=== PATIENT | female | born 1945 | race Caucasian/White ===

== ENCOUNTER 2016-12-15 00:22 | Inpatient (IN) | payer MEDICARE, OTHER ==
[2016-12-15] VITALS (7 sets, daily range): BP systolic 106–147; BP diastolic 43–70; PULSE 57–98; TEMP 97.9–98.3
[~2016-12-15] VITALS: Ht 152.4 cm; Wt 75.3 kg
[~2016-12-15 00:22] MED LIST: ALBUTEROL0.83 MG/ML IH; ALBUTEROL0.83 MG/ML INH; ALDACTONE 25MG25 M1 PO; APRESOLINE 25MG25 MG PO; APRESOLINE50 MG PO; ASPIRIN E.C. 8181 MG PO; AZO-CRANBERRY450 MG PO; BENEMID500 MG PO; CALCIUM 600MG+D1 TAB PO; CATAPRES 0.1MG0.1 MG PO; CATAPRES0.3 MG PO; CLARITIN 1010 MG/TAB PO; CLEOCIN HCL300 MG PO; CO Q-1050 MG PO; COLACE 100100 MG/CAP PO; COREG12.5 MG PO; COUMADIN 2MG2 MG/TAB PO; COUMADIN 5MG5 MG/TAB PO; COZAAR100 MG PO; CRANBERRY450 MG PO; DIAMOX 250MG250 MG PO; DILANTIN 100MG100 MG PO; DIOVAN 160MG160 MG PO; DULERA1 AR1 INH; EPIPEN 2-PAK1 MG/ML IM; FOLIC ACID800 MCG PO; HUMALOG100 U/ML SQ; INVANZ INJ1 G/VIAL IM; LANTUS100 U/ML SC; LANTUS100 U/ML SQ; LASIX 40MG TABL40 MG PO; LASIX 80MG TABL80 MG PO; LOVENOX 6060 MG/0.6 SQ; LOVENOX 8080 MG/0.8 SQ; LOVENOX120 MG/0.8 SC; MIRALAX PA17 GM/Dose PO; MUCINEX 60600 MG/TA1 PO; NITROSTAT0.4 MG/TAB SL; NORCO 325 MG-51 TAB PO; NORVASC 10MG10 MG PO; NOVOLOG 100U100 U/M1; NOVOLOG 100U100 U/M1 SQ; PHENYTOIN PO; PHOSLO667 MG PO; PREDNISONE20 MG PO; PRIL40 PO; PRILOSEC 20MG20 MG PO; PROAIR HFA0.09 MG/AC IH; PROTONIX 40MG T40 MG PO; PROVENTIL0.09 MG/A1 IH; SLOW FE45 MG PO; SODIUM BICARBO650 MG PO; TENEX PO; THEO-24 20200 MG/CAP PO; THEO-DUR 2200 MG/TAB PO; THEROMEGA1000 MG PO; TYLENOL 500MG500 MG PO; ULTRAM 50MG TAB50 MG PO; VITAL-D1 TAB PO; VITAMIN B-1000 MCG/T PO; VITAMIN D32000 I1 PO; ZAROXOLYN 2.52.5 MG PO; ZAROXOLYN5 MG PO; ZOFRAN 4MG T4 MG/TAB PO; tylenol
[2016-12-15 00:45] LABS: BASO % 0.4 % (0.0-2.0); EOS # 0.4 (0.0-0.7); EOS % 5.5 % (0-4.0); GRAN % 55.8 % (42.2-75.2); HEMATOCRIT 33.1 % (37.0-47.0); HEMOGLOBIN 10.8 g/dl (12.5-16.0); LYMPH % 27.4 % (20.0-51.0); MEAN CELL VOLUME 104 fl (80.0-100.0); MEAN CORPUSCULAR HEMOGLOBIN 34 pg (27.0-31.0); MEAN CORPUSCULAR HGB CONC 33 g/dl (33.0-37.0); MEAN PLATELET VOLUME 10.7 fl (7.4-10.4); MONO # 0.7 (0.1-0.6); MONO % 10.3 % (1.7-9.3); PLATELET COUNT 178 K/mm3 (130-400); RED BLOOD COUNT 3.19 M/mm3 (4.10-5.30); REDCELL DISTRIBUTION WIDTH-CV 13.7 % (11.5-14.5); WHITE BLOOD COUNT 7.1 K/mm3 (4.8-10.8)
[2016-12-15 00:48] LABS: PROTHROMBIN TIME 33.9 SECONDS (9.7-12.8)
[2016-12-15 00:54] LABS: ADJUSTED CALCIUM 9.2 mg/dL (8.4-10.2); ALBUMIN 4.3 gm/dL (3.5-5.0); BILIRUBIN,TOTAL 0.7 mg/dL (0.0-1.0); CALCIUM 9.4 mg/dL (8.4-10.2); MAGNESIUM 2.8 mg/dL (1.6-2.3); PHOSPHOROUS 5.7 mg/dL (2.5-4.5); POTASSIUM 4.5 mmol/L (3.4-5.0); TOTAL PROTEIN 7.5 gm/dL (6.4-8.2)
[2016-12-15 00:55] LABS: CREATININE, serum 5.41 mg/dL (0.52-1.25)
[2016-12-15] MEDS ORDERED: FOLIC ACID800 MCG PO (01:04)
[2016-12-15 01:06] LABS: TROPONIN-I 0.031 ng/mL (0.000-0.034)
[2016-12-15] MEDS ORDERED: NITROSTAT0.4 MG/TAB SL (01:06)
[2016-12-15] MEDS ORDERED: ALBUTEROL SULFAT3 M3 IH (01:06)
[2016-12-15] MEDS ORDERED: ULTRAM 50MG TAB50 MG PO (01:06)
[2016-12-15] MEDS ORDERED: TYLENOL 500MG500 MG PO (01:07)
[2016-12-15] MEDS ORDERED: ZOFRAN 4MG T4 MG/TAB PO (03:17)
[2016-12-16 04:28] VITALS: BP 115/47; PULSE 56; TEMP 97.8
[2016-12-16 08:46] LABS: INR 2.7 (0.8-3.0); PROTHROMBIN TIME 30.8 SECONDS (9.7-12.8)
[2016-12-16 09:06] LABS: ALBUMIN 3.8 gm/dL (3.5-5.0); CALCIUM 9.1 mg/dL (8.4-10.2); PHOSPHOROUS 5.2 mg/dL (2.5-4.5); POTASSIUM 4.6 mmol/L (3.4-5.0)
[2016-12-16 09:32] LABS: CREATININE, serum 4.13 mg/dL (0.52-1.25); TROPONIN-I 0.035 ng/mL (0.000-0.034)
[2016-12-16 09:34] VITALS: BP 143/70; PULSE 70
[2016-12-16 09:36] VITALS: BP 160/68; PULSE 63
[2016-12-16 09:38] VITALS: BP 146/63; PULSE 58
[2016-12-16 10:29] VITALS: BP 151/50; PULSE 55
== END 2016-12-16 13:45 | disposition home or self-care (01) | DRG 311 ==
LOC: COL.ER 00:22 → MEDICAL 01:25
PROVIDERS: Emergency Medicine; Internal Medicine Nephrology
PROC: 5A1D00Z (ICD-10-PCS; principal; 2016-12-15)
DX: I24.9 Acute ischemic heart disease, unspecified (principal); N18.6 End stage renal disease; I12.0 Hypertensive chronic kidney disease with stage 5 chronic kidney disease or end stage renal disease; N25.81 Secondary hyperparathyroidism of renal origin; Z99.2 Dependence on renal dialysis; E11.21 Type 2 diabetes mellitus with diabetic nephropathy; D63.1 Anemia in chronic kidney disease; I25.10 Atherosclerotic heart disease of native coronary artery without angina pectoris
CPT/HCPCS: A9502; J2785

== ENCOUNTER 2017-04-16 07:40 | Emergency (ER) | payer MEDICARE, OTHER ==
[~2017-04-16] VITALS: Ht 152.4 cm; Wt 74.5 kg
[~2017-04-16 07:40] MED LIST changes: +ALBUTEROL SULFAT3 M3 IH
[2017-04-16 07:46] VITALS: TEMP 97.7
[2017-04-16] MEDS ORDERED: AZO-CRANBERRY450 MG PO (08:15)
[2017-04-16] MEDS ORDERED: B-121000 MCG PO (08:16)
[2017-04-16] MEDS ORDERED: LASIX 40MG TABL40 MG PO (08:17)
[2017-04-16] MEDS ORDERED: COREG12.5 MG PO (08:17)
[2017-04-16] MEDS ORDERED: FOLIC ACID800 MCG PO (08:17)
[2017-04-16] MEDS ORDERED: DILANTIN 100MG100 MG PO (08:18)
[2017-04-16] MEDS ORDERED: PHOSLO667 MG PO (08:19)
[2017-04-16] MEDS ORDERED: PROTONIX 40MG T40 MG PO (08:19)
[2017-04-16] MEDS ORDERED: ALDACTONE 25MG25 M1 PO (08:20)
[2017-04-16] MEDS ORDERED: THEO-DUR 2200 MG/TAB PO (08:20)
[2017-04-16] MEDS ORDERED: ASPIRIN 81M81 MG/TA2 PO ×2 (08:21→08:22)
[2017-04-16] MEDS ORDERED: MIRALAX PA17 GM/Dose PO (08:21)
[2017-04-16] MEDS ORDERED: COUMADIN 1MG1 MG/TAB PO (08:22)
[2017-04-16] MEDS ORDERED: NOVOLOG 100U100 U/M1 SQ (08:23)
[2017-04-16] MEDS ORDERED: TRIPHROCAPS SOFT1 MG PO (08:23)
[2017-04-16 09:05] LABS: INR 2.2 (0.8-3.0); PROTHROMBIN TIME 24.8 SECONDS (9.7-12.8)
[2017-04-16 09:13] LABS: BASO % 0.2 % (0.0-2.0); EOS # 0.6 (0.0-0.7); EOS % 6.6 % (0-4.0); GRAN # 6.1 (1.4-6.5); GRAN % 69.3 % (42.2-75.2); LYMPH # 1.4 (1.2-3.4); LYMPH % 15.3 % (20.0-51.0); MEAN CELL VOLUME 110 fl (80.0-100.0); MEAN CORPUSCULAR HGB CONC 33 g/dl (33.0-37.0); MEAN PLATELET VOLUME 10.7 fl (7.4-10.4); MONO # 0.7 (0.1-0.6); MONO % 8.3 % (1.7-9.3); PLATELET COUNT 152 K/mm3 (130-400); REDCELL DISTRIBUTION WIDTH-CV 15.3 % (11.5-14.5); WHITE BLOOD COUNT 8.8 K/mm3 (4.8-10.8)
[2017-04-16 09:15] LABS: CALCIUM 9.1 mg/dL (8.4-10.2); HEMATOCRIT 28.5 % (37.0-47.0); HEMOGLOBIN 9.3 g/dl (12.5-16.0); MEAN CORPUSCULAR HEMOGLOBIN 36 pg (27.0-31.0); PHOSPHOROUS 4.4 mg/dL (2.5-4.5); POTASSIUM 4.7 mmol/L (3.4-5.0)
[2017-04-16 09:25] LABS: CREATININE, serum 3.9 mg/dL (0.52-1.25)
[2017-04-16 09:26] LABS: TROPONIN-I 0.018 ng/mL (0.000-0.034)
[2017-04-16] MEDS ORDERED: CLEOCIN HCL300 MG PO (10:03)
[2017-04-16] MEDS ORDERED: PREDNISONE20 MG PO (10:03)
[2017-04-16] MEDS ORDERED: PERCOCET 325 MG1 TA2 PO (10:03)
[2017-04-16 14:25] VITALS: BP 146/59; PULSE 79
== END 2017-04-16 14:25 | disposition home or self-care (01) ==
LOC: COL.ER 07:40
PROVIDERS: Emergency Medicine
DX: L03.032 Cellulitis of left toe (principal); D64.9 Anemia, unspecified; Z86.73 Personal history of transient ischemic attack (TIA), and cerebral infarction without residual deficits; I25.10 Atherosclerotic heart disease of native coronary artery without angina pectoris; I12.0 Hypertensive chronic kidney disease with stage 5 chronic kidney disease or end stage renal disease; N18.6 End stage renal disease; E11.22 Type 2 diabetes mellitus with diabetic chronic kidney disease; Z95.1 Presence of aortocoronary bypass graft; Z79.4 Long term (current) use of insulin; Z90.5 Acquired absence of kidney; Z79.01 Long term (current) use of anticoagulants; F41.9 Anxiety disorder, unspecified
CPT/HCPCS: J1170; J7512

== ENCOUNTER 2017-04-25 10:42 | Emergency (ER) | payer MEDICARE, OTHER ==
[~2017-04-25] VITALS: Ht 152.4 cm; Wt 74.1 kg
[~2017-04-25 10:42] MED LIST changes: +ASPIRIN 81M81 MG/TA2 PO; +B-121000 MCG PO; +COUMADIN 1MG1 MG/TAB PO; +PERCOCET 325 MG1 TA2 PO; +TRIPHROCAPS SOFT1 MG PO
[2017-04-25 10:47] VITALS: TEMP 97.9
[2017-04-25 11:43] LABS: BASO % 0.1 % (0.0-2.0); EOS # 0.5 (0.0-0.7); EOS % 5.5 % (0-4.0); GRAN # 5.3 (1.4-6.5); GRAN % 62.6 % (42.2-75.2); LYMPH % 23.6 % (20.0-51.0); MEAN CELL VOLUME 108 fl (80.0-100.0); MEAN CORPUSCULAR HGB CONC 34 g/dl (33.0-37.0); MEAN PLATELET VOLUME 10.8 fl (7.4-10.4); MONO # 0.7 (0.1-0.6); MONO % 7.6 % (1.7-9.3); PLATELET COUNT 172 K/mm3 (130-400); RED BLOOD COUNT 2.37 M/mm3 (4.10-5.30); WHITE BLOOD COUNT 8.5 K/mm3 (4.8-10.8)
[2017-04-25 11:49] LABS: HEMATOCRIT 25.7 % (37.0-47.0); HEMOGLOBIN 8.6 g/dl (12.5-16.0); MEAN CORPUSCULAR HEMOGLOBIN 36 pg (27.0-31.0)
[2017-04-25 11:53] LABS: INR 1.8 (0.8-3.0); PROTHROMBIN TIME 19.9 SECONDS (9.7-12.8)
[2017-04-25 12:01] LABS: ADJUSTED CALCIUM 9.2 mg/dL (8.4-10.2); ALBUMIN 4.2 gm/dL (3.5-5.0); BILIRUBIN,TOTAL 0.6 mg/dL (0.0-1.0); CALCIUM 9.4 mg/dL (8.4-10.2); MAGNESIUM 3.4 mg/dL (1.6-2.3); POTASSIUM 4.7 mmol/L (3.4-5.0)
[2017-04-25] MEDS ORDERED: PERCOCET 325 MG1 TA3 PO (12:09)
[2017-04-25 12:24] LABS: CREATININE, serum 6.7 mg/dL (0.52-1.25)
[2017-04-25 14:56] VITALS: BP 177/84; PULSE 68
== END 2017-04-25 15:02 | disposition home or self-care (01) ==
LOC: COL.ER 10:42
PROVIDERS: Emergency Medicine
DX: E11.51 Type 2 diabetes mellitus with diabetic peripheral angiopathy without gangrene (principal); E11.22 Type 2 diabetes mellitus with diabetic chronic kidney disease; I12.0 Hypertensive chronic kidney disease with stage 5 chronic kidney disease or end stage renal disease; N18.6 End stage renal disease; I50.9 Heart failure, unspecified; J44.9 Chronic obstructive pulmonary disease, unspecified; E78.00 Pure hypercholesterolemia, unspecified; M10.9 Gout, unspecified; Z79.82 Long term (current) use of aspirin; Z79.01 Long term (current) use of anticoagulants; Z99.2 Dependence on renal dialysis; Z79.4 Long term (current) use of insulin; Z86.73 Personal history of transient ischemic attack (TIA), and cerebral infarction without residual deficits; Z98.890 Other specified postprocedural states; Z90.5 Acquired absence of kidney
CPT/HCPCS: J1170; J2405; J3010

== ENCOUNTER 2017-05-09 09:49 | Inpatient (IN) | payer MEDICARE, OTHER ==
[~2017-05-09] VITALS: Ht 152.4 cm; Wt 75.7 kg
[~2017-05-09 09:49] MED LIST changes: +PERCOCET 325 MG1 TA3 PO
[2017-05-09 10:25] LABS: BASO % 0.2 % (0.0-2.0); EOS # 0.6 (0.0-0.7); EOS % 7.5 % (0-4.0); GRAN # 5.6 (1.4-6.5); GRAN % 65.5 % (42.2-75.2); LYMPH # 1.2 (1.2-3.4); LYMPH % 14.6 % (20.0-51.0); MEAN CELL VOLUME 108 fl (80.0-100.0); MEAN CORPUSCULAR HGB CONC 33 g/dl (33.0-37.0); MEAN PLATELET VOLUME 10.2 fl (7.4-10.4); MONO % 11.6 % (1.7-9.3); PLATELET COUNT 210 K/mm3 (130-400); RED BLOOD COUNT 2.46 M/mm3 (4.10-5.30); REDCELL DISTRIBUTION WIDTH-CV 15.5 % (11.5-14.5); WHITE BLOOD COUNT 8.5 K/mm3 (4.8-10.8)
[2017-05-09 10:28] LABS: HEMATOCRIT 26.5 % (37.0-47.0); HEMOGLOBIN 8.7 g/dl (12.5-16.0); MEAN CORPUSCULAR HEMOGLOBIN 35 pg (27.0-31.0)
[2017-05-09 10:30] LABS: INR 4.7 (0.8-3.0)
[2017-05-09 10:32] LABS: PARTIAL THROMBOPLASTIN TIME 54.6 SECONDS (26.0-37.0)
[2017-05-09 10:34] LABS: ADJUSTED CALCIUM 9.8 mg/dL (8.4-10.2); ALBUMIN 3.9 gm/dL (3.5-5.0); BILIRUBIN,TOTAL 0.6 mg/dL (0.0-1.0); CALCIUM 9.7 mg/dL (8.4-10.2); MAGNESIUM 3.6 mg/dL (1.6-2.3); POTASSIUM 5.1 mmol/L (3.4-5.0); TOTAL PROTEIN 6.6 gm/dL (6.4-8.2)
[2017-05-09 10:35] LABS: PROTHROMBIN TIME 54.1 SECONDS (9.7-12.8)
[2017-05-09 10:39] LABS: CREATININE, serum 6.91 mg/dL (0.52-1.25)
[2017-05-09 10:46] LABS: TROPONIN-I 0.018 ng/mL (0.000-0.034)
[2017-05-09 12:48] VITALS: BP 173/64; PULSE 61; TEMP 97.8
[2017-05-09 16:03] VITALS: BP 148/54; PULSE 67; TEMP 97.8
[2017-05-09 20:24] VITALS: BP 152/52; PULSE 68; TEMP 98.4
[2017-05-09 23:12] VITALS: BP 120/51; PULSE 65; TEMP 98.6
[2017-05-10 07:17] LABS: BASO % 0.3 % (0.0-2.0); EOS # 0.8 (0.0-0.7); EOS % 7.7 % (0-4.0); GRAN # 6.5 (1.4-6.5); GRAN % 64.1 % (42.2-75.2); INR 2.4 (0.8-3.0); LYMPH # 1.6 (1.2-3.4); LYMPH % 16.2 % (20.0-51.0); MEAN CELL VOLUME 111 fl (80.0-100.0); MEAN CORPUSCULAR HGB CONC 32 g/dl (33.0-37.0); MEAN PLATELET VOLUME 10.9 fl (7.4-10.4); MONO # 1.1 (0.1-0.6); MONO % 11.1 % (1.7-9.3); PLATELET COUNT 227 K/mm3 (130-400); PROTHROMBIN TIME 27.5 SECONDS (9.7-12.8); RED BLOOD COUNT 2.47 M/mm3 (4.10-5.30); REDCELL DISTRIBUTION WIDTH-CV 15.4 % (11.5-14.5); WHITE BLOOD COUNT 10.1 K/mm3 (4.8-10.8)
[2017-05-10 07:35] LABS: C-REACTIVE PROTEIN 5.1 mg/dL (0.0-0.9)
[2017-05-10 07:36] LABS: HEMATOCRIT 27.4 % (37.0-47.0); HEMOGLOBIN 8.7 g/dl (12.5-16.0); MEAN CORPUSCULAR HEMOGLOBIN 35 pg (27.0-31.0)
[2017-05-10 07:49] VITALS: BP 150/64; PULSE 61; TEMP 97.9
[2017-05-10 08:04] LABS: ERYTHROCYTE SEDIMENTATION RATE 115 mm/hr (0-30)
[2017-05-10 11:57] VITALS: BP 148/45; PULSE 61; TEMP 97.8
[2017-05-10 15:25] VITALS: BP 152/61; PULSE 63; TEMP 97.8
[2017-05-11 02:25] VITALS: BP 144/55; PULSE 77; TEMP 98.4
[2017-05-11 07:13] LABS: BASO % 0.4 % (0.0-2.0); EOS # 0.7 (0.0-0.7); EOS % 9.7 % (0-4.0); GRAN # 3.8 (1.4-6.5); GRAN % 55.4 % (42.2-75.2); LYMPH # 1.5 (1.2-3.4); LYMPH % 21.7 % (20.0-51.0); MEAN CORPUSCULAR HGB CONC 32 g/dl (33.0-37.0); MEAN PLATELET VOLUME 10.6 fl (7.4-10.4); MONO # 0.8 (0.1-0.6); MONO % 12.2 % (1.7-9.3); PLATELET COUNT 193 K/mm3 (130-400); RED BLOOD COUNT 2.25 M/mm3 (4.10-5.30); REDCELL DISTRIBUTION WIDTH-CV 15.2 % (11.5-14.5); WHITE BLOOD COUNT 6.8 K/mm3 (4.8-10.8)
[2017-05-11 07:21] LABS: INR 1.5 (0.8-3.0); PROTHROMBIN TIME 16.7 SECONDS (9.7-12.8)
[2017-05-11 07:25] LABS: CALCIUM 8.9 mg/dL (8.4-10.2); POTASSIUM 4.2 mmol/L (3.4-5.0)
[2017-05-11 07:26] LABS: HEMATOCRIT 25.2 % (37.0-47.0); MEAN CELL VOLUME 112 fl (80.0-100.0); MEAN CORPUSCULAR HEMOGLOBIN 36 pg (27.0-31.0)
[2017-05-11 07:33] VITALS: BP 148/65; PULSE 75; TEMP 97.7
[2017-05-11 07:39] LABS: CREATININE, serum 4.36 mg/dL (0.52-1.25)
[2017-05-11 11:27] VITALS: BP 153/42; PULSE 78; TEMP 97.6
[2017-05-11 15:27] VITALS: BP 155/59; PULSE 97
[2017-05-11 20:41] VITALS: BP 150/55; PULSE 77; TEMP 98.3
[2017-05-12 00:35] VITALS: BP 141/55; PULSE 62; TEMP 97.5
[2017-05-12 05:05] VITALS: BP 119/54; PULSE 69; TEMP 98.2
[2017-05-12 07:42] VITALS: BP 139/48; PULSE 63; TEMP 98.7
[2017-05-12 07:50] LABS: BASO % 0.4 % (0.0-2.0); EOS # 0.6 (0.0-0.7); EOS % 8.6 % (0-4.0); GRAN # 3.9 (1.4-6.5); GRAN % 57.6 % (42.2-75.2); LYMPH # 1.4 (1.2-3.4); LYMPH % 20.3 % (20.0-51.0); MEAN CELL VOLUME 112 fl (80.0-100.0); MEAN CORPUSCULAR HGB CONC 32 g/dl (33.0-37.0); MEAN PLATELET VOLUME 10.6 fl (7.4-10.4); MONO # 0.9 (0.1-0.6); MONO % 12.8 % (1.7-9.3); PLATELET COUNT 186 K/mm3 (130-400); RED BLOOD COUNT 2.27 M/mm3 (4.10-5.30); REDCELL DISTRIBUTION WIDTH-CV 15.1 % (11.5-14.5); WHITE BLOOD COUNT 6.7 K/mm3 (4.8-10.8)
[2017-05-12 07:54] LABS: CALCIUM 9.6 mg/dL (8.4-10.2); HEMATOCRIT 25.4 % (37.0-47.0); HEMOGLOBIN 8.2 g/dl (12.5-16.0); MEAN CORPUSCULAR HEMOGLOBIN 36 pg (27.0-31.0); POTASSIUM 4.6 mmol/L (3.4-5.0)
[2017-05-12 07:57] LABS: CREATININE, serum 5.39 mg/dL (0.52-1.25); INR 1.5 (0.8-3.0); PROTHROMBIN TIME 16.5 SECONDS (9.7-12.8)
[2017-05-12] MEDS ORDERED: DAZIDOX10 MG PO (11:16)
[2017-05-12] MEDS ORDERED: VANCOCIN HCL1 GM IV ×2 (11:19→11:42)
[2017-05-12] MEDS ORDERED: FENTANYL 25 MCG TD (11:20)
== END 2017-05-12 15:46 | disposition home or self-care (01) | DRG 638 ==
LOC: COL.ER 09:49 → MEDICAL 11:08
PROVIDERS: Emergency Medicine; Internal Medicine
PROC: 5A1D60Z (ICD-10-PCS; principal; 2017-05-10)
DX: E11.69 Type 2 diabetes mellitus with other specified complication (principal); M86.172 Other acute osteomyelitis, left ankle and foot; I12.0 Hypertensive chronic kidney disease with stage 5 chronic kidney disease or end stage renal disease; N18.6 End stage renal disease; N25.81 Secondary hyperparathyroidism of renal origin; E11.22 Type 2 diabetes mellitus with diabetic chronic kidney disease; Z99.2 Dependence on renal dialysis; Z86.73 Personal history of transient ischemic attack (TIA), and cerebral infarction without residual deficits; D63.1 Anemia in chronic kidney disease; I25.10 Atherosclerotic heart disease of native coronary artery without angina pectoris; Z95.1 Presence of aortocoronary bypass graft
CPT/HCPCS: J1170; J1815; J2405; J3010; J3370; J7050

== ENCOUNTER 2017-05-13 01:54 | Inpatient (IN) | payer MEDICARE, OTHER ==
[~2017-05-13] VITALS: Ht 152.4 cm; Wt 72.7 kg
[~2017-05-13 01:54] MED LIST changes: +DAZIDOX10 MG PO; +FENTANYL 25 MCG TD; +VANCOCIN HCL1 GM IV
[2017-05-13 02:35] LABS: BASO % 0.2 % (0.0-2.0); EOS # 0.6 (0.0-0.7); EOS % 7.5 % (0-4.0); GRAN # 5.3 (1.4-6.5); GRAN % 65.4 % (42.2-75.2); LYMPH # 1.3 (1.2-3.4); LYMPH % 16.4 % (20.0-51.0); MEAN CELL VOLUME 110 fl (80.0-100.0); MEAN CORPUSCULAR HGB CONC 32 g/dl (33.0-37.0); MEAN PLATELET VOLUME 10.8 fl (7.4-10.4); MONO # 0.8 (0.1-0.6); MONO % 10.1 % (1.7-9.3); PLATELET COUNT 208 K/mm3 (130-400); RED BLOOD COUNT 2.32 M/mm3 (4.10-5.30); REDCELL DISTRIBUTION WIDTH-CV 15.3 % (11.5-14.5); WHITE BLOOD COUNT 8.1 K/mm3 (4.8-10.8)
[2017-05-13 02:36] LABS: HEMATOCRIT 25.6 % (37.0-47.0); HEMOGLOBIN 8.3 g/dl (12.5-16.0); MEAN CORPUSCULAR HEMOGLOBIN 36 pg (27.0-31.0)
[2017-05-13 02:41] LABS: ADJUSTED CALCIUM 9.9 mg/dL (8.4-10.2); ALBUMIN 3.8 gm/dL (3.5-5.0); BILIRUBIN,TOTAL 0.7 mg/dL (0.0-1.0); CALCIUM 9.7 mg/dL (8.4-10.2); CREATININE, serum 3.53 mg/dL (0.52-1.25); MAGNESIUM 2.8 mg/dL (1.6-2.3); PHOSPHOROUS 2.9 mg/dL (2.5-4.5); POTASSIUM 4.2 mmol/L (3.4-5.0); TOTAL PROTEIN 6.7 gm/dL (6.4-8.2)
[2017-05-13 02:52] LABS: TROPONIN-I 0.016 ng/mL (0.000-0.034)
[2017-05-13 03:22] LABS: ERYTHROCYTE SEDIMENTATION RATE > 140 mm/hr (0-30)
[2017-05-13 03:29] LABS: C-REACTIVE PROTEIN 3.6 mg/dL (0.0-0.9)
[2017-05-13 05:15] VITALS: BP 140/80; PULSE 81; TEMP 98.6
[2017-05-13 08:59] VITALS: BP 154/39; PULSE 57; TEMP 97.9
[2017-05-13 11:54] VITALS: BP 155/50; PULSE 66; TEMP 98.3
[2017-05-13 13:56] LABS: BASO % 0.2 % (0.0-2.0); EOS # 0.5 (0.0-0.7); EOS % 7.6 % (0-4.0); GRAN # 3.9 (1.4-6.5); GRAN % 59.9 % (42.2-75.2); LYMPH # 1.3 (1.2-3.4); LYMPH % 20.9 % (20.0-51.0); MEAN CELL VOLUME 112 fl (80.0-100.0); MEAN CORPUSCULAR HGB CONC 32 g/dl (33.0-37.0); MEAN PLATELET VOLUME 10.7 fl (7.4-10.4); MONO # 0.7 (0.1-0.6); MONO % 10.9 % (1.7-9.3); PLATELET COUNT 192 K/mm3 (130-400); RED BLOOD COUNT 2.35 M/mm3 (4.10-5.30); REDCELL DISTRIBUTION WIDTH-CV 15.1 % (11.5-14.5); WHITE BLOOD COUNT 6.4 K/mm3 (4.8-10.8)
[2017-05-13 13:58] LABS: HEMATOCRIT 26.2 % (37.0-47.0); HEMOGLOBIN 8.4 g/dl (12.5-16.0); INR 2.2 (0.8-3.0); MEAN CORPUSCULAR HEMOGLOBIN 36 pg (27.0-31.0); PROTHROMBIN TIME 25.1 SECONDS (9.7-12.8)
[2017-05-13 15:46] VITALS: BP 152/57; PULSE 67; TEMP 98.4
[2017-05-13 21:45] VITALS: BP 144/49; PULSE 62; TEMP 97.8
[2017-05-14 01:05] VITALS: BP 150/44; PULSE 69; TEMP 97.7
[2017-05-14 04:45] VITALS: BP 150/56; PULSE 67; TEMP 97.2
[2017-05-14 07:36] VITALS: BP 166/92; PULSE 77; TEMP 98.4
[2017-05-14 07:58] LABS: INR 2.4 (0.8-3.0); PROTHROMBIN TIME 27.7 SECONDS (9.7-12.8)
[2017-05-14 08:24] LABS: CALCIUM 9.7 mg/dL (8.4-10.2); POTASSIUM 4.2 mmol/L (3.4-5.0)
[2017-05-14 08:35] LABS: CREATININE, serum 4.81 mg/dL (0.52-1.25)
[2017-05-14 11:31] VITALS: BP 155/52; PULSE 65; TEMP 98.1
[2017-05-14 16:04] VITALS: BP 149/46; PULSE 59; TEMP 98.3
[2017-05-14 21:13] VITALS: BP 154/46; PULSE 67; TEMP 98.2
[2017-05-15 01:40] VITALS: BP 152/58; PULSE 65; TEMP 98
[2017-05-15 03:33] VITALS: BP 150/58; PULSE 62; TEMP 98
[2017-05-15 07:44] VITALS: BP 167/7; BP 167/73; PULSE 40; TEMP 97.7
[2017-05-15 08:02] LABS: INR 2.5 (0.8-3.0); PROTHROMBIN TIME 28.5 SECONDS (9.7-12.8)
[2017-05-15 11:20] VITALS: BP 158/65; PULSE 69; TEMP 98
[2017-05-15] MEDS ORDERED: DILAUDID 2MG TAB2 MG PO (12:55)
== END 2017-05-15 14:11 | disposition home or self-care (01) | DRG 638 ==
LOC: COL.ER 01:54 → MEDICAL 03:57
PROVIDERS: Emergency Medicine; Internal Medicine; Orthopaedic Surgery
DX: E11.69 Type 2 diabetes mellitus with other specified complication (principal); M86.172 Other acute osteomyelitis, left ankle and foot; I12.0 Hypertensive chronic kidney disease with stage 5 chronic kidney disease or end stage renal disease; E11.22 Type 2 diabetes mellitus with diabetic chronic kidney disease; N18.6 End stage renal disease; Z99.2 Dependence on renal dialysis; Z79.4 Long term (current) use of insulin; J45.909 Unspecified asthma, uncomplicated; I25.10 Atherosclerotic heart disease of native coronary artery without angina pectoris; D63.1 Anemia in chronic kidney disease; Z95.1 Presence of aortocoronary bypass graft
CPT/HCPCS: J1170; J1815

== ENCOUNTER 2017-05-18 05:09 | Day surgery (SDC) | payer MEDICARE, OTHER ==
[~2017-05-18] VITALS: Ht 152.4 cm; Wt 75.2 kg
[~2017-05-18 05:09] MED LIST changes: +DILAUDID 2MG TAB2 MG PO
[2017-05-18 06:12] VITALS: BP 148/61; PULSE 70; TEMP 97.7
[2017-05-18] MEDS ORDERED: LASIX 40MG TABL40 MG PO (06:47)
[2017-05-18 07:50] VITALS: BP 139/59; PULSE 76; TEMP 97.8
[2017-05-18 08:05] VITALS: BP 125/27; PULSE 36
[2017-05-18 08:20] VITALS: BP 128/53; PULSE 58
[2017-05-18 08:35] VITALS: BP 140/52; PULSE 56
== END 2017-05-18 09:36 | disposition home or self-care (01) ==
LOC: SDCO 05:09
DX: M86.9 Osteomyelitis, unspecified (principal); L97.529 Non-pressure chronic ulcer of other part of left foot with unspecified severity; I13.11 Hypertensive heart and chronic kidney disease without heart failure, with stage 5 chronic kidney disease, or end stage renal disease; E10.22 Type 1 diabetes mellitus with diabetic chronic kidney disease; N18.6 End stage renal disease; J45.909 Unspecified asthma, uncomplicated; I25.10 Atherosclerotic heart disease of native coronary artery without angina pectoris; M19.90 Unspecified osteoarthritis, unspecified site; J44.9 Chronic obstructive pulmonary disease, unspecified; G47.33 Obstructive sleep apnea (adult) (pediatric); I25.2 Old myocardial infarction; D64.9 Anemia, unspecified; Z79.4 Long term (current) use of insulin; Z79.01 Long term (current) use of anticoagulants; Z86.73 Personal history of transient ischemic attack (TIA), and cerebral infarction without residual deficits; Z85.528 Personal history of other malignant neoplasm of kidney; Z99.2 Dependence on renal dialysis; Z95.828 Presence of other vascular implants and grafts; Z95.5 Presence of coronary angioplasty implant and graft
CPT/HCPCS: J0690; J2250; J2704; J3010; J7030

== ENCOUNTER 2017-05-20 08:37 | Emergency (ER) | payer MEDICARE, OTHER ==
[~2017-05-20] VITALS: Ht 152.4 cm; Wt 74.1 kg
[2017-05-20 08:46] VITALS: TEMP 97.6
[2017-05-20] MEDS ORDERED: DAZIDOX10 MG PO (09:19)
[2017-05-20 09:20] LABS: BASO % 0.3 % (0.0-2.0); EOS # 0.5 (0.0-0.7); EOS % 4.4 % (0-4.0); GRAN # 8.9 (1.4-6.5); GRAN % 77.4 % (42.2-75.2); LYMPH # 1.2 (1.2-3.4); LYMPH % 10.4 % (20.0-51.0); MEAN CELL VOLUME 111 fl (80.0-100.0); MEAN CORPUSCULAR HGB CONC 32 g/dl (33.0-37.0); MEAN PLATELET VOLUME 11.4 fl (7.4-10.4); MONO # 0.8 (0.1-0.6); MONO % 6.8 % (1.7-9.3); PLATELET COUNT 157 K/mm3 (130-400); RED BLOOD COUNT 2.45 M/mm3 (4.10-5.30); REDCELL DISTRIBUTION WIDTH-CV 14.5 % (11.5-14.5); WHITE BLOOD COUNT 11.5 K/mm3 (4.8-10.8)
[2017-05-20 09:23] LABS: HEMATOCRIT 27.1 % (37.0-47.0); HEMOGLOBIN 8.7 g/dl (12.5-16.0); MEAN CORPUSCULAR HEMOGLOBIN 36 pg (27.0-31.0)
[2017-05-20 09:34] LABS: CALCIUM 9.3 mg/dL (8.4-10.2); CREATININE, serum 3.39 mg/dL (0.52-1.25); POTASSIUM 4.2 mmol/L (3.4-5.0)
[2017-05-20 09:41] LABS: INR 1.1 (0.8-3.0); PROTHROMBIN TIME 12.4 SECONDS (9.7-12.8)
[2017-05-20 09:46] LABS: TROPONIN-I 0.024 ng/mL (0.000-0.034)
[2017-05-20 11:00] VITALS: BP 197/90; PULSE 77
[2017-05-20 16:00] LABS: MAGNESIUM 2.7 mg/dL (1.6-2.3); PHOSPHOROUS 2.4 mg/dL (2.5-4.5)
== END 2017-05-20 11:00 | disposition home or self-care (01) ==
LOC: COL.ER 08:37
PROVIDERS: Emergency Medicine
DX: R07.9 Chest pain, unspecified (principal); R06.02 Shortness of breath; R42 Dizziness and giddiness; I25.10 Atherosclerotic heart disease of native coronary artery without angina pectoris; E11.22 Type 2 diabetes mellitus with diabetic chronic kidney disease; I12.0 Hypertensive chronic kidney disease with stage 5 chronic kidney disease or end stage renal disease; N18.6 End stage renal disease; Z99.2 Dependence on renal dialysis; K21.9 Gastro-esophageal reflux disease without esophagitis; Z89.412 Acquired absence of left great toe; Z97.4 Presence of external hearing-aid; Z79.01 Long term (current) use of anticoagulants
CPT/HCPCS: J1170

== ENCOUNTER 2017-05-20 20:38 | Emergency (ER) | payer MEDICARE, OTHER ==
[~2017-05-20] VITALS: Ht 152.4 cm; Wt 74.1 kg
[2017-05-20 20:48] VITALS: TEMP 98.6
[2017-05-20 21:47] LABS: BASO % 0.3 % (0.0-2.0); EOS # 0.4 (0.0-0.7); EOS % 3.2 % (0-4.0); GRAN # 8.2 (1.4-6.5); GRAN % 76.4 % (42.2-75.2); LYMPH # 1.1 (1.2-3.4); LYMPH % 10.3 % (20.0-51.0); MEAN CELL VOLUME 110 fl (80.0-100.0); MEAN CORPUSCULAR HGB CONC 33 g/dl (33.0-37.0); MEAN PLATELET VOLUME 10.6 fl (7.4-10.4); MONO % 9.3 % (1.7-9.3); PLATELET COUNT 185 K/mm3 (130-400); RED BLOOD COUNT 2.43 M/mm3 (4.10-5.30); REDCELL DISTRIBUTION WIDTH-CV 14.6 % (11.5-14.5); WHITE BLOOD COUNT 10.8 K/mm3 (4.8-10.8)
[2017-05-20 21:51] LABS: HEMATOCRIT 26.7 % (37.0-47.0); HEMOGLOBIN 8.7 g/dl (12.5-16.0); MEAN CORPUSCULAR HEMOGLOBIN 36 pg (27.0-31.0)
[2017-05-20 21:56] LABS: INR 1.2 (0.8-3.0); PROTHROMBIN TIME 13.6 SECONDS (9.7-12.8)
[2017-05-20 22:00] LABS: ADJUSTED CALCIUM 9.8 mg/dL (8.4-10.2); ALBUMIN 3.8 gm/dL (3.5-5.0); BILIRUBIN,TOTAL 0.5 mg/dL (0.0-1.0); CALCIUM 9.6 mg/dL (8.4-10.2); MAGNESIUM 2.8 mg/dL (1.6-2.3); PHOSPHOROUS 2.6 mg/dL (2.5-4.5); TOTAL PROTEIN 6.6 gm/dL (6.4-8.2)
[2017-05-20 22:16] LABS: CREATININE, serum 4.07 mg/dL (0.52-1.25); TROPONIN-I 0.037 ng/mL (0.000-0.034)
[2017-05-20 23:20] VITALS: BP 174/90; PULSE 82
== END 2017-05-20 23:20 | disposition home or self-care (01) ==
LOC: COL.ER 20:38
PROVIDERS: Emergency Medicine
DX: T17.928A Food in respiratory tract, part unspecified causing other injury, initial encounter (principal); Z89.412 Acquired absence of left great toe; E11.22 Type 2 diabetes mellitus with diabetic chronic kidney disease; I12.0 Hypertensive chronic kidney disease with stage 5 chronic kidney disease or end stage renal disease; N18.6 End stage renal disease; Z99.2 Dependence on renal dialysis; Z79.4 Long term (current) use of insulin; I48.91 Unspecified atrial fibrillation; Z79.01 Long term (current) use of anticoagulants; Z90.5 Acquired absence of kidney

== ENCOUNTER 2017-05-22 00:29 | Inpatient (IN) | payer MEDICARE, OTHER ==
[~2017-05-22] VITALS: Ht 152.4 cm; Wt 74.2 kg
[2017-05-22 01:20] LABS: BASO % 0.3 % (0.0-2.0); EOS # 0.4 (0.0-0.7); EOS % 3.5 % (0-4.0); GRAN # 7.4 (1.4-6.5); GRAN % 71.9 % (42.2-75.2); HEMATOCRIT 26.6 % (37.0-47.0); HEMOGLOBIN 8.5 g/dl (12.5-16.0); LYMPH # 1.6 (1.2-3.4); LYMPH % 15.6 % (20.0-51.0); MEAN CELL VOLUME 110 fl (80.0-100.0); MEAN CORPUSCULAR HEMOGLOBIN 35 pg (27.0-31.0); MEAN CORPUSCULAR HGB CONC 32 g/dl (33.0-37.0); MEAN PLATELET VOLUME 10.8 fl (7.4-10.4); MONO # 0.8 (0.1-0.6); MONO % 8.2 % (1.7-9.3); PLATELET COUNT 194 K/mm3 (130-400); RED BLOOD COUNT 2.42 M/mm3 (4.10-5.30); REDCELL DISTRIBUTION WIDTH-CV 14.8 % (11.5-14.5); WHITE BLOOD COUNT 10.2 K/mm3 (4.8-10.8)
[2017-05-22 01:30] LABS: ADJUSTED CALCIUM 10.3 mg/dL (8.4-10.2); ALBUMIN 3.9 gm/dL (3.5-5.0); BILIRUBIN,TOTAL 0.5 mg/dL (0.0-1.0); CALCIUM 10.2 mg/dL (8.4-10.2); PHOSPHOROUS 3.5 mg/dL (2.5-4.5); POTASSIUM 4.1 mmol/L (3.4-5.0)
[2017-05-22 01:31] LABS: CREATININE, serum 5.5 mg/dL (0.52-1.25)
[2017-05-22] MEDS ORDERED: DILAUDID 2MG TAB2 MG PO (01:32)
[2017-05-22 02:43] VITALS: BP 167/56; PULSE 73; TEMP 97.5
[2017-05-22 07:34] VITALS: BP 165/59; PULSE 67; TEMP 98.6
[2017-05-22 12:22] VITALS: BP 170/66; PULSE 74; TEMP 98.4
[2017-05-22 15:38] VITALS: BP 175/58; PULSE 84; TEMP 98
[2017-05-22 20:48] VITALS: BP 132/61; PULSE 88; TEMP 98.7
[2017-05-22 23:16] VITALS: BP 131/44; PULSE 86; TEMP 98.6
[2017-05-23 04:12] VITALS: BP 135/47; PULSE 67; TEMP 98.6
[2017-05-23 07:37] VITALS: BP 143/59; PULSE 69; TEMP 97.9
[2017-05-23 07:57] LABS: CALCIUM 9.4 mg/dL (8.4-10.2); CREATININE, serum 3.65 mg/dL (0.52-1.25); POTASSIUM 4.1 mmol/L (3.4-5.0)
[2017-05-23 12:17] VITALS: BP 130/54; PULSE 67; TEMP 98.1
[2017-05-23 16:28] VITALS: BP 140/54; PULSE 61
[2017-05-23 19:56] VITALS: BP 158/81; PULSE 77; TEMP 98.3
[2017-05-24] VITALS (7 sets, daily range): BP systolic 128–177; BP diastolic 38–68; PULSE 64–81; TEMP 97.8–98.6
[2017-05-24 07:43] LABS: BASO % 0.4 % (0.0-2.0); EOS # 0.5 (0.0-0.7); EOS % 6.5 % (0-4.0); GRAN # 4.5 (1.4-6.5); GRAN % 64.8 % (42.2-75.2); LYMPH # 1.3 (1.2-3.4); LYMPH % 18.1 % (20.0-51.0); MEAN CELL VOLUME 111 fl (80.0-100.0); MEAN CORPUSCULAR HGB CONC 32 g/dl (33.0-37.0); MONO # 0.7 (0.1-0.6); MONO % 9.9 % (1.7-9.3); PLATELET COUNT 205 K/mm3 (130-400); REDCELL DISTRIBUTION WIDTH-CV 14.5 % (11.5-14.5)
[2017-05-24 07:44] LABS: HEMATOCRIT 25.5 % (37.0-47.0); HEMOGLOBIN 8.1 g/dl (12.5-16.0); MEAN CORPUSCULAR HEMOGLOBIN 35 pg (27.0-31.0)
[2017-05-24 07:52] LABS: CALCIUM 9.3 mg/dL (8.4-10.2); POTASSIUM 4.2 mmol/L (3.4-5.0)
[2017-05-24 08:04] LABS: CREATININE, serum 4.9 mg/dL (0.52-1.25)
[2017-05-25 03:10] VITALS: BP 152/59; PULSE 65; TEMP 98.8
[2017-05-25 07:38] LABS: BASO % 0.3 % (0.0-2.0); EOS # 0.5 (0.0-0.7); EOS % 6.7 % (0-4.0); GRAN # 4.3 (1.4-6.5); GRAN % 63.1 % (42.2-75.2); LYMPH # 1.3 (1.2-3.4); LYMPH % 18.6 % (20.0-51.0); MEAN CELL VOLUME 109 fl (80.0-100.0); MEAN CORPUSCULAR HGB CONC 33 g/dl (33.0-37.0); MEAN PLATELET VOLUME 10.6 fl (7.4-10.4); MONO # 0.8 (0.1-0.6); PLATELET COUNT 208 K/mm3 (130-400); RED BLOOD COUNT 2.42 M/mm3 (4.10-5.30); REDCELL DISTRIBUTION WIDTH-CV 14.3 % (11.5-14.5); WHITE BLOOD COUNT 6.8 K/mm3 (4.8-10.8)
[2017-05-25 07:41] LABS: HEMATOCRIT 26.4 % (37.0-47.0); HEMOGLOBIN 8.6 g/dl (12.5-16.0); MEAN CORPUSCULAR HEMOGLOBIN 36 pg (27.0-31.0)
[2017-05-25 07:54] LABS: CALCIUM 9.6 mg/dL (8.4-10.2); CREATININE, serum 3.77 mg/dL (0.52-1.25)
[2017-05-25 07:59] VITALS: BP 144/55; PULSE 65; TEMP 98
[2017-05-25] MEDS ORDERED: CELEBREX 200MG200 MG PO (11:42)
[2017-05-25 12:12] VITALS: BP 165/65; PULSE 72
== END 2017-05-25 14:30 | disposition home or self-care (01) | DRG 947 ==
LOC: COL.ER 00:29 → MEDICAL 01:27
PROVIDERS: Emergency Medicine; Internal Medicine
PROC: 5A1D60Z (ICD-10-PCS; principal; 2017-05-22)
DX: G89.18 Other acute postprocedural pain (principal); N18.6 End stage renal disease; I12.0 Hypertensive chronic kidney disease with stage 5 chronic kidney disease or end stage renal disease; Z89.412 Acquired absence of left great toe; E11.22 Type 2 diabetes mellitus with diabetic chronic kidney disease; Z99.2 Dependence on renal dialysis; Z79.4 Long term (current) use of insulin; D63.1 Anemia in chronic kidney disease; I25.10 Atherosclerotic heart disease of native coronary artery without angina pectoris; Z95.1 Presence of aortocoronary bypass graft; I48.91 Unspecified atrial fibrillation; J44.9 Chronic obstructive pulmonary disease, unspecified
CPT/HCPCS: J1170; J1815

== ENCOUNTER 2017-06-10 19:13 | Emergency (ER) | payer MEDICARE, OTHER ==
[~2017-06-10] VITALS: Ht 152.4 cm; Wt 73.2 kg
[~2017-06-10 19:13] MED LIST changes: +CELEBREX 200MG200 MG PO
[2017-06-10 19:16] VITALS: TEMP 98.1
[2017-06-10 20:01] LABS: MEAN CELL VOLUME 107 fl (80.0-100.0); MEAN CORPUSCULAR HGB CONC 32 g/dl (33.0-37.0); PLATELET COUNT 147 K/mm3 (130-400); RED BLOOD COUNT 2.63 M/mm3 (4.10-5.30); REDCELL DISTRIBUTION WIDTH-CV 14.1 % (11.5-14.5)
[2017-06-10 20:04] LABS: ADD PATHOLOGY DIFF REVIEW NO; HEMATOCRIT 28.2 % (37.0-47.0); MEAN CORPUSCULAR HEMOGLOBIN 34 pg (27.0-31.0)
[2017-06-10 20:16] LABS: BAND 7 % (0-10); EOSINOPHIL 5 % (0-4); NEUTROPHILS 71 % (42.0-75.2); TOTAL CELLS COUNTED 100
[2017-06-10 20:17] LABS: PLATELET ESTIMATE NORMAL (NORMAL)
[2017-06-10 20:18] LABS: HYPOCHROMIA 3+
[2017-06-10 20:22] LABS: ERYTHROCYTE SEDIMENTATION RATE 59 mm/hr (0-30)
[2017-06-10 20:59] VITALS: BP 182/83; PULSE 71
== END 2017-06-10 21:00 | disposition home or self-care (01) ==
LOC: COL.ER 19:13
PROVIDERS: Emergency Medicine
DX: M79.672 Pain in left foot (principal); E11.9 Type 2 diabetes mellitus without complications; I12.0 Hypertensive chronic kidney disease with stage 5 chronic kidney disease or end stage renal disease; N18.6 End stage renal disease; J45.909 Unspecified asthma, uncomplicated; Z79.82 Long term (current) use of aspirin; Z79.4 Long term (current) use of insulin; Z79.01 Long term (current) use of anticoagulants; Z89.412 Acquired absence of left great toe
CPT/HCPCS: J1170

== ENCOUNTER 2017-06-13 10:13 | Emergency (ER) | payer MEDICARE, OTHER ==
[~2017-06-13] VITALS: Ht 152.4 cm; Wt 73.6 kg
[2017-06-13 10:21] VITALS: BP 177/75; PULSE 61; TEMP 98.1
== END 2017-06-13 11:20 | disposition home or self-care (01) ==
LOC: COL.ER 10:13
DX: M79.672 Pain in left foot (principal); G89.29 Other chronic pain; Z89.412 Acquired absence of left great toe; J44.9 Chronic obstructive pulmonary disease, unspecified; E11.22 Type 2 diabetes mellitus with diabetic chronic kidney disease; I12.0 Hypertensive chronic kidney disease with stage 5 chronic kidney disease or end stage renal disease; N18.6 End stage renal disease; Z99.2 Dependence on renal dialysis; Z79.4 Long term (current) use of insulin

== ENCOUNTER 2017-06-16 08:44 | Inpatient (IN) | payer MEDICARE, OTHER ==
[~2017-06-16] VITALS: Ht 152.4 cm; Wt 75.0 kg
[2017-06-19] VITALS (10 sets, daily range): BP systolic 113–184; BP diastolic 47–785; PULSE 57–77; TEMP 98.1–98.8
[2017-06-19] MEDS ORDERED: ZOFRAN 4MG T4 MG/TAB PO (09:29)
[2017-06-19] MEDS ORDERED: NITROSTAT0.4 MG/TAB SL (09:31)
[2017-06-19 09:37] LABS: CALCIUM 9.1 mg/dL (8.4-10.2); CREATININE, serum 3.83 mg/dL (0.52-1.25); POTASSIUM 4.2 mmol/L (3.4-5.0)
[2017-06-19 11:23] LABS: PROTHROMBIN TIME 11.4 SECONDS (9.7-12.8)
[2017-06-20] VITALS (7 sets, daily range): BP systolic 148–203; BP diastolic 48–88; PULSE 67–100; TEMP 97.7–98.3
[2017-06-20 09:44] LABS: INR 1.1 (0.8-3.0); PROTHROMBIN TIME 11.7 SECONDS (9.7-12.8)
[2017-06-21 01:38] VITALS: BP 152/84; PULSE 98; TEMP 98.2
[2017-06-21 05:15] VITALS: BP 137/64; PULSE 92; TEMP 98.4
[2017-06-21 07:09] LABS: INR 1.1 (0.8-3.0); PROTHROMBIN TIME 12.7 SECONDS (9.7-12.8)
[2017-06-21 13:56] VITALS: BP 124/59; PULSE 90; TEMP 98.4
[2017-06-21 17:14] VITALS: BP 121/54; PULSE 81; TEMP 98.3
[2017-06-21 21:05] VITALS: BP 136/56; PULSE 83; TEMP 99.9
[2017-06-22 05:54] VITALS: BP 128/65; PULSE 81; TEMP 97.5
[2017-06-22 07:15] LABS: INR 1.6 (0.8-3.0); PROTHROMBIN TIME 17.6 SECONDS (9.7-12.8)
[2017-06-22 10:22] VITALS: BP 132/56; PULSE 82; TEMP 98.3
[2017-06-22 14:10] VITALS: BP 127/56; PULSE 78; TEMP 98.5
[2017-06-22 17:46] VITALS: BP 137/62; PULSE 110; TEMP 98.4
[2017-06-22 21:14] VITALS: BP 119/48; PULSE 80; TEMP 98.1
[2017-06-23 01:26] VITALS: BP 134/48; PULSE 73; TEMP 98.9
[2017-06-23 05:54] VITALS: BP 128/52; PULSE 72; TEMP 98.6
[2017-06-23 06:56] LABS: BASO % 0.3 % (0.0-2.0); EOS # 0.5 (0.0-0.7); EOS % 6.4 % (0-4.0); GRAN # 5.2 (1.4-6.5); GRAN % 66.9 % (42.2-75.2); LYMPH # 1.1 (1.2-3.4); LYMPH % 13.9 % (20.0-51.0); MEAN CELL VOLUME 108 fl (80.0-100.0); MEAN CORPUSCULAR HGB CONC 32 g/dl (33.0-37.0); MEAN PLATELET VOLUME 11.5 fl (7.4-10.4); MONO # 0.9 (0.1-0.6); MONO % 12.1 % (1.7-9.3); PLATELET COUNT 139 K/mm3 (130-400); RED BLOOD COUNT 2.56 M/mm3 (4.10-5.30); WHITE BLOOD COUNT 7.8 K/mm3 (4.8-10.8)
[2017-06-23 06:59] LABS: CALCIUM 8.9 mg/dL (8.4-10.2); POTASSIUM 4.1 mmol/L (3.4-5.0)
[2017-06-23 07:01] LABS: HEMATOCRIT 27.7 % (37.0-47.0); HEMOGLOBIN 8.8 g/dl (12.5-16.0); MEAN CORPUSCULAR HEMOGLOBIN 34 pg (27.0-31.0)
[2017-06-23 07:08] LABS: CREATININE, serum 4.76 mg/dL (0.52-1.25)
[2017-06-23 08:10] LABS: INR 1.7 (0.8-3.0); PROTHROMBIN TIME 18.7 SECONDS (9.7-12.8)
[2017-06-23] MEDS ORDERED: FLEXERIL5 MG PO (10:42)
[2017-06-23 13:34] VITALS: BP 128/52; PULSE 72; TEMP 98.6
[2017-06-23 14:28] VITALS: BP 135/51; PULSE 73; TEMP 98.8
== END 2017-06-23 15:15 | DRG 239 ==
LOC: SURG 06-19 07:30 → INPTSU 06-19 07:40 → SURG 06-19 08:44
PROVIDERS: Internal Medicine; Orthopaedic Surgery
PROC: 0Y6N0ZB Detachment at Left Foot, Partial 2nd Ray, Open Approach (ICD-10-PCS; 2017-06-19)
PROC: 0Y6N0ZC Detachment at Left Foot, Partial 3rd Ray, Open Approach (ICD-10-PCS; 2017-06-19)
PROC: 0Y6N0ZD Detachment at Left Foot, Partial 4th Ray, Open Approach (ICD-10-PCS; 2017-06-19)
PROC: 0Y6N0ZF Detachment at Left Foot, Partial 5th Ray, Open Approach (ICD-10-PCS; 2017-06-19)
PROC: 5A1D60Z (ICD-10-PCS; 2017-06-19)
PROC: 0Y6N0Z9 Detachment at Left Foot, Partial 1st Ray, Open Approach (ICD-10-PCS; principal; 2017-06-19 14:00)
DX: I70.262 Atherosclerosis of native arteries of extremities with gangrene, left leg (principal); N18.6 End stage renal disease; M86.672 Other chronic osteomyelitis, left ankle and foot; I12.0 Hypertensive chronic kidney disease with stage 5 chronic kidney disease or end stage renal disease; N25.81 Secondary hyperparathyroidism of renal origin; E11.69 Type 2 diabetes mellitus with other specified complication; Z89.412 Acquired absence of left great toe; I10 Essential (primary) hypertension; Z79.4 Long term (current) use of insulin; E11.22 Type 2 diabetes mellitus with diabetic chronic kidney disease; Z99.2 Dependence on renal dialysis; I25.10 Atherosclerotic heart disease of native coronary artery without angina pectoris; Z95.1 Presence of aortocoronary bypass graft; I48.91 Unspecified atrial fibrillation; J44.9 Chronic obstructive pulmonary disease, unspecified
CPT/HCPCS: J0690; J1170; J1815; J2704; J3010

== ENCOUNTER 2017-07-06 16:28 | Inpatient (IN) | payer MEDICARE, OTHER ==
[2017-07-06] VITALS (265 sets, daily range): BP systolic 184–194; BP diastolic 72–84; PULSE 69–93; TEMP 97–97.2; O2SAT 85–100
[~2017-07-06] VITALS: Ht 152.4 cm; Wt 72.4 kg
[~2017-07-06 16:28] MED LIST changes: +FLEXERIL5 MG PO
[2017-07-06 16:49] LABS: BASO % 0.1 % (0.0-2.0); EOS # 0.5 (0.0-0.7); EOS % 7.2 % (0-4.0); GRAN # 5.5 (1.4-6.5); GRAN % 72.5 % (42.2-75.2); LYMPH # 0.8 (1.2-3.4); LYMPH % 10.1 % (20.0-51.0); MEAN CELL VOLUME 105 fl (80.0-100.0); MEAN CORPUSCULAR HGB CONC 32 g/dl (33.0-37.0); MEAN PLATELET VOLUME 10.3 fl (7.4-10.4); MONO # 0.7 (0.1-0.6); MONO % 9.8 % (1.7-9.3); PLATELET COUNT 158 K/mm3 (130-400); RED BLOOD COUNT 2.89 M/mm3 (4.10-5.30); WHITE BLOOD COUNT 7.5 K/mm3 (4.8-10.8)
[2017-07-06 16:50] LABS: HEMATOCRIT 30.4 % (37.0-47.0); HEMOGLOBIN 9.7 g/dl (12.5-16.0); MEAN CORPUSCULAR HEMOGLOBIN 34 pg (27.0-31.0)
[2017-07-06 16:53] LABS: PROTHROMBIN TIME 11.5 SECONDS (9.7-12.8)
[2017-07-06 16:56] LABS: PARTIAL THROMBOPLASTIN TIME 29.8 SECONDS (26.0-37.0)
[2017-07-06 17:36] LABS: ADJUSTED CALCIUM 9.4 mg/dL (8.4-10.2); ALBUMIN 3.6 gm/dL (3.5-5.0); BILIRUBIN,TOTAL 0.5 mg/dL (0.0-1.0); CALCIUM 9.1 mg/dL (8.4-10.2); CREATININE, serum 1.76 mg/dL (0.52-1.25); POTASSIUM 3.8 mmol/L (3.4-5.0); TOTAL PROTEIN 6.7 gm/dL (6.4-8.2)
[2017-07-06 17:48] LABS: TROPONIN-I 0.023 ng/mL (0.000-0.034)
[2017-07-06] MEDS ORDERED: PRILOSEC 20MG20 MG PO (18:22)
[2017-07-07] VITALS (893 sets, daily range): BP systolic 150–198; BP diastolic 55–82; PULSE 64–77; TEMP 97–98.3; O2SAT 58–100
[2017-07-07 05:43] LABS: BASO % 0.4 % (0.0-2.0); EOS # 0.6 (0.0-0.7); EOS % 8.2 % (0-4.0); GRAN % 65.1 % (42.2-75.2); LYMPH # 1.2 (1.2-3.4); LYMPH % 15.7 % (20.0-51.0); MEAN CELL VOLUME 106 fl (80.0-100.0); MEAN CORPUSCULAR HGB CONC 31 g/dl (33.0-37.0); MEAN PLATELET VOLUME 10.6 fl (7.4-10.4); MONO # 0.8 (0.1-0.6); MONO % 10.2 % (1.7-9.3); PLATELET COUNT 175 K/mm3 (130-400); RED BLOOD COUNT 3.05 M/mm3 (4.10-5.30); REDCELL DISTRIBUTION WIDTH-CV 14.2 % (11.5-14.5); WHITE BLOOD COUNT 7.7 K/mm3 (4.8-10.8)
[2017-07-07 05:44] LABS: HEMATOCRIT 32.3 % (37.0-47.0); HEMOGLOBIN 9.9 g/dl (12.5-16.0); MEAN CORPUSCULAR HEMOGLOBIN 32 pg (27.0-31.0)
[2017-07-07 05:53] LABS: CALCIUM 9.4 mg/dL (8.4-10.2); CREATININE, serum 2.47 mg/dL (0.52-1.25); POTASSIUM 3.9 mmol/L (3.4-5.0)
[2017-07-08] VITALS: BP 154/57; PULSE 68; TEMP 98.6
[2017-07-08 04:03] VITALS: BP 175/65; PULSE 69; TEMP 97.4
[2017-07-08 08:15] VITALS: BP 158/63; PULSE 65; TEMP 98.1
[2017-07-08 10:00] LABS: BASO % 0.3 % (0.0-2.0); EOS # 0.4 (0.0-0.7); EOS % 7.2 % (0-4.0); GRAN # 4.2 (1.4-6.5); GRAN % 67.9 % (42.2-75.2); LYMPH % 16.2 % (20.0-51.0); MEAN CELL VOLUME 104 fl (80.0-100.0); MEAN CORPUSCULAR HGB CONC 32 g/dl (33.0-37.0); MEAN PLATELET VOLUME 10.5 fl (7.4-10.4); MONO # 0.5 (0.1-0.6); MONO % 8.2 % (1.7-9.3); PLATELET COUNT 170 K/mm3 (130-400); RED BLOOD COUNT 2.89 M/mm3 (4.10-5.30); REDCELL DISTRIBUTION WIDTH-CV 14.1 % (11.5-14.5); WHITE BLOOD COUNT 6.1 K/mm3 (4.8-10.8)
[2017-07-08 10:01] LABS: HEMATOCRIT 29.9 % (37.0-47.0); HEMOGLOBIN 9.5 g/dl (12.5-16.0); MEAN CORPUSCULAR HEMOGLOBIN 33 pg (27.0-31.0)
[2017-07-08 10:05] LABS: INR 1.3 (0.8-3.0); PROTHROMBIN TIME 14.5 SECONDS (9.7-12.8)
[2017-07-08 10:08] LABS: CALCIUM 9.1 mg/dL (8.4-10.2); CREATININE, serum 2.14 mg/dL (0.52-1.25); POTASSIUM 3.8 mmol/L (3.4-5.0)
[2017-07-08] MEDS ORDERED: MIRALAX PA17 GM/Dose PO (10:59)
[2017-07-08] MEDS ORDERED: ZESTRIL 10MG10 MG PO (11:00)
[2017-07-08] MEDS ORDERED: DAZIDOX10 MG PO (11:03)
[2017-07-08] MEDS ORDERED: DILAUDID 2MG TAB2 MG PO (11:03)
== END 2017-07-08 14:50 | disposition home or self-care (01) | DRG 304 ==
LOC: COL.ER 16:28 → ICU 17:58 → COL.ER 17:58 → ICU 17:58 → EU 07-07 15:39 → ICU 07-07 16:58 → MEDICAL 07-07 17:34
PROVIDERS: Emergency Medicine; Internal Medicine
DX: I16.1 Hypertensive emergency (principal); N18.6 End stage renal disease; I12.0 Hypertensive chronic kidney disease with stage 5 chronic kidney disease or end stage renal disease; E11.22 Type 2 diabetes mellitus with diabetic chronic kidney disease; D63.1 Anemia in chronic kidney disease; I48.91 Unspecified atrial fibrillation; J44.9 Chronic obstructive pulmonary disease, unspecified; R07.89 Other chest pain; M79.671 Pain in right foot; Z95.1 Presence of aortocoronary bypass graft; Z86.73 Personal history of transient ischemic attack (TIA), and cerebral infarction without residual deficits; Z79.01 Long term (current) use of anticoagulants; Z89.421 Acquired absence of other right toe(s); Z99.2 Dependence on renal dialysis
CPT/HCPCS: G0378; J1170; J1644; J1815; J2405

== ENCOUNTER 2017-08-10 09:20 | Observation (INO) | payer MEDICARE, OTHER ==
[~2017-08-10] VITALS: Ht 152.4 cm; Wt 71.5 kg
[~2017-08-10 09:20] MED LIST changes: +ZESTRIL 10MG10 MG PO
[2017-08-10 09:43] LABS: BASO # 0.1 (0.0-0.2); BASO % 0.6 % (0.0-2.0); EOS # 0.9 (0.0-0.7); EOS % 11.1 % (0-4.0); GRAN # 5.7 (1.4-6.5); GRAN % 66.6 % (42.2-75.2); HEMATOCRIT 41.7 % (37.0-47.0); HEMOGLOBIN 13.1 g/dl (12.5-16.0); LYMPH # 1.1 (1.2-3.4); LYMPH % 12.8 % (20.0-51.0); MEAN CELL VOLUME 101 fl (80.0-100.0); MEAN CORPUSCULAR HEMOGLOBIN 32 pg (27.0-31.0); MEAN CORPUSCULAR HGB CONC 31 g/dl (33.0-37.0); MEAN PLATELET VOLUME 11.9 fl (7.4-10.4); MONO # 0.7 (0.1-0.6); MONO % 8.5 % (1.7-9.3); PLATELET COUNT 148 K/mm3 (130-400); RED BLOOD COUNT 4.15 M/mm3 (4.10-5.30); REDCELL DISTRIBUTION WIDTH-CV 15.2 % (11.5-14.5); WHITE BLOOD COUNT 8.5 K/mm3 (4.8-10.8)
[2017-08-10 09:47] LABS: INR 2.2 (0.8-3.0); PROTHROMBIN TIME 25.7 SECONDS (9.7-12.8)
[2017-08-10 10:58] LABS: ADJUSTED CALCIUM 9.5 mg/dL (8.4-10.2); ALBUMIN 3.8 gm/dL (3.5-5.0); BILIRUBIN,TOTAL 0.5 mg/dL (0.0-1.0); CALCIUM 9.3 mg/dL (8.4-10.2); POTASSIUM 3.6 mmol/L (3.4-5.0); TOTAL PROTEIN 6.7 gm/dL (6.4-8.2)
[2017-08-10 11:00] LABS: CREATININE, serum 4.12 mg/dL (0.52-1.25)
[2017-08-10 11:11] LABS: TROPONIN-I 0.042 ng/mL (0.000-0.034)
[2017-08-10 19:39] VITALS: BP 206/79; PULSE 70; TEMP 97.7
[2017-08-11 01:42] VITALS: BP 209/77; PULSE 83; TEMP 98.9
[2017-08-11 04:43] VITALS: BP 187/67; PULSE 78; TEMP 98
[2017-08-11 07:27] LABS: INR 2.3 (0.8-3.0); PROTHROMBIN TIME 26.2 SECONDS (9.7-12.8)
[2017-08-11 07:46] LABS: ALBUMIN 3.6 gm/dL (3.5-5.0); CALCIUM 9.5 mg/dL (8.4-10.2); PHOSPHOROUS 3.5 mg/dL (2.5-4.5); POTASSIUM 3.8 mmol/L (3.4-5.0)
[2017-08-11 07:51] LABS: CREATININE, serum 3.97 mg/dL (0.52-1.25)
[2017-08-11 08:14] VITALS: BP 180/85; PULSE 82; TEMP 98.1
[2017-08-11 08:17] VITALS: BP 188/82; PULSE 79; TEMP 98.8
[2017-08-11 12:31] VITALS: BP 196/76; PULSE 72; TEMP 97.7
== END 2017-08-11 13:55 | disposition home or self-care (01) ==
LOC: COL.ER 09:20 → MEDICAL 15:44
PROVIDERS: Emergency Medicine; Internal Medicine Nephrology
DX: R07.9 Chest pain, unspecified (principal); J45.909 Unspecified asthma, uncomplicated; M19.90 Unspecified osteoarthritis, unspecified site; E11.40 Type 2 diabetes mellitus with diabetic neuropathy, unspecified; E11.21 Type 2 diabetes mellitus with diabetic nephropathy; I12.0 Hypertensive chronic kidney disease with stage 5 chronic kidney disease or end stage renal disease; I25.10 Atherosclerotic heart disease of native coronary artery without angina pectoris; E11.22 Type 2 diabetes mellitus with diabetic chronic kidney disease; N18.6 End stage renal disease; E78.5 Hyperlipidemia, unspecified; D50.9 Iron deficiency anemia, unspecified; E87.5 Hyperkalemia; G40.909 Epilepsy, unspecified, not intractable, without status epilepticus; E03.9 Hypothyroidism, unspecified; Z90.5 Acquired absence of kidney; Z79.01 Long term (current) use of anticoagulants; Z79.4 Long term (current) use of insulin; Z99.2 Dependence on renal dialysis; Z95.1 Presence of aortocoronary bypass graft; Z86.73 Personal history of transient ischemic attack (TIA), and cerebral infarction without residual deficits
CPT/HCPCS: G0378; J1170

== ENCOUNTER 2017-08-12 22:19 | Inpatient (IN) | payer MEDICARE, OTHER ==
[2017-08-13] VITALS (8 sets, daily range): BP systolic 159–205; BP diastolic 67–100; PULSE 83–96; TEMP 97.8–98.8
[2017-08-13 07:13] LABS: BASO % 0.6 % (0.0-2.0); EOS # 0.6 (0.0-0.7); GRAN # 4.1 (1.4-6.5); GRAN % 62.4 % (42.2-75.2); HEMATOCRIT 38.9 % (37.0-47.0); HEMOGLOBIN 12.3 g/dl (12.5-16.0); LYMPH # 1.2 (1.2-3.4); LYMPH % 17.5 % (20.0-51.0); MEAN CELL VOLUME 100 fl (80.0-100.0); MEAN CORPUSCULAR HEMOGLOBIN 32 pg (27.0-31.0); MEAN CORPUSCULAR HGB CONC 32 g/dl (33.0-37.0); MEAN PLATELET VOLUME 11.6 fl (7.4-10.4); MONO # 0.7 (0.1-0.6); PLATELET COUNT 141 K/mm3 (130-400); RED BLOOD COUNT 3.88 M/mm3 (4.10-5.30); REDCELL DISTRIBUTION WIDTH-CV 15.3 % (11.5-14.5); WHITE BLOOD COUNT 6.6 K/mm3 (4.8-10.8)
[2017-08-13 07:20] LABS: ADJUSTED CALCIUM 9.6 mg/dL (8.4-10.2); ALBUMIN 3.7 gm/dL (3.5-5.0); BILIRUBIN,TOTAL 0.6 mg/dL (0.0-1.0); CALCIUM 9.4 mg/dL (8.4-10.2); CREATININE, serum 3.1 mg/dL (0.52-1.25); POTASSIUM 3.6 mmol/L (3.4-5.0); TOTAL PROTEIN 6.4 gm/dL (6.4-8.2)
[2017-08-14] VITALS (9 sets, daily range): BP systolic 184–209; BP diastolic 81–92; PULSE 85–104; TEMP 97.5–98.8
[2017-08-15 04:12] VITALS: BP 180/79; PULSE 86; TEMP 98.3
[2017-08-15 08:26] VITALS: BP 192/74; PULSE 90; TEMP 98.1
[2017-08-15 10:19] LABS: INR 2.3 (0.8-3.0); PROTHROMBIN TIME 26.2 SECONDS (9.7-12.8)
[2017-08-15 12:00] VITALS: BP 137/52; PULSE 83; TEMP 98.3
[2017-08-15 16:22] LABS: CALCIUM 9.5 mg/dL (8.4-10.2); POTASSIUM 3.7 mmol/L (3.4-5.0)
[2017-08-15 16:44] LABS: CREATININE, serum 4.43 mg/dL (0.52-1.25)
[2017-08-15 17:11] VITALS: BP 174/69; PULSE 93; TEMP 98.6
[2017-08-15 19:52] VITALS: BP 165/59; PULSE 87; TEMP 98.4
[2017-08-15 23:59] VITALS: BP 198/90; PULSE 102; TEMP 98.1
[2017-08-16 04:14] VITALS: BP 214/89; PULSE 96; TEMP 98
[2017-08-16 09:43] LABS: BASO % 0.5 % (0.0-2.0); EOS # 0.5 (0.0-0.7); EOS % 5.8 % (0-4.0); GRAN # 5.8 (1.4-6.5); GRAN % 68.5 % (42.2-75.2); HEMATOCRIT 39.5 % (37.0-47.0); HEMOGLOBIN 12.5 g/dl (12.5-16.0); LYMPH # 1.2 (1.2-3.4); LYMPH % 14.2 % (20.0-51.0); MEAN CELL VOLUME 98 fl (80.0-100.0); MEAN CORPUSCULAR HEMOGLOBIN 31 pg (27.0-31.0); MEAN CORPUSCULAR HGB CONC 32 g/dl (33.0-37.0); MEAN PLATELET VOLUME 11.8 fl (7.4-10.4); MONO # 0.9 (0.1-0.6); MONO % 10.4 % (1.7-9.3); PLATELET COUNT 158 K/mm3 (130-400); RED BLOOD COUNT 4.02 M/mm3 (4.10-5.30); REDCELL DISTRIBUTION WIDTH-CV 15.7 % (11.5-14.5); WHITE BLOOD COUNT 8.5 K/mm3 (4.8-10.8)
[2017-08-16 09:54] LABS: CALCIUM 10.1 mg/dL (8.4-10.2); POTASSIUM 3.8 mmol/L (3.4-5.0)
[2017-08-16 10:11] LABS: CREATININE, serum 5.64 mg/dL (0.52-1.25)
[2017-08-16 10:14] LABS: INR 2.1 (0.8-3.0); PROTHROMBIN TIME 23.9 SECONDS (9.7-12.8)
[2017-08-16 12:04] VITALS: BP 166/65; PULSE 98; TEMP 97.1
[2017-08-16 12:24] VITALS: BP 161/69; PULSE 98
[2017-08-16 14:34] LABS: ADJUSTED CALCIUM 10.1 mg/dL (8.4-10.2); BILIRUBIN,TOTAL 0.6 mg/dL (0.0-1.0); TOTAL PROTEIN 6.4 gm/dL (6.4-8.2)
[2017-08-16 15:57] VITALS: BP 149/68; PULSE 90; TEMP 97.9
[2017-08-16 20:12] VITALS: BP 111/54; PULSE 80; TEMP 98.5
[2017-08-16 23:59] VITALS: BP 154/54; PULSE 87; TEMP 98
[2017-08-17 04:22] VITALS: BP 145/51; PULSE 78; TEMP 98.9
[2017-08-17 08:18] LABS: BASO # 0.1 (0.0-0.2); BASO % 0.6 % (0.0-2.0); EOS # 0.3 (0.0-0.7); GRAN # 5.6 (1.4-6.5); GRAN % 66.8 % (42.2-75.2); HEMATOCRIT 37.7 % (37.0-47.0); LYMPH # 1.5 (1.2-3.4); LYMPH % 17.9 % (20.0-51.0); MEAN CELL VOLUME 100 fl (80.0-100.0); MEAN CORPUSCULAR HEMOGLOBIN 31 pg (27.0-31.0); MEAN CORPUSCULAR HGB CONC 31 g/dl (33.0-37.0); MEAN PLATELET VOLUME 11.3 fl (7.4-10.4); MONO % 11.3 % (1.7-9.3); PLATELET COUNT 165 K/mm3 (130-400); RED BLOOD COUNT 3.78 M/mm3 (4.10-5.30); REDCELL DISTRIBUTION WIDTH-CV 15.7 % (11.5-14.5); WHITE BLOOD COUNT 8.4 K/mm3 (4.8-10.8)
[2017-08-17 08:21] LABS: INR 1.8 (0.8-3.0); PROTHROMBIN TIME 20.1 SECONDS (9.7-12.8)
[2017-08-17 08:23] LABS: HEMOGLOBIN 11.8 g/dl (12.5-16.0)
[2017-08-17 08:27] VITALS: BP 150/51; PULSE 79; TEMP 98.4
[2017-08-17 08:33] LABS: CALCIUM 9.8 mg/dL (8.4-10.2); POTASSIUM 3.9 mmol/L (3.4-5.0)
[2017-08-17 08:48] LABS: CREATININE, serum 4.27 mg/dL (0.52-1.25)
[2017-08-17 11:29] VITALS: BP 150/50; PULSE 75; TEMP 97.9
[2017-08-17 16:27] VITALS: BP 164/66; PULSE 91; TEMP 98.2
[2017-08-17 20:02] VITALS: BP 160/56; PULSE 78; TEMP 98.6
[2017-08-18 00:17] VITALS: BP 149/79; PULSE 81; TEMP 98.1
[2017-08-18 04:24] VITALS: BP 149/71; PULSE 76; TEMP 97.4
[2017-08-18 07:48] VITALS: BP 181/69; PULSE 92; TEMP 98.1
[2017-08-18 08:03] LABS: BASO # 0.1 (0.0-0.2); BASO % 0.7 % (0.0-2.0); EOS # 0.4 (0.0-0.7); EOS % 3.9 % (0-4.0); GRAN # 6.3 (1.4-6.5); GRAN % 68.6 % (42.2-75.2); HEMATOCRIT 37.9 % (37.0-47.0); LYMPH # 1.5 (1.2-3.4); MEAN CELL VOLUME 98 fl (80.0-100.0); MEAN CORPUSCULAR HEMOGLOBIN 31 pg (27.0-31.0); MEAN CORPUSCULAR HGB CONC 31 g/dl (33.0-37.0); MEAN PLATELET VOLUME 11.6 fl (7.4-10.4); MONO % 10.5 % (1.7-9.3); PLATELET COUNT 163 K/mm3 (130-400); RED BLOOD COUNT 3.85 M/mm3 (4.10-5.30); REDCELL DISTRIBUTION WIDTH-CV 15.5 % (11.5-14.5); WHITE BLOOD COUNT 9.2 K/mm3 (4.8-10.8)
[2017-08-18 08:10] LABS: HEMOGLOBIN 11.9 g/dl (12.5-16.0)
[2017-08-18 08:16] LABS: CALCIUM 9.9 mg/dL (8.4-10.2); POTASSIUM 3.9 mmol/L (3.4-5.0)
[2017-08-18 08:25] LABS: CREATININE, serum 5.29 mg/dL (0.52-1.25)
[2017-08-18 08:42] LABS: INR 1.5 (0.8-3.0); PROTHROMBIN TIME 16.6 SECONDS (9.7-12.8)
[2017-08-18 12:43] VITALS: BP 160/51; PULSE 95; TEMP 97.9
[2017-08-18 17:03] VITALS: BP 133/51; PULSE 86; TEMP 98.1
[2017-08-18 20:02] VITALS: BP 145/62; PULSE 73; TEMP 98.3
[2017-08-19] VITALS (7 sets, daily range): BP systolic 132–153; BP diastolic 50–90; PULSE 17–86; TEMP 97.8–98.7
[2017-08-19 07:55] LABS: BASO # 0.1 (0.0-0.2); BASO % 0.5 % (0.0-2.0); EOS # 0.4 (0.0-0.7); EOS % 3.5 % (0-4.0); GRAN % 72.3 % (42.2-75.2); HEMATOCRIT 39.4 % (37.0-47.0); HEMOGLOBIN 12.2 g/dl (12.5-16.0); LYMPH # 1.5 (1.2-3.4); LYMPH % 13.9 % (20.0-51.0); MEAN CELL VOLUME 100 fl (80.0-100.0); MEAN CORPUSCULAR HEMOGLOBIN 31 pg (27.0-31.0); MEAN CORPUSCULAR HGB CONC 31 g/dl (33.0-37.0); MEAN PLATELET VOLUME 11.9 fl (7.4-10.4); MONO % 9.5 % (1.7-9.3); PLATELET COUNT 152 K/mm3 (130-400); RED BLOOD COUNT 3.94 M/mm3 (4.10-5.30); REDCELL DISTRIBUTION WIDTH-CV 15.5 % (11.5-14.5)
[2017-08-19 08:04] LABS: INR 1.3 (0.8-3.0); PROTHROMBIN TIME 14.9 SECONDS (9.7-12.8)
[2017-08-19 08:05] LABS: CALCIUM 9.6 mg/dL (8.4-10.2); CREATININE, serum 3.5 mg/dL (0.52-1.25); POTASSIUM 3.9 mmol/L (3.4-5.0)
[2017-08-20 07:56] VITALS: BP 113/41; PULSE 70; TEMP 97.9
[2017-08-20 12:25] VITALS: BP 105/47; PULSE 80; TEMP 98.6
[2017-08-20 15:38] VITALS: BP 112/45; PULSE 76; TEMP 98.4
[2017-08-20 19:40] VITALS: BP 129/46; PULSE 76; TEMP 98
[2017-08-20 23:00] VITALS: BP 152/58; PULSE 77; TEMP 98.6
[2017-08-21] VITALS (10 sets, daily range): BP systolic 97–157; BP diastolic 37–62; PULSE 54–81; TEMP 97.7–98.6
[2017-08-21 09:27] LABS: BASO % 0.4 % (0.0-2.0); EOS # 0.5 (0.0-0.7); EOS % 4.9 % (0-4.0); GRAN # 6.1 (1.4-6.5); LYMPH # 1.8 (1.2-3.4); LYMPH % 19.2 % (20.0-51.0); MEAN CELL VOLUME 99 fl (80.0-100.0); MEAN CORPUSCULAR HGB CONC 32 g/dl (33.0-37.0); MEAN PLATELET VOLUME 12.2 fl (7.4-10.4); MONO # 0.9 (0.1-0.6); MONO % 9.3 % (1.7-9.3); PLATELET COUNT 169 K/mm3 (130-400); RED BLOOD COUNT 3.68 M/mm3 (4.10-5.30); REDCELL DISTRIBUTION WIDTH-CV 15.4 % (11.5-14.5); WHITE BLOOD COUNT 9.2 K/mm3 (4.8-10.8)
[2017-08-21 09:28] LABS: HEMATOCRIT 36.4 % (37.0-47.0); HEMOGLOBIN 11.6 g/dl (12.5-16.0); MEAN CORPUSCULAR HEMOGLOBIN 32 pg (27.0-31.0)
[2017-08-21 09:37] LABS: CALCIUM 9.7 mg/dL (8.4-10.2); PHOSPHOROUS 3.4 mg/dL (2.5-4.5); POTASSIUM 4.5 mmol/L (3.4-5.0)
[2017-08-21 09:41] LABS: CREATININE, serum 5.74 mg/dL (0.52-1.25)
[2017-08-22 02:08] VITALS: BP 165/57; PULSE 86; TEMP 98.8
[2017-08-22 05:58] VITALS: BP 153/61; PULSE 95; TEMP 99.4
[2017-08-22 07:36] LABS: BASO % 0.2 % (0.0-2.0); EOS # 0.1 (0.0-0.7); EOS % 1.3 % (0-4.0); GRAN # 8.3 (1.4-6.5); LYMPH # 1.1 (1.2-3.4); LYMPH % 10.4 % (20.0-51.0); MEAN CELL VOLUME 100 fl (80.0-100.0); MEAN CORPUSCULAR HGB CONC 32 g/dl (33.0-37.0); MEAN PLATELET VOLUME 12.1 fl (7.4-10.4); MONO % 9.8 % (1.7-9.3); PLATELET COUNT 145 K/mm3 (130-400); RED BLOOD COUNT 3.47 M/mm3 (4.10-5.30); REDCELL DISTRIBUTION WIDTH-CV 15.4 % (11.5-14.5); WHITE BLOOD COUNT 10.6 K/mm3 (4.8-10.8)
[2017-08-22 07:39] LABS: HEMATOCRIT 34.6 % (37.0-47.0); MEAN CORPUSCULAR HEMOGLOBIN 32 pg (27.0-31.0)
[2017-08-22 07:40] LABS: ALBUMIN 3.1 gm/dL (3.5-5.0); CALCIUM 8.6 mg/dL (8.4-10.2); CREATININE, serum 3.58 mg/dL (0.52-1.25); PHOSPHOROUS 3.3 mg/dL (2.5-4.5)
[2017-08-22 09:24] VITALS: BP 145/59; PULSE 90; TEMP 97.1
[2017-08-22 13:50] VITALS: BP 123/49; PULSE 74; TEMP 98
[2017-08-22 17:27] VITALS: BP 151/54; PULSE 77; TEMP 98.2
[2017-08-22 21:20] VITALS: BP 142/58; PULSE 73; TEMP 99
[2017-08-23 01:43] VITALS: BP 144/53; PULSE 74; TEMP 98.5
[2017-08-23 06:27] VITALS: BP 143/55; PULSE 72; TEMP 98.4
[2017-08-23 07:33] LABS: BASO % 0.4 % (0.0-2.0); EOS # 0.2 (0.0-0.7); EOS % 2.1 % (0-4.0); GRAN % 71.7 % (42.2-75.2); LYMPH # 1.4 (1.2-3.4); LYMPH % 14.5 % (20.0-51.0); MEAN CELL VOLUME 99 fl (80.0-100.0); MEAN CORPUSCULAR HGB CONC 32 g/dl (33.0-37.0); MEAN PLATELET VOLUME 11.9 fl (7.4-10.4); MONO # 1.1 (0.1-0.6); MONO % 10.8 % (1.7-9.3); PLATELET COUNT 146 K/mm3 (130-400); RED BLOOD COUNT 3.51 M/mm3 (4.10-5.30); REDCELL DISTRIBUTION WIDTH-CV 15.2 % (11.5-14.5); WHITE BLOOD COUNT 9.8 K/mm3 (4.8-10.8)
[2017-08-23 07:38] LABS: HEMATOCRIT 34.9 % (37.0-47.0); MEAN CORPUSCULAR HEMOGLOBIN 31 pg (27.0-31.0)
[2017-08-23 07:45] LABS: ALBUMIN 3.1 gm/dL (3.5-5.0); CALCIUM 8.8 mg/dL (8.4-10.2); PHOSPHOROUS 3.8 mg/dL (2.5-4.5); POTASSIUM 4.3 mmol/L (3.4-5.0)
[2017-08-23 08:01] LABS: CREATININE, serum 4.6 mg/dL (0.52-1.25)
[2017-08-23 10:24] VITALS: BP 108/58; PULSE 69; TEMP 98.5
[2017-08-23 12:01] LABS: INR 1.1 (0.8-3.0); PROTHROMBIN TIME 11.9 SECONDS (9.7-12.8)
[2017-08-23 16:35] VITALS: BP 138/55; PULSE 76; TEMP 98.7
[2017-08-23 22:00] VITALS: BP 150/57; PULSE 79; TEMP 98.9
[2017-08-24 01:59] VITALS: BP 127/41; PULSE 68; TEMP 98.2
[2017-08-24 05:20] VITALS: BP 123/46; PULSE 72; TEMP 99
[2017-08-24 07:55] LABS: BASO % 0.4 % (0.0-2.0); EOS # 0.5 (0.0-0.7); EOS % 6.2 % (0-4.0); GRAN # 4.8 (1.4-6.5); LYMPH # 1.5 (1.2-3.4); LYMPH % 18.8 % (20.0-51.0); MEAN CELL VOLUME 100 fl (80.0-100.0); MEAN CORPUSCULAR HGB CONC 32 g/dl (33.0-37.0); MEAN PLATELET VOLUME 12.2 fl (7.4-10.4); MONO # 0.9 (0.1-0.6); MONO % 12.2 % (1.7-9.3); PLATELET COUNT 138 K/mm3 (130-400); RED BLOOD COUNT 3.42 M/mm3 (4.10-5.30); REDCELL DISTRIBUTION WIDTH-CV 14.8 % (11.5-14.5); WHITE BLOOD COUNT 7.7 K/mm3 (4.8-10.8)
[2017-08-24 07:57] LABS: HEMATOCRIT 34.3 % (37.0-47.0); HEMOGLOBIN 10.8 g/dl (12.5-16.0); MEAN CORPUSCULAR HEMOGLOBIN 32 pg (27.0-31.0)
[2017-08-24 07:59] LABS: INR 1.3 (0.8-3.0); PROTHROMBIN TIME 14.2 SECONDS (9.7-12.8)
[2017-08-24 08:09] LABS: ALBUMIN 2.8 gm/dL (3.5-5.0); CALCIUM 8.4 mg/dL (8.4-10.2); CREATININE, serum 3.04 mg/dL (0.52-1.25)
[2017-08-24 09:59] VITALS: BP 143/58; PULSE 65; TEMP 99.1
[2017-08-24 13:41] VITALS: BP 122/49; PULSE 69; TEMP 98.1
[2017-08-24 18:03] VITALS: BP 123/40; PULSE 68; TEMP 98.9
[2017-08-24 22:00] VITALS: BP 153/57; PULSE 76; TEMP 99.5
[2017-08-25 06:29] VITALS: BP 128/47; PULSE 66; TEMP 99.7
[2017-08-25 08:03] LABS: BASO % 0.6 % (0.0-2.0); EOS # 0.6 (0.0-0.7); EOS % 8.7 % (0-4.0); GRAN # 3.9 (1.4-6.5); GRAN % 58.5 % (42.2-75.2); LYMPH # 1.3 (1.2-3.4); LYMPH % 19.8 % (20.0-51.0); MEAN CELL VOLUME 100 fl (80.0-100.0); MEAN CORPUSCULAR HGB CONC 31 g/dl (33.0-37.0); MEAN PLATELET VOLUME 11.8 fl (7.4-10.4); MONO # 0.8 (0.1-0.6); MONO % 11.9 % (1.7-9.3); PLATELET COUNT 157 K/mm3 (130-400); REDCELL DISTRIBUTION WIDTH-CV 14.9 % (11.5-14.5); WHITE BLOOD COUNT 6.7 K/mm3 (4.8-10.8)
[2017-08-25 08:05] LABS: HEMATOCRIT 33.1 % (37.0-47.0); HEMOGLOBIN 10.2 g/dl (12.5-16.0); MEAN CORPUSCULAR HEMOGLOBIN 31 pg (27.0-31.0)
[2017-08-25 08:23] LABS: ALBUMIN 2.8 gm/dL (3.5-5.0); CALCIUM 8.5 mg/dL (8.4-10.2); PHOSPHOROUS 3.2 mg/dL (2.5-4.5); POTASSIUM 4.2 mmol/L (3.4-5.0)
[2017-08-25 08:27] LABS: CREATININE, serum 4.02 mg/dL (0.52-1.25); INR 1.5 (0.8-3.0); PROTHROMBIN TIME 17.4 SECONDS (9.7-12.8)
[2017-08-25 13:07] VITALS: BP 135/58; PULSE 68; TEMP 97.7
[2017-08-25 17:54] VITALS: BP 126/46; PULSE 71; TEMP 98.4
[2017-08-25 21:21] VITALS: BP 114/45; PULSE 73; TEMP 98.6
[2017-08-26 03:00] VITALS: TEMP 98.3
[2017-08-26 05:18] VITALS: BP 119/52; PULSE 64; TEMP 97.8
[2017-08-26 05:48] LABS: BASO % 0.3 % (0.0-2.0); EOS # 0.6 (0.0-0.7); EOS % 9.2 % (0-4.0); GRAN # 3.7 (1.4-6.5); GRAN % 57.6 % (42.2-75.2); LYMPH # 1.3 (1.2-3.4); LYMPH % 19.8 % (20.0-51.0); MEAN CELL VOLUME 101 fl (80.0-100.0); MEAN CORPUSCULAR HGB CONC 31 g/dl (33.0-37.0); MEAN PLATELET VOLUME 11.5 fl (7.4-10.4); MONO # 0.8 (0.1-0.6); MONO % 12.8 % (1.7-9.3); PLATELET COUNT 174 K/mm3 (130-400); RED BLOOD COUNT 3.33 M/mm3 (4.10-5.30); REDCELL DISTRIBUTION WIDTH-CV 14.7 % (11.5-14.5); WHITE BLOOD COUNT 6.4 K/mm3 (4.8-10.8)
[2017-08-26 05:49] LABS: HEMATOCRIT 33.6 % (37.0-47.0); HEMOGLOBIN 10.5 g/dl (12.5-16.0); MEAN CORPUSCULAR HEMOGLOBIN 32 pg (27.0-31.0)
[2017-08-26 05:53] LABS: INR 1.8 (0.8-3.0)
[2017-08-26 06:04] LABS: ALBUMIN 2.8 gm/dL (3.5-5.0); CALCIUM 8.3 mg/dL (8.4-10.2); CREATININE, serum 3.18 mg/dL (0.52-1.25); PHOSPHOROUS 3.2 mg/dL (2.5-4.5)
[2017-08-26 09:39] VITALS: BP 115/44; PULSE 62; TEMP 97.8
[2017-08-26 14:13] VITALS: BP 124/46; PULSE 62; TEMP 98.2
[2017-08-26 17:29] VITALS: BP 118/48; PULSE 65; TEMP 98
[2017-08-26 20:00] VITALS: BP 130/44; PULSE 64; TEMP 98.3
[2017-08-27 05:10] VITALS: BP 140/50; PULSE 68; TEMP 98.4
[2017-08-27 06:14] LABS: INR 2.5 (0.8-3.0); PROTHROMBIN TIME 28.7 SECONDS (9.7-12.8)
[2017-08-27 09:53] VITALS: BP 115/45; PULSE 58; TEMP 97.7
[2017-08-27 13:52] VITALS: BP 145/57; PULSE 56; TEMP 97.8
[2017-08-27 17:06] VITALS: BP 137/57; PULSE 57; TEMP 98.1
[2017-08-27 19:25] VITALS: BP 140/53; PULSE 57; TEMP 98.3
[2017-08-27 23:28] VITALS: BP 132/48; PULSE 59; TEMP 98.3
[2017-08-28 05:12] VITALS: BP 146/53; PULSE 63; TEMP 97.9
[2017-08-28 07:38] LABS: INR 2.1 (0.8-3.0); PROTHROMBIN TIME 23.4 SECONDS (9.7-12.8)
[2017-08-28 09:00] LABS: ALBUMIN 3.3 gm/dL (3.5-5.0); CALCIUM 8.6 mg/dL (8.4-10.2); PHOSPHOROUS 4.8 mg/dL (2.5-4.5); POTASSIUM 4.8 mmol/L (3.4-5.0)
[2017-08-28 09:05] LABS: CREATININE, serum 5.07 mg/dL (0.52-1.25)
[2017-08-28 09:18] LABS: HEMATOCRIT 32.9 % (37.0-47.0); HEMOGLOBIN 10.5 g/dl (12.5-16.0); MEAN CELL VOLUME 98 fl (80.0-100.0); MEAN CORPUSCULAR HEMOGLOBIN 31 pg (27.0-31.0); MEAN CORPUSCULAR HGB CONC 32 g/dl (33.0-37.0); MEAN PLATELET VOLUME 11.7 fl (7.4-10.4); PLATELET COUNT 178 K/mm3 (130-400); RED BLOOD COUNT 3.36 M/mm3 (4.10-5.30); REDCELL DISTRIBUTION WIDTH-CV 14.8 % (11.5-14.5); WHITE BLOOD COUNT 6.1 K/mm3 (4.8-10.8)
[2017-08-28] MEDS ORDERED: ROXICODONE 55 MG/TAB PO (10:33)
[2017-08-28 11:38] VITALS: BP 146/53; PULSE 63; TEMP 97.9
[2017-08-28 13:57] VITALS: BP 157/53; PULSE 65; TEMP 98.3
[2017-08-28] MEDS ORDERED: ZESTRIL 20MG TA20 MG PO (15:14)
== END 2017-08-28 13:58 | DRG 239 ==
LOC: MEDICAL 22:19 → SURG 23:45
PROVIDERS: Internal Medicine; Internal Medicine Nephrology; Nurse Practitioner; Orthopaedic Surgery
PROC: 5A1D70Z Performance of Urinary Filtration, Intermittent, Less than 6 Hours Per Day (ICD-10-PCS; 2017-08-15)
PROC: 0Y6J0Z1 Detachment at Left Lower Leg, High, Open Approach (ICD-10-PCS; principal; 2017-08-21 11:30)
DX: I70.244 Atherosclerosis of native arteries of left leg with ulceration of heel and midfoot (principal); N18.6 End stage renal disease; N25.81 Secondary hyperparathyroidism of renal origin; E46 Unspecified protein-calorie malnutrition; I12.0 Hypertensive chronic kidney disease with stage 5 chronic kidney disease or end stage renal disease; L97.424 Non-pressure chronic ulcer of left heel and midfoot with necrosis of bone; R41.82 Altered mental status, unspecified; I16.0 Hypertensive urgency; E11.22 Type 2 diabetes mellitus with diabetic chronic kidney disease; Z99.2 Dependence on renal dialysis; E11.21 Type 2 diabetes mellitus with diabetic nephropathy; E11.42 Type 2 diabetes mellitus with diabetic polyneuropathy; D63.1 Anemia in chronic kidney disease; I25.10 Atherosclerotic heart disease of native coronary artery without angina pectoris; Z95.1 Presence of aortocoronary bypass graft; I95.3 Hypotension of hemodialysis; Z79.4 Long term (current) use of insulin; I48.91 Unspecified atrial fibrillation; Z89.432 Acquired absence of left foot
CPT/HCPCS: A9284; A9502; J1644; J1815; J2250; J2704; J2785

== ENCOUNTER 2017-08-28 13:11 | Inpatient (IN) | payer MEDICARE, OTHER ==
[~2017-08-28] VITALS: Ht 152.4 cm; Wt 72.5 kg
[~2017-08-28 13:11] MED LIST changes: +ROXICODONE 55 MG/TAB PO
[2017-08-28] MEDS ORDERED: ZESTRIL 20MG TA20 MG PO (15:14)
[2017-08-28 16:08] VITALS: BP 145/76; PULSE 61; TEMP 99.6
[2017-08-28 16:14] VITALS: BP 145/76; PULSE 62; TEMP 99.6
[2017-08-28 18:40] VITALS: BP 145/76; PULSE 62; TEMP 98.7
[2017-08-29 05:34] VITALS: BP 114/49; PULSE 69; TEMP 98.5
[2017-08-29 13:45] LABS: INR 1.8 (0.8-3.0); PROTHROMBIN TIME 20.3 SECONDS (9.7-12.8)
[2017-08-29 16:42] VITALS: BP 171/58; PULSE 57; TEMP 98.7
[2017-08-30 06:22] VITALS: BP 156/57; PULSE 58; TEMP 98.7
[2017-08-30 09:02] LABS: HEMATOCRIT 36.7 % (37.0-47.0); HEMOGLOBIN 11.3 g/dl (12.5-16.0)
[2017-08-30 09:12] LABS: CALCIUM 9.1 mg/dL (8.4-10.2); POTASSIUM 4.3 mmol/L (3.4-5.0)
[2017-08-30 09:19] LABS: CREATININE, serum 4.23 mg/dL (0.52-1.25)
[2017-08-30 12:11] LABS: INR 1.8 (0.8-3.0); PROTHROMBIN TIME 20.7 SECONDS (9.7-12.8)
[2017-08-30 16:46] VITALS: BP 169/52; PULSE 59; TEMP 98.2
[2017-08-31 05:47] VITALS: BP 142/54; PULSE 57; TEMP 98.5
[2017-08-31 17:38] VITALS: BP 156/57; PULSE 54; TEMP 98
[2017-09-01 04:51] VITALS: BP 144/55; PULSE 56; TEMP 98
[2017-09-01 06:20] LABS: HEMOGLOBIN 9.8 g/dl (12.5-16.0)
[2017-09-01 06:30] LABS: CALCIUM 8.6 mg/dL (8.4-10.2); POTASSIUM 4.3 mmol/L (3.4-5.0)
[2017-09-01 06:32] LABS: CREATININE, serum 3.96 mg/dL (0.52-1.25)
[2017-09-01 13:45] LABS: INR 2.3 (0.8-3.0); PROTHROMBIN TIME 25.8 SECONDS (9.7-12.8)
[2017-09-01 16:01] VITALS: BP 145/84; PULSE 61; TEMP 98.1
[2017-09-02 05:08] VITALS: BP 143/54; PULSE 64; TEMP 98.2
[2017-09-02 16:53] VITALS: BP 185/53; PULSE 67; TEMP 99
[2017-09-02 18:20] LABS: BASO % 0.4 % (0.0-2.0); EOS # 0.5 (0.0-0.7); EOS % 10.8 % (0-4.0); GRAN # 2.7 (1.4-6.5); GRAN % 57.5 % (42.2-75.2); LYMPH # 1.1 (1.2-3.4); LYMPH % 23.7 % (20.0-51.0); MEAN CELL VOLUME 103 fl (80.0-100.0); MEAN CORPUSCULAR HGB CONC 31 g/dl (33.0-37.0); MONO # 0.3 (0.1-0.6); MONO % 7.2 % (1.7-9.3); PLATELET COUNT 144 K/mm3 (130-400); RED BLOOD COUNT 3.15 M/mm3 (4.10-5.30); REDCELL DISTRIBUTION WIDTH-CV 14.7 % (11.5-14.5); WHITE BLOOD COUNT 4.7 K/mm3 (4.8-10.8)
[2017-09-02 18:21] LABS: HEMATOCRIT 32.4 % (37.0-47.0); MEAN CORPUSCULAR HEMOGLOBIN 32 pg (27.0-31.0)
[2017-09-02 18:25] VITALS: BP 163/66; PULSE 64; TEMP 98.6
[2017-09-03 05:06] VITALS: BP 171/60; PULSE 58; TEMP 98.4
[2017-09-03 18:25] VITALS: BP 188/63; PULSE 55; TEMP 98.2
[2017-09-03 21:00] VITALS: BP 168/43
[2017-09-03 23:34] VITALS: BP 181/59
[2017-09-04 05:34] VITALS: BP 163/41; PULSE 56; TEMP 98.8
[2017-09-04 07:13] LABS: HEMATOCRIT 31.6 % (37.0-47.0); HEMOGLOBIN 9.8 g/dl (12.5-16.0)
[2017-09-04 07:25] LABS: CALCIUM 9.2 mg/dL (8.4-10.2); POTASSIUM 5.6 mmol/L (3.4-5.0)
[2017-09-04 07:27] LABS: CREATININE, serum 4.52 mg/dL (0.52-1.25)
[2017-09-04 13:04] LABS: INR 2.4 (0.8-3.0); PROTHROMBIN TIME 27.7 SECONDS (9.7-12.8)
[2017-09-04 18:19] VITALS: BP 168/57; PULSE 60; TEMP 98.1
[2017-09-05 05:15] VITALS: BP 169/60; PULSE 64; TEMP 97.7
[2017-09-05 15:54] VITALS: BP 177/59; PULSE 63; TEMP 97.9
[2017-09-06 03:38] VITALS: BP 153/63; PULSE 59; TEMP 98.8
[2017-09-06 07:36] LABS: HEMOGLOBIN 9.4 g/dl (12.5-16.0)
[2017-09-06 07:37] LABS: HEMATOCRIT 30.1 % (37.0-47.0)
[2017-09-06 07:50] LABS: CALCIUM 9.2 mg/dL (8.4-10.2)
[2017-09-06 07:53] LABS: INR 2.7 (0.8-3.0); PROTHROMBIN TIME 30.7 SECONDS (9.7-12.8)
[2017-09-06 07:55] LABS: CREATININE, serum 4.12 mg/dL (0.52-1.25)
[2017-09-06 16:01] VITALS: BP 182/61; PULSE 59; TEMP 97.9
[2017-09-06] MEDS ORDERED: SILVADEN TP (20:11)
[2017-09-06] MEDS ORDERED: HYDROCORTISON28.4 GM TP (20:12)
[2017-09-06] MEDS ORDERED: GOOD SENSE TRIP1 OI1 TP (20:13)
[2017-09-07 05:09] VITALS: BP 167/63; PULSE 20; PULSE 62; TEMP 97.9
[2017-09-07] MEDS ORDERED: COLACE 100100 MG/CAP PO (11:10)
[2017-09-07] MEDS ORDERED: NOVOLOG FLEX100 U/ML SQ (11:13)
[2017-09-07] MEDS ORDERED: TYLENOL 325MG325 MG PO (11:14)
[2017-09-07] MEDS ORDERED: ALDACTONE 25MG25 M1 PO (11:17)
[2017-09-07] MEDS ORDERED: ULTRAM 50MG TAB50 MG PO (11:17)
[2017-09-07] MEDS ORDERED: APRESOLINE 10MG10 MG PO (11:17)
[2017-09-07] MEDS ORDERED: SENNA-LAX8.6 MG PO (11:17)
[2017-09-07] MEDS ORDERED: ZESTRIL40 MG PO (11:17)
[2017-09-07] MEDS ORDERED: COREG 6.256.25 MG/TA PO (11:17)
[2017-09-07] MEDS ORDERED: FLEXERIL5 MG PO (11:17)
== END 2017-09-07 11:45 | disposition home or self-care (01) | DRG 559 ==
PROVIDERS: Family Medicine; Internal Medicine
PROC: 5A1D70Z Performance of Urinary Filtration, Intermittent, Less than 6 Hours Per Day (ICD-10-PCS; principal; 2017-08-30)
DX: Z47.81 Encounter for orthopedic aftercare following surgical amputation (principal); N18.6 End stage renal disease; I12.0 Hypertensive chronic kidney disease with stage 5 chronic kidney disease or end stage renal disease; Z89.512 Acquired absence of left leg below knee; E11.22 Type 2 diabetes mellitus with diabetic chronic kidney disease; Z99.2 Dependence on renal dialysis; E11.42 Type 2 diabetes mellitus with diabetic polyneuropathy; D63.1 Anemia in chronic kidney disease; J45.909 Unspecified asthma, uncomplicated; E87.5 Hyperkalemia; I25.10 Atherosclerotic heart disease of native coronary artery without angina pectoris; L60.0 Ingrowing nail; Z95.1 Presence of aortocoronary bypass graft
CPT/HCPCS: 99222-AI; 99232-AI; 99239; J0881; J1815; J2916

== ENCOUNTER 2017-09-10 15:46 | Emergency (ER) | payer MEDICARE, OTHER ==
[~2017-09-10] VITALS: Ht 152.4 cm; Wt 68.2 kg
[~2017-09-10 15:46] MED LIST changes: +APRESOLINE 10MG10 MG PO; +COREG 6.256.25 MG/TA PO; +GOOD SENSE TRIP1 OI1 TP; +HYDROCORTISON28.4 GM TP; +NOVOLOG FLEX100 U/ML SQ; +SENNA-LAX8.6 MG PO; +SILVADEN TP; +TYLENOL 325MG325 MG PO; +ZESTRIL 20MG TA20 MG PO; +ZESTRIL40 MG PO
[2017-09-10 15:48] VITALS: TEMP 98.4
[2017-09-10 16:22] LABS: BASO % 0.7 % (0.0-2.0); EOS # 0.5 (0.0-0.7); EOS % 10.4 % (0-4.0); GRAN # 2.4 (1.4-6.5); GRAN % 52.7 % (42.2-75.2); LYMPH # 1.2 (1.2-3.4); LYMPH % 26.2 % (20.0-51.0); MEAN CELL VOLUME 102 fl (80.0-100.0); MEAN CORPUSCULAR HGB CONC 31 g/dl (33.0-37.0); MEAN PLATELET VOLUME 11.7 fl (7.4-10.4); MONO # 0.5 (0.1-0.6); MONO % 9.8 % (1.7-9.3); PLATELET COUNT 139 K/mm3 (130-400); RED BLOOD COUNT 3.01 M/mm3 (4.10-5.30); REDCELL DISTRIBUTION WIDTH-CV 14.8 % (11.5-14.5); WHITE BLOOD COUNT 4.6 K/mm3 (4.8-10.8)
[2017-09-10 16:29] LABS: HEMATOCRIT 30.8 % (37.0-47.0); HEMOGLOBIN 9.5 g/dl (12.5-16.0); MEAN CORPUSCULAR HEMOGLOBIN 32 pg (27.0-31.0)
[2017-09-10 16:40] LABS: ADJUSTED CALCIUM 9.4 mg/dL (8.4-10.2); ALBUMIN 3.6 gm/dL (3.5-5.0); BILIRUBIN,TOTAL 0.4 mg/dL (0.0-1.0); CALCIUM 9.1 mg/dL (8.4-10.2); CREATININE, serum 2.92 mg/dL (0.52-1.25); MAGNESIUM 2.5 mg/dL (1.6-2.3); PHOSPHOROUS 2.8 mg/dL (2.5-4.5); POTASSIUM 4.1 mmol/L (3.4-5.0); TOTAL PROTEIN 6.2 gm/dL (6.4-8.2)
[2017-09-10 16:51] LABS: TROPONIN-I 0.013 ng/mL (0.000-0.034)
[2017-09-10 20:00] VITALS: BP 194/81; PULSE 67
== END 2017-09-10 20:25 | disposition home or self-care (01) ==
LOC: COL.ER 15:46
PROVIDERS: Emergency Medicine
DX: R07.89 Other chest pain (principal); I12.0 Hypertensive chronic kidney disease with stage 5 chronic kidney disease or end stage renal disease; I25.10 Atherosclerotic heart disease of native coronary artery without angina pectoris; N18.6 End stage renal disease; Z99.2 Dependence on renal dialysis; Z79.02 Long term (current) use of antithrombotics/antiplatelets; Z79.82 Long term (current) use of aspirin; Z79.4 Long term (current) use of insulin; Z95.1 Presence of aortocoronary bypass graft; Z89.612 Acquired absence of left leg above knee

== ENCOUNTER 2018-06-14 00:03 | Inpatient (IN) | payer MEDICARE, OTHER ==
[~2018-06-14] VITALS: Ht 152.4 cm; Wt 72.3 kg
[2018-06-14 00:46] LABS: BASO % 0.5 % (0.0-2.0); EOS # 0.4 (0.0-0.7); EOS % 6.7 % (0-4.0); GRAN # 3.1 (1.4-6.5); GRAN % 55.9 % (42.2-75.2); LYMPH # 1.4 (1.2-3.4); LYMPH % 25.2 % (20.0-51.0); MEAN CELL VOLUME 111 fl (80.0-100.0); MEAN CORPUSCULAR HEMOGLOBIN 36 pg (27.0-31.0); MEAN CORPUSCULAR HGB CONC 32 g/dl (33.0-37.0); MEAN PLATELET VOLUME 11.5 fl (7.4-10.4); MONO # 0.6 (0.1-0.6); PLATELET COUNT 102 K/mm3 (130-400); REDCELL DISTRIBUTION WIDTH-CV 13.9 % (11.5-14.5)
[2018-06-14 00:55] LABS: INR 1.9 (0.8-3.0); PROTHROMBIN TIME 21.5 SECONDS (9.7-12.8)
[2018-06-14 00:56] LABS: ALBUMIN 3.7 gm/dL (3.5-5.0); BILIRUBIN,TOTAL 0.2 mg/dL (0.0-1.0); CALCIUM 10.1 mg/dL (8.4-10.2); POTASSIUM 4.9 mmol/L (3.4-5.0); TOTAL PROTEIN 6.2 gm/dL (6.4-8.2)
[2018-06-14] MEDS ORDERED: COREG12.5 MG PO (01:02)
[2018-06-14] MEDS ORDERED: COREG 25MG25 MG/TAB PO (01:02)
[2018-06-14] MEDS ORDERED: AZO-CRANBERRY450 MG PO (01:02)
[2018-06-14] MEDS ORDERED: NORVASC 10MG10 MG PO (01:03)
[2018-06-14 01:04] LABS: CREATININE, serum 4.23 mg/dL (0.52-1.25)
[2018-06-14] MEDS ORDERED: B-121000 MCG PO (01:04)
[2018-06-14] MEDS ORDERED: PRINIVIL40 MG PO (01:05)
[2018-06-14] MEDS ORDERED: DEMADEX100 MG PO (01:07)
[2018-06-14] MEDS ORDERED: COUMADIN 77.5 MG/TAB PO ×2 (01:08→04:06)
[2018-06-14] MEDS ORDERED: APRESOLINE50 MG PO (01:08)
[2018-06-14] MEDS ORDERED: INSULIN HUMA100 U/ML SQ (01:09)
[2018-06-14] MEDS ORDERED: MIRALAX PA17 GM/Dose PO (01:11)
[2018-06-14 01:17] LABS: TROPONIN-I 0.014 ng/mL (0.000-0.034)
[2018-06-14 02:41] VITALS: BP 174/59; PULSE 53; TEMP 98.3
[2018-06-14 08:35] VITALS: BP 170/54; PULSE 58; TEMP 97.8
[2018-06-14 16:13] VITALS: BP 157/53; PULSE 49; TEMP 98.3
[2018-06-14 21:04] VITALS: BP 137/39; PULSE 50; TEMP 98.6
[2018-06-14 23:57] VITALS: BP 147/46; PULSE 50; TEMP 98.5
[2018-06-15 03:44] VITALS: BP 150/46; PULSE 46; TEMP 98.5
[2018-06-15 07:00] LABS: BASO % 0.4 % (0.0-2.0); EOS # 0.4 (0.0-0.7); EOS % 6.5 % (0-4.0); GRAN # 3.1 (1.4-6.5); GRAN % 55.2 % (42.2-75.2); HEMOGLOBIN 10.3 g/dl (12.5-16.0); LYMPH # 1.6 (1.2-3.4); LYMPH % 27.6 % (20.0-51.0); MEAN CELL VOLUME 115 fl (80.0-100.0); MEAN CORPUSCULAR HEMOGLOBIN 35 pg (27.0-31.0); MEAN CORPUSCULAR HGB CONC 31 g/dl (33.0-37.0); MEAN PLATELET VOLUME 11.7 fl (7.4-10.4); MONO # 0.6 (0.1-0.6); MONO % 9.9 % (1.7-9.3); PLATELET COUNT 115 K/mm3 (130-400); RED BLOOD COUNT 2.93 M/mm3 (4.10-5.30); REDCELL DISTRIBUTION WIDTH-CV 13.8 % (11.5-14.5)
[2018-06-15 07:01] LABS: HEMATOCRIT 33.6 % (37.0-47.0)
[2018-06-15 07:12] LABS: ANION GAP 11 mmol/L (7-16); BLOOD UREA NITROGEN 32 mg/dL (7-17); CALCIUM 9.3 mg/dL (8.4-10.2); CARBON DIOXIDE 27 mmol/L (22-30); CHLORIDE 103 mmol/L (98-107); CREATININE, serum 3.17 mg/dL (0.52-1.25); GLUCOSE 125 mg/dL (74-106); POTASSIUM 4.4 mmol/L (3.4-5.0); SODIUM 141 mmol/L (137-145)
[2018-06-15 07:17] VITALS: BP 147/56; PULSE 44; TEMP 98
[2018-06-15 07:22] LABS: TROPONIN-I < 0.012 ng/mL (0.000-0.034)
[2018-06-15 11:51] VITALS: BP 181/48; PULSE 51; TEMP 98
[2018-06-15 16:17] VITALS: BP 192/63; PULSE 51; TEMP 98.3
[2018-06-15 22:32] VITALS: BP 163/54; PULSE 57; TEMP 98.6
[2018-06-16 00:22] VITALS: BP 189/54; PULSE 50; TEMP 98.4
[2018-06-16 05:11] VITALS: BP 155/57; PULSE 50; TEMP 98.4
[2018-06-16 06:58] LABS: BASO % 0.3 % (0.0-2.0); EOS # 0.4 (0.0-0.7); EOS % 6.7 % (0-4.0); GRAN # 3.2 (1.4-6.5); GRAN % 54.5 % (42.2-75.2); HEMOGLOBIN 10.2 g/dl (12.5-16.0); LYMPH # 1.6 (1.2-3.4); LYMPH % 27.9 % (20.0-51.0); MEAN CELL VOLUME 113 fl (80.0-100.0); MEAN CORPUSCULAR HEMOGLOBIN 35 pg (27.0-31.0); MEAN CORPUSCULAR HGB CONC 31 g/dl (33.0-37.0); MEAN PLATELET VOLUME 11.9 fl (7.4-10.4); MONO # 0.6 (0.1-0.6); MONO % 10.3 % (1.7-9.3); PLATELET COUNT 112 K/mm3 (130-400); RED BLOOD COUNT 2.91 M/mm3 (4.10-5.30); REDCELL DISTRIBUTION WIDTH-CV 13.6 % (11.5-14.5)
[2018-06-16 07:04] LABS: HEMATOCRIT 32.9 % (37.0-47.0)
[2018-06-16 07:10] LABS: INR 2.5 (0.8-3.0); PROTHROMBIN TIME 28.4 SECONDS (9.7-12.8)
[2018-06-16 07:11] LABS: CALCIUM 9.5 mg/dL (8.4-10.2); POTASSIUM 4.9 mmol/L (3.4-5.0)
[2018-06-16 07:57] LABS: CREATININE, serum 4.44 mg/dL (0.52-1.25)
== END 2018-06-16 13:18 | disposition home or self-care (01) | DRG 640 ==
LOC: COL.ER 00:03 → JCC 01:31 → COL.ER 01:31 → JCC 01:33
PROVIDERS: Emergency Medicine; Internal Medicine; Internal Medicine Nephrology
PROC: 5A1D70Z Performance of Urinary Filtration, Intermittent, Less than 6 Hours Per Day (ICD-10-PCS; principal; 2018-06-14)
PROC: 5A1D70Z Performance of Urinary Filtration, Intermittent, Less than 6 Hours Per Day (ICD-10-PCS; 2018-06-14)
DX: E87.70 Fluid overload, unspecified (principal); N18.6 End stage renal disease; I12.0 Hypertensive chronic kidney disease with stage 5 chronic kidney disease or end stage renal disease; I25.10 Atherosclerotic heart disease of native coronary artery without angina pectoris; E11.22 Type 2 diabetes mellitus with diabetic chronic kidney disease; Z99.2 Dependence on renal dialysis; E11.42 Type 2 diabetes mellitus with diabetic polyneuropathy; E11.21 Type 2 diabetes mellitus with diabetic nephropathy; D63.1 Anemia in chronic kidney disease; Z95.1 Presence of aortocoronary bypass graft; Z89.431 Acquired absence of right foot; Z79.4 Long term (current) use of insulin; I48.91 Unspecified atrial fibrillation; Z79.01 Long term (current) use of anticoagulants
CPT/HCPCS: J1815; J3010

== ENCOUNTER 2018-09-01 19:57 | Inpatient (IN) | payer MEDICARE, OTHER ==
[2018-09-01] VITALS (66 sets, daily range): BP systolic 224; BP diastolic 97; PULSE 52; TEMP 97.5; O2SAT 92–98
[~2018-09-01] VITALS: Ht 152.4 cm; Wt 71.0 kg
[~2018-09-01 19:57] MED LIST changes: +COREG 25MG25 MG/TAB PO; +COUMADIN 77.5 MG/TAB PO; +DEMADEX100 MG PO; +INSULIN HUMA100 U/ML SQ; +PRINIVIL40 MG PO
[2018-09-01 20:49] LABS: BASO % 0.6 % (0.0-2.0); EOS # 0.4 (0.0-0.7); EOS % 8.4 % (0-4.0); GRAN % 58.1 % (42.2-75.2); HEMATOCRIT 37.5 % (37.0-47.0); HEMOGLOBIN 12.1 g/dl (12.5-16.0); LYMPH # 1.2 (1.2-3.4); LYMPH % 22.2 % (20.0-51.0); MEAN CELL VOLUME 109 fl (80.0-100.0); MEAN CORPUSCULAR HEMOGLOBIN 35 pg (27.0-31.0); MEAN CORPUSCULAR HGB CONC 32 g/dl (33.0-37.0); MEAN PLATELET VOLUME 11.2 fl (7.4-10.4); MONO # 0.6 (0.1-0.6); MONO % 10.5 % (1.7-9.3); PLATELET COUNT 124 K/mm3 (130-400); RED BLOOD COUNT 3.45 M/mm3 (4.10-5.30); REDCELL DISTRIBUTION WIDTH-CV 13.6 % (11.5-14.5)
[2018-09-01 20:55] LABS: INR 3.6 (0.8-3.0); PROTHROMBIN TIME 40.5 SECONDS (9.7-12.8)
[2018-09-01 20:58] LABS: PARTIAL THROMBOPLASTIN TIME 45.3 SECONDS (26.0-37.0)
[2018-09-01 21:01] LABS: ALBUMIN 3.7 gm/dL (3.5-5.0); BILIRUBIN,TOTAL 0.3 mg/dL (0.0-1.0); CALCIUM 9.5 mg/dL (8.4-10.2); CREATININE, serum 2.74 mg/dL (0.52-1.25); POTASSIUM 3.6 mmol/L (3.4-5.0); TOTAL PROTEIN 6.6 gm/dL (6.4-8.2)
[2018-09-01 21:13] LABS: TROPONIN-I 0.028 ng/mL (0.000-0.034)
[2018-09-01] MEDS ORDERED: NITRO-DUR0.2 MG/PAT TD (21:56)
[2018-09-01 22:35] LABS: PHENYTOIN (DILANTIN) 5.8 ug/mL (10.0-20.0)
[2018-09-02] VITALS (396 sets, daily range): BP systolic 131–202; BP diastolic 61–96; PULSE 54–65; TEMP 97.4–98.2; O2SAT 90–99
[2018-09-02] MEDS ORDERED: DILANTIN 100MG100 MG PO (00:06)
[2018-09-03] VITALS (7 sets, daily range): BP systolic 132–176; BP diastolic 52–70; PULSE 49–66; TEMP 97.7–98.7
[2018-09-03 05:13] LABS: BASO % 0.6 % (0.0-2.0); EOS # 0.4 (0.0-0.7); EOS % 8.4 % (0-4.0); GRAN # 2.3 (1.4-6.5); GRAN % 49.9 % (42.2-75.2); HEMATOCRIT 36.5 % (37.0-47.0); HEMOGLOBIN 11.9 g/dl (12.5-16.0); LYMPH # 1.4 (1.2-3.4); LYMPH % 29.1 % (20.0-51.0); MEAN CELL VOLUME 110 fl (80.0-100.0); MEAN CORPUSCULAR HEMOGLOBIN 36 pg (27.0-31.0); MEAN CORPUSCULAR HGB CONC 33 g/dl (33.0-37.0); MEAN PLATELET VOLUME 10.9 fl (7.4-10.4); MONO # 0.6 (0.1-0.6); MONO % 11.8 % (1.7-9.3); PLATELET COUNT 128 K/mm3 (130-400); RED BLOOD COUNT 3.33 M/mm3 (4.10-5.30); REDCELL DISTRIBUTION WIDTH-CV 13.6 % (11.5-14.5)
[2018-09-03 05:26] LABS: CALCIUM 9.6 mg/dL (8.4-10.2); CREATININE, serum 3.35 mg/dL (0.52-1.25); POTASSIUM 3.8 mmol/L (3.4-5.0)
[2018-09-04 00:06] VITALS: BP 161/59
[2018-09-04 04:05] VITALS: BP 145/55; PULSE 54; TEMP 97.8
[2018-09-04 07:45] VITALS: BP 157/54; PULSE 56; TEMP 96
[2018-09-04 08:03] LABS: BASO % 0.4 % (0.0-2.0); EOS # 0.5 (0.0-0.7); EOS % 8.8 % (0-4.0); GRAN # 2.9 (1.4-6.5); GRAN % 53.4 % (42.2-75.2); HEMOGLOBIN 11.4 g/dl (12.5-16.0); LYMPH # 1.4 (1.2-3.4); MEAN CELL VOLUME 110 fl (80.0-100.0); MEAN CORPUSCULAR HEMOGLOBIN 35 pg (27.0-31.0); MEAN CORPUSCULAR HGB CONC 32 g/dl (33.0-37.0); MEAN PLATELET VOLUME 11.2 fl (7.4-10.4); MONO # 0.6 (0.1-0.6); MONO % 11.2 % (1.7-9.3); PLATELET COUNT 136 K/mm3 (130-400); RED BLOOD COUNT 3.23 M/mm3 (4.10-5.30); REDCELL DISTRIBUTION WIDTH-CV 13.7 % (11.5-14.5)
[2018-09-04 08:04] LABS: HEMATOCRIT 35.6 % (37.0-47.0)
[2018-09-04 08:07] LABS: INR 1.2 (0.8-3.0)
[2018-09-04 08:16] LABS: CALCIUM 9.9 mg/dL (8.4-10.2); POTASSIUM 4.3 mmol/L (3.4-5.0)
[2018-09-04 08:44] LABS: CREATININE, serum 4.65 mg/dL (0.52-1.25)
== END 2018-09-04 15:46 | disposition home or self-care (01) | DRG 304 ==
LOC: COL.ER 19:57 → MEDICAL 22:06 → ICU 22:06 → MEDICAL 09-03 14:09
PROVIDERS: Emergency Medicine; Internal Medicine; Internal Medicine Nephrology
PROC: 5A1D70Z Performance of Urinary Filtration, Intermittent, Less than 6 Hours Per Day (ICD-10-PCS; principal; 2018-09-02)
PROC: 5A1D70Z Performance of Urinary Filtration, Intermittent, Less than 6 Hours Per Day (ICD-10-PCS; 2018-09-04)
DX: I16.1 Hypertensive emergency (principal); N18.6 End stage renal disease; N25.81 Secondary hyperparathyroidism of renal origin; Z99.2 Dependence on renal dialysis; I12.0 Hypertensive chronic kidney disease with stage 5 chronic kidney disease or end stage renal disease; E11.22 Type 2 diabetes mellitus with diabetic chronic kidney disease; J45.909 Unspecified asthma, uncomplicated; E11.21 Type 2 diabetes mellitus with diabetic nephropathy; E11.42 Type 2 diabetes mellitus with diabetic polyneuropathy; Z89.431 Acquired absence of right foot; D63.1 Anemia in chronic kidney disease; I25.10 Atherosclerotic heart disease of native coronary artery without angina pectoris; Z95.1 Presence of aortocoronary bypass graft; I48.91 Unspecified atrial fibrillation; Z79.01 Long term (current) use of anticoagulants; Z79.4 Long term (current) use of insulin
CPT/HCPCS: J1815

== ENCOUNTER 2018-11-15 09:00 | Outpatient (RCR) | payer MEDICARE, OTHER ==
[~2018-11-15 09:00] MED LIST changes: +NITRO-DUR0.2 MG/PAT TD
== END 2018-11-27 | disposition home or self-care (01) ==
LOC: WSPT
DX: Z47.81 Encounter for orthopedic aftercare following surgical amputation (principal); Z89.512 Acquired absence of left leg below knee
CPT/HCPCS: G8978-GP; G8979-GP

== ENCOUNTER 2018-12-27 09:15 | Outpatient (RCR) | payer MEDICARE, OTHER | END 2019-02-27 | disposition home or self-care (01) | LOC: WSPT | DX: Z47.81 Encounter for orthopedic aftercare following surgical amputation (principal); Z89.512 Acquired absence of left leg below knee ==

== ENCOUNTER 2019-03-31 20:28 | Inpatient (IN) | payer MEDICARE, OTHER ==
[~2019-03-31] VITALS: Ht 152.4 cm; Wt 69.0 kg
[2019-03-31 21:09] LABS: ALBUMIN 3.9 gm/dL (3.5-5.0); BILIRUBIN,TOTAL 0.3 mg/dL (0.0-1.0); CALCIUM 9.6 mg/dL (8.4-10.2); PHOSPHOROUS 3.3 mg/dL (2.5-4.5); POTASSIUM 4.1 mmol/L (3.4-5.0)
[2019-03-31 21:10] LABS: INR 2.4 (0.8-3.0); PROTHROMBIN TIME 26.8 SECONDS (9.7-12.8)
[2019-03-31 21:11] LABS: BASO % 0.3 % (0.0-2.0); EOS # 0.3 (0.0-0.7); EOS % 4.4 % (0-4.0); GRAN % 67.2 % (42.2-75.2); HEMOGLOBIN 10.1 g/dl (12.5-16.0); LYMPH # 1.4 (1.2-3.4); LYMPH % 18.3 % (20.0-51.0); MEAN CELL VOLUME 109 fl (80.0-100.0); MEAN CORPUSCULAR HEMOGLOBIN 35 pg (27.0-31.0); MEAN CORPUSCULAR HGB CONC 32 g/dl (33.0-37.0); MEAN PLATELET VOLUME 11.5 fl (7.4-10.4); MONO # 0.7 (0.1-0.6); MONO % 9.5 % (1.7-9.3); PLATELET COUNT 125 K/mm3 (130-400); RED BLOOD COUNT 2.92 M/mm3 (4.10-5.30); REDCELL DISTRIBUTION WIDTH-CV 14.6 % (11.5-14.5)
[2019-03-31 21:13] LABS: CREATININE, serum 4.55 (0.52-1.25); HEMATOCRIT 31.8 % (37.0-47.0)
[2019-03-31 21:22] LABS: TROPONIN-I 0.014 ng/mL (0.000-0.035)
[2019-04-01] VITALS (7 sets, daily range): BP systolic 147–179; BP diastolic 47–79; PULSE 56–67; TEMP 97.9–98.9
[2019-04-01] MEDS ORDERED: COREG 25MG25 MG/TAB PO (01:28)
[2019-04-01] MEDS ORDERED: APRESOLINE 25MG25 MG PO (01:40)
[2019-04-01] MEDS ORDERED: ZANTAC 300300 MG PO (01:43)
[2019-04-01] MEDS ORDERED: PROAIR HFA0.09 MG/AC IH (01:47)
--- NOTE | 2019-04-01 05:44 | NUR ---
Pt arrived to floor late last evening, admission assessments complete, some C/O intermittent pain during assessment, Pt slept some during the night, VS have remained stable.
[2019-04-01 07:17] LABS: BASO % 0.2 % (0.0-2.0); EOS # 0.3 (0.0-0.7); EOS % 5.3 % (0-4.0); GRAN # 3.4 (1.4-6.5); GRAN % 61.1 % (42.2-75.2); LYMPH # 1.2 (1.2-3.4); LYMPH % 21.7 % (20.0-51.0); MEAN CELL VOLUME 108 fl (80.0-100.0); MEAN CORPUSCULAR HGB CONC 31 g/dl (33.0-37.0); MEAN PLATELET VOLUME 11.4 fl (7.4-10.4); MONO # 0.6 (0.1-0.6); MONO % 11.3 % (1.7-9.3); PLATELET COUNT 111 K/mm3 (130-400); RED BLOOD COUNT 2.73 M/mm3 (4.10-5.30); REDCELL DISTRIBUTION WIDTH-CV 14.4 % (11.5-14.5)
[2019-04-01 07:18] LABS: HEMOGLOBIN 9.2 g/dl (12.5-16.0); MEAN CORPUSCULAR HEMOGLOBIN 34 pg (27.0-31.0)
[2019-04-01 07:19] LABS: HEMATOCRIT 29.4 % (37.0-47.0)
[2019-04-01 07:30] LABS: CALCIUM 9.4 mg/dL (8.4-10.2); CHOLESTEROL RISK RATIO 3.5; POTASSIUM 4.4 mmol/L (3.4-5.0)
[2019-04-01 07:34] LABS: CREATININE, serum 5.26 (0.52-1.25)
[2019-04-01 07:50] LABS: TROPONIN-I 1.14 ng/mL (0.000-0.035)
--- NOTE | 2019-04-01 08:10 | NUR ---
Pt taken down to dialysis by aide to Millie KELLOGG.
[2019-04-01 11:47] LABS: TSH w REFLEX 1.11 uIU/mL (0.465-4.680)
--- NOTE | 2019-04-01 13:13 | NUR ---
Pt returned from dialysis and Dr. Lee saw pt right away. Dr. Lee states he will do a heart cath today and to keep pt NPO.
--- NOTE | 2019-04-01 13:58 | NUR ---
ROD and SW student met with the patient and patient's , Angelito, to discuss discharge plan. The patient lives in [place] with her . She reports independence with ADLs and has a walker and wheelchair. She states if she ever needs help with ADLs, her is able to help. The patient's PCP is Dr. Daria Charlton and she will be switching to Dr. Vasquez at the end of the month. She receives her medications at [facility] and she reports no difficulties obtaining her meds. The patient does not have advanced directives in EMR, but she states that she does have them completed. The patient plans to return home with her upon discharge. No additional needs at this time.
--- NOTE | 2019-04-01 15:25 | NUR ---
Pt stable this afternoon. Pt PT/INR too high so will hold coumadin and one time dose of plavix given per orders for cath procedure when PT/INR in range. Pt denies pain or SOB. Pt nitro patch placed on right chest. Pt has call light in reach and spouse at bedside. Pt LBKA and independent in room. Pt denies needs at this time. BS WNL.
--- NOTE | 2019-04-01 19:01 | NUR ---
Pt report given to Charles KELLOGG.
--- NOTE | 2019-04-01 20:38 | NUR ---
Pt resting in recliner watching TV, no C/O pain at this time, shift assessments complete, left Pt call light in reach.
[2019-04-02] VITALS (14 sets, daily range): BP systolic 109–182; BP diastolic 40–80; PULSE 57–72; TEMP 97.8–98.7
--- NOTE | 2019-04-02 05:15 | NUR ---
Pt slep during the night, she did wear her CPAP throughout the night after it was adjusted for comfort, no C/O pain, VS have remained stable.
--- NOTE | 2019-04-02 05:18 | NUR ---
Pt slept some during the night, she slept in the recliner in the room, no C/O pain, VS have remained stable.
[2019-04-02 06:09] LABS: BASO % 0.5 % (0.0-2.0); EOS # 0.3 (0.0-0.7); EOS % 5.8 % (0-4.0); GRAN # 3.2 (1.4-6.5); GRAN % 54.7 % (42.2-75.2); HEMOGLOBIN 10.1 g/dl (12.5-16.0); LYMPH # 1.6 (1.2-3.4); LYMPH % 27.7 % (20.0-51.0); MEAN CELL VOLUME 107 fl (80.0-100.0); MEAN CORPUSCULAR HEMOGLOBIN 35 pg (27.0-31.0); MEAN CORPUSCULAR HGB CONC 32 g/dl (33.0-37.0); MEAN PLATELET VOLUME 11.2 fl (7.4-10.4); MONO # 0.7 (0.1-0.6); PLATELET COUNT 126 K/mm3 (130-400); RED BLOOD COUNT 2.93 M/mm3 (4.10-5.30); REDCELL DISTRIBUTION WIDTH-CV 14.5 % (11.5-14.5)
[2019-04-02 06:14] LABS: HEMATOCRIT 31.4 % (37.0-47.0)
[2019-04-02 06:15] LABS: CALCIUM 9.7 mg/dL (8.4-10.2); CREATININE, serum 3.89 (0.52-1.25); POTASSIUM 4.3 mmol/L (3.4-5.0)
[2019-04-02 07:28] LABS: INR 1.4 (0.8-3.0); PROTHROMBIN TIME 16.1 SECONDS (9.7-12.8)
--- NOTE | 2019-04-02 07:56 | NUR ---
Pt up in chair this am. Pt INR 1.[address] Lee updated and wants to do heart cath procedure this am. Pt agrees and consent signed yesterday. Pt am assessment completed. Pt IV flushed and patent no infiltration or redness noted. Pt NPO since midnight. Pt has call light in reach and supervisor cytogenetic laboratory on their way to get pt for procedure.
--- NOTE | 2019-04-02 08:46 | NUR ---
ALL MEDICATIONS GIVEN VORB WITH MD. SEE MERGE FOR ALL MEDICATION ADMIN TIMES. SEE MERGE FOR ALL RASS ASSESSMENTS DURING AND POST PROCEDURE.
--- NOTE | 2019-04-02 09:47 | NUR ---
pt returned from kiln labourer with right femoral site covered with angioseal. Dressing CDI. No surrounding edema or hematoma noted. Pt lying flat per protocol. Pt denies pain or SOB. Pt has slight headache most likely d/t nitro given during kiln labourer. Pt placed on post op vitals. Pt has call light in reach and denies needs.
--- NOTE | 2019-04-02 14:35 | NUR ---
Pt taken down to dialysis. Pt right femoral site CDI. Pt has headache and back pain noted. PRN Tylenol ordered and given.
--- NOTE | 2019-04-02 18:54 | NUR ---
Pt back from dialysis around 1800. Pt alert and stable. Pt right femoral site CDI and pt sitting up in chair at this time. Pt IV free of complications. Pt has call light in reach and denies needs at this time.
--- NOTE | 2019-04-02 23:27 | NUR ---
Pt resting in recliner in room, no C/O pain at this time, shift assessments complete, left Pt call light in reach.
[2019-04-03 03:33] VITALS: BP 117/51; PULSE 61; TEMP 98.1
--- NOTE | 2019-04-03 05:15 | NUR ---
Pt slept well during the night in the recliner, no complaints during the night, VS have remained stable.
[2019-04-03 06:56] LABS: BASO % 0.5 % (0.0-2.0); EOS # 0.3 (0.0-0.7); EOS % 5.7 % (0-4.0); GRAN # 3.7 (1.4-6.5); LYMPH # 1.1 (1.2-3.4); MEAN CELL VOLUME 111 fl (80.0-100.0); MEAN CORPUSCULAR HGB CONC 31 g/dl (33.0-37.0); MONO # 0.6 (0.1-0.6); MONO % 10.6 % (1.7-9.3); PLATELET COUNT 124 K/mm3 (130-400); RED BLOOD COUNT 2.67 M/mm3 (4.10-5.30); REDCELL DISTRIBUTION WIDTH-CV 14.9 % (11.5-14.5)
[2019-04-03 06:59] LABS: HEMATOCRIT 29.5 % (37.0-47.0); HEMOGLOBIN 9.1 g/dl (12.5-16.0); MEAN CORPUSCULAR HEMOGLOBIN 34 pg (27.0-31.0)
[2019-04-03 07:05] LABS: CALCIUM 9.5 mg/dL (8.4-10.2); CREATININE, serum 3.07 (0.52-1.25); POTASSIUM 3.9 mmol/L (3.4-5.0)
[2019-04-03 07:38] VITALS: BP 120/57; PULSE 61; TEMP 98.4
--- NOTE | 2019-04-03 08:45 | NUR ---
Pt sitting up in wheelchair, denies pain or chest pain. Breathing even and unlabored, breath sounds clear on auscultation. Completed morning assessment. Dialysis fistula present on left forearm, thrill and bruit present. Dressing clean dry and intact. Dressing to right femoral is clead dry and intact. No hematoma noted. Call light in reach, will continue to monitor.
[2019-04-03 11:15] LABS: KAPPA FREE LIGHT CHAIN-SERUM 13.3 mg/dL (()); LAMDA FREE LIGHT CHAIN SERUM 7.24 mg/dL (())
[2019-04-03 11:40] VITALS: BP 159/63; PULSE 63; TEMP 98.4
[2019-04-03 16:32] VITALS: BP 158/46; PULSE 59; TEMP 98.4
[2019-04-03 16:37] LABS: INR 1.1 (0.8-3.0); PROTHROMBIN TIME 12.8 SECONDS (9.7-12.8)
--- NOTE | 2019-04-03 18:37 | NUR ---
Pt sitting in chair, denies pain. Breathing even and unlabored. Denies any needs at this time. Will continue to monitor.
--- NOTE | 2019-04-03 18:54 | NUR ---
Hand off report given to Lucy KELLOGG. Pt in chair, denies any needs at this time.
[2019-04-03 20:30] VITALS: BP 154/66; PULSE 64; TEMP 98.5
--- NOTE | 2019-04-03 21:00 | NUR ---
Initial shift assessment done- Up in chair, states feeling pretty good tonight, states should go home tomorrow- denies abd pain, Tele on, right groin site dressing dry and intact-no hematoma,soft. VSS, o2 at 2L/nc
[2019-04-04 01:00] VITALS: BP 133/44; PULSE 64; TEMP 98.4
[2019-04-04 04:29] VITALS: BP 135/41; PULSE 55
--- NOTE | 2019-04-04 04:31 | NUR ---
States having some mild soreness to right groin site- dressing remains dry and intact, Tylenol given at this time,,no other requests, has been resting in the recliner all night.
[2019-04-04 06:32] LABS: BASO % 0.2 % (0.0-2.0); EOS # 0.3 (0.0-0.7); EOS % 5.5 % (0-4.0); GRAN # 3.6 (1.4-6.5); GRAN % 61.8 % (42.2-75.2); LYMPH # 1.3 (1.2-3.4); LYMPH % 21.8 % (20.0-51.0); MEAN CELL VOLUME 107 fl (80.0-100.0); MEAN CORPUSCULAR HGB CONC 32 g/dl (33.0-37.0); MEAN PLATELET VOLUME 10.6 fl (7.4-10.4); MONO # 0.6 (0.1-0.6); MONO % 10.4 % (1.7-9.3); PLATELET COUNT 124 K/mm3 (130-400); RED BLOOD COUNT 2.53 M/mm3 (4.10-5.30); REDCELL DISTRIBUTION WIDTH-CV 14.7 % (11.5-14.5)
[2019-04-04 06:36] LABS: HEMATOCRIT 27.1 % (37.0-47.0); HEMOGLOBIN 8.6 g/dl (12.5-16.0); MEAN CORPUSCULAR HEMOGLOBIN 34 pg (27.0-31.0)
[2019-04-04 06:40] LABS: CALCIUM 9.9 mg/dL (8.4-10.2); CREATININE, serum 4.75 (0.52-1.25); POTASSIUM 4.5 mmol/L (3.4-5.0)
[2019-04-04 06:46] LABS: INR 1.3 (0.8-3.0); PROTHROMBIN TIME 14.5 SECONDS (9.7-12.8)
[2019-04-04 08:00] VITALS: BP 147/50; PULSE 54; TEMP 97.8
--- NOTE | 2019-04-04 09:08 | NUR ---
Pt is awake and A/Ox4, sitting up in chair. She states she is having a small amount of "aching" to her cath site in the right groin, requested PRN tylenol which was given. Saline lock to right AC is free of complications. Fistula noted to left FA. Pt is up as tolerated in room with use of w/c. Pt denies any other needs, will monitor.
--- NOTE | 2019-04-04 10:15 | NUR ---
Pt to dialysis.
--- NOTE | 2019-04-04 15:53 | NUR ---
The patient is to discharge today, 04/04, back home with her . SW student presented and explained IM form. The patient was agreeable and signed. Original placed on the chart and copy given to the patient. No additional needs at this time.
--- NOTE | 2019-04-04 16:13 | NUR ---
Pt was discharged home from hospital. All discharge instructions and paperwork was reviewed with pt and , expressed understanding. Saline lock removed, catheter tip intact. Pt to be escorted out of facility by staff.
[2019-04-05] MEDS ORDERED: RENVELA800 MG PO (23:13)
[2019-04-05] MEDS ORDERED: COUMADIN 6MG6 MG/TAB PO (23:17)
== END 2019-04-04 16:37 | disposition home or self-care (01) | DRG 286 ==
LOC: COL.ER 20:28 → MEDICAL 22:41
PROVIDERS: Emergency Medicine; Internal Medicine Cardiovascular Disease; Internal Medicine Nephrology; ADMIT Internal Medicine
PROC: 5A1D70Z Performance of Urinary Filtration, Intermittent, Less than 6 Hours Per Day (ICD-10-PCS; 2019-04-01)
PROC: B2111ZZ Fluoroscopy of Multiple Coronary Arteries using Low Osmolar Contrast (ICD-10-PCS; principal; 2019-04-02)
PROC: B2151ZZ Fluoroscopy of Left Heart using Low Osmolar Contrast (ICD-10-PCS; 2019-04-02)
PROC: 4A023N7 Measurement of Cardiac Sampling and Pressure, Left Heart, Percutaneous Approach (ICD-10-PCS; 2019-04-02)
PROC: 5A1D70Z Performance of Urinary Filtration, Intermittent, Less than 6 Hours Per Day (ICD-10-PCS; 2019-04-02)
PROC: 5A1D70Z Performance of Urinary Filtration, Intermittent, Less than 6 Hours Per Day (ICD-10-PCS; 2019-04-04)
DX: I25.10 Atherosclerotic heart disease of native coronary artery without angina pectoris (principal); N18.6 End stage renal disease; I12.0 Hypertensive chronic kidney disease with stage 5 chronic kidney disease or end stage renal disease; N25.81 Secondary hyperparathyroidism of renal origin; E11.22 Type 2 diabetes mellitus with diabetic chronic kidney disease; Z99.2 Dependence on renal dialysis; Z79.4 Long term (current) use of insulin; E11.40 Type 2 diabetes mellitus with diabetic neuropathy, unspecified; E11.21 Type 2 diabetes mellitus with diabetic nephropathy; Z86.73 Personal history of transient ischemic attack (TIA), and cerebral infarction without residual deficits; Z79.01 Long term (current) use of anticoagulants; D63.1 Anemia in chronic kidney disease; E78.5 Hyperlipidemia, unspecified; Z95.1 Presence of aortocoronary bypass graft; I48.91 Unspecified atrial fibrillation; J45.909 Unspecified asthma, uncomplicated; Z89.512 Acquired absence of left leg below knee
CPT/HCPCS: C1760; C1769; C1887; C1894; G0378; J0882; J1644; J1815; J2250; J2405; J3010; J3430; J7030; Q9967

== ENCOUNTER 2019-04-05 21:17 | Inpatient (IN) | payer MEDICARE, OTHER ==
[~2019-04-05] VITALS: Ht 152.4 cm; Wt 68.0 kg
[~2019-04-05 21:17] MED LIST changes: +ZANTAC 300300 MG PO
[2019-04-05 22:09] LABS: BASO % 0.3 % (0.0-2.0); EOS # 0.3 (0.0-0.7); EOS % 5.2 % (0-4.0); GRAN % 66.7 % (42.2-75.2); LYMPH # 1.1 (1.2-3.4); LYMPH % 18.6 % (20.0-51.0); MEAN CELL VOLUME 108 fl (80.0-100.0); MEAN CORPUSCULAR HGB CONC 32 g/dl (33.0-37.0); MEAN PLATELET VOLUME 10.4 fl (7.4-10.4); MONO # 0.5 (0.1-0.6); MONO % 8.9 % (1.7-9.3); PLATELET COUNT 164 K/mm3 (130-400); RED BLOOD COUNT 2.55 M/mm3 (4.10-5.30)
[2019-04-05 22:10] LABS: HEMATOCRIT 27.5 % (37.0-47.0); HEMOGLOBIN 8.8 g/dl (12.5-16.0); MEAN CORPUSCULAR HEMOGLOBIN 35 pg (27.0-31.0)
[2019-04-05 22:15] LABS: ALBUMIN 3.8 gm/dL (3.5-5.0); BILIRUBIN,TOTAL 0.3 mg/dL (0.0-1.0); CALCIUM 9.3 mg/dL (8.4-10.2); POTASSIUM 4.3 mmol/L (3.4-5.0); TOTAL PROTEIN 6.5 gm/dL (6.4-8.2)
[2019-04-05 22:18] LABS: CREATININE, serum 4.45 (0.52-1.25)
[2019-04-05 22:29] LABS: TROPONIN-I 0.037 ng/mL (0.000-0.035)
[2019-04-05 22:54] LABS: INR 1.7 (0.8-3.0); PROTHROMBIN TIME 19.1 SECONDS (9.7-12.8)
[2019-04-05] MEDS ORDERED: RENVELA800 MG PO (23:13)
[2019-04-05] MEDS ORDERED: COUMADIN 6MG6 MG/TAB PO (23:17)
[2019-04-06] VITALS (9 sets, daily range): BP systolic 96–185; BP diastolic 41–56; PULSE 45–65; TEMP 97.6–98.4
[2019-04-06] MEDS ORDERED: MIRALAX PA17 GM/Dose PO (01:20)
[2019-04-06] MEDS ORDERED: COLACE 100100 MG/CAP PO (01:21)
[2019-04-06] MEDS ORDERED: TYLENOL 500MG500 MG PO (01:22)
[2019-04-06] MEDS ORDERED: ULTRAM 50MG TAB50 MG PO (01:23)
[2019-04-06] MEDS ORDERED: APRESOLINE 25MG25 MG PO (01:24)
[2019-04-06] MEDS ORDERED: repatha (04:20)
[2019-04-06 10:53] LABS: BASO % 0.3 % (0.0-2.0); EOS # 0.4 (0.0-0.7); EOS % 6.7 % (0-4.0); GRAN # 3.6 (1.4-6.5); LYMPH # 1.4 (1.2-3.4); LYMPH % 23.7 % (20.0-51.0); MEAN CELL VOLUME 107 fl (80.0-100.0); MEAN CORPUSCULAR HGB CONC 33 g/dl (33.0-37.0); MEAN PLATELET VOLUME 10.5 fl (7.4-10.4); MONO # 0.4 (0.1-0.6); PLATELET COUNT 176 K/mm3 (130-400); RED BLOOD COUNT 2.52 M/mm3 (4.10-5.30); REDCELL DISTRIBUTION WIDTH-CV 15.2 % (11.5-14.5)
[2019-04-06 10:55] LABS: HEMOGLOBIN 8.9 g/dl (12.5-16.0); MEAN CORPUSCULAR HEMOGLOBIN 35 pg (27.0-31.0)
[2019-04-06 10:57] LABS: INR 1.9 (0.8-3.0); PROTHROMBIN TIME 21.9 SECONDS (9.7-12.8)
[2019-04-06 11:06] LABS: ALBUMIN 3.7 gm/dL (3.5-5.0); CALCIUM 9.7 mg/dL (8.4-10.2); PHOSPHOROUS 3.3 mg/dL (2.5-4.5); POTASSIUM 4.4 mmol/L (3.4-5.0)
[2019-04-06 11:07] LABS: CREATININE, serum 5.19 (0.52-1.25)
[2019-04-07 03:38] VITALS: BP 137/52; PULSE 51; TEMP 97.5
[2019-04-07 06:29] LABS: BASO % 0.4 % (0.0-2.0); EOS # 0.4 (0.0-0.7); EOS % 7.4 % (0-4.0); GRAN # 3.1 (1.4-6.5); GRAN % 56.5 % (42.2-75.2); LYMPH # 1.4 (1.2-3.4); LYMPH % 25.8 % (20.0-51.0); MEAN CORPUSCULAR HGB CONC 31 g/dl (33.0-37.0); MEAN PLATELET VOLUME 10.4 fl (7.4-10.4); MONO # 0.5 (0.1-0.6); MONO % 9.5 % (1.7-9.3); PLATELET COUNT 198 K/mm3 (130-400); RED BLOOD COUNT 2.53 M/mm3 (4.10-5.30); REDCELL DISTRIBUTION WIDTH-CV 15.9 % (11.5-14.5)
[2019-04-07 06:35] LABS: HEMATOCRIT 28.2 % (37.0-47.0); HEMOGLOBIN 8.8 g/dl (12.5-16.0); MEAN CELL VOLUME 112 fl (80.0-100.0); MEAN CORPUSCULAR HEMOGLOBIN 35 pg (27.0-31.0)
[2019-04-07 06:39] LABS: ALBUMIN 3.6 gm/dL (3.5-5.0); CALCIUM 9.6 mg/dL (8.4-10.2); PHOSPHOROUS 3.4 mg/dL (2.5-4.5); POTASSIUM 4.1 mmol/L (3.4-5.0)
[2019-04-07 06:41] LABS: CREATININE, serum 4.12 (0.52-1.25)
[2019-04-07 06:42] LABS: INR 2.1 (0.8-3.0)
[2019-04-07 07:43] VITALS: BP 135/43; PULSE 49; TEMP 97.9
[2019-04-07 11:01] VITALS: BP 143/56; PULSE 57; TEMP 98
[2019-04-07 16:02] VITALS: BP 142/43; PULSE 64; TEMP 98.4
[2019-04-07 20:10] VITALS: BP 146/53; PULSE 58; TEMP 97.8
[2019-04-07 22:52] VITALS: BP 161/52; PULSE 61; TEMP 98.1
[2019-04-08 04:11] VITALS: BP 170/74; PULSE 54; TEMP 97.5
[2019-04-08 06:54] LABS: BASO % 0.3 % (0.0-2.0); EOS # 0.4 (0.0-0.7); EOS % 6.1 % (0-4.0); GRAN # 3.5 (1.4-6.5); LYMPH # 1.8 (1.2-3.4); LYMPH % 28.3 % (20.0-51.0); MEAN CELL VOLUME 112 fl (80.0-100.0); MEAN CORPUSCULAR HGB CONC 31 g/dl (33.0-37.0); MEAN PLATELET VOLUME 10.3 fl (7.4-10.4); MONO # 0.6 (0.1-0.6); PLATELET COUNT 204 K/mm3 (130-400); RED BLOOD COUNT 2.57 M/mm3 (4.10-5.30); REDCELL DISTRIBUTION WIDTH-CV 16.3 % (11.5-14.5)
[2019-04-08 06:56] LABS: HEMATOCRIT 28.7 % (37.0-47.0); MEAN CORPUSCULAR HEMOGLOBIN 35 pg (27.0-31.0)
[2019-04-08 07:01] LABS: INR 2.1 (0.8-3.0); PROTHROMBIN TIME 23.8 SECONDS (9.7-12.8)
[2019-04-08 07:06] LABS: ALBUMIN 3.6 gm/dL (3.5-5.0); CALCIUM 9.6 mg/dL (8.4-10.2); PHOSPHOROUS 3.7 mg/dL (2.5-4.5); POTASSIUM 4.7 mmol/L (3.4-5.0)
[2019-04-08 07:14] LABS: CREATININE, serum 5.52 (0.52-1.25)
[2019-04-08 08:22] VITALS: BP 169/67; PULSE 54; TEMP 97.4
[2019-04-08] MEDS ORDERED: COREG 3.123.125 MG/T PO (11:13)
[2019-04-08 12:59] VITALS: BP 157/54; PULSE 63; TEMP 97.2
== END 2019-04-08 14:27 | disposition home or self-care (01) | DRG 302 ==
LOC: COL.ER 21:17 → MEDICAL 22:59
PROVIDERS: Emergency Medicine; ADMIT Internal Medicine Nephrology
PROC: 5A1D70Z Performance of Urinary Filtration, Intermittent, Less than 6 Hours Per Day (ICD-10-PCS; principal; 2019-04-06)
DX: I25.119 Atherosclerotic heart disease of native coronary artery with unspecified angina pectoris (principal); N18.6 End stage renal disease; I12.0 Hypertensive chronic kidney disease with stage 5 chronic kidney disease or end stage renal disease; Z99.2 Dependence on renal dialysis; E78.5 Hyperlipidemia, unspecified; J45.909 Unspecified asthma, uncomplicated; Z86.73 Personal history of transient ischemic attack (TIA), and cerebral infarction without residual deficits; M10.9 Gout, unspecified; I48.91 Unspecified atrial fibrillation; Z89.512 Acquired absence of left leg below knee; Z95.1 Presence of aortocoronary bypass graft; G40.909 Epilepsy, unspecified, not intractable, without status epilepticus; I25.2 Old myocardial infarction; Z79.01 Long term (current) use of anticoagulants; Z79.82 Long term (current) use of aspirin; Z79.4 Long term (current) use of insulin; Z88.1 Allergy status to other antibiotic agents; Z88.0 Allergy status to penicillin; Z88.2 Allergy status to sulfonamides; Z88.8 Allergy status to other drugs, medicaments and biological substances; D64.9 Anemia, unspecified; R00.1 Bradycardia, unspecified
CPT/HCPCS: J0882; J1644; J1815; J2405; J7030

== ENCOUNTER 2019-05-20 19:21 | Inpatient (IN) | payer MEDICARE, OTHER ==
[~2019-05-20] VITALS: Ht 152.4 cm; Wt 68.0 kg
[~2019-05-20 19:21] MED LIST changes: +AZO-CRANBERRY450 MG; +COREG 3.123.125 MG/T PO; +COUMADIN 6MG6 MG/TAB; +COUMADIN 6MG6 MG/TAB PO; +NEPHROCAP PO; +RENVELA800 MG PO; +REPATHA SU140 MG/1 M SQ; +repatha
[2019-05-20 19:48] LABS: BASO % 0.4 % (0.0-2.0); EOS # 0.2 (0.0-0.7); EOS % 4.3 % (0-4.0); GRAN # 3.7 (1.4-6.5); GRAN % 68.8 % (42.2-75.2); LYMPH # 0.9 (1.2-3.4); LYMPH % 16.5 % (20.0-51.0); MEAN CELL VOLUME 109 fl (80.0-100.0); MEAN CORPUSCULAR HEMOGLOBIN 35 pg (27.0-31.0); MEAN CORPUSCULAR HGB CONC 32 g/dl (33.0-37.0); MEAN PLATELET VOLUME 11.8 fl (7.4-10.4); MONO # 0.5 (0.1-0.6); MONO % 9.6 % (1.7-9.3); PLATELET COUNT 138 K/mm3 (130-400); RED BLOOD COUNT 3.11 M/mm3 (4.10-5.30); REDCELL DISTRIBUTION WIDTH-CV 14.1 % (11.5-14.5)
[2019-05-20 19:49] LABS: HEMATOCRIT 33.9 % (37.0-47.0)
[2019-05-20 19:53] LABS: INR 2.1 (0.8-3.0); PROTHROMBIN TIME 24.9 SECONDS (9.7-12.8)
[2019-05-20 20:00] LABS: ALANINE AMINOTRANSFERASE 38 U/L (9-52); ALBUMIN 3.9 gm/dL (3.5-5.0); ALKALINE PHOSPHATASE 112 U/L (50-136); ANION GAP 12 mmol/L (7-16); AST,SGOT 38 U/L (15-37); BILIRUBIN,TOTAL 0.2 mg/dL (0.0-1.0); BLOOD UREA NITROGEN 59 mg/dL (7-17); CALCIUM 9.1 mg/dL (8.4-10.2); CARBON DIOXIDE 29 mmol/L (22-30); CHLORIDE 95 mmol/L (98-107); GLUCOSE 270 mg/dL (74-106); POTASSIUM 3.7 mmol/L (3.4-5.0); SODIUM 136 mmol/L (137-145); TOTAL PROTEIN 6.5 gm/dL (6.4-8.2)
[2019-05-20 20:01] LABS: CREATININE, serum 4.49 (0.52-1.25)
[2019-05-20 20:02] LABS: CREATINE KINASE < 20 U/L (30-135)
[2019-05-20 20:12] LABS: TROPONIN-I 0.013 ng/mL (0.000-0.035)
--- NOTE | 2019-05-20 22:59 | NUR ---
PT ARRIVED FROM ER VIA WHEELCHAIR WITH BY SIDE. PT ADVISES THAT SHE IS HAVING A LITTLE CHEST PAIN BUT NOTHING LIKE LAST NIGHT. PT ATE PER DR. FIGUEROA AND WILL BE NPO AFTER MIDNIGHT. NO NEEDS AT THIS TIME, CALL LIGHT WITHIN REACH.
[2019-05-20 23:35] VITALS: BP 179/65; PULSE 62
--- NOTE | 2019-05-20 23:40 | NUR ---
CALLED DR. FIGUEROA IN REFERENCE TO PT'S COREG 6.25 MG PO MED THAT PT ADVISED THAT SHE DID NOT GET TONIGHT. DR. FIGUEROA GAVE ORDERS TO GIVE MEDICATION.
[2019-05-20 23:53] VITALS: BP 179/65; PULSE 59
[2019-05-21 02:18] VITALS: BP 144/55; PULSE 54; TEMP 98.5
--- NOTE | 2019-05-21 02:33 | NUR ---
PT SLEEP/RESTING IN WHEELCHAIR AND IN RECLINER. PT DENIES PAIN OR DISCOMFORT AND NO NEEDS. CALL LIGHT WITHIN REACH.
[2019-05-21 04:22] VITALS: BP 147/57; PULSE 53; TEMP 98.5
[2019-05-21 06:14] LABS: BASO % 0.5 % (0.0-2.0); EOS # 0.3 (0.0-0.7); EOS % 4.6 % (0-4.0); GRAN % 64.3 % (42.2-75.2); HEMOGLOBIN 10.3 g/dl (12.5-16.0); LYMPH # 1.1 (1.2-3.4); LYMPH % 17.8 % (20.0-51.0); MEAN CELL VOLUME 111 fl (80.0-100.0); MEAN CORPUSCULAR HEMOGLOBIN 35 pg (27.0-31.0); MEAN CORPUSCULAR HGB CONC 32 g/dl (33.0-37.0); MEAN PLATELET VOLUME 11.9 fl (7.4-10.4); MONO # 0.8 (0.1-0.6); MONO % 12.5 % (1.7-9.3); PLATELET COUNT 149 K/mm3 (130-400); RED BLOOD COUNT 2.91 M/mm3 (4.10-5.30); REDCELL DISTRIBUTION WIDTH-CV 14.2 % (11.5-14.5)
[2019-05-21 06:20] LABS: INR 1.8 (0.8-3.0); PROTHROMBIN TIME 21.1 SECONDS (9.7-12.8)
[2019-05-21 06:22] LABS: HEMATOCRIT 32.3 % (37.0-47.0)
[2019-05-21 06:28] LABS: POTASSIUM 3.9 mmol/L (3.4-5.0)
[2019-05-21 06:29] LABS: CREATININE, serum 5.2 (0.52-1.25)
[2019-05-21 06:40] LABS: TROPONIN-I 0.013 ng/mL (0.000-0.035)
[2019-05-21 08:33] VITALS: BP 164/54; PULSE 56; TEMP 98.4
--- NOTE | 2019-05-21 09:33 | NUR ---
Pt is awake and A/Ox4, sitting up in wheelchair. She denies any pain or discomfort. Saline lock to right upper arm is free of complications. She remains NPO for potential cath procedure. Denies any other needs.
[2019-05-21 10:32] LABS: HEMOGLOBIN 10.9 g/dl (12.5-16.0); MEAN CELL VOLUME 111 fl (80.0-100.0); MEAN CORPUSCULAR HEMOGLOBIN 35 pg (27.0-31.0); MEAN CORPUSCULAR HGB CONC 32 g/dl (33.0-37.0); MEAN PLATELET VOLUME 11.8 fl (7.4-10.4); PLATELET COUNT 136 K/mm3 (130-400); REDCELL DISTRIBUTION WIDTH-CV 14.2 % (11.5-14.5)
[2019-05-21 10:33] LABS: HEMATOCRIT 34.3 % (37.0-47.0)
--- NOTE | 2019-05-21 10:37 | NUR ---
Initial visit; Patient thanked for being here for her. Patti is about to undergo a surgical procedure. Meter Reading Clerk will return later when her pre-tests are finished and offer prayer.
[2019-05-21 10:46] LABS: CALCIUM 9.1 mg/dL (8.4-10.2); CREATININE, serum 5.37 (0.52-1.25); POTASSIUM 4.2 mmol/L (3.4-5.0)
[2019-05-21 11:08] VITALS: BP 158/61; PULSE 52; TEMP 97.7
--- NOTE | 2019-05-21 11:24 | NUR ---
Follow-up; Patient thanked Java Manager for returning to offer comfort and prayer prior to her surgical procedure. Java Manager will follow-up.
--- NOTE | 2019-05-21 14:04 | NUR ---
SW met with patient and about discharge planning. Patient lives independently at home with her . Patient's PCP is Dr Vasquez in [place] and she obtains prescriptions from [facility] in [place]. Patient uses a wheelchair or walker for mobility. Patient also uses home O2. Patient does not have any home health services and is not interested in those services at this time. Patient reports she does have a DPOA-HC. SW does not anticipate any discharge needs.
[2019-05-21 15:55] VITALS: BP 197/69; PULSE 60; TEMP 98
--- NOTE | 2019-05-21 16:04 | NUR ---
Pt has had an uneventful shift. She continues to deny chest pain. She still is awaiting rd lab technician for procedure. Family at bedside.
[2019-05-21 19:41] VITALS: BP 202/69; PULSE 60; TEMP 98.5
--- NOTE | 2019-05-21 19:45 | NUR ---
Shift assessment complete. Patient c/o chest pain (not new chest pain). Gave patient 1 nitro per request. BP 202/69, scheduled BP meds given. Lisinopril appeared to be on hold on the eMAR. Cardiology note 05/21 and hospitalist note from 05/21 both show lisinopril to be given, not on hold. Patient states she was not informed that it was on hold. Medication given per pt request. IV in RUE flushed with NS, patient stated it was painful. IV to be removed, and charge master coordinator to place new IV. Patient denies further needs at this time. Will continue to monitor.
[2019-05-22] VITALS (7 sets, daily range): BP systolic 145–194; BP diastolic 55–87; PULSE 50–69; TEMP 97.7–98.3
--- NOTE | 2019-05-22 02:54 | NUR ---
HR 49, sustaining, per lead radiologic technologist. Patient awake, oriented. States, "this happens all the time." HR now 61 on tele. Tele parameters are to call for HR less than 50. Will continue to monitor.
[2019-05-22 06:15] LABS: BASO % 0.4 % (0.0-2.0); EOS # 0.3 (0.0-0.7); GRAN # 2.8 (1.4-6.5); GRAN % 55.9 % (42.2-75.2); LYMPH # 1.3 (1.2-3.4); LYMPH % 26.2 % (20.0-51.0); MEAN CELL VOLUME 112 fl (80.0-100.0); MEAN CORPUSCULAR HEMOGLOBIN 35 pg (27.0-31.0); MEAN CORPUSCULAR HGB CONC 31 g/dl (33.0-37.0); MEAN PLATELET VOLUME 11.4 fl (7.4-10.4); MONO # 0.6 (0.1-0.6); MONO % 11.3 % (1.7-9.3); PLATELET COUNT 142 K/mm3 (130-400); RED BLOOD COUNT 2.86 M/mm3 (4.10-5.30)
[2019-05-22 06:28] LABS: POTASSIUM 4.3 mmol/L (3.4-5.0)
[2019-05-22 06:31] LABS: CREATININE, serum 6.53 (0.52-1.25)
[2019-05-22 07:09] LABS: HEMATOCRIT 31.9 % (37.0-47.0)
--- NOTE | 2019-05-22 09:19 | NUR ---
Initial visit; Patient appears to be anxious and concerned about the day ahead. Nocturnist Physician listened, offering spiritual care. Patient thankful for prayers.
--- NOTE | 2019-05-22 09:55 | NUR ---
Follow-up; delivered gift of encouragement to Patti.
--- NOTE | 2019-05-22 09:59 | NUR ---
Pt assessment complete. Pt alert and oriented. Pt IV free of complications. Pt has call light in reach.
[2019-05-22 12:48] LABS: INR 2.2 (0.8-3.0); PROTHROMBIN TIME 26.2 SECONDS (9.7-12.8)
--- NOTE | 2019-05-22 14:15 | NUR ---
Pt taken down to dialysis since pt unable to have heart cath d/t INR too high at 2.2. Dr. Lee would like it to be below 1.5. mentioned it could be done outpatient and stated that he would update Dr. Skaggs. Pt aware and understands. Pt coumadin on hold.
--- NOTE | 2019-05-22 17:17 | NUR ---
Pt remains in dialysis at this time.
--- NOTE | 2019-05-22 19:08 | NUR ---
Pt returned from dialysis and states she is feeling much better. Pt alert and oriented and BS 169. Pt ordered supper. Pt denies pain or SOB. Pt has family at bedside. Pt has call light in reach.
--- NOTE | 2019-05-22 19:42 | NUR ---
Pt report given to Lucy KELLOGG.
--- NOTE | 2019-05-22 21:30 | NUR ---
Initial shift assessment done- denies pain, denies SOB, in good spirits-states she feels good tonight-- visited with brother farideh who is here from [facility]- very happy about seeing him, sitting up in chair- Tele on,, no requests, understands will be NPO after MN in case they are able to do heart cath tomorrow { waiting for INR to come down}
[2019-05-23 03:30] VITALS: BP 130/50; PULSE 55; TEMP 98.3
--- NOTE | 2019-05-23 06:18 | NUR ---
Quiet night-- has been resting well in chair all night-- no requests, VSS, tele on-SR/SB all night
[2019-05-23 07:36] LABS: BASO % 0.4 % (0.0-2.0); EOS # 0.3 (0.0-0.7); EOS % 6.3 % (0-4.0); GRAN # 2.9 (1.4-6.5); GRAN % 55.9 % (42.2-75.2); HEMOGLOBIN 10.6 g/dl (12.5-16.0); LYMPH # 1.3 (1.2-3.4); LYMPH % 25.8 % (20.0-51.0); MEAN CELL VOLUME 112 fl (80.0-100.0); MEAN CORPUSCULAR HEMOGLOBIN 35 pg (27.0-31.0); MEAN CORPUSCULAR HGB CONC 32 g/dl (33.0-37.0); MEAN PLATELET VOLUME 11.3 fl (7.4-10.4); MONO # 0.6 (0.1-0.6); MONO % 11.4 % (1.7-9.3); PLATELET COUNT 157 K/mm3 (130-400)
[2019-05-23 07:38] LABS: HEMATOCRIT 33.7 % (37.0-47.0)
[2019-05-23 07:45] LABS: CALCIUM 9.3 mg/dL (8.4-10.2); CREATININE, serum 4.19 (0.52-1.25); POTASSIUM 3.8 mmol/L (3.4-5.0)
[2019-05-23 08:06] LABS: INR 2.3 (0.8-3.0); PROTHROMBIN TIME 27.3 SECONDS (9.7-12.8)
[2019-05-23 08:39] VITALS: BP 167/62; PULSE 55; TEMP 97.6
--- NOTE | 2019-05-23 09:42 | NUR ---
patient assessment complete and charted. patient sitting in WC upon entry. Denies chest pain, dizziness, palpitations, N/V, or SOB. Pt on room air. LFA fistula w/ gauze covering site. per pt "dialysis went very well yesterday". RFA INT IV patent no complications. pt denies needs at this time. Call light within reach.
--- NOTE | 2019-05-23 10:41 | NUR ---
Follow-up visit; Patient thanked Registered Physical Therapist for looking in on her, offering prayer and additional spiritual care.
[2019-05-23 12:07] VITALS: BP 154/42; PULSE 58; TEMP 98
--- NOTE | 2019-05-23 14:23 | NUR ---
Tele called to report that Pt strip was reading 2nd degree heart block, this was new. This nurse called Jesus to report finding. EKG ordered. Pt INR also still too high for heart cath procedure. Dr. Lee ordered Vit K to be administered.
--- NOTE | 2019-05-23 16:25 | NUR ---
Vitamin K ordered by Dr. Lee, administered by this nurse. This nurse stayed in the room during administration in RFA IV. No complications. Pt tolerated well. Pt states she doesn't have much of appetite. Didn't order lunch this afternoon. Refused renvela this afternoon due to not eating, will take evening dose.
[2019-05-23 16:38] VITALS: BP 179/59; PULSE 55; TEMP 98.6
--- NOTE | 2019-05-23 19:02 | NUR ---
Report given to BESS Gonzalez. Patient sitting in wheelchair waiting for dinner. Denies pain and has no other complaints at this time.
[2019-05-23 19:03] VITALS: PULSE 57; TEMP 98
--- NOTE | 2019-05-23 19:21 | NUR ---
dr. lee notified of EKG results, no heart blocks per Dr. Lee. Reported to BESS Gonzalez.
[2019-05-23 23:22] VITALS: BP 151/53; PULSE 53; TEMP 97.9
[2019-05-24] VITALS (166 sets, daily range): BP systolic 150–199; BP diastolic 52–116; PULSE 51–68; TEMP 97.5–98.1; O2SAT 77–100
--- NOTE | 2019-05-24 07:00 | NUR ---
Report received from BESS Gonzalez. PT in wheelchair resting, denies needs, discussed NPO status and no dinner tray delivery last night. Will continue to monitor.
[2019-05-24 07:24] LABS: BASO % 0.6 % (0.0-2.0); EOS # 0.4 (0.0-0.7); EOS % 6.8 % (0-4.0); GRAN # 3.1 (1.4-6.5); GRAN % 56.9 % (42.2-75.2); HEMOGLOBIN 10.8 g/dl (12.5-16.0); LYMPH # 1.4 (1.2-3.4); LYMPH % 25.3 % (20.0-51.0); MEAN CELL VOLUME 109 fl (80.0-100.0); MEAN CORPUSCULAR HEMOGLOBIN 36 pg (27.0-31.0); MEAN CORPUSCULAR HGB CONC 33 g/dl (33.0-37.0); MEAN PLATELET VOLUME 11.3 fl (7.4-10.4); MONO # 0.6 (0.1-0.6); MONO % 10.2 % (1.7-9.3); PLATELET COUNT 161 K/mm3 (130-400); RED BLOOD COUNT 3.02 M/mm3 (4.10-5.30); REDCELL DISTRIBUTION WIDTH-CV 14.1 % (11.5-14.5)
[2019-05-24 07:27] LABS: INR 1.2 (0.8-3.0); PROTHROMBIN TIME 13.6 SECONDS (9.7-12.8)
[2019-05-24 07:37] LABS: HEMATOCRIT 32.9 % (37.0-47.0)
[2019-05-24 07:38] LABS: CALCIUM 9.3 mg/dL (8.4-10.2); POTASSIUM 3.9 mmol/L (3.4-5.0)
[2019-05-24 07:40] LABS: CREATININE, serum 5.52 (0.52-1.25)
--- NOTE | 2019-05-24 07:47 | NUR ---
Called Dr. Lee and reported results of the INR today, he plans on doing a heart catheterization today. Will notify patient and continue to monitor.
--- NOTE | 2019-05-24 10:19 | NUR ---
Assessment charted. Called Ada, head hairspring inspector regarding meal tray not delivered, it will be handled by kitchen managment. Pt agreeable, pleasant, consented for 230 pm heart cath. Resting in chair with visitor at bedside. Denies needs. INT to RF. AV fistula to LFA. Sips of water with meds. NPO until procedure. Will continue to monitor.
--- NOTE | 2019-05-24 11:17 | NUR ---
Initial visit; Patient thanked Leader Writer for looking in on her and offering prayer and God's blessings.
--- NOTE | 2019-05-24 14:22 | NUR ---
SEE MERGE FOR ALL MEDICATION ADMINISTRATION TIMES, SEDATION ASESSMENT DATA INTRA AND POST PROCEDURE.
--- NOTE | 2019-05-24 14:47 | NUR ---
Report given to BESS Jenkins who will resume care
--- NOTE | 2019-05-24 16:00 | NUR ---
Pt transferred from labor service representative to ICU bed 4 at this time. Pt arrived via bed and placed on flooring machine operator. Sutured R Femoral sheath in place on arrival. Pt reports diminshing chest pain that is going away slowly.
--- NOTE | 2019-05-24 16:05 | NUR ---
R femoral cath site clean, dry, et intact with sheath in place. No hematoma or drainage noted.
--- NOTE | 2019-05-24 17:00 | NUR ---
BP noted to be markedly elevated with a systolic of >180 by femoral arterial line. Dr. Lee notifed of BP elevation. Provider instructed to administer night dose of amlodipine early along with a PRN dose of hydralazine. Will continue to monitor.
--- NOTE | 2019-05-24 18:45 | NUR ---
Scant drainage noted on femoral sheath dressing. No hematoma noted. Will continue to monitor.
--- NOTE | 2019-05-24 19:41 | NUR ---
Bedside report given to BESS Godinez.
[2019-05-25] VITALS (709 sets, daily range): BP systolic 128–205; BP diastolic 52–80; PULSE 50–73; TEMP 97.6–98.1; O2SAT 74–100
--- NOTE | 2019-05-25 07:20 | NUR ---
Report received from Herbert KELLOGG and care resumed.
--- NOTE | 2019-05-25 08:30 | NUR ---
Dr Lee in to see pt at this time.
[2019-05-25 14:13] LABS: BASO # 0.1 (0.0-0.2); BASO % 0.6 % (0.0-2.0); EOS # 0.3 (0.0-0.7); EOS % 3.4 % (0-4.0); GRAN # 6.1 (1.4-6.5); GRAN % 76.7 % (42.2-75.2); HEMATOCRIT 35.5 % (37.0-47.0); HEMOGLOBIN 11.7 g/dl (12.5-16.0); LYMPH # 0.9 (1.2-3.4); LYMPH % 11.4 % (20.0-51.0); MEAN CELL VOLUME 108 fl (80.0-100.0); MEAN CORPUSCULAR HEMOGLOBIN 36 pg (27.0-31.0); MEAN CORPUSCULAR HGB CONC 33 g/dl (33.0-37.0); MEAN PLATELET VOLUME 10.6 fl (7.4-10.4); MONO # 0.6 (0.1-0.6); MONO % 7.5 % (1.7-9.3); PLATELET COUNT 189 K/mm3 (130-400); RED BLOOD COUNT 3.28 M/mm3 (4.10-5.30); REDCELL DISTRIBUTION WIDTH-CV 13.9 % (11.5-14.5)
[2019-05-25 14:22] LABS: CALCIUM 9.4 mg/dL (8.4-10.2); CREATININE, serum 3.68 (0.52-1.25); POTASSIUM 4.2 mmol/L (3.4-5.0)
--- NOTE | 2019-05-25 15:00 | NUR ---
Dr Monahan in to see pt. Will plan to transfe to floor post dialysis.
--- NOTE | 2019-05-25 15:10 | NUR ---
Received report from Palmira KELLOGG. Pt is in dialysis and will be done at 1620.
--- NOTE | 2019-05-25 15:10 | NUR ---
Report called to Mari KELLOGG on medical floor. Pt to transfer after dialysis.
--- NOTE | 2019-05-25 16:45 | NUR ---
Picked pt up from dialysis. Pt denied any pain at this time. Right femoral site is bandaged, CDI. Fistula site is bandaged with no bleeding at this time. Pt oriented to room. Breathing even and unlabored. Breath sounds clear. Radial Pulses strong bilaterally. 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 Denies any needs at this time.
--- NOTE | 2019-05-25 18:56 | NUR ---
Report given to Lisa KELLOGG. Pt sitting up in bed, denies any needs at this time.
[2019-05-26 00:17] VITALS: BP 150/54; PULSE 59; TEMP 98.6
[2019-05-26 04:18] VITALS: BP 113/45; BP 113/60; PULSE 54; TEMP 97.9
[2019-05-26 07:13] LABS: BASO % 0.5 % (0.0-2.0); EOS # 0.3 (0.0-0.7); EOS % 5.4 % (0-4.0); GRAN # 3.7 (1.4-6.5); GRAN % 62.5 % (42.2-75.2); HEMOGLOBIN 10.4 g/dl (12.5-16.0); LYMPH # 1.2 (1.2-3.4); LYMPH % 19.8 % (20.0-51.0); MEAN CELL VOLUME 112 fl (80.0-100.0); MEAN CORPUSCULAR HEMOGLOBIN 36 pg (27.0-31.0); MEAN CORPUSCULAR HGB CONC 32 g/dl (33.0-37.0); MONO # 0.7 (0.1-0.6); MONO % 11.6 % (1.7-9.3); PLATELET COUNT 160 K/mm3 (130-400); RED BLOOD COUNT 2.92 M/mm3 (4.10-5.30); REDCELL DISTRIBUTION WIDTH-CV 14.2 % (11.5-14.5)
[2019-05-26 07:19] LABS: HEMATOCRIT 32.6 % (37.0-47.0)
[2019-05-26 07:28] LABS: ALBUMIN 3.7 gm/dL (3.5-5.0); CALCIUM 9.4 mg/dL (8.4-10.2); PHOSPHOROUS 3.7 mg/dL (2.5-4.5); POTASSIUM 3.9 mmol/L (3.4-5.0)
[2019-05-26 07:31] LABS: CREATININE, serum 4.25 (0.52-1.25)
--- NOTE | 2019-05-26 08:35 | NUR ---
Patient sitting in chair awaiting breakfast upon assessment. Denies having any pain at this time. States she is feeling much better after getting a good nights rest. Mild expiratory wheesing heard bilaterally in upper lobes. Patient states this is normal for her with her asthma. Patient up in wheelchair independently earlier in the morning. Manages lower left leg prosthesis well independently and transfers independently well also. Patient has no further concerns at this time.
[2019-05-26 08:39] VITALS: BP 150/51; PULSE 57; TEMP 97.9
[2019-05-26 12:44] VITALS: BP 114/56; PULSE 58; TEMP 97.9
[2019-05-26 16:18] VITALS: BP 157/58; PULSE 62; TEMP 98
[2019-05-26 19:24] VITALS: BP 199/62; PULSE 62; TEMP 98
[2019-05-27 00:44] VITALS: BP 165/65; PULSE 68; TEMP 97.9
--- NOTE | 2019-05-27 01:00 | NUR ---
Pt up in chair, voices no c/o pain. States she feels so much better this evening. Fistula in L FA with bruit noted. R groin dressing clean, dry and intact. Requested and given Colace 100mg. [facility]
[2019-05-27 04:08] VITALS: BP 169/81; PULSE 60; TEMP 98.3
--- NOTE | 2019-05-27 04:15 | NUR ---
Pt awake sitting in chair watching TV. Denies pain, SOA. O2 on per NC at 2L. Call light within reach.
[2019-05-27 07:02] LABS: BASO % 0.4 % (0.0-2.0); EOS # 0.3 (0.0-0.7); EOS % 5.8 % (0-4.0); GRAN # 3.3 (1.4-6.5); GRAN % 57.8 % (42.2-75.2); HEMOGLOBIN 10.1 g/dl (12.5-16.0); LYMPH # 1.5 (1.2-3.4); LYMPH % 25.4 % (20.0-51.0); MEAN CELL VOLUME 112 fl (80.0-100.0); MEAN CORPUSCULAR HEMOGLOBIN 35 pg (27.0-31.0); MEAN CORPUSCULAR HGB CONC 32 g/dl (33.0-37.0); MEAN PLATELET VOLUME 11.1 fl (7.4-10.4); MONO # 0.6 (0.1-0.6); MONO % 10.2 % (1.7-9.3); PLATELET COUNT 135 K/mm3 (130-400); RED BLOOD COUNT 2.87 M/mm3 (4.10-5.30); REDCELL DISTRIBUTION WIDTH-CV 14.1 % (11.5-14.5)
[2019-05-27 07:13] LABS: ALBUMIN 3.6 gm/dL (3.5-5.0); CALCIUM 9.6 mg/dL (8.4-10.2); PHOSPHOROUS 3.9 mg/dL (2.5-4.5); POTASSIUM 4.7 mmol/L (3.4-5.0)
[2019-05-27 07:15] LABS: CREATININE, serum 5.64 (0.52-1.25)
--- NOTE | 2019-05-27 07:42 | NUR ---
Patient had uneventful night. Resting recliner this AM. Report given to BESS Joya
[2019-05-27 08:47] VITALS: BP 173/52; PULSE 55; TEMP 98.2
--- NOTE | 2019-05-27 09:10 | NUR ---
Pt assessment complete. Pt is sitting in wheelchair upon entry. She is A/O x3. Pt states she does not feel well today, feels nauseous, PRN Zofran administered. Pt states she had pain to chest and back overnight, improved when moved to her wheelchair. Fistula to LFA, CDI, no dressing in place. Pt denies pain at this time. Pt down to dialysis at this time, Berhane sent with patient.
[2019-05-27] MEDS ORDERED: PLAVIX 75MG TAB75 MG PO (11:09)
[2019-05-27] MEDS ORDERED: DULCOLAX TAB5 MG PO (11:13)
[2019-05-27 13:17] VITALS: BP 150/51; PULSE 62; TEMP 97.6
--- NOTE | 2019-05-27 13:20 | NUR ---
Pt back from dialysis at this time.
--- NOTE | 2019-05-27 13:43 | NUR ---
Follow-up visit; Patient thanked Infrastructure Manager for coming in and wishing her well and God speed prior to her departure.
--- NOTE | 2019-05-27 14:54 | NUR ---
The patient is to discharge back home with her today, 05/27. SW presented and explained the IM form to the patient. The patient verbalized understanding, signed, and she was provided a copy. No additional needs at this time.
--- NOTE | 2019-05-27 15:49 | NUR ---
Discharge paperwork and instructions reviewed with patient. All questions answered at this time. IV dc'd from RFA, catheter tip intact. Pt wheeled out at this time.
== END 2019-05-27 16:00 | disposition home or self-care (01) | DRG 246 ==
LOC: COL.ER 19:21 → MEDICAL 20:34 → ICU 05-24 15:33 → MEDICAL 05-25 16:51
PROVIDERS: Emergency Medicine; Internal Medicine Cardiovascular Disease; Internal Medicine Interventional Cardiology; Internal Medicine Nephrology; ADMIT Internal Medicine
PROC: 5A1D70Z Performance of Urinary Filtration, Intermittent, Less than 6 Hours Per Day (ICD-10-PCS; 2019-05-22)
PROC: 027034Z Dilation of Coronary Artery, One Artery with Drug-eluting Intraluminal Device, Percutaneous Approach (ICD-10-PCS; principal; 2019-05-24)
PROC: 4A023N7 Measurement of Cardiac Sampling and Pressure, Left Heart, Percutaneous Approach (ICD-10-PCS; 2019-05-24)
PROC: B2111ZZ Fluoroscopy of Multiple Coronary Arteries using Low Osmolar Contrast (ICD-10-PCS; 2019-05-24)
PROC: B2151ZZ Fluoroscopy of Left Heart using Low Osmolar Contrast (ICD-10-PCS; 2019-05-24)
DX: I25.119 Atherosclerotic heart disease of native coronary artery with unspecified angina pectoris (principal); N18.6 End stage renal disease; I12.0 Hypertensive chronic kidney disease with stage 5 chronic kidney disease or end stage renal disease; Z99.2 Dependence on renal dialysis; I48.2 Chronic atrial fibrillation; Z79.01 Long term (current) use of anticoagulants; D63.1 Anemia in chronic kidney disease; E11.22 Type 2 diabetes mellitus with diabetic chronic kidney disease; E11.319 Type 2 diabetes mellitus with unspecified diabetic retinopathy without macular edema; E11.40 Type 2 diabetes mellitus with diabetic neuropathy, unspecified; Z95.1 Presence of aortocoronary bypass graft; Z86.73 Personal history of transient ischemic attack (TIA), and cerebral infarction without residual deficits; Z89.511 Acquired absence of right leg below knee; Z88.0 Allergy status to penicillin; Z88.2 Allergy status to sulfonamides; Z88.8 Allergy status to other drugs, medicaments and biological substances; G40.909 Epilepsy, unspecified, not intractable, without status epilepticus
CPT/HCPCS: C1725; C1769; C1874; C1887; C1894; C9600; J0282; J0360; J1644; J1815; J2250; J2405; J3010; J3430; J7030; Q9967

== ENCOUNTER 2019-06-25 01:25 | Inpatient (IN) | payer MEDICARE, OTHER ==
[~2019-06-25] VITALS: Ht 152.4 cm; Wt 66.0 kg
[2019-06-25] VITALS (119 sets, daily range): BP systolic 151–219; BP diastolic 56–110; PULSE 59–68; TEMP 97.6–98.4; O2SAT 84–100
[~2019-06-25 01:25] MED LIST changes: -AZO-CRANBERRY450 MG; +DULCOLAX TAB5 MG PO; +PLAVIX 75MG TAB75 MG PO
[2019-06-25 01:48] LABS: BASO % 0.5 % (0.0-2.0); EOS # 0.3 (0.0-0.7); GRAN # 4.5 (1.4-6.5); GRAN % 69.9 % (42.2-75.2); HEMATOCRIT 37.9 % (37.0-47.0); HEMOGLOBIN 12.3 g/dl (12.5-16.0); LYMPH # 1.1 (1.2-3.4); LYMPH % 16.7 % (20.0-51.0); MEAN CELL VOLUME 108 fl (80.0-100.0); MEAN CORPUSCULAR HEMOGLOBIN 35 pg (27.0-31.0); MEAN CORPUSCULAR HGB CONC 33 g/dl (33.0-37.0); MONO # 0.5 (0.1-0.6); MONO % 7.7 % (1.7-9.3); PLATELET COUNT 125 K/mm3 (130-400); RED BLOOD COUNT 3.51 M/mm3 (4.10-5.30); REDCELL DISTRIBUTION WIDTH-CV 14.3 % (11.5-14.5)
[2019-06-25 01:52] LABS: INR 2.1 (0.8-3.0); PROTHROMBIN TIME 24.6 SECONDS (9.7-12.8)
[2019-06-25 01:58] LABS: ALBUMIN 4.3 gm/dL (3.5-5.0); BILIRUBIN,TOTAL 0.5 mg/dL (0.0-1.0); CALCIUM 9.8 mg/dL (8.4-10.2); CREATININE, serum 6.12 (0.52-1.25); MAGNESIUM 3.4 mg/dL (1.6-2.3); POTASSIUM 3.9 mmol/L (3.4-5.0)
[2019-06-25 02:09] LABS: TROPONIN-I 0.031 ng/mL (0.000-0.035)
[2019-06-25] MEDS ORDERED: ZANTAC 300300 MG PO (02:09)
[2019-06-25 03:17] LABS: PHENYTOIN (DILANTIN) 6.2 ug/mL (10.0-20.0); THEOPHYLLINE 5.1 ug/mL (10.0-20.0)
--- NOTE | 2019-06-25 04:30 | NUR ---
Patient arrived from emergency department via bed. Assessment completed. Lungs clear. Heart sounds normal. Bowels active x4. Pulse strong throughout-left below knee amputation. Nitro drip infusing at 30mcg/min or 10ml/hr currently. Verified by BESS Castro. Orientated patient to ICU. All questions answered. Patient has nitro patch present to right chest. Will contact Dr. Monahan for orders.
[2019-06-25] MEDS ORDERED: RANEXA 500MG T500 MG PO (04:57)
--- NOTE | 2019-06-25 05:05 | NUR ---
Nitro drip increased to 35mcg/min.
--- NOTE | 2019-06-25 05:15 | NUR ---
Contacted Dr. Monahan. Listed home blood pressure medications. Per Dr. Monahan give all home morning medications now, start ADA and renal diet, titrate nitro drip to systolic below 160, patient will go to dialysis first in AM, no need to call for elevated blood pressures, consult Dr. Sotelo.
--- NOTE | 2019-06-25 05:36 | NUR ---
Nitro drip increased to 40mcg/min or 12ml/hr
--- NOTE | 2019-06-25 06:02 | NUR ---
Nitro increased to 45mcg/min or 13.5ml/hr
--- NOTE | 2019-06-25 06:09 | NUR ---
Dr. Sotelo notified of troponin 1.010. New orders to keep patient NPO.
--- NOTE | 2019-06-25 06:15 | NUR ---
Nitro increased to 50mcg/min or 15ml/hr.
--- NOTE | 2019-06-25 06:33 | NUR ---
Nitro drip increased to 55mcg/min or 16.5ml/hr
--- NOTE | 2019-06-25 07:12 | NUR ---
Report given to BESS Chavis and BESS Hodges. Patient blood pressure current 187/87.
--- NOTE | 2019-06-25 07:15 | NUR ---
RECEIVED REPORT FROM BESS KENNEDY.
--- NOTE | 2019-06-25 11:00 | NUR ---
NITRO TITRATED OFF BY DIALYSIS NURSE WHILE PATIENT RECEIVED DIALYSIS TREATMENT.
--- NOTE | 2019-06-25 13:52 | NUR ---
SW met with the patient to discuss discharge plan. The patient reports that things have been going well, but that she became nauseated and started having high blood pressure and chest pain in the middle of the night. She states that she had not seen her PCP since her last hospital stay. She states her appointment to see her PCP was for tomorrow, 06/26. The patient [place] with her , Angelito. She reports needing assistance with bathing and has a prosthetic, two walkers, a wheelchair, and home oxygen. She states her helps her bathe. She does not receive any home health services and she reports she is not interested in home health at this time. The patient's PCP is Dr. Richard Vasquez and she receives her medications at [facility]. She reports no difficulties obtaining her meds. The patient does not have advanced directives in EMR, but she states that she is working on them and that her daughter is going to get them notarized. She states she designated her daughter, Vandana Garg, to be her DPOA-HC (ph#[phone]). The patient plans to return home with her upon discharge. No other identified needs at this time, but SW to continue to follow.
[2019-06-25 14:19] LABS: MEAN CELL VOLUME 109 fl (80.0-100.0); MEAN CORPUSCULAR HEMOGLOBIN 36 pg (27.0-31.0); MEAN CORPUSCULAR HGB CONC 33 g/dl (33.0-37.0); MEAN PLATELET VOLUME 10.7 fl (7.4-10.4); PLATELET COUNT 118 K/mm3 (130-400); RED BLOOD COUNT 3.36 M/mm3 (4.10-5.30); REDCELL DISTRIBUTION WIDTH-CV 14.4 % (11.5-14.5)
[2019-06-25 14:30] LABS: CALCIUM 9.4 mg/dL (8.4-10.2); CREATININE, serum 3.12 (0.52-1.25); POTASSIUM 4.1 mmol/L (3.4-5.0)
[2019-06-25 14:41] LABS: HEMATOCRIT 36.5 % (37.0-47.0)
[2019-06-25 14:50] LABS: INR 2.3 (0.8-3.0); PROTHROMBIN TIME 27.8 SECONDS (9.7-12.8)
--- NOTE | 2019-06-25 17:44 | NUR ---
REPORT CALLED TO BESS GIBSON.
--- NOTE | 2019-06-25 17:58 | NUR ---
PATIENT TRANSFERRED TO MEDICAL ROOM 352. PATIENT AMBULATED TO THE RECLINER. PATIENT'S DAUGHTER AND GRANDAUGHTER ARE IN THE ROOM WITH HER. MADE CONTACT WITH THE RECEIVING NURSE, PAIGE.
--- NOTE | 2019-06-25 18:40 | NUR ---
Pt arrives to medical floor rm 352 from ICU via WC. Pt awake and alert, oriented x 4. POC reviewed with pt. No further needs reported. Call light in reach.
--- NOTE | 2019-06-25 21:35 | NUR ---
Dr. Monahan called regarding PRN hydralazine. Wants hydralazine given if systolic above 160. Informed Dr. Richardson giving evening blood pressure medication and will recheck in one hour and provide PRN hydralazine if needed. No other orders at this time.
--- NOTE | 2019-06-25 22:30 | NUR ---
Report received from BESS Valderrama. Patient resting in chair. Vital signs have all been within normal limits. Alert and oriented. Right AC IV patent, flushed. PRN IV Zofran given for complaints of nausea and PRN hydralazine given for blood pressure greater than 160. Patient denies pain at this time. Denies any further needs at this time. Call light within reach.
--- NOTE | 2019-06-25 23:02 | NUR ---
Blood pressure continues to be elevated. Will provide PRN hydralazine
--- NOTE | 2019-06-26 00:45 | NUR ---
Tele box changed at this time. Normal sinus rhythm.
[2019-06-26 04:09] VITALS: BP 159/56; PULSE 59; TEMP 97.8
--- NOTE | 2019-06-26 05:45 | NUR ---
Patient required one dose of hydralazine for high blood pressures. Upon reassessment, blood pressures improved. Sleeping in chair. Denies any further needs. Call light within reach.
--- NOTE | 2019-06-26 06:51 | NUR ---
Report given to Caren Spears
--- NOTE | 2019-06-26 06:54 | NUR ---
Report given to BESS Mujica
--- NOTE | 2019-06-26 06:54 | NUR ---
Report given to BESS Chau
[2019-06-26 07:59] VITALS: BP 152/69; PULSE 57; TEMP 98.6
[2019-06-26 08:15] LABS: BASO % 0.4 % (0.0-2.0); EOS # 0.4 (0.0-0.7); EOS % 5.1 % (0-4.0); GRAN # 4.6 (1.4-6.5); GRAN % 65.1 % (42.2-75.2); HEMATOCRIT 41.2 % (37.0-47.0); HEMOGLOBIN 13.2 g/dl (12.5-16.0); LYMPH # 1.4 (1.2-3.4); LYMPH % 19.7 % (20.0-51.0); MEAN CELL VOLUME 110 fl (80.0-100.0); MEAN CORPUSCULAR HEMOGLOBIN 35 pg (27.0-31.0); MEAN CORPUSCULAR HGB CONC 32 g/dl (33.0-37.0); MEAN PLATELET VOLUME 11.2 fl (7.4-10.4); MONO # 0.7 (0.1-0.6); MONO % 9.6 % (1.7-9.3); PLATELET COUNT 158 K/mm3 (130-400); RED BLOOD COUNT 3.74 M/mm3 (4.10-5.30); REDCELL DISTRIBUTION WIDTH-CV 14.6 % (11.5-14.5)
[2019-06-26 08:22] LABS: INR 1.8 (0.8-3.0); PROTHROMBIN TIME 21.8 SECONDS (9.7-12.8)
[2019-06-26 08:24] LABS: ALBUMIN 4.4 gm/dL (3.5-5.0); CALCIUM 9.9 mg/dL (8.4-10.2); PHOSPHOROUS 4.1 mg/dL (2.5-4.5); POTASSIUM 4.4 mmol/L (3.4-5.0)
[2019-06-26 08:27] LABS: CREATININE, serum 4.46 (0.52-1.25)
[2019-06-26 08:36] LABS: TROPONIN-I 0.827 ng/mL (0.000-0.035)
[2019-06-26 10:01] LABS: PARTIAL THROMBOPLASTIN TIME 38.2 SECONDS (26.0-37.0)
[2019-06-26 11:23] VITALS: BP 162/68; PULSE 63; TEMP 97.5
[2019-06-26 15:20] VITALS: BP 182/75; PULSE 67; TEMP 98.6
[2019-06-26 16:30] VITALS: BP 165/59; PULSE 59; TEMP 98.2
--- NOTE | 2019-06-26 17:50 | NUR ---
Pt having bright red rectal bleeding noted with bowel strain. Pt given PRN Colace. Heparin Xa drawn at 1730. Pt alert and oriented and left extremity restriction remains d/t fistula. IV intact and patent in right AC. Pt has call light in reach and Hydralazine given to manage BP. Pt denies needs at this time.
[2019-06-26 20:16] VITALS: BP 166/74; PULSE 64; TEMP 98.4
--- NOTE | 2019-06-26 22:49 | NUR ---
Report received from BESS Chau. Patient resting in chair. HepXA was 0.76 at 1743. Heparin drip stopped at 1935 for 60 minutes. Rate changed to 6 ml/hr. Recheck at 0130. Patient had BM with small amount of red bleeding. Patient reported being nauseous so PRN dose of zofran given. Vital signs stable, reports no pain. Denies any other needs at this time. Call light within reach.
[2019-06-27] VITALS (7 sets, daily range): BP systolic 137–194; BP diastolic 55–95; PULSE 59–70; TEMP 97.6–98.5
--- NOTE | 2019-06-27 01:15 | NUR ---
Patient had blood pressure of 176/77. Rechecked one hour later and was 155/55. PRN dose of hydralazine not required.
--- NOTE | 2019-06-27 02:32 | NUR ---
Hep Xa 0.12. Bolus of 1000 units of heparin and increased 8.5 ml/hr per protocol. Denies needs. Assisted to restroom. Call light in reach.
--- NOTE | 2019-06-27 04:43 | NUR ---
Patient had blood pressure of 77/65. Upon one hour recheck, blood pressure was 153/64. PRN dose of hydralazine was not required.
--- NOTE | 2019-06-27 05:59 | NUR ---
Patient had two episodes of elevated blood pressures. Upon recheck, both were back down to 150s. Heparin drip rate increased per protocol. Next HepXa is at 0830. Had no reports of pain.
--- NOTE | 2019-06-27 06:46 | NUR ---
Report given to BESS Maynard.
--- NOTE | 2019-06-27 07:45 | NUR ---
Patient is sitting up in recliner ready for breakfast. Morning medications administered per her request. Is plesant and talkative. Denies having any pain and is pleased to say that she has never had any phantom pain. Has enjoyed talking about her grandchildren during assessment. Respirations are even and nonlabored. Personal items and call light is within reach.
[2019-06-27 09:07] LABS: BASO % 0.5 % (0.0-2.0); EOS # 0.4 (0.0-0.7); EOS % 5.6 % (0-4.0); GRAN # 4.3 (1.4-6.5); GRAN % 65.3 % (42.2-75.2); LYMPH # 1.3 (1.2-3.4); LYMPH % 18.9 % (20.0-51.0); MEAN CELL VOLUME 109 fl (80.0-100.0); MEAN CORPUSCULAR HEMOGLOBIN 36 pg (27.0-31.0); MEAN CORPUSCULAR HGB CONC 33 g/dl (33.0-37.0); MEAN PLATELET VOLUME 11.3 fl (7.4-10.4); MONO # 0.6 (0.1-0.6); MONO % 9.5 % (1.7-9.3); PLATELET COUNT 132 K/mm3 (130-400); RED BLOOD COUNT 3.38 M/mm3 (4.10-5.30); REDCELL DISTRIBUTION WIDTH-CV 14.6 % (11.5-14.5)
[2019-06-27 09:15] LABS: INR 1.3 (0.8-3.0); PROTHROMBIN TIME 14.9 SECONDS (9.7-12.8)
[2019-06-27 09:21] LABS: CALCIUM 9.3 mg/dL (8.4-10.2); CREATININE, serum 5.76 (0.52-1.25); PHOSPHOROUS 4.4 mg/dL (2.5-4.5); POTASSIUM 4.7 mmol/L (3.4-5.0)
[2019-06-27 09:24] LABS: HEMATOCRIT 36.7 % (37.0-47.0)
--- NOTE | 2019-06-27 19:23 | NUR ---
Patient is sitting up in recliner, supper is on tray. States she was feeling nauseated, PRN zofran administered. Stated she was feeling some better but was going to take it slow. Meds administered. Denies pain. Call light and personal items are within reach.
--- NOTE | 2019-06-27 20:00 | NUR ---
PT RESTING IN CHAIR A+OX4. REPORT NO PAIN. NO NAUSEA. SOME SOA AND REPORTS SHE PLACED HER O2 NC ON AND HER SOA SUBSIDED. SKIN INTACT BEHIND EARS AND NOSE. SACREAL REGION SORE- RED AND PT REPORTS IT BREAKS OPEN SOMETIMES. PT REPORTS SHE APPLIED BARRIER CREAM REGULARLY. BOWELS AUDIBLE X4 QUAD. RIGHT FA FISTULA BRUIT ADN THRILL NOTED. SHIFT ASSESSMENT COMPLETE. NO NEEDS AT THIS TIME. CALL LIGHT IN REACH
--- NOTE | 2019-06-27 22:20 | NUR ---
PT HEPXA WAS WNL- NO CHANGED MADE TO ML/HR. SETTING REMAINED AT 6.5 ML/HR. MAN KELLOGG VARIFIED DOSE. NO NEEDS AT THIS TIME. READ PRGRESS NOTE WILL GIVE MIRALAX NECT VITAL SET.
[2019-06-28] VITALS (8 sets, daily range): BP systolic 142–184; BP diastolic 51–69; PULSE 60–75; TEMP 97.8–98.7
--- NOTE | 2019-06-28 05:17 | NUR ---
PT HAD AN UNEVENTFUL NIGHT. NO PAIN. NO NAUSEA. NO SOA. VSS. BP STAYED BELOW 160- NO HYDRALAZINE GIVEN DURING NIGHT. PT SLEPT THROUGH NIGHT. HEPARIN GTT RUNNING AT 6.5 ML/HR PER PROTOCOL. RECHECK FOR HEPXA ORDERED. MIRALAX GIVEN. NO NEEDS AT THIS TIME. CALL LIGHT IN REACH
[2019-06-28 06:33] LABS: BASO % 0.4 % (0.0-2.0); EOS # 0.3 (0.0-0.7); EOS % 5.7 % (0-4.0); GRAN # 3.3 (1.4-6.5); GRAN % 58.2 % (42.2-75.2); HEMOGLOBIN 11.2 g/dl (12.5-16.0); LYMPH # 1.3 (1.2-3.4); LYMPH % 22.4 % (20.0-51.0); MEAN CELL VOLUME 112 fl (80.0-100.0); MEAN CORPUSCULAR HEMOGLOBIN 36 pg (27.0-31.0); MEAN CORPUSCULAR HGB CONC 32 g/dl (33.0-37.0); MEAN PLATELET VOLUME 12.1 fl (7.4-10.4); MONO # 0.7 (0.1-0.6); MONO % 13.1 % (1.7-9.3); PLATELET COUNT 100 K/mm3 (130-400); RED BLOOD COUNT 3.15 M/mm3 (4.10-5.30); REDCELL DISTRIBUTION WIDTH-CV 14.8 % (11.5-14.5)
[2019-06-28 06:43] LABS: ALBUMIN 3.8 gm/dL (3.5-5.0); CALCIUM 9.6 mg/dL (8.4-10.2); CREATININE, serum 3.77 (0.52-1.25); PHOSPHOROUS 4.3 mg/dL (2.5-4.5); POTASSIUM 4.4 mmol/L (3.4-5.0)
[2019-06-28 06:44] LABS: INR 1.1 (0.8-3.0); PROTHROMBIN TIME 12.3 SECONDS (9.7-12.8)
--- NOTE | 2019-06-28 06:51 | NUR ---
REPORT GIVEN TO BESS MORA
--- NOTE | 2019-06-28 07:10 | NUR ---
Patient is up in chair awake and alert using her tablet. She complained of nausea this morning and shift mechanic had given her so PRN zofran at 0600. When rounding patient stated she continued to be nauseated. work manager is here an spoke with her regarding this. She has gone to patient's room to round for the morning and will speak to her regarding this. Otherwise patient is having no pain, personal items and call light are within reach.
[2019-06-28 07:13] LABS: HEMATOCRIT 35.4 % (37.0-47.0)
--- NOTE | 2019-06-28 10:49 | NUR ---
Initial visit; Patient thanked Patient Safety Manager for looking in on her, offering comfort, empathy and prayer. Patient seems to gain her strength to deal with her illness by sharing her juany in God with everyone and by looking outside herself, thinking of and praying for others.
--- NOTE | 2019-06-28 11:51 | NUR ---
Patient given enema, preferred to administer herself. Was assisted to bathroom with IV pole and provided necessary equipment.
--- NOTE | 2019-06-28 19:24 | NUR ---
Report given to oncoming shift. Patient sitting up in recliner, just finished supper. No concerns verbalized at this time.
--- NOTE | 2019-06-28 22:00 | NUR ---
PT SITTING IN CHAIR A+OX4. REPORTS NO PAIN. NO SOA. NO NAUSEA. BP ELEVATED AND NIGHTLY BP MEDS GIVEN. IV HAS NO REDNESS, NO SWELLING. BOWEL SOUNDS AUDIBLE X4. REPORTS NO BM BUT GAS THROUGHOUT THE DAY. SACREAL REGION RED WITH SMALL CLOSED SITE. NO NEEDS AT THIS TIME. CALL LIGHT IN REACH
[2019-06-29] VITALS (7 sets, daily range): BP systolic 128–177; BP diastolic 51–63; PULSE 57–68; TEMP 97.7–98.7
[2019-06-29 06:30] LABS: BASO % 0.5 % (0.0-2.0); EOS # 0.4 (0.0-0.7); EOS % 7.2 % (0-4.0); GRAN # 3.2 (1.4-6.5); GRAN % 54.5 % (42.2-75.2); LYMPH # 1.5 (1.2-3.4); LYMPH % 26.5 % (20.0-51.0); MEAN CELL VOLUME 111 fl (80.0-100.0); MEAN CORPUSCULAR HEMOGLOBIN 35 pg (27.0-31.0); MEAN CORPUSCULAR HGB CONC 32 g/dl (33.0-37.0); MEAN PLATELET VOLUME 11.3 fl (7.4-10.4); MONO # 0.6 (0.1-0.6); PLATELET COUNT 140 K/mm3 (130-400); RED BLOOD COUNT 3.13 M/mm3 (4.10-5.30); REDCELL DISTRIBUTION WIDTH-CV 14.9 % (11.5-14.5)
[2019-06-29 06:37] LABS: INR 0.9 (0.8-3.0); PROTHROMBIN TIME 10.5 SECONDS (9.7-12.8)
[2019-06-29 06:39] LABS: HEMATOCRIT 34.8 % (37.0-47.0)
[2019-06-29 06:40] LABS: ALBUMIN 3.8 gm/dL (3.5-5.0); CALCIUM 9.5 mg/dL (8.4-10.2); PHOSPHOROUS 4.9 mg/dL (2.5-4.5)
[2019-06-29 06:41] LABS: CREATININE, serum 5.38 (0.52-1.25)
--- NOTE | 2019-06-29 08:00 | NUR ---
Assessment complete. Pt sitting up in chair, just finished breakfast, requests medication prior to dialysis. Physical assessment unremarkable. VS assesed, BP slightly elevated, pt refusing PRN BP medication d/t possible drop in BP during dialysis. No further needs reported. Call light in reach.
--- NOTE | 2019-06-29 08:18 | NUR ---
Pt to Express unit rm 17 for dialysis via WC accompanied by this nurse.
--- NOTE | 2019-06-29 12:40 | NUR ---
Pt back to room following dialysis via , reports lunch is on its way, denies c/o or further needs. Call light in reach.
--- NOTE | 2019-06-29 20:10 | NUR ---
PT SITTING IN CHAIR A+OX4. REPORTS PAIN IN RECTUM- "I FEEL LIKE IM SITTING ON A TENNISBALL."- STOOL SOFTENERS GIVEN. NAUSEA REPORTED BUT DENIED NEEDS FOR ZOFRAN. HEART RRR. LUNGS CLEAR. BOWEL SOUNDS HEARD THROUGHOUT ABD. RIGHT PEDAL PULSE AN RIGHT RADIAL PULSE PALPATED. RIGHT FORARM FISTULA BRUIT AND THRILL NOTED. BP <160- NO PRN HYDRALAZINE NEEDED AT THIS TIME. WILL CONTINUE TO MONITOR BP. IV TO THE RIGHT AC FLUSHES WELL. NO NEEDS AT THIS TIME.CALL LIGHT IN REACH
--- NOTE | 2019-06-30 00:57 | NUR ---
pt resting off and on. pt reports no needs at this time.
[2019-06-30 03:39] VITALS: BP 148/52; PULSE 76; TEMP 98.2
--- NOTE | 2019-06-30 07:20 | NUR ---
PT HAD AN UNEVENTFUL NIGHT. REPORTS NO PAIN. REPORTS WEAKNESS ADN BEING TIRED. BP STAYED BELOW 160. NO PRN HYDRALAZINE REQUIRED. PT SLEPT THROUGHOUT NIGHT. NO NEEDS AT THIS TIME. CALL IGHT IN REACH
[2019-06-30 07:51] LABS: BASO % 0.5 % (0.0-2.0); EOS # 0.5 (0.0-0.7); EOS % 7.7 % (0-4.0); GRAN # 3.6 (1.4-6.5); HEMATOCRIT 35.9 % (37.0-47.0); HEMOGLOBIN 11.3 g/dl (12.5-16.0); LYMPH # 1.4 (1.2-3.4); LYMPH % 23.4 % (20.0-51.0); MEAN CELL VOLUME 112 fl (80.0-100.0); MEAN CORPUSCULAR HEMOGLOBIN 35 pg (27.0-31.0); MEAN CORPUSCULAR HGB CONC 32 g/dl (33.0-37.0); MEAN PLATELET VOLUME 11.1 fl (7.4-10.4); MONO # 0.6 (0.1-0.6); MONO % 9.2 % (1.7-9.3); PLATELET COUNT 135 K/mm3 (130-400); RED BLOOD COUNT 3.21 M/mm3 (4.10-5.30); REDCELL DISTRIBUTION WIDTH-CV 15.2 % (11.5-14.5)
[2019-06-30 07:53] LABS: INR 0.9 (0.8-3.0)
[2019-06-30 08:15] LABS: CALCIUM 9.6 mg/dL (8.4-10.2); PHOSPHOROUS 4.4 mg/dL (2.5-4.5); POTASSIUM 5.3 mmol/L (3.4-5.0)
[2019-06-30 08:21] VITALS: BP 151/51; PULSE 58; TEMP 97.7
[2019-06-30 08:22] LABS: CREATININE, serum 4.37 (0.52-1.25)
[2019-06-30 12:49] VITALS: BP 134/54; PULSE 68; TEMP 98.4
[2019-06-30 17:59] VITALS: BP 185/63; PULSE 64; TEMP 97.5
--- NOTE | 2019-06-30 18:30 | NUR ---
Patient is working slowly on her bowel prep. She was given an enema earlier in the shift and there was not results from the enema. She has tried several things to have a bowel movement without results. She stated she feels like there is a large hard stool sitting there and it is not coming out. She is worried about having nausea with the golytely because of the blockage. Explained that if the things she has been given is not helping there is not many other options and to give the bowel prep a chance to work. No other changes at this time. Call light within reach.
[2019-06-30 19:21] VITALS: BP 170/63; PULSE 58; TEMP 97.7
--- NOTE | 2019-06-30 20:30 | NUR ---
Initial shift assessment done- doing the bowel prep for EGD/COLON at 1400 tomorrow- states has had some stool formed/hard -encouraged to continuw to drink the dustin. Tele on. INT to R/AC--
[2019-06-30 23:23] VITALS: BP 159/59; PULSE 64; TEMP 98.4
[2019-07-01 03:38] VITALS: BP 129/47; PULSE 61; TEMP 97.9
--- NOTE | 2019-07-01 06:36 | NUR ---
States has only had the one stool last night- has had about 1/2 of the go lightely- states stomach was upset-- did talk with patient and will give Zofran IV at this time and then pt will start to drink the rest of the dustin- EGD/Colonoscopy 2 pm today
[2019-07-01 07:51] VITALS: BP 146/84; PULSE 57; TEMP 98
--- NOTE | 2019-07-01 09:00 | NUR ---
Assessment completed, alert/oriented, vital signs stable, denies pain, abomden soft and non-tender, she is tolerating Bowel prep well and scheduled for EGD/Colon at 1400, no blood has been observed in her stools, hemaglobin 11.3 this morning, heart RRR, lungs CTA, denies needs, has been NPO and consent for procedure is signed,
[2019-07-01 11:37] VITALS: BP 177/64; PULSE 58; TEMP 98
[2019-07-01 19:21] VITALS: BP 169/58; PULSE 58; TEMP 98.4
--- NOTE | 2019-07-01 20:00 | NUR ---
Shift assessment complete. Pt resting in bedside recliner, awake, a&o, cooperative c cares. Pt denies pain or any other c/o at this time. INT patent. HD AVF noted to L forearm, strong bruit/thrill. O2 per NC. Pt denies further needs. Call light in reach, will monitor.
[2019-07-01 23:51] VITALS: BP 175/55; PULSE 55; TEMP 98.3
[2019-07-02 03:49] VITALS: BP 173/61; PULSE 57; TEMP 98
[2019-07-02 07:47] VITALS: BP 187/54; PULSE 57; TEMP 97.1
--- NOTE | 2019-07-02 08:16 | NUR ---
Assessment completed, alert/oriented, vital signs stable/ still HTN, denies pain, heart RRR, she does have elbert 1+ edmea to lower extrm today, scheduled for dialysis this morning, she has been NPO and repeating her bowel prep for colonoscopy today/ we have been encouraging the patient to keep drinking the Golytley and she is not very cooperative and compliant with this, she reports she did clean out pretty good last night, I hAve not personally observed any stools, She is up in the chair at this time, I will transfer her down to Dialysis in express room 18
[2019-07-02 09:09] LABS: BASO % 0.5 % (0.0-2.0); EOS # 0.4 (0.0-0.7); EOS % 8.3 % (0-4.0); GRAN # 2.3 (1.4-6.5); GRAN % 53.6 % (42.2-75.2); HEMOGLOBIN 10.1 g/dl (12.5-16.0); LYMPH # 1.2 (1.2-3.4); MEAN CORPUSCULAR HEMOGLOBIN 36 pg (27.0-31.0); MEAN CORPUSCULAR HGB CONC 33 g/dl (33.0-37.0); MEAN PLATELET VOLUME 10.7 fl (7.4-10.4); MONO # 0.4 (0.1-0.6); MONO % 9.4 % (1.7-9.3); PLATELET COUNT 109 K/mm3 (130-400); RED BLOOD COUNT 2.84 M/mm3 (4.10-5.30); REDCELL DISTRIBUTION WIDTH-CV 14.7 % (11.5-14.5)
[2019-07-02 09:17] LABS: HEMATOCRIT 30.5 % (37.0-47.0); MEAN CELL VOLUME 108 fl (80.0-100.0)
[2019-07-02 09:21] LABS: CALCIUM 8.9 mg/dL (8.4-10.2); POTASSIUM 4.9 mmol/L (3.4-5.0)
[2019-07-02 09:23] LABS: CREATININE, serum 5.33 (0.52-1.25)
--- NOTE | 2019-07-02 12:22 | NUR ---
Initial visit; Patient out of room. Account Information Clerk left card lettting Patti know she is available and is thinking of her.
[2019-07-02 16:23] VITALS: BP 176/73; PULSE 71; TEMP 98.2
[2019-07-02 19:03] VITALS: BP 145/51; PULSE 70; TEMP 98.7
--- NOTE | 2019-07-02 20:30 | NUR ---
Shift assessment complete. Pt resting in bedside recliner, awake, a&o, cooperative c cares. Pt denies pain or any other c/o at this time. INT patent. HD AVF noted to R forearm, strong bruit/thrill. O2 per NC. Pt denies further needs. Call light in reach, will monitor.
[2019-07-02 23:31] VITALS: BP 150/53; PULSE 65; TEMP 98.6
[2019-07-03 03:29] VITALS: BP 151/55; PULSE 60; TEMP 97.8
--- NOTE | 2019-07-03 07:00 | NUR ---
Report received from Caren Hernandez. PT in recliner at side of bed resting, c/o neck cramping, will provide PRN tylenol per request.
--- NOTE | 2019-07-03 08:00 | NUR ---
Assessment charted. Pt feeling well but states her RLE is very swollen, it is a 1+ for pitting edema. L BKA well healed. Pt anticipating dishcarge today. Denies needs. Thrill and bruit ausculated in LUE. INT to RFA. Will continue to monitor.
[2019-07-03 08:52] VITALS: BP 146/55; PULSE 65; TEMP 98.3
--- NOTE | 2019-07-03 10:34 | NUR ---
Initial visit (this stay); Patient had just requested a visit from General Labor as General Labor walked into her room. Iris's family in crisis, General Labor and Patti prayed and talked about giving the situation to God and taking care of her health. General Labor will follow-up.
--- NOTE | 2019-07-03 11:13 | NUR ---
ROD met with the pt to discuss her current discharge plan. The pt reports she has all the support she needs through her daughter and does not need home health. ROD presented the IM form to the pt; pt understood and signed the form. A copy was provided to the pt and the original was placed in the chart. There are no additional needs at this time.
[2019-07-03 12:32] VITALS: BP 186/68; PULSE 76; TEMP 97.7
--- NOTE | 2019-07-03 15:15 | NUR ---
Discharged pt at this time. INT d/c'd, tip intact. Reviewed discharge packet. Pt escorted out via own wheelchair with medical staff. Left with all belongings, to drive home, criteria met.
== END 2019-07-03 15:15 | disposition home or self-care (01) | DRG 280 ==
LOC: COL.ER 01:25 → MEDICAL 02:22 → ICU 02:22 → MEDICAL 18:38
PROVIDERS: Emergency Medicine; Internal Medicine; Internal Medicine Cardiovascular Disease; Internal Medicine Gastroenterology; ADMIT Internal Medicine Nephrology
PROC: 5A1D70Z Performance of Urinary Filtration, Intermittent, Less than 6 Hours Per Day (ICD-10-PCS; 2019-06-25)
PROC: 0DJ08ZZ Inspection of Upper Intestinal Tract, Via Natural or Artificial Opening Endoscopic (ICD-10-PCS; principal; 2019-07-01 14:45)
PROC: 0DJD8ZZ Inspection of Lower Intestinal Tract, Via Natural or Artificial Opening Endoscopic (ICD-10-PCS; 2019-07-01 14:45)
PROC: 0DJD8ZZ Inspection of Lower Intestinal Tract, Via Natural or Artificial Opening Endoscopic (ICD-10-PCS; 2019-07-02)
DX: I21.4 Non-ST elevation (NSTEMI) myocardial infarction (principal); N18.6 End stage renal disease; I12.0 Hypertensive chronic kidney disease with stage 5 chronic kidney disease or end stage renal disease; K63.3 Ulcer of intestine; K62.6 Ulcer of anus and rectum; I16.1 Hypertensive emergency; J45.909 Unspecified asthma, uncomplicated; E11.22 Type 2 diabetes mellitus with diabetic chronic kidney disease; E11.51 Type 2 diabetes mellitus with diabetic peripheral angiopathy without gangrene; D64.9 Anemia, unspecified; M10.9 Gout, unspecified; D63.1 Anemia in chronic kidney disease; E11.40 Type 2 diabetes mellitus with diabetic neuropathy, unspecified; E87.5 Hyperkalemia; I25.119 Atherosclerotic heart disease of native coronary artery with unspecified angina pectoris; E78.5 Hyperlipidemia, unspecified; G40.909 Epilepsy, unspecified, not intractable, without status epilepticus; E66.9 Obesity, unspecified; I34.0 Nonrheumatic mitral (valve) insufficiency; Z79.01 Long term (current) use of anticoagulants; Z79.891 Long term (current) use of opiate analgesic; Z79.4 Long term (current) use of insulin; Z99.2 Dependence on renal dialysis; Z86.73 Personal history of transient ischemic attack (TIA), and cerebral infarction without residual deficits; Z95.5 Presence of coronary angioplasty implant and graft; Z95.1 Presence of aortocoronary bypass graft; Z89.511 Acquired absence of right leg below knee; Z90.5 Acquired absence of kidney; Z88.0 Allergy status to penicillin; Z88.2 Allergy status to sulfonamides; Z88.5 Allergy status to narcotic agent; I10 Essential (primary) hypertension
CPT/HCPCS: J1644; J2405; J2704; J7030

== ENCOUNTER 2019-08-11 13:59 | Emergency (ER) | payer MEDICARE, OTHER ==
[~2019-08-11] VITALS: Ht 152.4 cm; Wt 66.5 kg
[~2019-08-11 13:59] MED LIST changes: +RANEXA 500MG T500 MG PO
[2019-08-11 14:19] VITALS: TEMP 98.2
[2019-08-11 17:08] LABS: BASO % 0.4 % (0.0-2.0); EOS # 0.3 (0.0-0.7); GRAN # 3.5 (1.4-6.5); GRAN % 61.3 % (42.2-75.2); LYMPH # 1.3 (1.2-3.4); LYMPH % 22.6 % (20.0-51.0); MEAN CELL VOLUME 111 fl (80.0-100.0); MEAN CORPUSCULAR HEMOGLOBIN 36 pg (27.0-31.0); MEAN CORPUSCULAR HGB CONC 32 g/dl (33.0-37.0); MEAN PLATELET VOLUME 10.6 fl (7.4-10.4); MONO # 0.5 (0.1-0.6); MONO % 9.5 % (1.7-9.3); PLATELET COUNT 142 K/mm3 (130-400); RED BLOOD COUNT 3.07 M/mm3 (4.10-5.30); REDCELL DISTRIBUTION WIDTH-CV 15.5 % (11.5-14.5)
[2019-08-11 17:09] LABS: INR 2.2 (0.8-3.0); PROTHROMBIN TIME 25.8 SECONDS (9.7-12.8)
[2019-08-11 17:16] LABS: ALBUMIN 4.2 gm/dL (3.5-5.0); BILIRUBIN,TOTAL 0.3 mg/dL (0.0-1.0); C-REACTIVE PROTEIN 0.6 mg/dL (0.0-0.9); CALCIUM 9.5 mg/dL (8.4-10.2); POTASSIUM 3.8 mmol/L (3.4-5.0); TOTAL PROTEIN 6.8 gm/dL (6.4-8.2)
[2019-08-11 17:20] LABS: CREATININE, serum 4.24 (0.52-1.25)
[2019-08-11 17:25] LABS: TROPONIN-I 0.016 ng/mL (0.000-0.035)
[2019-08-11 18:41] VITALS: BP 197/77; PULSE 70
[2019-08-12] MEDS ORDERED: PROTONIX 40MG T40 MG PO (16:28)
[2019-08-12] MEDS ORDERED: COUMADIN 6MG6 MG/TAB PO ×2 (16:31→16:32)
== END 2019-08-11 18:46 | disposition home or self-care (01) ==
LOC: COL.ER 13:59
PROVIDERS: Emergency Medicine
DX: L76.32 Postprocedural hematoma of skin and subcutaneous tissue following other procedure (principal); I10 Essential (primary) hypertension; R07.89 Other chest pain; I25.10 Atherosclerotic heart disease of native coronary artery without angina pectoris; E11.9 Type 2 diabetes mellitus without complications; I12.0 Hypertensive chronic kidney disease with stage 5 chronic kidney disease or end stage renal disease; E11.22 Type 2 diabetes mellitus with diabetic chronic kidney disease; N18.6 End stage renal disease; Z99.2 Dependence on renal dialysis; Z79.02 Long term (current) use of antithrombotics/antiplatelets; Z95.9 Presence of cardiac and vascular implant and graft, unspecified; Z79.4 Long term (current) use of insulin

== ENCOUNTER 2019-08-12 15:40 | Inpatient (IN) | payer MEDICARE, OTHER ==
[~2019-08-12] VITALS: Ht 152.4 cm; Wt 68.8 kg
--- NOTE | 2019-08-12 16:00 | NUR ---
Pt arrived to floor at thsi time with EMS. Denies needs, will notify Dr. Monahan of arrival and receive orders.
[2019-08-12] MEDS ORDERED: PROTONIX 40MG T40 MG PO (16:28)
[2019-08-12] MEDS ORDERED: COUMADIN 6MG6 MG/TAB PO ×2 (16:31→16:32)
[2019-08-12 17:00] VITALS: BP 172/62; PULSE 59; TEMP 97.8
[2019-08-12 18:01] LABS: HEMOGLOBIN 11.1 g/dl (12.5-16.0); MEAN CELL VOLUME 110 fl (80.0-100.0); MEAN CORPUSCULAR HEMOGLOBIN 35 pg (27.0-31.0); MEAN CORPUSCULAR HGB CONC 32 g/dl (33.0-37.0); MEAN PLATELET VOLUME 10.7 fl (7.4-10.4); PLATELET COUNT 138 K/mm3 (130-400); RED BLOOD COUNT 3.15 M/mm3 (4.10-5.30); REDCELL DISTRIBUTION WIDTH-CV 15.3 % (11.5-14.5)
[2019-08-12 18:01] LABS: INR 1.5 (0.8-3.0); PROTHROMBIN TIME 18.2 SECONDS (9.7-12.8)
[2019-08-12 18:08] LABS: CALCIUM 9.3 mg/dL (8.4-10.2); HEMATOCRIT 34.7 % (37.0-47.0); POTASSIUM 3.7 mmol/L (3.4-5.0)
--- NOTE | 2019-08-12 18:20 | NUR ---
Assessment charted. Pt in chair at side of bed resting with family at bedside. States her headache is resolved from earlier today and she feels much better. L BKA prosthetic on at this time. RLE +1 pulses. INT to RW. LFA AV fistula thrill and bruit present. L inner elbow aspect hematoma presnt, dark bruise present. VSS. Dr. Monahan to arrive shortly, will cotninue to monitor and give bedside shift report to nighthshift nurse who will resume care.
[2019-08-12 18:42] LABS: CREATININE, serum 6.02 (0.52-1.25)
[2019-08-12 19:36] VITALS: BP 150/56; PULSE 67; TEMP 97.5
--- NOTE | 2019-08-12 20:30 | NUR ---
Initial shift assessment done- denies pain at this time, sitting up in chair- has been resting, blood pressure 150,s/50,s at this time, 02 at 2l/nc, no requests.
[2019-08-12 22:59] VITALS: BP 188/60; PULSE 69; TEMP 98.3
[2019-08-13] VITALS (7 sets, daily range): BP systolic 124–186; BP diastolic 47–86; PULSE 59–66; TEMP 97.9–98.7
--- NOTE | 2019-08-13 05:37 | NUR ---
Quiet night- has been sleeping in the chair all night-- did get Hydralazine prn x1 during the night for B/P 188/60--did come down to 154/53. States has a slight headache - Tylenol given twice during the night for dull headache
--- NOTE | 2019-08-13 13:47 | NUR ---
ROD met with the patient to discuss discharge plan. [place] with her , Angelito (ph#[phone]). She reports having a prosthetic, two walkers, a wheelchair, and home oxygen from [facility]. The patient's PCP is Dr. Vasquez and she receives her medications from [facility]. She reports no difficulties obtaining her meds. The patient does not have advanced directives completed, but she states that her daughter, Vandana Garg (ph#[phone]), is working on getting them completed. She states she is designating her daughter, Vandana. The patient plans to return back home with her upon discharge. She states that she is not interested in any home health or outpatient services at this time. No other indentified needs at this time.
--- NOTE | 2019-08-13 14:03 | NUR ---
Initial visit; Patient thanked Head Men'S Tennis Coach for stopping in, listening and keeping her in Head Men'S Tennis Coach's prayers.
--- NOTE | 2019-08-13 18:29 | NUR ---
PT HAD UNEVENTFUL DAY. WENT TO DUALYSIS THIS AM, 2.2 KILOS TAKEN OFF PER REPORT FOR DIAYLSIS NURSE. PT HAD A CT AFTERWARDS THEN CAME BACK UP TO FLOOR. HAS RESTED IN RECLINER THROUGHOUT DAY WITHOUT CONSERNS OR ISSUES VOICED. PLEASENT AND COOPERATIVE WITH CARES THIS SHIFT.
--- NOTE | 2019-08-13 20:30 | NUR ---
Initial shift assessment done- Tylenol was given for aches all over- especially her "tailbone", Tele on, B/P a little high bit getting all her night meds at this time so prn hydralazine not given at this time. Sitting in chair, no requests, pt states dialysis went well today.
--- NOTE | 2019-08-13 21:50 | NUR ---
Pt states has some back pain "right in my back were heart stent is" so states its a chest pain/back pain 08/06- Tele on, no changes VSS, will give a Nitro per pts request-- stayed with patient for a few minutes- pain did resolve within minutes and B/P down to 120/74-- pt states will try to get back to sleep- no other requests.
[2019-08-14 03:34] VITALS: BP 178/52; PULSE 56; TEMP 97.8
--- NOTE | 2019-08-14 05:24 | NUR ---
Quiet night- no more chest pain,has been sleeping well since around 2229
[2019-08-14 07:45] VITALS: BP 169/70; PULSE 59; TEMP 98.1
[2019-08-14 11:26] VITALS: BP 182/57; PULSE 58; TEMP 97.9
--- NOTE | 2019-08-14 14:22 | NUR ---
Follow-up visit; Patient and International Trade Manager had a good visit with International Trade Manager wishing Patti Isaacs's blessings.
[2019-08-14 15:54] VITALS: BP 170/58; PULSE 59; TEMP 98.3
--- NOTE | 2019-08-14 17:52 | NUR ---
PT HAD C/O CHEST PAIN THIS AFTERNOON, GAVE PT SOME NITRO AND TYLENOL FOR HEADACHE. RESOLVED ISSUES BRIEFLY THEN PT LATER STATED SHE NEEDED ANOTHER NITRO. SECOND NITRO ADMINISTERED. DR. EDOUARD STARTED PT ON NEW MED, MED WAS ADMINISTERED. UPON REASSESSMENT PT STATED THAT SHE WAS NO LONGER HAVING CHEST PAIN OR HEADACHE AT THIS TIME. B/P STILL ELEVATED AT SAME RANGE IT HAD BEEN THROUGHOUT STAY. PT VOICED THAT SHES HOPEFUL ABOUT MED CHANGE THAT SHE WILL NO LONGER HAVE ISSUES NOTED ABOVE.
[2019-08-14 19:47] VITALS: BP 174/55; PULSE 60; TEMP 97.9
--- NOTE | 2019-08-14 20:45 | NUR ---
Patient assessed at this time. Alert and oriented x 4, and able to make needs known. Denies having pain and discomfort. IV to right wrist. Site is without redness and swelling. AV fistula to left forearm. Positive bruit and thrill. Does report SOB and dyspnea. On oxygen at 2 L/min via NC. LS CTA. Respirations even and unlabored. HRR. BSAx4. Abdomen soft and non-tender. Red/purple bruising continues to left elbow area. Sitting up in recliner at this time. Denies having any questions, needs, or concerns. Call light is within reach.
[2019-08-14 23:40] VITALS: BP 176/54; PULSE 70; TEMP 98
--- NOTE | 2019-08-15 00:59 | NUR ---
Patient complained of level 8 pain all over. Given PRN APAP as requested at this time.
[2019-08-15 03:39] VITALS: BP 152/57; PULSE 64; TEMP 97.7
--- NOTE | 2019-08-15 04:40 | NUR ---
Patient has not had any further complaints of pain or discomfort at this time. Voices no questions, needs, or concerns. Resting in recliner with call light within reach.
[2019-08-15 08:21] VITALS: BP 180/54; PULSE 61; TEMP 98.1
[2019-08-15 09:10] LABS: BASO % 0.5 % (0.0-2.0); EOS # 0.3 (0.0-0.7); EOS % 4.9 % (0-4.0); GRAN # 4.4 (1.4-6.5); GRAN % 67.2 % (42.2-75.2); HEMOGLOBIN 10.2 g/dl (12.5-16.0); LYMPH # 1.1 (1.2-3.4); LYMPH % 17.2 % (20.0-51.0); MEAN CELL VOLUME 113 fl (80.0-100.0); MEAN CORPUSCULAR HEMOGLOBIN 36 pg (27.0-31.0); MEAN CORPUSCULAR HGB CONC 32 g/dl (33.0-37.0); MEAN PLATELET VOLUME 11.5 fl (7.4-10.4); MONO # 0.6 (0.1-0.6); MONO % 9.7 % (1.7-9.3); PLATELET COUNT 118 K/mm3 (130-400); RED BLOOD COUNT 2.87 M/mm3 (4.10-5.30)
[2019-08-15 09:12] LABS: HEMATOCRIT 32.4 % (37.0-47.0)
[2019-08-15 09:20] LABS: ALBUMIN 3.9 gm/dL (3.5-5.0); CALCIUM 9.1 mg/dL (8.4-10.2); PHOSPHOROUS 4.8 mg/dL (2.5-4.5); POTASSIUM 4.6 mmol/L (3.4-5.0)
--- NOTE | 2019-08-15 09:31 | NUR ---
Pt awake and alert upon entry, some C/O pain in chest and back area, shift assessments completed, left Pt sitting in WC waiting dialysis this AM.
[2019-08-15 09:42] LABS: CREATININE, serum 5.58 (0.52-1.25)
[2019-08-15 12:42] VITALS: BP 169/63; PULSE 66; TEMP 98.3
--- NOTE | 2019-08-15 13:32 | NUR ---
This student nurse assisted with care since 0700. Patient denies complaints at this time. Resting in room in recliner. Call light within reach. Report given to primary nurse, BESS Soto.
--- NOTE | 2019-08-15 13:50 | NUR ---
Primary nurse was assisted with [id number] patient care by [facility] AD[employer] student Corinne Solorzano and [facility] instructor Leonela Brock RN-.
[2019-08-15 16:16] VITALS: BP 178/62; PULSE 69; TEMP 98.6
--- NOTE | 2019-08-15 18:46 | NUR ---
Pt resting in room this afternoon after returning from dialysis, some C/O pain in upper back, family in room with Pt, VS have remained stable.
[2019-08-15 20:15] VITALS: BP 201/69; PULSE 66; TEMP 98.1
[2019-08-16 00:05] VITALS: BP 135/50; PULSE 68; TEMP 98.2
[2019-08-16 04:13] VITALS: BP 142/48; PULSE 52; TEMP 98.3
[2019-08-16 06:19] LABS: BASO % 0.3 % (0.0-2.0); EOS # 0.3 (0.0-0.7); EOS % 5.1 % (0-4.0); GRAN % 63.8 % (42.2-75.2); HEMOGLOBIN 10.1 g/dl (12.5-16.0); LYMPH # 1.2 (1.2-3.4); LYMPH % 19.9 % (20.0-51.0); MEAN CELL VOLUME 115 fl (80.0-100.0); MEAN CORPUSCULAR HEMOGLOBIN 36 pg (27.0-31.0); MEAN CORPUSCULAR HGB CONC 32 g/dl (33.0-37.0); MEAN PLATELET VOLUME 11.2 fl (7.4-10.4); MONO # 0.7 (0.1-0.6); MONO % 10.6 % (1.7-9.3); PLATELET COUNT 140 K/mm3 (130-400); REDCELL DISTRIBUTION WIDTH-CV 15.1 % (11.5-14.5)
[2019-08-16 06:22] LABS: ALBUMIN 3.8 gm/dL (3.5-5.0); CALCIUM 9.3 mg/dL (8.4-10.2); CREATININE, serum 3.43 (0.52-1.25); POTASSIUM 4.9 mmol/L (3.4-5.0)
[2019-08-16 06:28] LABS: HEMATOCRIT 32.1 % (37.0-47.0)
[2019-08-16 08:00] VITALS: BP 154/63; PULSE 56; TEMP 98.1
--- NOTE | 2019-08-16 09:12 | NUR ---
Pt sitting up in the recliner, some C/O pain in her back, shift assessments complete, left Pt call light in reach.
[2019-08-16] MEDS ORDERED: CATAPRES 0.1MG0.1 MG PO (10:45)
--- NOTE | 2019-08-16 11:38 | NUR ---
The patient is to discharge back home with her today, 08/16. SW presented and explained the IM form to the patient. The patient verbalized understanding, signed, and she declined a copy. No additional needs at this time.
[2019-08-16 12:30] VITALS: BP 182/40; PULSE 97; TEMP 98.3
--- NOTE | 2019-08-16 13:54 | NUR ---
This student assisted with patient care since 0700. Patient with uneventful day. Report given to primary nurse, BESS Soto.
--- NOTE | 2019-08-16 13:56 | NUR ---
Primary nurse was assisted with [id number] patient care by [facility] Corinne Solorzano and [facility] instructor Leonela Brock RN-.
--- NOTE | 2019-08-16 15:23 | NUR ---
Pt discharged to home, escorted to entrance, left with spouse in private auto.
== END 2019-08-16 15:24 | disposition home or self-care (01) | DRG 304 ==
LOC: MEDICAL 15:40
PROVIDERS: ADMIT Internal Medicine Nephrology
PROC: 5A1D70Z Performance of Urinary Filtration, Intermittent, Less than 6 Hours Per Day (ICD-10-PCS; principal; 2019-08-13)
DX: I16.1 Hypertensive emergency (principal); N18.6 End stage renal disease; I25.110 Atherosclerotic heart disease of native coronary artery with unstable angina pectoris; J45.909 Unspecified asthma, uncomplicated; I12.0 Hypertensive chronic kidney disease with stage 5 chronic kidney disease or end stage renal disease; I25.119 Atherosclerotic heart disease of native coronary artery with unspecified angina pectoris; M19.90 Unspecified osteoarthritis, unspecified site; G93.2 Benign intracranial hypertension; E78.5 Hyperlipidemia, unspecified; D63.1 Anemia in chronic kidney disease; E11.22 Type 2 diabetes mellitus with diabetic chronic kidney disease; M10.9 Gout, unspecified; S50.00XA Contusion of unspecified elbow, initial encounter; X58.XXXA Exposure to other specified factors, initial encounter; Z79.4 Long term (current) use of insulin; Z79.891 Long term (current) use of opiate analgesic; Z79.01 Long term (current) use of anticoagulants; Z99.2 Dependence on renal dialysis; Z95.1 Presence of aortocoronary bypass graft; Z86.73 Personal history of transient ischemic attack (TIA), and cerebral infarction without residual deficits; Z89.511 Acquired absence of right leg below knee; Z90.5 Acquired absence of kidney; Z88.0 Allergy status to penicillin; Z88.2 Allergy status to sulfonamides; Z88.5 Allergy status to narcotic agent
CPT/HCPCS: J1644; J1815; J7030

== ENCOUNTER 2019-08-19 19:36 | Inpatient (IN) | payer MEDICARE, OTHER ==
[~2019-08-19] VITALS: Ht 152.4 cm; Wt 88.6 kg
[2019-08-19 20:08] LABS: BASO % 0.5 % (0.0-2.0); EOS # 0.3 (0.0-0.7); EOS % 5.9 % (0-4.0); GRAN # 2.9 (1.4-6.5); GRAN % 64.5 % (42.2-75.2); HEMOGLOBIN 10.2 g/dl (12.5-16.0); LYMPH # 0.8 (1.2-3.4); LYMPH % 18.6 % (20.0-51.0); MEAN CELL VOLUME 110 fl (80.0-100.0); MEAN CORPUSCULAR HEMOGLOBIN 36 pg (27.0-31.0); MEAN CORPUSCULAR HGB CONC 33 g/dl (33.0-37.0); MEAN PLATELET VOLUME 10.9 fl (7.4-10.4); MONO # 0.4 (0.1-0.6); PLATELET COUNT 131 K/mm3 (130-400); RED BLOOD COUNT 2.84 M/mm3 (4.10-5.30); REDCELL DISTRIBUTION WIDTH-CV 14.4 % (11.5-14.5)
[2019-08-19 20:10] LABS: HEMATOCRIT 31.1 % (37.0-47.0)
[2019-08-19 20:12] LABS: INR 2.2 (0.8-3.0); PROTHROMBIN TIME 25.9 SECONDS (9.7-12.8)
[2019-08-19 20:19] LABS: BILIRUBIN,TOTAL 0.4 mg/dL (0.0-1.0); C-REACTIVE PROTEIN 1.1 mg/dL (0.0-0.9); CALCIUM 9.5 mg/dL (8.4-10.2); CREATININE, serum 2.64 (0.52-1.25); POTASSIUM 3.6 mmol/L (3.4-5.0); TOTAL PROTEIN 6.8 gm/dL (6.4-8.2)
[2019-08-19 20:33] LABS: TROPONIN-I 0.052 ng/mL (0.000-0.035)
--- NOTE | 2019-08-19 22:15 | NUR ---
Patient arrived to unit, room 308 at this time. Sitting in wheelchair. Nepro given. at bedside. Med rec completed. Denies any further needs at this time. Call light within reach.
[2019-08-19 22:28] VITALS: BP 154/56; PULSE 63; TEMP 98.7
[2019-08-20 03:45] VITALS: BP 171/53; PULSE 62; TEMP 98.4
--- NOTE | 2019-08-20 05:30 | NUR ---
Patient had uneventful night. Upon last vital sign check, blood pressure elevated, PRN hydralazine to be given. PRN tylenol given for headache. Patients O2 sat was 98% but requested oxygen. RT notified and RT put patient on 2L O2 NC. No further needs at this time. Resting in chair. Call light within reach.
--- NOTE | 2019-08-20 06:54 | NUR ---
Report given to BESS Joya and BESS Massey
[2019-08-20 07:29] VITALS: BP 145/62; PULSE 57; TEMP 98.6
[2019-08-20 11:47] VITALS: BP 154/45; PULSE 65; TEMP 98.4
--- NOTE | 2019-08-20 14:13 | NUR ---
SW met with the patient to discuss discharge plan and to complete the re-admission interview. The patient recently discharged from the hospital, 08/16, and returned back home with her and no services. The patient reports that she picked up her medications and took them as prescribed. She states she had made an appointment with her PCP prior to her last hospitalization and it was scheduled for tomorrow, 08/21. The patient reports that she missed dialysis on Monday, due to dialysis access difficulties. She states that she then had dialysis on Monday, but then she had elevated blood pressure afterwards and presented to the ED. [place] with her husbadAngelito (ph#[phone]). She states that Angelito has shingles right now and that she plans to help him get set up with an appointment with his doctor for this. He states that they both take care of each other. She reports independence with ADLs and has a prosthetic, two walkers, wheelchair, and home oxygen. The patient's PCP is Dr. Richard Vasquez and she receives her medications from [facility]. She reports no difficulties obtaining her meds. The patient does not have advanced directives, but she states that her daughter (Vandana Garg) is working on getting them completed. She states she is designating her daughter, Vandana. SW discussed home health services and outpatient services. The patient reports that she does not need any additional services and did not have any other questions or concerns. The patient plans to return back home with her upon discharge. No other additional needs at this time, but SW to continue to follow.
[2019-08-20 15:36] VITALS: BP 166/49; BP 173/50; PULSE 65; TEMP 98.8
--- NOTE | 2019-08-20 19:04 | NUR ---
Report given to reno Thorpe has no complaints of pain or discomfort. Sitting in her chair eating dinner.
[2019-08-20 20:00] VITALS: BP 192/62; PULSE 59; TEMP 98.2
--- NOTE | 2019-08-20 21:30 | NUR ---
Report received from BESS Massey. Patient resting in chair. Assessment complete. States she has intermittent chest pain when up to use the restroom. Denies any other pain at this time. Instructed to let us know any time she does have chest pain. She states it improves once she is back in her chair and relaxing. Blood pressures were elevated with it being 190 systolic. PRN hydralazine given and will continue to monitor. Lungs CTA. Inquired about what time her fistulogram would be in the morning. Informed that we would let her know once we knew. She has not further needs at this time. Call light within reach.
[2019-08-20 23:31] VITALS: BP 189/51; PULSE 61; TEMP 98.3
[2019-08-21] VITALS (8 sets, daily range): BP systolic 174–201; BP diastolic 43–75; PULSE 50–63; TEMP 97.9–98.7
--- NOTE | 2019-08-21 00:15 | NUR ---
Patient reports having a headache and requests tylenol. PRN dose of tylenol given. Will continue to monitor. Call light within reach.
--- NOTE | 2019-08-21 05:51 | NUR ---
Patient had uneventful night. Reported headache, PRN tylenol given. Had high blood pressures throughout the night. PRN hydralazine given, without much improvement. Requested a breathing treatment, RT notified. No further needs at this time. Call light within reach.
[2019-08-21 06:18] LABS: BASO % 0.4 % (0.0-2.0); EOS # 0.4 (0.0-0.7); EOS % 7.7 % (0-4.0); GRAN # 2.6 (1.4-6.5); GRAN % 55.2 % (42.2-75.2); LYMPH # 1.1 (1.2-3.4); LYMPH % 24.1 % (20.0-51.0); MEAN CORPUSCULAR HGB CONC 31 g/dl (33.0-37.0); MEAN PLATELET VOLUME 11.1 fl (7.4-10.4); MONO # 0.6 (0.1-0.6); MONO % 12.4 % (1.7-9.3); PLATELET COUNT 126 K/mm3 (130-400); RED BLOOD COUNT 2.73 M/mm3 (4.10-5.30); REDCELL DISTRIBUTION WIDTH-CV 14.6 % (11.5-14.5)
[2019-08-21 06:25] LABS: INR 1.2 (0.8-3.0)
[2019-08-21 06:29] LABS: ALBUMIN 3.6 gm/dL (3.5-5.0); CALCIUM 9.1 mg/dL (8.4-10.2); POTASSIUM 4.5 mmol/L (3.4-5.0)
[2019-08-21 06:30] LABS: HEMATOCRIT 31.4 % (37.0-47.0); HEMOGLOBIN 9.8 g/dl (12.5-16.0); MEAN CELL VOLUME 115 fl (80.0-100.0); MEAN CORPUSCULAR HEMOGLOBIN 36 pg (27.0-31.0)
[2019-08-21 06:38] LABS: CREATININE, serum 4.72 (0.52-1.25)
--- NOTE | 2019-08-21 06:52 | NUR ---
Report given to BESS Joya and BESS Massey
--- NOTE | 2019-08-21 09:05 | NUR ---
Initial; Pt sitting in wheelchair. Assessed pt, no concerns this morning. Dr. Tran stopped by to talk about today's procedure; angio-venous fistulogram with possible angioplasty. She has signed a consent, and is fine with today's plan of care.
--- NOTE | 2019-08-21 12:29 | NUR ---
ALL MEDICATIONS GIVEN VORB WITH MD. SEE MERGE FOR ALL MEDICATION ADMIN TIMES. SEE MERGE FOR ALL RASS ASSESSMENTS DURING AND POST PROCEDURE.
--- NOTE | 2019-08-21 16:30 | NUR ---
PT RETURNED TO FLOOR FROM DIALYSIS. NO COMPLAINTS OF PAIN OR DISCOMFORT. LAYING IN BED ON 2L O2. NO OTHER CONCERNS AT THIS TIME. CALL LIGHT AND PHONE WITHIN REACH.
--- NOTE | 2019-08-21 22:32 | NUR ---
Report received from BESS Massey. Patient resting in bed. Assessment complete. Reports chest pain when she gets up to use the restroom. Once she sits back in her chair, the pain gets better. Night time medications given. Lung sounds on right side clear, left side has some fine crackles. Pulses strong. Denies any further needs at this time. Call light within reach.
[2019-08-22 03:49] VITALS: BP 167/69; PULSE 59; TEMP 98.4
--- NOTE | 2019-08-22 05:52 | NUR ---
Patient had uneventful night. Requested a breathing treatment. Received hydralazine for a blood pressure greater than 160 systolic. Reported one episode of chest pain when up to bathroom. Resolved after getting back to chair. No further needs at this time. Call light within reach.
--- NOTE | 2019-08-22 06:53 | NUR ---
Report given to BESS Phelps
[2019-08-22 07:28] VITALS: BP 196/60; PULSE 59; TEMP 98.5
[2019-08-22 10:09] LABS: CALCIUM 9.4 mg/dL (8.4-10.2); CREATININE, serum 2.93 (0.52-1.25); PHOSPHOROUS 2.6 mg/dL (2.5-4.5); POTASSIUM 4.2 mmol/L (3.4-5.0)
[2019-08-22 12:01] LABS: BASO % 0.4 % (0.0-2.0); EOS # 0.3 (0.0-0.7); EOS % 5.6 % (0-4.0); GRAN # 3.2 (1.4-6.5); GRAN % 66.5 % (42.2-75.2); LYMPH # 0.8 (1.2-3.4); LYMPH % 15.5 % (20.0-51.0); MEAN CORPUSCULAR HGB CONC 33 g/dl (33.0-37.0); MEAN PLATELET VOLUME 10.8 fl (7.4-10.4); MONO # 0.6 (0.1-0.6); MONO % 11.6 % (1.7-9.3); PLATELET COUNT 124 K/mm3 (130-400)
[2019-08-22 12:02] LABS: HEMATOCRIT 29.8 % (37.0-47.0); HEMOGLOBIN 9.7 g/dl (12.5-16.0); MEAN CORPUSCULAR HEMOGLOBIN 36 pg (27.0-31.0)
[2019-08-22 12:03] LABS: MEAN CELL VOLUME 110 fl (80.0-100.0)
[2019-08-22 12:08] LABS: PROTHROMBIN TIME 11.6 SECONDS (9.7-12.8)
[2019-08-22 12:19] VITALS: BP 175/57; PULSE 65; TEMP 98.7
--- NOTE | 2019-08-22 13:50 | NUR ---
Primary nurse was assisted with [phone] patient care by [employer] student Stormy Mendez and [facility] instructor Leonela Brock RN-.
--- NOTE | 2019-08-22 14:00 | NUR ---
Reported off to BESS Phelps. Patient sitting in recliner, visiting with compound filler. Patient voices no other concerns at this time.
--- NOTE | 2019-08-22 15:14 | NUR ---
Follow-up visit; Patient thanked Solderer Assembler for listening and offering comfort, encouragement and prayer. Solderer Assembler will continue to look in on patient.
[2019-08-22 16:23] VITALS: BP 174/57; PULSE 64; TEMP 98.6
--- NOTE | 2019-08-22 19:04 | NUR ---
PT REMAINS HAVING HIGHER B/P. RECIEVING PO HYDRALAZINE PER SCHEDULE. NO C/O CHEST PAIN. HAD A HEADACHE IN DIALYSIS, RECIEVED A TYLENOL, NO FURTHER COMPLAINTS. PT STATED SHE TOOK A NAP THIS AFTERNOON.
[2019-08-22 19:38] VITALS: BP 154/54; PULSE 61; TEMP 98.7
--- NOTE | 2019-08-22 21:20 | NUR ---
Report received from BESS Phelps. Patient resting in bed. Assessment complete. Patient had previously been reporting tooth pain, but has since subsided. Denies having any chest pain. Blood pressures within normal limits. Currently denying any pain or shortness of breath. Denies further needs at this time. Call light within reach.
[2019-08-22 23:22] VITALS: BP 161/49; PULSE 58; TEMP 98.6
[2019-08-23] VITALS (7 sets, daily range): BP systolic 157–180; BP diastolic 50–61; PULSE 57–63; TEMP 97.9–98.8
--- NOTE | 2019-08-23 04:47 | NUR ---
PRN hydralazine given for blood pressure greater than 160 systolic. Patient report being "able to feel it" about her blood pressure. Will continue to monitor.
--- NOTE | 2019-08-23 05:25 | NUR ---
Patient has been resting in her chair throughout shift. Denied chest pain throughout shift. PRN hyrdalazine given for elevated blood pressure over 160 systolic. No further needs at this time. Call light within reach.
[2019-08-23 06:50] LABS: BASO % 0.5 % (0.0-2.0); EOS # 0.4 (0.0-0.7); EOS % 6.6 % (0-4.0); GRAN # 3.4 (1.4-6.5); GRAN % 61.2 % (42.2-75.2); LYMPH # 1.1 (1.2-3.4); LYMPH % 19.6 % (20.0-51.0); MEAN CELL VOLUME 114 fl (80.0-100.0); MEAN CORPUSCULAR HGB CONC 32 g/dl (33.0-37.0); MEAN PLATELET VOLUME 11.4 fl (7.4-10.4); MONO # 0.7 (0.1-0.6); MONO % 11.7 % (1.7-9.3); PLATELET COUNT 142 K/mm3 (130-400); RED BLOOD COUNT 2.74 M/mm3 (4.10-5.30); REDCELL DISTRIBUTION WIDTH-CV 14.2 % (11.5-14.5)
--- NOTE | 2019-08-23 06:53 | NUR ---
Report given to BESS Phelps
[2019-08-23 06:56] LABS: HEMATOCRIT 31.2 % (37.0-47.0); HEMOGLOBIN 9.9 g/dl (12.5-16.0); MEAN CORPUSCULAR HEMOGLOBIN 36 pg (27.0-31.0); PROTHROMBIN TIME 11.6 SECONDS (9.7-12.8)
[2019-08-23 07:14] LABS: ALBUMIN 3.7 gm/dL (3.5-5.0); CALCIUM 9.3 mg/dL (8.4-10.2); CREATININE, serum 3.62 (0.52-1.25); PHOSPHOROUS 3.9 mg/dL (2.5-4.5); POTASSIUM 4.5 mmol/L (3.4-5.0)
--- NOTE | 2019-08-23 11:08 | NUR ---
Follow-up; looked in on Patti who was using the phone and received a 'thumbs-up' regarding the issues we discussed during our visit and prayer yesterday. wished her well and will keep her in Director Check's prayers.
--- NOTE | 2019-08-23 13:38 | NUR ---
Reported off to BESS Phelps. Patient sitting in recliner using her ipad. She voices no other concerns at this time, call light within reach.
--- NOTE | 2019-08-23 13:50 | NUR ---
Primary nurse was assisted with [phone] patient care by [employer] [employer] [employer] AD[employer] student Stormy Mendez and [facility] [employer] instructor Leonela Brock RN-BC.
--- NOTE | 2019-08-23 14:49 | NUR ---
ROD followed up with the patient. The patient is to receive dialysis tomorrow, 08/24. She states that her blood pressure keeps acting up. The patient plans to stay with her daughter for a few days upon discharge. She had no other questions or concerns. No additional needs at this time.
--- NOTE | 2019-08-23 18:27 | NUR ---
PT HAD UNEVENTFUL DAY. B/P HAVE BEEN LOWER THEN THE PRIOR DAY, MID 150'S. NO C/O PAIN OR HEADACHE THIS SHIFT.
--- NOTE | 2019-08-23 20:30 | NUR ---
Initial shift assessment done- states would like a Tylenol before bed- overall aches, denies chest pain- B/P 173/51, will hold off on prn Hydralazine due to all her night meds are given at this time- recheck at midnight, Tele on, In good spirits- had some family visit farideh
--- NOTE | 2019-08-24 00:35 | NUR ---
Hydralazine given as ordered prn for B/P 166/58- pt has been resting in recliner
[2019-08-24 03:40] VITALS: BP 182/49; PULSE 57; TEMP 98.8
[2019-08-24 06:29] LABS: BASO % 0.4 % (0.0-2.0); EOS # 0.5 (0.0-0.7); EOS % 6.5 % (0-4.0); GRAN # 4.6 (1.4-6.5); GRAN % 66.8 % (42.2-75.2); LYMPH # 1.1 (1.2-3.4); LYMPH % 16.5 % (20.0-51.0); MEAN CELL VOLUME 114 fl (80.0-100.0); MEAN CORPUSCULAR HGB CONC 32 g/dl (33.0-37.0); MEAN PLATELET VOLUME 10.9 fl (7.4-10.4); MONO # 0.7 (0.1-0.6); MONO % 9.7 % (1.7-9.3); PLATELET COUNT 145 K/mm3 (130-400); RED BLOOD COUNT 2.72 M/mm3 (4.10-5.30); REDCELL DISTRIBUTION WIDTH-CV 14.1 % (11.5-14.5)
[2019-08-24 06:33] LABS: PROTHROMBIN TIME 11.6 SECONDS (9.7-12.8)
--- NOTE | 2019-08-24 06:34 | NUR ---
Quiet night- Dialysis this morning at 0800-will order breakfast now,,states B/P drops in Dialysis so will hold off on Hydralazine at this time B/P 183/53
[2019-08-24 06:41] LABS: ALBUMIN 3.8 gm/dL (3.5-5.0); CALCIUM 9.4 mg/dL (8.4-10.2); PHOSPHOROUS 4.8 mg/dL (2.5-4.5); POTASSIUM 4.9 mmol/L (3.4-5.0)
[2019-08-24 06:45] LABS: CREATININE, serum 5.25 (0.52-1.25)
[2019-08-24 07:03] LABS: HEMOGLOBIN 9.8 g/dl (12.5-16.0); MEAN CORPUSCULAR HEMOGLOBIN 36 pg (27.0-31.0)
[2019-08-24 07:32] VITALS: BP 166/52; PULSE 66; TEMP 98.7
--- NOTE | 2019-08-24 08:45 | NUR ---
Pt down for dialysis at this time.
--- NOTE | 2019-08-24 09:40 | NUR ---
Morning medications administered per MAR. Pt stated she took her own Renvela and would "replace mine with yours". I explained to pt that we could have her medication labeled by pharmacy and then she would be able to take her own but needed to call when her food arrived to take medication on time. Pt stated she didn't call when she needed her Renvela "because you were in the middle of report". Will discuss with Taniya.
--- NOTE | 2019-08-24 13:24 | NUR ---
Pt back from dialysis. Assessment completed and charted. Pt states she is feeling better after dialysis. Report from dialysis noted pt had intermittent chest pain and SOB during dialysis. Per pt, at this time, she has no chest pain or SOB. LWR INT IV flushes with no complications. LFA fistula present, covered with dressing post dialysis. Pt on 2L NC. Pt denies any other pain, N/V. No concerns voiced at this time.
[2019-08-24 15:53] VITALS: BP 155/52; PULSE 66; TEMP 98.8; TEMP 99.6
--- NOTE | 2019-08-24 16:30 | NUR ---
Report given to Earle to resume cares
--- NOTE | 2019-08-24 17:19 | NUR ---
REPORT RECEIVED FROM BESS TIDWELL. PT RESTING IN WC AND WATCHING TV. NO CONCERN VOICED. CALL LIGHT IN REACH.
--- NOTE | 2019-08-24 19:19 | NUR ---
REPORT GIVEN TO BESS CONWAY. PT RESTING IN CHAIR COMFORTABLY. CALL LIGHT IN REACH.
[2019-08-24 19:42] VITALS: BP 143/52; PULSE 65; TEMP 98.4
--- NOTE | 2019-08-24 20:30 | NUR ---
Initial shift assessment done- states overall feeling better tonight- B/P 143/52, Tele on, sitting up in chair,talking with family on the phone- no requests at this time
[2019-08-24 23:16] VITALS: BP 134/51; PULSE 63; TEMP 98.7
[2019-08-25 04:11] VITALS: BP 135/52; PULSE 82; TEMP 98.9
--- NOTE | 2019-08-25 05:30 | NUR ---
Quiet night- no requests, VSS, blood pressures much better tonight, 143/52,134/51 and 135/52. Tele on.
[2019-08-25 06:15] LABS: BASO % 0.3 % (0.0-2.0); EOS # 0.4 (0.0-0.7); EOS % 7.2 % (0-4.0); GRAN # 3.4 (1.4-6.5); GRAN % 57.7 % (42.2-75.2); LYMPH # 1.2 (1.2-3.4); LYMPH % 21.3 % (20.0-51.0); MEAN CELL VOLUME 115 fl (80.0-100.0); MEAN CORPUSCULAR HGB CONC 31 g/dl (33.0-37.0); MEAN PLATELET VOLUME 11.2 fl (7.4-10.4); MONO # 0.8 (0.1-0.6); MONO % 13.2 % (1.7-9.3); PLATELET COUNT 164 K/mm3 (130-400); REDCELL DISTRIBUTION WIDTH-CV 14.6 % (11.5-14.5)
[2019-08-25 06:16] LABS: HEMATOCRIT 31.1 % (37.0-47.0); HEMOGLOBIN 9.7 g/dl (12.5-16.0); MEAN CORPUSCULAR HEMOGLOBIN 36 pg (27.0-31.0)
[2019-08-25 06:25] LABS: INR 1.1 (0.8-3.0); PROTHROMBIN TIME 12.3 SECONDS (9.7-12.8)
[2019-08-25 06:33] LABS: ALBUMIN 3.8 gm/dL (3.5-5.0); CALCIUM 9.3 mg/dL (8.4-10.2); CREATININE, serum 3.37 (0.52-1.25); PHOSPHOROUS 3.5 mg/dL (2.5-4.5); POTASSIUM 4.9 mmol/L (3.4-5.0)
[2019-08-25 07:03] VITALS: BP 164/49; PULSE 61; TEMP 98.2
[2019-08-25 09:46] VITALS: BP 143/52
[2019-08-25 10:46] VITALS: BP 157/51; PULSE 62; TEMP 98.8
[2019-08-25] MEDS ORDERED: CATAPRES-TTS 30.3 MG TD (15:36)
[2019-08-25] MEDS ORDERED: ALDACTONE 25MG25 M1 PO (15:37)
--- NOTE | 2019-08-25 16:15 | NUR ---
PT DISCHARGE EDUCATION PROVIDED, SIGNATURES OBTAINED. IV AND TELE REMOVED. PT AT BEDSIDE. FINANCE [employer] ESCORTING SHIRA. NO QUESTIONS VOICED.
== END 2019-08-25 16:15 | disposition home or self-care (01) | DRG 304 ==
LOC: COL.ER 19:36 → MEDICAL 20:51
PROVIDERS: Internal Medicine Nephrology; ADMIT Emergency Medicine
PROC: 5A1D70Z Performance of Urinary Filtration, Intermittent, Less than 6 Hours Per Day (ICD-10-PCS; principal; 2019-08-21)
PROC: B51W1ZZ Fluoroscopy of Dialysis Shunt/Fistula using Low Osmolar Contrast (ICD-10-PCS; 2019-08-21)
DX: I16.1 Hypertensive emergency (principal); N18.6 End stage renal disease; N25.81 Secondary hyperparathyroidism of renal origin; I24.8 Other forms of acute ischemic heart disease; I12.0 Hypertensive chronic kidney disease with stage 5 chronic kidney disease or end stage renal disease; Z86.73 Personal history of transient ischemic attack (TIA), and cerebral infarction without residual deficits; M19.90 Unspecified osteoarthritis, unspecified site; E11.40 Type 2 diabetes mellitus with diabetic neuropathy, unspecified; E11.319 Type 2 diabetes mellitus with unspecified diabetic retinopathy without macular edema; E11.22 Type 2 diabetes mellitus with diabetic chronic kidney disease; M10.9 Gout, unspecified; D63.1 Anemia in chronic kidney disease; E78.5 Hyperlipidemia, unspecified; G40.909 Epilepsy, unspecified, not intractable, without status epilepticus; J45.909 Unspecified asthma, uncomplicated; Z89.511 Acquired absence of right leg below knee; Z95.1 Presence of aortocoronary bypass graft; Z90.5 Acquired absence of kidney; Z79.4 Long term (current) use of insulin; Z79.01 Long term (current) use of anticoagulants; Z79.891 Long term (current) use of opiate analgesic
CPT/HCPCS: J0882; J1644; J1815; J2250; J2405; J2916; J3010; J7030; Q9967

== ENCOUNTER 2019-10-29 13:49 | Inpatient (IN) | payer MEDICARE, OTHER ==
[~2019-10-29 13:49] MED LIST changes: +CATAPRES-TTS 30.3 MG TD
--- NOTE | 2019-10-29 15:45 | NUR ---
Pt up to Room 308 w/ at bedside. Pt A&O, sitting in WC. Dr. Monahan notified of patients arrival.
[2019-10-29 16:53] VITALS: BP 188/58; PULSE 67; TEMP 98.2
[2019-10-29] MEDS ORDERED: ZOFRAN 4MG T4 MG/TAB PO (17:36)
[2019-10-29] MEDS ORDERED: MINOXIDIL 2.5 PO (17:37)
--- NOTE | 2019-10-29 17:54 | NUR ---
pt admission, med rec, pharmacy completed. Pt is A&O, in WC. Pt on room air at this time, satting upper 90s. Pt states she wears 2L NC at baseline. Pt to be on tele, will obtain that. 22g RFA INT IV started, flushes w/o complications. LS cta, heart rrr, radial pulses strong bilaterally. Pt has Lt BKA. Pt denies dizziness, SOB, N/V/D. Pt states she doesn't "currently" have chest pain, but "it comes and goes". LFA fistula w/ gauze covering site, CDI. No other concerns expressed at this time.
[2019-10-29 19:05] LABS: BASO % 0.8 % (0.0-2.0); EOS # 0.3 (0.0-0.7); EOS % 6.6 % (0-4.0); GRAN % 59.6 % (42.2-75.2); HEMATOCRIT 41.5 % (37.0-47.0); LYMPH # 1.1 (1.2-3.4); MEAN CELL VOLUME 110 fl (80.0-100.0); MEAN CORPUSCULAR HEMOGLOBIN 34 pg (27.0-31.0); MEAN CORPUSCULAR HGB CONC 31 g/dl (33.0-37.0); MONO # 0.5 (0.1-0.6); MONO % 10.6 % (1.7-9.3); PLATELET COUNT 125 K/mm3 (130-400); RED BLOOD COUNT 3.78 M/mm3 (4.10-5.30); REDCELL DISTRIBUTION WIDTH-CV 14.2 % (11.5-14.5)
[2019-10-29 19:07] LABS: INR 4.2 (0.8-3.0)
[2019-10-29 19:10] LABS: ALANINE AMINOTRANSFERASE 28 U/L (9-52); ALBUMIN 4.3 gm/dL (3.5-5.0); ALKALINE PHOSPHATASE 101 U/L (50-136); ANION GAP 10 mmol/L (7-16); AST,SGOT 31 U/L (15-37); BILIRUBIN,TOTAL 0.3 mg/dL (0.0-1.0); BLOOD UREA NITROGEN 21 mg/dL (7-17); CALCIUM 9.6 mg/dL (8.4-10.2); CARBON DIOXIDE 27 mmol/L (22-30); CHLORIDE 106 mmol/L (98-107); CREATININE, serum 3.51 (0.52-1.25); GLUCOSE 158 mg/dL (74-106); LACTATE DEHYDROGENASE 440 U/L (313-618); POTASSIUM 4.4 mmol/L (3.4-5.0); SODIUM 143 mmol/L (137-145); TOTAL PROTEIN 7.1 gm/dL (6.4-8.2)
[2019-10-29 19:23] LABS: PROTHROMBIN TIME 51.3 SECONDS (9.7-12.8); TROPONIN-I < 0.012 ng/mL (0.000-0.035)
[2019-10-29 20:09] VITALS: BP 185/59; PULSE 66; TEMP 98.8
[2019-10-29 20:20] LABS: ERYTHROCYTE SEDIMENTATION RATE 16 mm/hr (0-30)
--- NOTE | 2019-10-29 21:00 | NUR ---
Initial shift assessment done- denies pain, SOB, sitting in recliner- sleeps in chair all night- states she is already feeling better than when she was at dialysis today, Tele on, B/P 185/58,,INR 4.2, PT 51.3---Dr. Monahan called w/lab results also BNP 24,900,,, will give just 1/2 dose of coumadin tonight and have pharmacy dose- also prn hydralazine for increased B/P,s
[2019-10-30 00:05] VITALS: BP 176/57; PULSE 65; TEMP 98.8
[2019-10-30 04:06] VITALS: BP 185/52; PULSE 58
--- NOTE | 2019-10-30 04:57 | NUR ---
Has been resting on and off most of the night- states "itchy" tonight,requesting some lotion-- did get Hydralazine 25mg p.o x2 during this shift for SBP >170
[2019-10-30 06:57] LABS: INR 3.3 (0.8-3.0); PROTHROMBIN TIME 40.2 SECONDS (9.7-12.8)
[2019-10-30 07:00] LABS: ALBUMIN 4.2 gm/dL (3.5-5.0); CALCIUM 9.5 mg/dL (8.4-10.2); CREATININE, serum 4.33 (0.52-1.25); PHOSPHOROUS 3.1 mg/dL (2.5-4.5); POTASSIUM 4.7 mmol/L (3.4-5.0)
[2019-10-30 07:51] VITALS: BP 187/60; PULSE 64; TEMP 98.6
--- NOTE | 2019-10-30 08:53 | NUR ---
ROD met with the patient to discuss discharge plan. The patient [place] of [place] with her , Angelito (ph#[phone]). She states that things have been hectic at home recently. She states that her is still battling shingles and that she and her daughter help take care of him. She reports needing some assistance with bathing and has a prosthetic, two walkers, wheelchair, motorscooter, and home oxygen from [facility]. She states that her helps her bathe. The patient's PCP is Dr. Richard Vasquez and she receives her medications at [facility]. She reports no difficulties obtaining her meds. The patient does not have advanced directives, but she states that she and her daughter are still working on getting them completed. She states that she will be designating her daughter, Vandana Garg (ph#[phone]). The patient plans to return home with her upon discharge. No additional needs at this time.
--- NOTE | 2019-10-30 09:00 | NUR ---
Pt assessment completed and charted. Pt sitting in WC at bedside. Pt A&O, states she "feels much better today". Pt denies chest pain, N/V/D. Occassional SOB, pt on room air at this time, intermittent 02 when needed. Pt on tele. LFA fistula present, thrill and bruit present, radial pulses strong, no dressing covering site. RFA INT IV flushes w/o complications. occasional wheezing heard in rt upper lung, otherwise clear. heart RRR. No other concerns expressed at this time. No other concerns expressed at this time.
--- NOTE | 2019-10-30 10:34 | NUR ---
Initial visit attempt; Patti remained asleep, Planning Consultant left card with God's blessings and will return another time.
--- NOTE | 2019-10-30 10:45 | NUR ---
Pt has elevated BP, PRN hydralazine administered per JAN.
[2019-10-30 11:18] VITALS: BP 169/72; PULSE 64; TEMP 97.9
--- NOTE | 2019-10-30 12:19 | NUR ---
Follow-up visit after leaving card earlier; Patient talkative, feeling better and enjoys visiting. [employer] offered a blessing.
--- NOTE | 2019-10-30 16:15 | NUR ---
Pt down for dialysis this time, escorted in WC. No needs expressed.
--- NOTE | 2019-10-30 18:45 | NUR ---
Pt back from dialysis at this time, denies dizziness, SOB, pain. States she is "feeling good" after dialysis. No concerns expressed at this time.
[2019-10-30 20:18] VITALS: BP 142/56; PULSE 78
[2019-10-30 23:59] VITALS: BP 144/72; PULSE 70
[2019-10-31 04:19] VITALS: BP 144/58; PULSE 74
[2019-10-31 06:24] LABS: INR 1.8 (0.8-3.0); PROTHROMBIN TIME 21.4 SECONDS (9.7-12.8)
[2019-10-31 06:52] LABS: ALBUMIN 4.1 gm/dL (3.5-5.0); CALCIUM 9.4 mg/dL (8.4-10.2); CREATININE, serum 4.17 (0.52-1.25); PHOSPHOROUS 3.3 mg/dL (2.5-4.5); POTASSIUM 4.7 mmol/L (3.4-5.0)
[2019-10-31 08:14] VITALS: BP 173/71; PULSE 63; TEMP 98.1
--- NOTE | 2019-10-31 09:55 | NUR ---
Pt sitting up in recliner awake and alert, no C/O pain this morning, shift assessments complete, left Pt call light in reach, bed in lowest position.
[2019-10-31 12:39] VITALS: BP 162/52; PULSE 69; TEMP 98.4
--- NOTE | 2019-10-31 13:48 | NUR ---
Primary nurse was assisted with [id number] patient care by [facility] ADN student Luis Crowe and [facility] instructor Leonela Brock RN-.
--- NOTE | 2019-10-31 14:36 | NUR ---
Follow-up visit; Patient thanked [employer] for looking in on her and offering spiritual care.
--- NOTE | 2019-10-31 19:18 | NUR ---
Pt rested in the room today, went to dialysis late this afternoon about 1600 and returned about 1830, medications given at the time of return, Pt states that she is tired, VS have remained stable.
[2019-10-31 19:23] VITALS: BP 124/51; PULSE 69
[2019-10-31 23:14] VITALS: BP 159/89; PULSE 68
[2019-11-01 03:49] VITALS: BP 159/90; PULSE 65
[2019-11-01 06:48] LABS: CALCIUM 9.3 mg/dL (8.4-10.2); CREATININE, serum 3.81 (0.52-1.25); PHOSPHOROUS 3.7 mg/dL (2.5-4.5); POTASSIUM 4.8 mmol/L (3.4-5.0)
[2019-11-01 06:57] LABS: INR 1.3 (0.8-3.0); PROTHROMBIN TIME 15.5 SECONDS (9.7-12.8)
[2019-11-01 07:18] VITALS: BP 138/54; PULSE 67; TEMP 97.8
--- NOTE | 2019-11-01 10:04 | NUR ---
Warfarin Follow-up Pharmacy Note Current regimen: 6 MG QHS LABS: INR 1.3, down from 1.8. Changes in therapy: extra 3 mg 12/6 AM, continue 6mg qhs.
--- NOTE | 2019-11-01 10:14 | NUR ---
Follow-up visit; Patient thanked Supervisor [employer] for looking in on her, offering prayer and God's blessings.
[2019-11-01 12:01] VITALS: BP 141/48; PULSE 64; TEMP 98.2
--- NOTE | 2019-11-01 13:58 | NUR ---
Primary nurse was assisted with [id number] patient care by [facility] ADN student Luis Crowe and [facility] instructor Leonela Brock RN-.
[2019-11-01 16:30] VITALS: BP 142/51; PULSE 59; TEMP 97.4
--- NOTE | 2019-11-01 18:13 | NUR ---
Pt rested in room today, no C/O pain today, VS have remained steady BPs between high 130 - high 150s.
[2019-11-01 19:51] VITALS: BP 1336/58; BP 136/58; PULSE 63; PULSE 96; TEMP 98.4
--- NOTE | 2019-11-01 21:50 | NUR ---
Alert and oriented x 4, and able to make needs known. Denies having pain and discomfort at this time. Peripheral IV to right forearm flushed. Site is without redness, warmth, swelling, and pain. AV fistula to left forearm with positive bruit and thrill. Denies having SOB and dyspnea. Does complain of runny nose and water eyes. LS CTA. Respirations even and unlabored. HRR. Telmetry in place: normal sinus. Capillary refill less than 3 seconds. Non-tenting skin turgor. BSAx4. Abdomen soft and non-tender. Does report consitpation. Offered PRN Colace and Miralax, took Colace. no edema. Voices no questions, needs, or concerns at this time. In recliner with call light within reach.
[2019-11-02 00:19] VITALS: BP 146/48; PULSE 64; TEMP 98.1
[2019-11-02 03:20] VITALS: BP 153/50; PULSE 58; TEMP 97.6
--- NOTE | 2019-11-02 06:42 | NUR ---
Patient denies having any pain or discomfort this shift. Has been resting in recliner with call light within reach. Voices no questions, needs, or concerns.
[2019-11-02 07:29] LABS: INR 1.5 (0.8-3.0); PROTHROMBIN TIME 17.4 SECONDS (9.7-12.8)
[2019-11-02 07:48] VITALS: BP 167/53; PULSE 62; TEMP 97.8
[2019-11-02 16:00] VITALS: BP 102/47; PULSE 58; TEMP 98
[2019-11-02 19:39] VITALS: BP 111/53; BP 128/57; PULSE 63; TEMP 98.1
[2019-11-02 23:14] VITALS: BP 128/45; PULSE 60; TEMP 97.9
[2019-11-03 04:15] VITALS: BP 150/54; PULSE 63; TEMP 97.6
[2019-11-03 07:14] LABS: INR 1.5 (0.8-3.0); PROTHROMBIN TIME 17.6 SECONDS (9.7-12.8)
--- NOTE | 2019-11-03 07:28 | NUR ---
Report given to BESS Phelps. Pt had an uneventful night. BP was WNL, however was lower than pt likes it to be. Pt refused BP medications. Stated in the morning that she feels so much better now. No further concerns at this time.
[2019-11-03 07:47] VITALS: BP 130/40; PULSE 57; TEMP 98
--- NOTE | 2019-11-03 08:08 | NUR ---
Warfarin Follow-up Pharmacy Note Current regimen: Warfarin 6 mg po qHS LABS: INR 1.5 Changes in therapy: Will give additional Warfarin 3 mg po x1 this morning as there was no change in INR from yesterday. Continue with Warfarin 6 mg po qHS tonight. Pharmacy will continue to monitor daily INR levels.
--- NOTE | 2019-11-03 11:38 | NUR ---
PT STILL VOICED CONSERN ABOUT BLOOD PRESSURE BEING LOW. 130'S/40'S PT REQUESTED TO TAKE HALF FOR LISINOPRIL THIS AM TO SEE HOW B/P DOES
[2019-11-03 11:47] VITALS: BP 143/53; PULSE 66; TEMP 98.4
[2019-11-03 15:43] VITALS: BP 151/54; PULSE 63; TEMP 97.9
--- NOTE | 2019-11-03 19:17 | NUR ---
PT HAD UNEVENTFUL DAY. STATED THIS EVENING SHE WAS FEELING BETTER
[2019-11-03 19:54] VITALS: BP 188/55; PULSE 61; TEMP 98.1
[2019-11-03 23:39] VITALS: BP 158/45; PULSE 66; TEMP 98.2
[2019-11-04 03:49] VITALS: BP 186/58; PULSE 56; TEMP 97.6
[2019-11-04 06:48] LABS: BASO % 0.6 % (0.0-2.0); EOS # 0.4 (0.0-0.7); EOS % 7.1 % (0-4.0); GRAN # 3.7 (1.4-6.5); GRAN % 59.9 % (42.2-75.2); HEMATOCRIT 38.6 % (37.0-47.0); HEMOGLOBIN 11.9 g/dl (12.5-16.0); LYMPH # 1.4 (1.2-3.4); LYMPH % 22.1 % (20.0-51.0); MEAN CELL VOLUME 111 fl (80.0-100.0); MEAN CORPUSCULAR HEMOGLOBIN 34 pg (27.0-31.0); MEAN CORPUSCULAR HGB CONC 31 g/dl (33.0-37.0); MEAN PLATELET VOLUME 11.7 fl (7.4-10.4); MONO # 0.6 (0.1-0.6); MONO % 10.1 % (1.7-9.3); PLATELET COUNT 131 K/mm3 (130-400); RED BLOOD COUNT 3.48 M/mm3 (4.10-5.30)
[2019-11-04 06:57] LABS: INR 1.8 (0.8-3.0); PROTHROMBIN TIME 21.6 SECONDS (9.7-12.8)
[2019-11-04 07:02] LABS: ALBUMIN 4.1 gm/dL (3.5-5.0); CALCIUM 9.5 mg/dL (8.4-10.2); CREATININE, serum 5.66 (0.52-1.25); PHOSPHOROUS 3.8 mg/dL (2.5-4.5); POTASSIUM 5.4 mmol/L (3.4-5.0)
--- NOTE | 2019-11-04 08:38 | NUR ---
Report given to BESS Foley. Pt sitting in recliner. No c/o any pain or discomfort, just some difficulty breathing, but states it is getting better and would like to go to Dialysis. No further concern.
[2019-11-04 08:45] VITALS: BP 167/56; PULSE 64; TEMP 98.2
--- NOTE | 2019-11-04 08:52 | NUR ---
Medications administered bedside with Instructor BESS Olivares, MSN.
--- NOTE | 2019-11-04 10:50 | NUR ---
Follow-up visit; Patient thanked Supervisor [employer] for looking in on her and offering spiritual care.
[2019-11-04 11:27] VITALS: BP 196/53; PULSE 58; TEMP 98
--- NOTE | 2019-11-04 11:33 | NUR ---
Pt assessment completed and charted. Pt sitting in wheelchair at bedside. Two students from [facility] are caring for patient this morning. Morning medications administered per MAR. Pt denies chest pain, c/o some dizziness and SOB. Pt currently on 2L NC and tele. INT RFA flushes w/o complications. LFA fistula w/o dressing, strong radial pulse, thrill and bruit present. Per pt she feels "fluid overloaded", asking about dialysis. This nurse talked to Millie in dialysis, Taniya will be in this afternoon to assess and discuss plan. No other concerns expressed at this time.
--- NOTE | 2019-11-04 12:07 | NUR ---
Pt BP 196/53, pt refused PRN hydralazine, wanting to "wait and talk to Bedros". Pt verbalizes understanding of importance of medication. No other concerns expressed.
[2019-11-04 16:27] VITALS: BP 183/64; PULSE 62; TEMP 98.2
--- NOTE | 2019-11-04 18:32 | NUR ---
Taniya visited w/ patient. Discussed taking PRN hydralazine. Pt BP >180, administered PRN hydralazine. Pt refused insulin/Novolog, BS 184. No other concerns expressed. pt denies pain, just "breathing discomfort". pt currently on 2L NC.
--- NOTE | 2019-11-04 19:45 | NUR ---
Patient assessed at this time. Alert and oriented x 4, and able to make needs known. Denies having pain and discomfort at time. Peripheral IV to right forearm flushed. Site is without redness, warmth, swelling, and pain. AV fistula to left forearm with positive bruit and thrill. Does report SOB and dyspnea with exertion. On oxygen at 2 L/min via NC. LS CTA. Reports occasional cough with clear phlegm. None observed. HRR. Telmetry in place-normal sinus. Capillary refill less than 3 seconds. Non-tenting skin turgor. BSAx4. Abdomen round, soft, and non-tender. Does complain of constipation, but received medication for it earlier today. 1+ edema RLE. Voices no questions, needs, or concerns at this time. Resting in recliner with call light within reach.
[2019-11-04 20:23] VITALS: BP 188/64; PULSE 57; TEMP 97.6
[2019-11-05 00:26] VITALS: BP 183/58; PULSE 53; TEMP 97.4
--- NOTE | 2019-11-05 00:41 | NUR ---
BP 183/58. Given PRN Appresoline at this time.
[2019-11-05 04:59] VITALS: BP 165/82; PULSE 53; TEMP 97.6
--- NOTE | 2019-11-05 05:45 | NUR ---
BP 165/82. PRN Appresoline not needed at this time. Patient received neb treatment earlier by RT as requested. Voices no further questions, needs, or concerns at this time. Resting in recliner with call light within reach.
--- NOTE | 2019-11-05 06:29 | NUR ---
Patient going to dialysis at this time.
[2019-11-05 07:22] LABS: BASO % 0.4 % (0.0-2.0); EOS # 0.3 (0.0-0.7); EOS % 5.5 % (0-4.0); GRAN # 3.5 (1.4-6.5); GRAN % 63.3 % (42.2-75.2); HEMATOCRIT 38.8 % (37.0-47.0); HEMOGLOBIN 12.2 g/dl (12.5-16.0); LYMPH # 1.2 (1.2-3.4); LYMPH % 22.5 % (20.0-51.0); MEAN CELL VOLUME 108 fl (80.0-100.0); MEAN CORPUSCULAR HEMOGLOBIN 34 pg (27.0-31.0); MEAN CORPUSCULAR HGB CONC 31 g/dl (33.0-37.0); MEAN PLATELET VOLUME 11.4 fl (7.4-10.4); MONO # 0.4 (0.1-0.6); MONO % 7.9 % (1.7-9.3); PLATELET COUNT 120 K/mm3 (130-400); REDCELL DISTRIBUTION WIDTH-CV 13.7 % (11.5-14.5)
[2019-11-05 07:23] LABS: INR 2.4 (0.8-3.0); PROTHROMBIN TIME 29.3 SECONDS (9.7-12.8)
--- NOTE | 2019-11-05 07:30 | NUR ---
Pt down for dialysis at this moment. Pt went to dialysis prior to shift change.
[2019-11-05 07:36] LABS: ALBUMIN 4.2 gm/dL (3.5-5.0); CALCIUM 9.2 mg/dL (8.4-10.2); CREATININE, serum 4.9 (0.52-1.25); PHOSPHOROUS 3.1 mg/dL (2.5-4.5); POTASSIUM 4.8 mmol/L (3.4-5.0)
[2019-11-05 11:58] VITALS: BP 162/55; PULSE 59; TEMP 98
--- NOTE | 2019-11-05 12:30 | NUR ---
Pt back from dialysis, assessment completed. pt states she feels ok. A&O, LFA fistula present, CDI. Pt on 2L NC, c/o some SOB and "feeling fluid overloaded". per pt "dialysis went ok". Medications adminsitered per MAR. No other concerns expressed at this time.
--- NOTE | 2019-11-05 14:04 | NUR ---
Other Wood Processing Machine Operator met with patient to review discharge plan. Patient reports she plans to return home to [place] where she lives with her , Angelito. Patient states she also sometimes stays with her daughter, Vandana if she feels she needs to. SW to continue to follow as needed.
[2019-11-05 15:41] VITALS: BP 152/43; PULSE 58; TEMP 98
[2019-11-05 19:16] VITALS: BP 134/57; PULSE 56; TEMP 98
--- NOTE | 2019-11-05 19:26 | NUR ---
Uneventful day, pt has had no complaints. PRN hydralazine has not been needed. No other concerns expressed. LFA fistula site started bleeding, covered w/ bandaid and no other complications noted. Report given to BESS Bagley.
--- NOTE | 2019-11-05 20:34 | NUR ---
ASSESSMENT COMPLETE. UP IN CHAIR. REQUESTS DUCOLAX FOR CONSTIPATION. DENIES OTHER NEEDS.
[2019-11-06 00:15] VITALS: BP 119/48; BP 142/48; PULSE 61; TEMP 98.1
[2019-11-06 03:41] VITALS: BP 182/56; PULSE 55
[2019-11-06 06:23] LABS: BASO % 0.5 % (0.0-2.0); EOS # 0.4 (0.0-0.7); EOS % 6.3 % (0-4.0); GRAN # 3.4 (1.4-6.5); GRAN % 58.9 % (42.2-75.2); HEMATOCRIT 40.5 % (37.0-47.0); HEMOGLOBIN 12.9 g/dl (12.5-16.0); LYMPH # 1.2 (1.2-3.4); LYMPH % 21.3 % (20.0-51.0); MEAN CELL VOLUME 110 fl (80.0-100.0); MEAN CORPUSCULAR HEMOGLOBIN 35 pg (27.0-31.0); MEAN CORPUSCULAR HGB CONC 32 g/dl (33.0-37.0); MEAN PLATELET VOLUME 11.6 fl (7.4-10.4); MONO # 0.7 (0.1-0.6); MONO % 12.5 % (1.7-9.3); PLATELET COUNT 132 K/mm3 (130-400); REDCELL DISTRIBUTION WIDTH-CV 13.9 % (11.5-14.5)
[2019-11-06 06:39] LABS: ALBUMIN 4.3 gm/dL (3.5-5.0); CALCIUM 9.4 mg/dL (8.4-10.2); CREATININE, serum 3.82 (0.52-1.25); PHOSPHOROUS 4.1 mg/dL (2.5-4.5); POTASSIUM 5.1 mmol/L (3.4-5.0)
[2019-11-06 06:53] LABS: PROTHROMBIN TIME 23.3 SECONDS (9.7-12.8)
[2019-11-06 08:15] VITALS: BP 166/56; PULSE 57; TEMP 98
--- NOTE | 2019-11-06 09:45 | NUR ---
Pt assessment completed and charted. A&O, independent w/ cares. Pt sitting in recliner at bedside. Pt denies pain or difficulty breathing/SOB, breathing is even and unlabored on 2L NC. Pt has RFA INT IV flushes w/o complications. LFA fistula present, covered w/ bandaid, CDI, bruit and thrill present. tele in place. BLE edema 1+. LS cta, heart RRR. Pt requested colace. SSI not required, BS 125 this morning. Hydralazine not required this morning, BP WNL for pt. Pt expresses no other concerns at this time. Call light within reach.
[2019-11-06] MEDS ORDERED: ZESTRIL40 MG PO (10:23)
[2019-11-06 13:51] VITALS: BP 157/43; PULSE 57; TEMP 98.1
--- NOTE | 2019-11-06 14:00 | NUR ---
Pt refused SSI, BS 190.
--- NOTE | 2019-11-06 16:06 | NUR ---
Pt discharge instructions discussed and reviewed with patient who verbalized understanding. All questions answered, no further concerns expressed. RWR INT IV dc'd w/o complications and catheter tip intact. Pt escorted out in her WC by this nurse.
== END 2019-11-06 16:09 | disposition home or self-care (01) | DRG 304 ==
LOC: MEDICAL 13:49
PROVIDERS: ADMIT Internal Medicine Nephrology
PROC: 5A1D70Z Performance of Urinary Filtration, Intermittent, Less than 6 Hours Per Day (ICD-10-PCS; principal; 2019-10-29)
DX: I16.1 Hypertensive emergency (principal); N18.6 End stage renal disease; N25.81 Secondary hyperparathyroidism of renal origin; J45.909 Unspecified asthma, uncomplicated; Z86.73 Personal history of transient ischemic attack (TIA), and cerebral infarction without residual deficits; M19.90 Unspecified osteoarthritis, unspecified site; M10.9 Gout, unspecified; D63.8 Anemia in other chronic diseases classified elsewhere; E78.5 Hyperlipidemia, unspecified; G40.909 Epilepsy, unspecified, not intractable, without status epilepticus; E66.9 Obesity, unspecified; R53.81 Other malaise; I20.9 Angina pectoris, unspecified; I12.0 Hypertensive chronic kidney disease with stage 5 chronic kidney disease or end stage renal disease; E11.22 Type 2 diabetes mellitus with diabetic chronic kidney disease; E87.5 Hyperkalemia; J06.9 Acute upper respiratory infection, unspecified; Z89.511 Acquired absence of right leg below knee; Z87.440 Personal history of urinary (tract) infections; Z79.4 Long term (current) use of insulin; Z79.01 Long term (current) use of anticoagulants; Z79.02 Long term (current) use of antithrombotics/antiplatelets; Z68.38 Body mass index [BMI] 38.0-38.9, adult
CPT/HCPCS: J1644; J1815; J7030

== ENCOUNTER 2019-12-15 13:43 | Emergency (ER) | payer MEDICARE, OTHER ==
[~2019-12-15] VITALS: Ht 152.4 cm; Wt 65.0 kg
[~2019-12-15 13:43] MED LIST changes: +MINOXIDIL 2.5 PO
[2019-12-15 13:51] VITALS: TEMP 98.2
[2019-12-15 14:26] LABS: BASO % 0.7 % (0.0-2.0); EOS # 0.2 (0.0-0.7); EOS % 5.9 % (0-4.0); GRAN # 2.4 (1.4-6.5); GRAN % 60.5 % (42.2-75.2); HEMOGLOBIN 10.6 g/dl (12.5-16.0); LYMPH # 0.8 (1.2-3.4); LYMPH % 19.8 % (20.0-51.0); MEAN CELL VOLUME 112 fl (80.0-100.0); MEAN CORPUSCULAR HEMOGLOBIN 35 pg (27.0-31.0); MEAN CORPUSCULAR HGB CONC 31 g/dl (33.0-37.0); MEAN PLATELET VOLUME 10.9 fl (7.4-10.4); MONO # 0.5 (0.1-0.6); MONO % 12.9 % (1.7-9.3); PLATELET COUNT 114 K/mm3 (130-400); RED BLOOD COUNT 3.05 M/mm3 (4.10-5.30); REDCELL DISTRIBUTION WIDTH-CV 16.1 % (11.5-14.5)
[2019-12-15 14:35] LABS: ALANINE AMINOTRANSFERASE 56 U/L (9-52); ALBUMIN 4.1 gm/dL (3.5-5.0); ALKALINE PHOSPHATASE 127 U/L (50-136); ANION GAP 10 mmol/L (7-16); AST,SGOT 40 U/L (15-37); BILIRUBIN,TOTAL 0.4 mg/dL (0.0-1.0); BLOOD UREA NITROGEN 36 mg/dL (7-17); CALCIUM 9.1 mg/dL (8.4-10.2); CARBON DIOXIDE 27 mmol/L (22-30); CHLORIDE 103 mmol/L (98-107); CREATININE, serum 3.86 (0.52-1.25); GLUCOSE 223 mg/dL (74-106); LIPASE 90 U/L (23-300); PHOSPHOROUS 3.4 mg/dL (2.5-4.5); POTASSIUM 4.5 mmol/L (3.4-5.0); SODIUM 140 mmol/L (137-145); TOTAL PROTEIN 6.7 gm/dL (6.4-8.2)
[2019-12-15 14:36] LABS: INR 2.4 (0.8-3.0); PROTHROMBIN TIME 28.2 SECONDS (9.7-12.8)
[2019-12-15 14:47] LABS: TROPONIN-I < 0.012 ng/mL (0.000-0.035)
[2019-12-15] MEDS ORDERED: MEDROL 4MG DOSPA4 MG PO (15:41)
[2019-12-15] MEDS ORDERED: ALBUTEROL0.83 MG/ML IH (18:15)
[2019-12-15 18:30] VITALS: BP 180/89; PULSE 85
== END 2019-12-15 18:55 | disposition home or self-care (01) ==
LOC: COL.ER 13:43
PROVIDERS: Emergency Medicine
DX: J44.1 Chronic obstructive pulmonary disease with (acute) exacerbation (principal); I12.0 Hypertensive chronic kidney disease with stage 5 chronic kidney disease or end stage renal disease; N18.6 End stage renal disease; M10.9 Gout, unspecified; Z99.2 Dependence on renal dialysis; Z79.02 Long term (current) use of antithrombotics/antiplatelets; Z79.01 Long term (current) use of anticoagulants; Z79.4 Long term (current) use of insulin
CPT/HCPCS: J0360; J7512

== ENCOUNTER 2019-12-16 05:40 | Inpatient (IN) | payer MEDICARE, OTHER ==
[~2019-12-16] VITALS: Ht 152.4 cm; Wt 65.0 kg
[~2019-12-16 05:40] MED LIST changes: +MEDROL 4MG DOSPA4 MG PO
[2019-12-16 06:28] LABS: BASO % 0.2 % (0.0-2.0); EOS # 0.1 (0.0-0.7); EOS % 2.4 % (0-4.0); GRAN # 2.8 (1.4-6.5); GRAN % 61.8 % (42.2-75.2); HEMOGLOBIN 10.4 g/dl (12.5-16.0); LYMPH % 22.1 % (20.0-51.0); MEAN CORPUSCULAR HEMOGLOBIN 35 pg (27.0-31.0); MEAN CORPUSCULAR HGB CONC 31 g/dl (33.0-37.0); MEAN PLATELET VOLUME 10.7 fl (7.4-10.4); MONO # 0.6 (0.1-0.6); MONO % 13.1 % (1.7-9.3); PLATELET COUNT 120 K/mm3 (130-400); RED BLOOD COUNT 3.01 M/mm3 (4.10-5.30)
[2019-12-16 06:34] LABS: ALBUMIN 4.3 gm/dL (3.5-5.0); BILIRUBIN,TOTAL 0.5 mg/dL (0.0-1.0); CALCIUM 9.4 mg/dL (8.4-10.2); CREATININE, serum 4.86 (0.52-1.25); POTASSIUM 4.4 mmol/L (3.4-5.0)
[2019-12-16 06:41] LABS: HEMATOCRIT 33.2 % (37.0-47.0); MEAN CELL VOLUME 110 fl (80.0-100.0)
[2019-12-16 06:45] LABS: TROPONIN-I 0.017 ng/mL (0.000-0.035)
[2019-12-16 06:46] LABS: INR 2.2 (0.8-3.0); PROTHROMBIN TIME 26.9 SECONDS (9.7-12.8)
--- NOTE | 2019-12-16 09:50 | NUR ---
Patient to room 310 by wheelchair from the ED. Patient A&Ox4, daughter at the bedside. No further needs expressed from patient. Call light within reach
[2019-12-16 10:08] VITALS: BP 194/64; PULSE 67; TEMP 98.9
[2019-12-16 12:37] VITALS: BP 203/61; PULSE 73; TEMP 98.6
--- NOTE | 2019-12-16 16:10 | NUR ---
ROD met with the patient to discuss discharge plan. The patient lives south of [place] with her , Angelito (ph#[phone]). She reports independence with ADLs and has a prosthetic, two walkers, a wheelchair, and home oxygen from [facility]. The patient's PCP is Dr. Richard Vasquez and she receives her medications at [facility]. She reports no difficulties obtaining her meds. The patient does not have advanced directives in EMR, but she states that she does have them completed and that her daughter, Vandana Garg (ph#[phone]), is her DPOA-HC. The patient plans to return home with her upon discharge. The patient was interested in agencies that provide private duty services for housekeeping. ROD provided the patient with a list of the different agencies that serve [place]. No additional needs at this time.
[2019-12-16 16:23] VITALS: BP 208/77; PULSE 65; TEMP 98.1
--- NOTE | 2019-12-16 18:03 | NUR ---
Report given to BESS Foley
--- NOTE | 2019-12-16 19:55 | NUR ---
Pt states she now has productive cough for the first time since Monday night when the coughing started. Post tx she coughs out sputum but throws it away before showing me, stating it was yellow. Pt also states coughing it out make it hurt less.
[2019-12-16 20:20] VITALS: BP 195/62; PULSE 66; TEMP 98.7
--- NOTE | 2019-12-16 20:30 | NUR ---
Initial shift assessment done- denies pain at this time- states feeling better- denies SOB, o2 at 2L/nc, sitting up in chair- will call for any concerns- will get Hydralazine prn for high blood pressures
[2019-12-16 23:10] VITALS: BP 184/54; PULSE 62; TEMP 98.9
[2019-12-17 04:42] VITALS: BP 182/61; PULSE 63; TEMP 98
--- NOTE | 2019-12-17 06:17 | NUR ---
Quiet night- did have hoarse voice and coarse lung sounds this morning- resp treatment given- Tylenol given for pain "all over", Hydralazine given x2 during the night for SBP in the 180,s
--- NOTE | 2019-12-17 08:30 | NUR ---
Pt down for dialysis at this time.
[2019-12-17 09:14] LABS: BASO % 0.2 % (0.0-2.0); GRAN # 4.2 (1.4-6.5); GRAN % 85.8 % (42.2-75.2); HEMOGLOBIN 10.6 g/dl (12.5-16.0); LYMPH # 0.6 (1.2-3.4); LYMPH % 11.4 % (20.0-51.0); MEAN CELL VOLUME 110 fl (80.0-100.0); MEAN CORPUSCULAR HEMOGLOBIN 35 pg (27.0-31.0); MEAN CORPUSCULAR HGB CONC 32 g/dl (33.0-37.0); MEAN PLATELET VOLUME 10.9 fl (7.4-10.4); MONO # 0.1 (0.1-0.6); MONO % 2.2 % (1.7-9.3); PLATELET COUNT 128 K/mm3 (130-400); RED BLOOD COUNT 3.04 M/mm3 (4.10-5.30); REDCELL DISTRIBUTION WIDTH-CV 16.4 % (11.5-14.5)
[2019-12-17 09:17] LABS: HEMATOCRIT 33.4 % (37.0-47.0)
[2019-12-17 09:26] LABS: ALBUMIN 4.2 gm/dL (3.5-5.0); CALCIUM 9.4 mg/dL (8.4-10.2); CREATININE, serum 4.91 (0.52-1.25); PHOSPHOROUS 3.9 mg/dL (2.5-4.5); POTASSIUM 4.7 mmol/L (3.4-5.0)
[2019-12-17 12:28] VITALS: BP 159/68; PULSE 69; TEMP 97.9
--- NOTE | 2019-12-17 12:30 | NUR ---
Pt back from dialysis at this time
--- NOTE | 2019-12-17 14:43 | NUR ---
Pt assessment completed and charted. Pt sitting in recliner at bedside. Pt on 2L NC as needed. Pt sats well, >90%. RAC INT IV flushes w/o complications. LFA fistula, thrill and bruit present, covered w/ gauze, CDI, from dialysis session this morning. Pulses strong bilaterally. Pt has Left BKA, independent w/ most cares, able to transfer in and out of wheelchair. Pt has productive cough, no mucus observed at this time. Pt denies chest pain, dizziness, SOB, N/V/D. No other concerns at this time.
[2019-12-17 17:37] VITALS: BP 178/57; PULSE 75; TEMP 98.8
[2019-12-17 20:00] VITALS: BP 179/78; PULSE 69; TEMP 98
--- NOTE | 2019-12-17 20:00 | NUR ---
Patient assessed at this time. Alert and oriented x 4, and able to make needs known. Peripheral IV to RAC flushed. Site without redness, warmth, swelling, and pain. AV fistula to left foearm with positive bruit and thrill. Denies SOB and dyspnea. On oxygen at 2 L/min via NC. LS with coarse crackles and expiratory wheezes throughout. Had just recieved nebulizer treatment. Moist cough with sputum production. HRR. Capillary refill less than 3 seconds. Non-tenting skin turgor. BSAx4. Abdomen soft and non-tender. BS hypoactive x 4. Given PRN Miralax as requested for constipation. No edema. Voices no questions, needs, or concerns at this time. In wheelchair with call light within reach.
--- NOTE | 2019-12-17 22:00 | NUR ---
Patient's bloo sugar 260. Patient stated that she needed 5 units Novolog. Given as requested. Voice no further questions, needs, or concerns at this time.
[2019-12-18] VITALS: BP 172/62; PULSE 67; TEMP 97.9
--- NOTE | 2019-12-18 01:12 | NUR ---
Patient complaining of nausea, given PRN Zofran as requested.
[2019-12-18 04:00] VITALS: BP 159/61; PULSE 63; TEMP 97.9
--- NOTE | 2019-12-18 06:37 | NUR ---
Patient reports she did not sleep well during the night. Voices no questions, needs, or concerns or this time. In recliner. Call light within reach.
[2019-12-18 06:42] LABS: BASO % 0.3 % (0.0-2.0); EOS % 0.6 % (0-4.0); GRAN % 70.3 % (42.2-75.2); HEMOGLOBIN 10.6 g/dl (12.5-16.0); LYMPH # 1.2 (1.2-3.4); LYMPH % 17.2 % (20.0-51.0); MEAN CELL VOLUME 112 fl (80.0-100.0); MEAN CORPUSCULAR HEMOGLOBIN 35 pg (27.0-31.0); MEAN CORPUSCULAR HGB CONC 31 g/dl (33.0-37.0); MEAN PLATELET VOLUME 11.5 fl (7.4-10.4); MONO # 0.8 (0.1-0.6); MONO % 11.3 % (1.7-9.3); PLATELET COUNT 141 K/mm3 (130-400); RED BLOOD COUNT 3.04 M/mm3 (4.10-5.30); REDCELL DISTRIBUTION WIDTH-CV 16.3 % (11.5-14.5)
[2019-12-18 06:54] LABS: ALBUMIN 4.2 gm/dL (3.5-5.0); CALCIUM 9.3 mg/dL (8.4-10.2); CREATININE, serum 4.2 (0.52-1.25); PHOSPHOROUS 3.6 mg/dL (2.5-4.5); POTASSIUM 4.5 mmol/L (3.4-5.0)
[2019-12-18 06:57] LABS: INR 2.4 (0.8-3.0); PROTHROMBIN TIME 28.2 SECONDS (9.7-12.8)
[2019-12-18 06:58] LABS: HEMATOCRIT 33.9 % (37.0-47.0)
[2019-12-18 08:36] VITALS: BP 181/79; PULSE 66; TEMP 97.8
--- NOTE | 2019-12-18 08:55 | NUR ---
Pt assessment complete. Pt sitting up in her wheelchair upon entry, she is A/O x4. Breathing is even and unlabored on 1L O2 via NC. Pt reports some SOB "in the base of the lungs". Intermittent cough present. O2 sat >95%. Pt requesting 3U of insulin for BS, Dr. Monahan okayed patient to dose insulin. No pain at this time. Ate breakfast without issues. No needs at this time. Call light within reach.
[2019-12-18 12:40] VITALS: BP 182/52; PULSE 70
[2019-12-18 15:39] VITALS: BP 187/73; PULSE 70; TEMP 99
--- NOTE | 2019-12-18 18:33 | NUR ---
Pt had uneventful day, sat up in her wheelchair throughout the day. No concerns of pain. Pt has good appetite. BP elevated this afternoon, one dose of PRN Apresoline administered and scheduled Coreg. Pt has no needs at this time. Call light within reach.
[2019-12-18 20:46] VITALS: BP 186/58; PULSE 65; TEMP 99; TEMP 99.9
--- NOTE | 2019-12-18 21:24 | NUR ---
Pt presents in bedside chair reading and watching tv. Pt is in good spirits and is eager to talk about her family and provide history of current illness. Pt is able to make wants/needs known, is A&Ox4, is knowledgable of how to use call light and has a small amount of beverage available on gher bedside table. Pt is knowledgable of fluid restrictions and reports that she makes sure she remains below this limit. Will continue to monitor.
--- NOTE | 2019-12-19 00:14 | NUR ---
Pt is resting peacefully in the recliner at this time with eyes closed and no s/s of distress noted.
--- NOTE | 2019-12-19 05:10 | NUR ---
Pt requests breathing treatment. This information writer notified RT of Pt request.
[2019-12-19 05:20] VITALS: BP 151/54; PULSE 65; TEMP 97.6
--- NOTE | 2019-12-19 05:49 | NUR ---
Pt reports that she is doing better after breathing treatment and has no complaints or needs at this time. No s/s of distress noted. Will continue to monitor.
[2019-12-19 07:44] VITALS: BP 180/58; PULSE 63; TEMP 99.2
--- NOTE | 2019-12-19 10:10 | NUR ---
Patient is sitting on her wheel chair. She ate 100% of her breakfast. She denies any pain. Breah sound is coarse and wheeezing at expiratory. patient is coughing without any product. Patient breath is unlabor.
[2019-12-19 13:07] LABS: BASO % 0.1 % (0.0-2.0); EOS # 0.1 (0.0-0.7); EOS % 0.9 % (0-4.0); GRAN # 5.7 (1.4-6.5); GRAN % 81.5 % (42.2-75.2); HEMATOCRIT 34.6 % (37.0-47.0); HEMOGLOBIN 11.1 g/dl (12.5-16.0); LYMPH # 0.7 (1.2-3.4); LYMPH % 9.8 % (20.0-51.0); MEAN CELL VOLUME 110 fl (80.0-100.0); MEAN CORPUSCULAR HEMOGLOBIN 35 pg (27.0-31.0); MEAN CORPUSCULAR HGB CONC 32 g/dl (33.0-37.0); MEAN PLATELET VOLUME 11.3 fl (7.4-10.4); MONO # 0.5 (0.1-0.6); MONO % 7.1 % (1.7-9.3); PLATELET COUNT 127 K/mm3 (130-400); RED BLOOD COUNT 3.15 M/mm3 (4.10-5.30); REDCELL DISTRIBUTION WIDTH-CV 15.9 % (11.5-14.5)
[2019-12-19 13:12] LABS: INR 1.9 (0.8-3.0); PROTHROMBIN TIME 23.2 SECONDS (9.7-12.8)
[2019-12-19 13:21] LABS: ALBUMIN 4.4 gm/dL (3.5-5.0); CALCIUM 9.3 mg/dL (8.4-10.2); CREATININE, serum 4.03 (0.52-1.25); PHOSPHOROUS 2.3 mg/dL (2.5-4.5); POTASSIUM 4.1 mmol/L (3.4-5.0)
--- NOTE | 2019-12-19 18:00 | NUR ---
Patient is back from dialysis. Millie - the dialysis nurse said she got 1600mL fluid after dialysis patient request for 3unit of insulin for 199 blood sugar. patient is confortable in her room eating. call light within reach.
[2019-12-19 18:03] VITALS: BP 158/71; PULSE 70; TEMP 97.8
[2019-12-19 22:41] VITALS: BP 157/73; PULSE 74; TEMP 98.4
--- NOTE | 2019-12-20 00:48 | NUR ---
Pt report recieved at shift change with no changes reported except that Pt started cephulac PO today. Pt greeted at shift change and noted to be resting in her recliner reading with the tv on. Pt denies any pain or discomfort at this time. Call light is within reach and bedside table is at her side. During med pass at aprox 2100 Pt reported that she had some pain in her left hip and requested PRN APAP which per Pt's report at 2200 "helped". AT this time Pt is resting in the recliner with her eyes closed and the tv turned off. Pt has no s/s of distress noted. Will continue to monitor
[2019-12-20 04:22] VITALS: BP 164/70; PULSE 77; TEMP 98.4
--- NOTE | 2019-12-20 05:49 | NUR ---
Pt sitting in recliner resting peacefully with no s/s of distress and no complaints, wants or needs at this time.
[2019-12-20 07:02] LABS: BASO % 0.3 % (0.0-2.0); EOS # 0.1 (0.0-0.7); EOS % 0.9 % (0-4.0); GRAN # 5.2 (1.4-6.5); GRAN % 67.6 % (42.2-75.2); HEMOGLOBIN 10.4 g/dl (12.5-16.0); INR 1.7 (0.8-3.0); LYMPH # 1.5 (1.2-3.4); LYMPH % 19.5 % (20.0-51.0); MEAN CORPUSCULAR HEMOGLOBIN 34 pg (27.0-31.0); MEAN CORPUSCULAR HGB CONC 31 g/dl (33.0-37.0); MEAN PLATELET VOLUME 10.9 fl (7.4-10.4); MONO # 0.9 (0.1-0.6); MONO % 11.3 % (1.7-9.3); PLATELET COUNT 140 K/mm3 (130-400); PROTHROMBIN TIME 20.7 SECONDS (9.7-12.8); RED BLOOD COUNT 3.05 M/mm3 (4.10-5.30)
[2019-12-20 07:05] LABS: MEAN CELL VOLUME 112 fl (80.0-100.0)
[2019-12-20 07:10] LABS: CALCIUM 9.3 mg/dL (8.4-10.2); CREATININE, serum 4.02 (0.52-1.25); PHOSPHOROUS 3.4 mg/dL (2.5-4.5); POTASSIUM 4.5 mmol/L (3.4-5.0)
--- NOTE | 2019-12-20 08:00 | NUR ---
Assessment complete. Pt sitting up in chair, A&O x 3. Breath sounds coarse throughout all lung leung. Pt reports aching to legs, requesting Tylenol. Saline lock IV to right forearm without s/s of complications. No further needs reported. Call light in reach.
[2019-12-20 08:46] VITALS: BP 163/65; PULSE 65; TEMP 98.7
[2019-12-20 12:00] VITALS: BP 144/42; PULSE 62; TEMP 98.5
[2019-12-20 15:58] VITALS: BP 154/60; PULSE 61; TEMP 99
--- NOTE | 2019-12-20 20:50 | NUR ---
Shift assessment complete. Pt resting in wheelchair, awake, a&o, cooperative c cares. Pt reports some chronic pain to back et legs, provided c PRN APAP per request. Pt denies any other c/o. INT patent. O2 per NC. HD AVF noted, strong bruit/thrill. Pt denies further needs at this time. Call light in reach, will continue to monitor.
[2019-12-20 20:56] VITALS: BP 191/71; PULSE 58; TEMP 98.1
[2019-12-21] VITALS (8 sets, daily range): BP systolic 133–178; BP diastolic 53–89; PULSE 52–74; TEMP 97.7–98.8
--- NOTE | 2019-12-21 08:20 | NUR ---
Pt assessment complete. Pt sitting up in recliner upon entry, she reports not sleeping many hours d/t SOB. Continues to sat >95% on 2L O2 via NC, pt requesting to keep oxygen at this level. No pain at this time. No N/V. Inquiring about dialysis today. Breakfast at bedside, no further needs.
--- NOTE | 2019-12-21 09:20 | NUR ---
Patient transported to dialysis room [id number] via wheelchair by RN with no complications.
[2019-12-21 09:51] LABS: BASO % 0.3 % (0.0-2.0); EOS # 0.1 (0.0-0.7); EOS % 1.9 % (0-4.0); GRAN # 4.4 (1.4-6.5); GRAN % 69.2 % (42.2-75.2); HEMATOCRIT 31.8 % (37.0-47.0); HEMOGLOBIN 9.9 g/dl (12.5-16.0); LYMPH # 1.2 (1.2-3.4); LYMPH % 19.2 % (20.0-51.0); MEAN CELL VOLUME 110 fl (80.0-100.0); MEAN CORPUSCULAR HEMOGLOBIN 34 pg (27.0-31.0); MEAN CORPUSCULAR HGB CONC 31 g/dl (33.0-37.0); MONO # 0.6 (0.1-0.6); MONO % 8.9 % (1.7-9.3); PLATELET COUNT 142 K/mm3 (130-400); RED BLOOD COUNT 2.88 M/mm3 (4.10-5.30); REDCELL DISTRIBUTION WIDTH-CV 15.5 % (11.5-14.5)
[2019-12-21 10:01] LABS: ALBUMIN 3.9 gm/dL (3.5-5.0); CALCIUM 9.1 mg/dL (8.4-10.2); CREATININE, serum 4.61 (0.52-1.25); PHOSPHOROUS 3.6 mg/dL (2.5-4.5); POTASSIUM 4.2 mmol/L (3.4-5.0)
[2019-12-21 14:11] LABS: INR 1.8 (0.8-3.0); PROTHROMBIN TIME 21.6 SECONDS (9.7-12.8)
--- NOTE | 2019-12-21 18:03 | NUR ---
Pt rested well after dialysis. 3L taken off in dialysis per report. Pt has no complaints of pain. Breathing unchanged with occasional coughing. No needs at this time. Call light within reach.
--- NOTE | 2019-12-21 20:17 | NUR ---
Shift assessment complete. Pt resting in wheelchair, awake, a&o, cooperative c cares. Pt c/o chronic pain to legs, will provide PRN APAP c HS meds. Pt denies any other c/o. INT patent. O2 per NC. HD AVF noted to L forearm, strong bruit/thrill. Pt denies further needs. Call light in reach, will continue to monitor.
[2019-12-22 03:13] VITALS: BP 131/63; PULSE 59; TEMP 98.4
[2019-12-22 07:58] VITALS: BP 150/58; PULSE 61; TEMP 98.4
--- NOTE | 2019-12-22 08:14 | NUR ---
Pt assessment complete. Pt sitting up in recliner upon entry, she is A/O x4. Her breathing is even and unlabored on RA. Pt reports an improvement in breathing and over all feeling better. Occasional wet cough present. No pain. No N/V. Breakfast at bedside. No needs at this time. Call light within reach.
[2019-12-22 12:14] VITALS: BP 156/69; PULSE 62; TEMP 98.2
[2019-12-22 16:03] VITALS: BP 146/63; BP 154/108; PULSE 69; TEMP 98.9
--- NOTE | 2019-12-22 18:54 | NUR ---
Pt had uneventful day. Rested in recliner through the day. Denied pain or concerns. Intermittently on oxygen. Report given to BESS Hernandez.
[2019-12-22 20:00] VITALS: BP 186/73; PULSE 71; TEMP 98.7
--- NOTE | 2019-12-22 20:40 | NUR ---
Shift assessment complete. Pt resting in bedside recliner, awake, a&o, cooperative c cares. Pt denies pain or any other c/o at this time. INT patent. O2 per NC. HD AVF to L forearm c strong bruit/thrill. Pt denies further needs at this time. Call light in reach, will continue to monitor.
[2019-12-23] VITALS: BP 167/58; PULSE 79; TEMP 98.3
[2019-12-23 03:52] VITALS: BP 152/61; PULSE 57; TEMP 97.8
[2019-12-23 07:28] VITALS: BP 155/73; PULSE 63; TEMP 97.9
--- NOTE | 2019-12-23 07:52 | NUR ---
Pt assessment complete. Pt is sitting up in the wheelchair upon entry, just finished breakfast. She denies pain. Occasional cough present. Pt reports "green phlegm" this morning. Currently on 2L O2 via NC. Pt preparing for dialysis this morning. Requesting a breathing treatment prior to dialysis. No further needs.
--- NOTE | 2019-12-23 08:21 | NUR ---
Pt down for dialysis at this time.
[2019-12-23 09:07] LABS: BASO % 0.2 % (0.0-2.0); EOS # 0.2 (0.0-0.7); EOS % 2.2 % (0-4.0); GRAN # 6.5 (1.4-6.5); GRAN % 70.7 % (42.2-75.2); HEMOGLOBIN 10.7 g/dl (12.5-16.0); LYMPH # 1.5 (1.2-3.4); LYMPH % 16.4 % (20.0-51.0); MEAN CELL VOLUME 109 fl (80.0-100.0); MEAN CORPUSCULAR HEMOGLOBIN 35 pg (27.0-31.0); MEAN CORPUSCULAR HGB CONC 32 g/dl (33.0-37.0); MEAN PLATELET VOLUME 10.9 fl (7.4-10.4); MONO # 0.9 (0.1-0.6); MONO % 9.7 % (1.7-9.3); PLATELET COUNT 195 K/mm3 (130-400); RED BLOOD COUNT 3.05 M/mm3 (4.10-5.30); REDCELL DISTRIBUTION WIDTH-CV 15.7 % (11.5-14.5)
[2019-12-23 09:09] LABS: HEMATOCRIT 33.3 % (37.0-47.0)
[2019-12-23 09:23] LABS: CALCIUM 9.6 mg/dL (8.4-10.2); CREATININE, serum 5.23 (0.52-1.25); POTASSIUM 4.1 mmol/L (3.4-5.0)
[2019-12-23] MEDS ORDERED: INCRUSE EL62.5 MCG/A IH (10:26)
[2019-12-23] MEDS ORDERED: PREDNISONE20 MG PO (10:28)
[2019-12-23] MEDS ORDERED: [UNRECOGNIZED DRUG - OTHER] IH (10:28)
[2019-12-23] MEDS ORDERED: RT ALBUTER2.5 MG/0.5 IH (10:32)
[2019-12-23 13:03] VITALS: BP 142/68; PULSE 70; TEMP 98.6
--- NOTE | 2019-12-23 15:00 | NUR ---
Discharge paperwork and instructions reviewed with the patient. All questions answered at this time. IV to RAC vasyl'd. Pt wheeled out of the facility at this time.
== END 2019-12-23 15:00 | disposition home or self-care (01) | DRG 202 ==
LOC: COL.ER 05:40 → MEDICAL 06:46
PROVIDERS: Emergency Medicine; ADMIT Internal Medicine Nephrology
PROC: 5A1D70Z Performance of Urinary Filtration, Intermittent, Less than 6 Hours Per Day (ICD-10-PCS; principal; 2019-12-17)
DX: J45.31 Mild persistent asthma with (acute) exacerbation (principal); N18.6 End stage renal disease; I12.0 Hypertensive chronic kidney disease with stage 5 chronic kidney disease or end stage renal disease; N25.81 Secondary hyperparathyroidism of renal origin; J06.9 Acute upper respiratory infection, unspecified; B97.4 Respiratory syncytial virus as the cause of diseases classified elsewhere; E11.22 Type 2 diabetes mellitus with diabetic chronic kidney disease; D63.1 Anemia in chronic kidney disease; M19.90 Unspecified osteoarthritis, unspecified site; I25.10 Atherosclerotic heart disease of native coronary artery without angina pectoris; M10.9 Gout, unspecified; E78.5 Hyperlipidemia, unspecified; I16.0 Hypertensive urgency; E11.42 Type 2 diabetes mellitus with diabetic polyneuropathy; R09.02 Hypoxemia; K59.00 Constipation, unspecified; G40.909 Epilepsy, unspecified, not intractable, without status epilepticus; Z99.2 Dependence on renal dialysis; Z86.73 Personal history of transient ischemic attack (TIA), and cerebral infarction without residual deficits; Z98.42 Cataract extraction status, left eye; Z98.41 Cataract extraction status, right eye; Z90.5 Acquired absence of kidney; Z89.511 Acquired absence of right leg below knee; Z87.440 Personal history of urinary (tract) infections; Z79.4 Long term (current) use of insulin; Z79.01 Long term (current) use of anticoagulants; Z79.52 Long term (current) use of systemic steroids; Z79.02 Long term (current) use of antithrombotics/antiplatelets; Z88.0 Allergy status to penicillin; Z88.8 Allergy status to other drugs, medicaments and biological substances; Z88.2 Allergy status to sulfonamides; Z88.1 Allergy status to other antibiotic agents; Z91.012 Allergy to eggs; Z88.5 Allergy status to narcotic agent; Z91.048 Other nonmedicinal substance allergy status
CPT/HCPCS: J1644; J1815; J2930; J7030; J7512; Q5105

== ENCOUNTER 2020-03-14 14:37 | Inpatient (IN) | payer MEDICARE, OTHER ==
[2020-03-14] VITALS (350 sets, daily range): BP systolic 148–219; BP diastolic 75–98; PULSE 56–84; TEMP 98.5; O2SAT 88–100
[~2020-03-14] VITALS: Ht 152.4 cm; Wt 64.5 kg
[~2020-03-14 14:37] MED LIST changes: +INCRUSE EL62.5 MCG/A IH; +RT ALBUTER2.5 MG/0.5 IH; +[UNRECOGNIZED DRUG - OTHER] IH
[2020-03-14 15:12] LABS: BASO % 0.6 % (0.0-2.0); EOS # 0.2 (0.0-0.7); EOS % 5.1 % (0-4.0); GRAN # 2.1 (1.4-6.5); GRAN % 59.3 % (42.2-75.2); HEMOGLOBIN 10.6 g/dl (12.5-16.0); LYMPH % 27.6 % (20.0-51.0); MEAN CELL VOLUME 106 fl (80.0-100.0); MEAN CORPUSCULAR HEMOGLOBIN 36 pg (27.0-31.0); MEAN CORPUSCULAR HGB CONC 34 g/dl (33.0-37.0); MEAN PLATELET VOLUME 11.6 fl (7.4-10.4); MONO # 0.3 (0.1-0.6); MONO % 7.1 % (1.7-9.3); PLATELET COUNT 97 K/mm3 (130-400); RED BLOOD COUNT 2.97 M/mm3 (4.10-5.30); REDCELL DISTRIBUTION WIDTH-CV 12.8 % (11.5-14.5)
[2020-03-14 15:13] LABS: INR 1.7 (0.8-3.0); PROTHROMBIN TIME 20.5 SECONDS (9.7-12.8)
[2020-03-14 15:18] LABS: HEMATOCRIT 31.6 % (37.0-47.0)
[2020-03-14] MEDS ORDERED: RENVELA800 MG PO (15:23)
[2020-03-14] MEDS ORDERED: APRESOLINE 25MG25 MG PO (15:28)
[2020-03-14 15:37] LABS: ALANINE AMINOTRANSFERASE 38 U/L (4-34); ALKALINE PHOSPHATASE 152 U/L (50-136); ANION GAP 7 mmol/L (7-16); AST,SGOT 42 U/L (15-37); BILIRUBIN,TOTAL 0.4 mg/dL (0.0-1.0); BLOOD UREA NITROGEN 14 mg/dL (7-17); CALCIUM 9.3 mg/dL (8.4-10.2); CARBON DIOXIDE 26 mmol/L (22-30); CHLORIDE 106 mmol/L (98-107); CREATININE, serum 2.01 (0.52-1.25); GLUCOSE 199 mg/dL (74-106); POTASSIUM 3.2 mmol/L (3.4-5.0); SODIUM 139 mmol/L (137-145); TOTAL PROTEIN 6.8 gm/dL (6.4-8.2)
[2020-03-14 15:41] LABS: C-REACTIVE PROTEIN < 0.5 mg/dL (0.0-0.9)
[2020-03-14 15:46] LABS: TROPONIN-I 0.031 ng/mL (0.000-0.035)
--- NOTE | 2020-03-14 20:30 | NUR ---
Patient resting in bed, SpO2 at 99% so O2 decreased to 1L via NC. Notified PARTS CATALOGER of change. Patient denies any shortness of breath at this time. IV SL. Patient uses urinal at bedside per self. BLE red and warm to touch, patient asks if he is receiving antibiotics "for the infection in my legs". Discussed the two antibiotics that are prescribed and when he receives those. Patient agreeable to plan of care at this time.
--- NOTE | 2020-03-14 23:50 | NUR ---
Nitro titrated at 2011, see titration flowsheet for specifics. Patient SBP still greater than 160 and occasional chest pain noted with movement. Patient pleasant and cooperative but complains the bed is too hard. Repositioned patient initially with wheelchair pad in bed per her request but later patient requested to sit in her wheelchair instead. Belongings and call light in reach, patient uses appropriately. Nitro then titrated down at 2350. Patient tolerating well, denies chest pain at this time. Dr. Monahan called at 2119 to notifiy him of elevated troponins and to get clarification on orders. Patient is to go to dialysis tomorrow morning, hopefully weaned off nitro per Dr. Monahan. He would like an update in the AM to see what is safest for the patient.
[2020-03-15] VITALS (169 sets, daily range): BP systolic 145–232; BP diastolic 7–108; PULSE 55–66; TEMP 97.8–98.7; O2SAT 59–100
--- NOTE | 2020-03-15 07:00 | NUR ---
Report received from BESS Rasheed. PT in bed resting with nitro gtt at 30mcg/min, doing well, sitting in chair at side of bed for ocmofrt. Denies needs, will continue to monitor.
[2020-03-15 07:22] LABS: BASO % 0.4 % (0.0-2.0); EOS # 0.2 (0.0-0.7); EOS % 5.2 % (0-4.0); GRAN # 2.6 (1.4-6.5); GRAN % 56.4 % (42.2-75.2); LYMPH # 1.3 (1.2-3.4); LYMPH % 28.9 % (20.0-51.0); MEAN CELL VOLUME 108 fl (80.0-100.0); MEAN CORPUSCULAR HGB CONC 32 g/dl (33.0-37.0); MEAN PLATELET VOLUME 12.1 fl (7.4-10.4); MONO # 0.4 (0.1-0.6); MONO % 8.9 % (1.7-9.3); PLATELET COUNT 90 K/mm3 (130-400); RED BLOOD COUNT 2.69 M/mm3 (4.10-5.30)
[2020-03-15 07:25] LABS: HEMATOCRIT 29.1 % (37.0-47.0); HEMOGLOBIN 9.4 g/dl (12.5-16.0); MEAN CORPUSCULAR HEMOGLOBIN 35 pg (27.0-31.0)
[2020-03-15 07:37] LABS: ALBUMIN 3.6 gm/dL (3.5-5.0); CALCIUM 9.1 mg/dL (8.4-10.2); CREATININE, serum 3.31 (0.52-1.25); PHOSPHOROUS 3.3 mg/dL (2.5-4.5); POTASSIUM 3.8 mmol/L (3.4-5.0)
[2020-03-15 07:51] LABS: TROPONIN-I 0.036 ng/mL (0.000-0.035)
--- NOTE | 2020-03-15 08:08 | NUR ---
Assessment charted, pt c/o feeling frustrated with blood pressure but states she is feeling fine, has no issues with headache or discomfort at this time. Agreeable to changes in nitro gtt. IV to R A/C. LFA AV fistula bruit and thrill. Otherwise doing well, will update Dr. Monahan and continue to monitor.
--- NOTE | 2020-03-15 08:13 | NUR ---
Left for Dr. muhammad
--- NOTE | 2020-03-15 08:30 | NUR ---
Return call from Taniya, orders receivd to give PO meds now and titrate off nitro gtt to prep for dialysis, will implement.
--- NOTE | 2020-03-15 09:30 | NUR ---
Placed nitro gtt into standby and transported pt up to room 321 to initiate dialysis with BESS Pinto for dialysis. Pt tolerated well.
[2020-03-15 12:20] LABS: INR 1.8 (0.8-3.0); PROTHROMBIN TIME 20.8 SECONDS (9.7-12.8)
--- NOTE | 2020-03-15 13:06 | NUR ---
SW met with patient at patient's door to discuss discharge planning. Patient currently resides in [facility] with her Angelito [phone] as care support and EMR. Patient indicated that she does have a DPOa, and Healther her daughter [phone] is listed. patient reported that she does use oxygen, however she was not sure about the concentration, and she utilizes a wheelchair. Patient indicated that her PCP is Dr. Salguero and she has had an appointment with him in the alst 2 weeks. Patient reports that she gets her medications from [facility] with no complications. She has currently declined any services at this time. SW will continue to monitor.
--- NOTE | 2020-03-15 14:37 | NUR ---
Report called from Dialysis, Dr. Monahan called as well, pt will be transferred to medical unit per Taniya, orders inputted. Calling report to Caren Marshall who will resume care on medical unit. Pt belongings will be delivered to room, and pt transported.
--- NOTE | 2020-03-15 15:05 | NUR ---
Pt arrived to the floor at this time. She has been settled into her room and states she is comfortable. Lung sounds were clear, heart sounds were normal and regular. She denies pain or discomfort at this time. She had dialysis before arriving, removed approx. 3L of fluid. Fistula dressing was CD&I, no drainage or blood stain. Palpated and auscultated thrill and bruit. She was just about to eat some small things from her lunch, Renvela was provided prior to per her request. No other needs were expressed at this time. All belongings and call light are in reach.
--- NOTE | 2020-03-15 17:12 | NUR ---
Pt has denied needs since arriving to the floor. She has been resting and states that she is comfortable. No other needs were expressed at this time. Call light and belonging are within reach.
--- NOTE | 2020-03-15 17:59 | NUR ---
Pt requested 5 units of insulin after recieving her blood sugar.
--- NOTE | 2020-03-15 20:00 | NUR ---
At time of assessment, patient is sitting in chair awake. She is alert and oriented x4. Lung sounds are clear, heart sounds normal/regular, pulses 2/1. She has residual edema in lower extremities with no pitting. She does not complain of any pain at this time. She requests barrier cream to apply to her bottom, as it sometimes get irritated. No concerns at this time. Will continue to monitor.
[2020-03-16] VITALS (43 sets, daily range): BP systolic 151–192; BP diastolic 67–74; PULSE 62–67; TEMP 97.5–98.5; O2SAT 96–100
--- NOTE | 2020-03-16 06:04 | NUR ---
Patient has had uneventful night. She has slept throughout the night with no complaints of pain. Will continue to monitor.
--- NOTE | 2020-03-16 07:46 | NUR ---
Report rcvd from BESS Montes.
[2020-03-16 08:00] LABS: BASO % 0.4 % (0.0-2.0); EOS # 0.3 (0.0-0.7); EOS % 5.3 % (0-4.0); GRAN # 3.1 (1.4-6.5); GRAN % 56.8 % (42.2-75.2); HEMOGLOBIN 11.1 g/dl (12.5-16.0); LYMPH # 1.5 (1.2-3.4); MEAN CELL VOLUME 109 fl (80.0-100.0); MEAN CORPUSCULAR HEMOGLOBIN 35 pg (27.0-31.0); MEAN CORPUSCULAR HGB CONC 32 g/dl (33.0-37.0); MEAN PLATELET VOLUME 12.1 fl (7.4-10.4); MONO # 0.6 (0.1-0.6); MONO % 10.3 % (1.7-9.3); PLATELET COUNT 110 K/mm3 (130-400); RED BLOOD COUNT 3.17 M/mm3 (4.10-5.30); REDCELL DISTRIBUTION WIDTH-CV 13.1 % (11.5-14.5)
[2020-03-16 08:02] LABS: HEMATOCRIT 34.5 % (37.0-47.0)
[2020-03-16 08:04] LABS: INR 1.4 (0.8-3.0)
[2020-03-16 08:08] LABS: ALBUMIN 4.2 gm/dL (3.5-5.0); CALCIUM 9.8 mg/dL (8.4-10.2); CREATININE, serum 3.12 (0.52-1.25); PHOSPHOROUS 2.8 mg/dL (2.5-4.5); POTASSIUM 4.1 mmol/L (3.4-5.0)
--- NOTE | 2020-03-16 11:17 | NUR ---
First visit from the senior rd engineer. Equipment Services Associate prayed with patient per request. No other needs right now.
--- NOTE | 2020-03-16 14:19 | NUR ---
Pt resting in recliner, states no need for anything at this time. No c/o pain or discomfort. Call light within reach, will continue to check and monitor patient.
--- NOTE | 2020-03-16 18:31 | NUR ---
Per report from Sales Support Administrator, This pt has potentially been in contact with COVID-19. Pt will be transferred to [facility] as a Covid rule out. Pt report given to BESS Markham.
--- NOTE | 2020-03-16 20:00 | NUR ---
Received patient via wheelchair from medical unit. She is alert and oriented. With INT on right AC. With left forearm fistula. With left BKA with prosthetic leg. Denies any pain. Patient refuses oxygen for now and states she want it later if she's about to sleep already.
--- NOTE | 2020-03-16 20:30 | NUR ---
Patient is being tested for Covid. Explained the procedure to the patient. She shows understanding. Nasal swab for both nostrils done.
--- NOTE | 2020-03-16 21:30 | NUR ---
Patient's blood pressure is 192/74. She states she doesn't think that her blood pressure is high since she said that she experiences headache if her blood pressure is high and at the moment she doesn't have any. Blood pressure was taken how many times and it's still high. Patient denies any chest pain, headache or shortness of breath. This nurse informed Dr. Monahan via phone call about patient's blood pressure and states to just give the Hydralazine PRN.
[2020-03-17] VITALS (723 sets, daily range): BP systolic 137–186; BP diastolic 73–85; PULSE 62–66; TEMP 97.9–98.3; O2SAT 83–100
--- NOTE | 2020-03-17 05:30 | NUR ---
Patient's blood pressure is 169/84. She refuses to have some hydralazine saying she will have her dialysis today and usually her blood pressure goes down. Denies any pain. Will endorse to day shift nurse.
--- NOTE | 2020-03-17 07:30 | NUR ---
Report received from BESS Markham. Pt resting in wheelchair. VSS.
--- NOTE | 2020-03-17 08:40 | NUR ---
Pt transferred to dialysis room via wheelchair. wiring technician updated on pt status. Pt up to toilet with stand by assist.
[2020-03-17 09:29] LABS: BASO % 0.5 % (0.0-2.0); EOS # 0.3 (0.0-0.7); EOS % 4.9 % (0-4.0); GRAN # 3.8 (1.4-6.5); GRAN % 62.4 % (42.2-75.2); HEMOGLOBIN 10.5 g/dl (12.5-16.0); LYMPH # 1.5 (1.2-3.4); LYMPH % 23.9 % (20.0-51.0); MEAN CORPUSCULAR HEMOGLOBIN 35 pg (27.0-31.0); MEAN CORPUSCULAR HGB CONC 32 g/dl (33.0-37.0); MEAN PLATELET VOLUME 12.7 fl (7.4-10.4); MONO # 0.5 (0.1-0.6); MONO % 8.1 % (1.7-9.3); PLATELET COUNT 113 K/mm3 (130-400); RED BLOOD COUNT 3.03 M/mm3 (4.10-5.30); REDCELL DISTRIBUTION WIDTH-CV 12.9 % (11.5-14.5)
[2020-03-17 09:30] LABS: HEMATOCRIT 32.5 % (37.0-47.0); MEAN CELL VOLUME 107 fl (80.0-100.0)
[2020-03-17 09:33] LABS: INR 1.4 (0.8-3.0); PROTHROMBIN TIME 16.1 SECONDS (9.7-12.8)
[2020-03-17 09:40] LABS: ALBUMIN 4.2 gm/dL (3.5-5.0); CALCIUM 9.7 mg/dL (8.4-10.2); CREATININE, serum 4.84 (0.52-1.25); POTASSIUM 4.5 mmol/L (3.4-5.0)
--- NOTE | 2020-03-17 12:35 | NUR ---
Pt back to [facility] from dialysis. Pt tolerated dialysis well. Lunch tray set up. Pt has no complaints at this time. VSS. Call light in reach.
--- NOTE | 2020-03-17 14:39 | NUR ---
Pt in wheelchair per request, resting. Call light in reach.
--- NOTE | 2020-03-17 19:32 | NUR ---
Report given to BESS remy.
--- NOTE | 2020-03-17 20:00 | NUR ---
Patient resting in wheelchair. Denies needs. call light in reach.
--- NOTE | 2020-03-17 22:23 | NUR ---
Patient in wheelchair. Assessment complete. Left lower lobe crackles with left upper lobe wheezing with expiratory. Right lung clear. Heart sounds normal. Bowels active. Pulses present. Right lower extremity +2 edema. Left BKA. INT right AC flushed without complications. Denies pain. Reports anxiety with being "confined" to room. Spent extra time with patient to help relieve anxiety. Denies other needs at this time. Call light in reach. Will monitor.
[2020-03-18] VITALS (526 sets, daily range): BP systolic 144–178; BP diastolic 57–81; PULSE 55–65; TEMP 97.6–98.4; O2SAT 87–100
--- NOTE | 2020-03-18 00:15 | NUR ---
Sitting in wheelchair. Denies needs. Call light in reach.
[2020-03-18 06:29] LABS: BASO % 0.5 % (0.0-2.0); EOS # 0.4 (0.0-0.7); GRAN # 3.2 (1.4-6.5); GRAN % 55.2 % (42.2-75.2); HEMOGLOBIN 10.5 g/dl (12.5-16.0); LYMPH # 1.6 (1.2-3.4); LYMPH % 27.1 % (20.0-51.0); MEAN CELL VOLUME 111 fl (80.0-100.0); MEAN CORPUSCULAR HEMOGLOBIN 36 pg (27.0-31.0); MEAN CORPUSCULAR HGB CONC 32 g/dl (33.0-37.0); MONO # 0.6 (0.1-0.6); PLATELET COUNT 121 K/mm3 (130-400); RED BLOOD COUNT 2.93 M/mm3 (4.10-5.30); REDCELL DISTRIBUTION WIDTH-CV 13.1 % (11.5-14.5)
[2020-03-18 06:31] LABS: HEMATOCRIT 32.5 % (37.0-47.0)
--- NOTE | 2020-03-18 06:37 | NUR ---
Patient had uneventful night. Resting in bed this AM. Call light in reach.
[2020-03-18 06:38] LABS: INR 1.3 (0.8-3.0); PROTHROMBIN TIME 14.9 SECONDS (9.7-12.8)
[2020-03-18 06:41] LABS: ALBUMIN 4.1 gm/dL (3.5-5.0); CALCIUM 9.7 mg/dL (8.4-10.2); CREATININE, serum 3.61 (0.52-1.25); POTASSIUM 4.9 mmol/L (3.4-5.0)
--- NOTE | 2020-03-18 08:04 | NUR ---
Report given to BESS Garza
--- NOTE | 2020-03-18 09:50 | NUR ---
Patient has done well this am. Very plesant. thankful for care. continues droplet/contrant precaustions, awaiting covid 19 results.
--- NOTE | 2020-03-18 13:30 | NUR ---
rounded. floor orders obtained. Patient covid 19 negative.
--- NOTE | 2020-03-18 16:25 | NUR ---
Report called to Gordon. Patient to room 352 with all belongings. Sitting up in chair.
--- NOTE | 2020-03-18 16:43 | NUR ---
REPORT FROM ERLINDA KELLOGG. PT TO ROOM 352. ORIENTED TO ROOM. PT DENIES NEEDS.
--- NOTE | 2020-03-18 22:15 | NUR ---
Pt is resting in recliner with TV on and call light at her side. Pt is A&Ox4, able to make wants/needs known, and presents with no s/s of distress and no complaints of pain. Pt is cooperative with care and compliant with medication regimen. Pt requested her PRN miralax and dulcolax for constipation. Pt is able to transfer herself out of her recliner to a standing position as well as transfering into her bed. Will continue to monitor.
--- NOTE | 2020-03-19 03:06 | NUR ---
Pt has been resting peacefully with no s/s of distress noted and call light within reach. Pt has denied pain through the shift and states that she will notify staff via the call light system is she develops any pain or has any other wants/needs to address. Will continue to monitor.
[2020-03-19 04:20] VITALS: BP 158/72; PULSE 52; TEMP 97.7
--- NOTE | 2020-03-19 05:31 | NUR ---
Pt has remained sleeping in her recliner with no s/s of pain or distress noted. Pt has call light at her side and is able to make wants/needs known. Pt has had a quiet and restfull shift. Will continue to monitor.
[2020-03-19 08:04] VITALS: BP 152/52; PULSE 54; TEMP 98.5
[2020-03-19 08:55] LABS: BASO % 0.3 % (0.0-2.0); EOS # 0.3 (0.0-0.7); EOS % 5.9 % (0-4.0); GRAN # 3.4 (1.4-6.5); GRAN % 59.2 % (42.2-75.2); HEMATOCRIT 28.2 % (37.0-47.0); HEMOGLOBIN 9.1 g/dl (12.5-16.0); LYMPH # 1.5 (1.2-3.4); LYMPH % 25.6 % (20.0-51.0); MEAN CELL VOLUME 108 fl (80.0-100.0); MEAN CORPUSCULAR HEMOGLOBIN 35 pg (27.0-31.0); MEAN CORPUSCULAR HGB CONC 32 g/dl (33.0-37.0); MEAN PLATELET VOLUME 12.1 fl (7.4-10.4); MONO # 0.5 (0.1-0.6); MONO % 8.7 % (1.7-9.3); PLATELET COUNT 118 K/mm3 (130-400); RED BLOOD COUNT 2.61 M/mm3 (4.10-5.30); REDCELL DISTRIBUTION WIDTH-CV 12.9 % (11.5-14.5)
[2020-03-19 09:02] LABS: INR 1.3 (0.8-3.0); PROTHROMBIN TIME 15.3 SECONDS (9.7-12.8)
[2020-03-19 09:05] LABS: ALBUMIN 3.7 gm/dL (3.5-5.0); CALCIUM 9.3 mg/dL (8.4-10.2); CREATININE, serum 5.5 (0.52-1.25); PHOSPHOROUS 3.4 mg/dL (2.5-4.5); POTASSIUM 5.4 mmol/L (3.4-5.0)
--- NOTE | 2020-03-19 10:58 | NUR ---
Patient alert and oriented, answers questions appropriately. See assessment. No c/o SOA, lungs clear to ausculation. No use of accessory muscles noted. Oxygen at 3l/nc per patient norm. VSS. No c/o at this time.
[2020-03-19 12:42] VITALS: BP 163/67; PULSE 60; TEMP 98.5
--- NOTE | 2020-03-19 13:59 | NUR ---
Twisting Machine Operator met with patient who will discharge home today. SW presented and reviewed IM form with patient who verbalized understanding and gave SW permission to sign on her behalf. SW placed form in chart and provided copy to patient. No additional needs at this time.
--- NOTE | 2020-03-19 14:48 | NUR ---
Discharge instructions reviewed with patient, verbalized understanding. Discharged via wheelchair to auto/home with family at 1435.
== END 2020-03-19 14:40 | disposition home or self-care (01) | DRG 304 ==
LOC: COL.ER 14:37 → MEDICAL 16:01 → IMCU 16:01 → MEDICAL 03-15 14:54 → IMCU 03-16 20:00 → MEDICAL 03-18 16:18
PROVIDERS: Emergency Medicine; ADMIT Internal Medicine Nephrology
PROC: 5A1D70Z Performance of Urinary Filtration, Intermittent, Less than 6 Hours Per Day (ICD-10-PCS; principal; 2020-03-19)
DX: I16.1 Hypertensive emergency (principal); N18.6 End stage renal disease; N25.81 Secondary hyperparathyroidism of renal origin; I13.2 Hypertensive heart and chronic kidney disease with heart failure and with stage 5 chronic kidney disease, or end stage renal disease; I50.9 Heart failure, unspecified; I20.9 Angina pectoris, unspecified; E11.22 Type 2 diabetes mellitus with diabetic chronic kidney disease; J45.909 Unspecified asthma, uncomplicated; M19.90 Unspecified osteoarthritis, unspecified site; G40.909 Epilepsy, unspecified, not intractable, without status epilepticus; E78.5 Hyperlipidemia, unspecified; M10.9 Gout, unspecified; E87.70 Fluid overload, unspecified; D63.1 Anemia in chronic kidney disease; Z87.440 Personal history of urinary (tract) infections; Z86.73 Personal history of transient ischemic attack (TIA), and cerebral infarction without residual deficits; Z89.511 Acquired absence of right leg below knee
CPT/HCPCS: J1815; J2405; J7030; Q5105

== ENCOUNTER 2020-03-23 22:35 | Inpatient (IN) | payer MEDICARE, OTHER ==
[~2020-03-23] VITALS: Ht 152.4 cm; Wt 64.5 kg
[2020-03-23 23:19] LABS: BASO % 0.3 % (0.0-2.0); EOS # 0.3 (0.0-0.7); EOS % 5.3 % (0-4.0); GRAN % 63.6 % (42.2-75.2); LYMPH # 1.4 (1.2-3.4); LYMPH % 21.9 % (20.0-51.0); MEAN CELL VOLUME 107 fl (80.0-100.0); MEAN CORPUSCULAR HGB CONC 33 g/dl (33.0-37.0); MEAN PLATELET VOLUME 10.9 fl (7.4-10.4); MONO # 0.5 (0.1-0.6); MONO % 8.6 % (1.7-9.3); PLATELET COUNT 147 K/mm3 (130-400); RED BLOOD COUNT 2.69 M/mm3 (4.10-5.30); REDCELL DISTRIBUTION WIDTH-CV 13.1 % (11.5-14.5)
[2020-03-23 23:27] LABS: HEMATOCRIT 28.7 % (37.0-47.0); HEMOGLOBIN 9.4 g/dl (12.5-16.0); MEAN CORPUSCULAR HEMOGLOBIN 35 pg (27.0-31.0)
[2020-03-23 23:28] LABS: BILIRUBIN,TOTAL 0.4 mg/dL (0.0-1.0); CALCIUM 9.3 mg/dL (8.4-10.2); CREATININE, serum 6.65 (0.52-1.25); TOTAL PROTEIN 6.6 gm/dL (6.4-8.2)
[2020-03-23 23:32] LABS: INR 1.9 (0.8-3.0); PROTHROMBIN TIME 23.1 SECONDS (9.7-12.8)
[2020-03-23 23:40] LABS: TROPONIN-I 0.032 ng/mL (0.000-0.035)
[2020-03-24] MEDS ORDERED: 00186-0370-20 IH (04:52)
--- NOTE | 2020-03-24 05:09 | NUR ---
Admitted to medical from ER with diagnosis of chest pain- states chest pain is much better- rates it 01/06 to mid chest-very dull ,,, will call cardiology this morning for consult- Tele on,, sitting up in the recliner resting- next troponin scheduled for 0500
[2020-03-24 05:47] VITALS: BP 125/45; PULSE 51; TEMP 98.4
--- NOTE | 2020-03-24 07:40 | NUR ---
Dr Romero called for cardiology consult- informed of all 3 elevated troponins,, states he will be in to see her- aware that she is going to dialysis now,, order to make pt NPO-- informed pt and she had just eaten "a few bites " of breakfast-food taken away at this time
--- NOTE | 2020-03-24 08:10 | NUR ---
PT IN WHEELCHAIR UTILIZING RESTROOM. PT WASHED HER HANDS, GATHERED BELONGINGS FOR DIALYSIS. GRABBED CHART, PT LEFT FLOOR VIA WHEELCHAIR. COMPLAINING OF CHEST PAIN IN FRONT L SIDE OF 02/03. RAKESH NOTIFIED OF TROPONIN CRITICAL LAB VALUE BY BESS CONAWY. NO OTHER NEEDS AT THIS TIME
--- NOTE | 2020-03-24 10:46 | NUR ---
Warfarin Initial Dosing Pharmacy Note Ordering Provider: Donnell Monahan MD Indication: Atrial fibrillation LABS: INR=1.9 Recommendation: Will continue home dose of Warfarin 6.5 mg po qhs. Pharmacy will continue to monitor daily INR levels. Home Regimen: Warfarin 6 mg po qHS
--- NOTE | 2020-03-24 15:08 | NUR ---
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 pt stated that she would prefer Dr. Sotelo. Heather was called back and notified of this.
[2020-03-24 16:10] VITALS: BP 131/53; PULSE 69; TEMP 98.7
--- NOTE | 2020-03-24 16:12 | NUR ---
Medical Technologist Clinical met with patient to discuss discharge planning and complete readmission interview. Patient was hospitalized 03/14/20-03/19/20 and was then readmitted for chest pain 03/24/20. Patient states she was in a lot of pain last night and finally decided to come into the hospital. Patient states it felt like she was being struck by lightening. Patient did not see her primary care physician between hospitalizations, however reports that she did take all of her medications as prescribed. Patient lives in [place] with her Angelito (ph#[phone]) and reports her daughter, Vandana (ph#[phone]) is her DPOA. Patient sees Dr. Vasquez for primary care and obtains medications from [facility] in [place] with no difficulties. Patient obtains home oxygen from [employer] and reports they are not a good company to work with but recently renewed her contract wtih them. Patient has a wheelchair, two walkers, and an electric scooter. Patient reports she is mostly independent with ADLS but receives some assistance from her as needed. Patient plans to return home upon discharge. SW to continue to follow.
--- NOTE | 2020-03-24 17:47 | NUR ---
PT'S PAIN IS 1/10, DULL CHEST PAIN. UP TO CHAIR WITH PROTHESIS PROPPED UP. NO CURRENT NEEDS AT THIS TIME. UNEVENTFUL SHIFT.
[2020-03-24 19:37] VITALS: BP 134/51; PULSE 60; TEMP 98.7
--- NOTE | 2020-03-24 20:30 | NUR ---
Patient assessed at this time. Alert and oriented x 4, and able to make needs known. Denies having pain and discomfort at this time. Peripheral IV to right forearm. AV fistula to left forearm. Dressing removed and placed two bandaides. Positive bruit and thrill. Denies SOB and dyspnea. On oxygen at 2 L/min via NC. LS CTA in upper lobes, diminished lower. Respirations even and unlabored. Reports scant amount of white frothy sputum. HRR. Capillary refill less than 3 seconds. Non-tenting skin turgor. BSAx4. Abdomen soft and non-tender. No edema. Voices no questions, needs, or concerns at this time. Reminded to be NPO after midnight for Lexiscan 03/25. Voiced understanding. Resting in recliner. Call light is within reach.
[2020-03-25] VITALS (13 sets, daily range): BP systolic 150–174; BP diastolic 38–71; PULSE 52–76; TEMP 97.6–98.3
--- NOTE | 2020-03-25 05:28 | NUR ---
Patient has been NPO since midnight for Lexiscan today. Resting in recliner with call light within reach.
[2020-03-25 06:32] LABS: BASO % 0.4 % (0.0-2.0); EOS # 0.2 (0.0-0.7); EOS % 4.7 % (0-4.0); GRAN # 2.9 (1.4-6.5); GRAN % 58.5 % (42.2-75.2); LYMPH # 1.3 (1.2-3.4); LYMPH % 26.5 % (20.0-51.0); MEAN CELL VOLUME 108 fl (80.0-100.0); MEAN CORPUSCULAR HEMOGLOBIN 35 pg (27.0-31.0); MEAN CORPUSCULAR HGB CONC 33 g/dl (33.0-37.0); MEAN PLATELET VOLUME 10.9 fl (7.4-10.4); MONO # 0.5 (0.1-0.6); MONO % 9.7 % (1.7-9.3); PLATELET COUNT 148 K/mm3 (130-400); RED BLOOD COUNT 2.85 M/mm3 (4.10-5.30); REDCELL DISTRIBUTION WIDTH-CV 13.5 % (11.5-14.5)
[2020-03-25 06:39] LABS: HEMATOCRIT 30.8 % (37.0-47.0)
[2020-03-25 06:42] LABS: CALCIUM 9.3 mg/dL (8.4-10.2); CREATININE, serum 4.2 (0.52-1.25); INR 1.6 (0.8-3.0); PHOSPHOROUS 4.9 mg/dL (2.5-4.5); POTASSIUM 4.6 mmol/L (3.4-5.0); PROTHROMBIN TIME 18.5 SECONDS (9.7-12.8)
--- NOTE | 2020-03-25 07:30 | NUR ---
PT IN CHAIR, REPORTING CHEST PAIN 3/10, NITRO PATCH NOT GIVEN AT THIS TIME DUE TO UPCOMING LEXISCAN AND ITS REACTION WITH HER BP. CALL LIGHT AND PHONE WITHIN REACH, FRESH WATER BROUGHT IN. NO OTHER NEEDS AT THIS TIME. IV ADJUSTED DUE TO LEAK.
--- NOTE | 2020-03-25 08:30 | NUR ---
PT LEFT FLOOR VIA WHEELCHAIR FOR LEXISCAN.
--- NOTE | 2020-03-25 08:30 | NUR ---
PT NOT AVAILABLE
--- NOTE | 2020-03-25 10:00 | NUR ---
PT RETURNED TO FLOOR VIA WHEELCHAIR FROM [facility]. REQUESTING CINDY
--- NOTE | 2020-03-25 20:20 | NUR ---
Patient assessed at this time. Alert and oriented x 4, and able to make needs known. Denies having pain and discomfort at this time. Peripheral IV to right forearm. Does report some SOB. On oxygen at 2 L/min via NC. LS with faint expiratory wheezes in upper lobes, clear in lower. Reports cough with white frothy sputum. Respirations even and unlabored. HRR. Telemetry in place. Capillary refill less than 3 seconds. Non-tentint skin turgor. AV fistula to left forearm. Positive bruit and thrill. BSAx4. Abdomen soft and non-tender. No edema. Voices no questions, needs, or concerns at this time. In recliner with call light within reach.
[2020-03-26 04:03] VITALS: BP 152/59; PULSE 52; TEMP 97
--- NOTE | 2020-03-26 05:40 | NUR ---
Patient has been resting in recliner with call light within reach. Voices no questions, needs, or concerns at this time. Call light is within reach.
--- NOTE | 2020-03-26 08:00 | NUR ---
PATIENT UP TO THE CHAIR THIS MORNING. PATIENT IS A&OX4. BRADYCARDIA NOTED, VSS. TELE IN PLACE. EXPIRATORY WHEEZES AUSCULTATED OVER UPPER LUNG LOBES. LUNG BASES CLEAR BILATERALLY. PATIENT STATES THAT SHE HAS A PRODUCTIVE COUGH WITH THICK CLEAR SPUTUM. PATIENT DENIES PAIN OR SOB. EDEMA TO BLE. POSITIVE POPLITEAL TO LEFT BKA. POSITIVE PEDAL PULSE TO RLE. GOOD BRUIT AND THRILL OVER LEFT AV FISTULA SITE. RIGHT FOREARM TO INT. PATIENT DENIES ANY OTHER NEEDS AT THIS TIME.
--- NOTE | 2020-03-26 08:15 | NUR ---
PATIENT TAKEN TO DIALYSIS VIA WHEELCHAIR. WILL WAIT FOR PATIENT TO RETURN TO ROOM 318 POST-DIALYSIS.
[2020-03-26 08:43] LABS: BASO % 0.4 % (0.0-2.0); EOS # 0.4 (0.0-0.7); EOS % 7.4 % (0-4.0); GRAN # 2.9 (1.4-6.5); LYMPH # 1.4 (1.2-3.4); LYMPH % 26.8 % (20.0-51.0); MEAN CELL VOLUME 107 fl (80.0-100.0); MEAN CORPUSCULAR HGB CONC 33 g/dl (33.0-37.0); MEAN PLATELET VOLUME 10.7 fl (7.4-10.4); MONO # 0.6 (0.1-0.6); PLATELET COUNT 146 K/mm3 (130-400); RED BLOOD COUNT 2.72 M/mm3 (4.10-5.30); REDCELL DISTRIBUTION WIDTH-CV 13.8 % (11.5-14.5)
[2020-03-26 08:50] LABS: HEMATOCRIT 29.1 % (37.0-47.0); HEMOGLOBIN 9.6 g/dl (12.5-16.0); MEAN CORPUSCULAR HEMOGLOBIN 35 pg (27.0-31.0)
[2020-03-26 08:59] LABS: ALBUMIN 3.9 gm/dL (3.5-5.0); CALCIUM 8.9 mg/dL (8.4-10.2); CREATININE, serum 5.96 (0.52-1.25); PHOSPHOROUS 5.2 mg/dL (2.5-4.5); POTASSIUM 4.6 mmol/L (3.4-5.0)
--- NOTE | 2020-03-26 11:50 | NUR ---
PATIENT TAKEN TO ROOM 350 POST DIALYSIS.
[2020-03-26 12:00] VITALS: BP 133/65; PULSE 65; TEMP 97.6
[2020-03-26 12:59] LABS: INR 1.2 (0.8-3.0); PROTHROMBIN TIME 13.7 SECONDS (9.7-12.8)
--- NOTE | 2020-03-26 13:27 | NUR ---
Warfarin Follow-up Pharmacy Note Current regimen: Warfarin 6.5 mg po qHS LABS: INR=1.2 Changes in therapy: Will give an additional Warfarin 3 mg po x1 dose now and continue with home regimen of Warfarin 6.5 mg po qHS tonight. Pharmacy will continue to monitor daily INR levels.
--- NOTE | 2020-03-26 16:01 | NUR ---
[employer] Department Head followed up with patient to provide resources for private duty services. SW discussed private duty services that would serve [place] but patient reports [facility] won't come out to [place]. Patient reports there is an [facility] community about a mile from her home and one of the families has been helping her fix fence. Patient reports she trusts this family and thought about offering to hire them to provide assistance with household duties. SW to continue to follow
[2020-03-26 16:47] VITALS: BP 134/52; PULSE 61; TEMP 98.5
--- NOTE | 2020-03-26 19:40 | NUR ---
REPORT GIVEN TO BESS CONWAY.
[2020-03-26 19:50] VITALS: BP 137/56; PULSE 62; TEMP 98.3
--- NOTE | 2020-03-26 21:00 | NUR ---
Initial shift assessment done- denies pain at this time-- using wheelchair to get around the room, Tele on, L/forearm fistula with dressings intact- no drainage-some edema noted - pt states that happened in dialysis today-- Sleeps in recliner, no requests, did drink the whole Nepro tonight for snack
[2020-03-27] VITALS (7 sets, daily range): BP systolic 110–151; BP diastolic 44–57; PULSE 57–66; TEMP 97.8–99
--- NOTE | 2020-03-27 05:31 | NUR ---
Quiet night- no requests, blood pressures have been very good throughout the night- no chest pain--states she is going to dialysis this afternoon and then possible home?
[2020-03-27 06:33] LABS: BASO % 0.3 % (0.0-2.0); EOS # 0.4 (0.0-0.7); EOS % 6.4 % (0-4.0); GRAN # 3.4 (1.4-6.5); GRAN % 58.5 % (42.2-75.2); LYMPH # 1.3 (1.2-3.4); LYMPH % 22.8 % (20.0-51.0); MEAN CELL VOLUME 108 fl (80.0-100.0); MEAN CORPUSCULAR HGB CONC 32 g/dl (33.0-37.0); MONO # 0.7 (0.1-0.6); MONO % 11.7 % (1.7-9.3); PLATELET COUNT 132 K/mm3 (130-400); RED BLOOD COUNT 2.72 M/mm3 (4.10-5.30)
[2020-03-27 06:45] LABS: HEMATOCRIT 29.3 % (37.0-47.0); HEMOGLOBIN 9.5 g/dl (12.5-16.0); MEAN CORPUSCULAR HEMOGLOBIN 35 pg (27.0-31.0)
[2020-03-27 06:46] LABS: ALBUMIN 3.7 gm/dL (3.5-5.0); CREATININE, serum 3.94 (0.52-1.25); PHOSPHOROUS 4.4 mg/dL (2.5-4.5); POTASSIUM 4.5 mmol/L (3.4-5.0)
[2020-03-27 06:48] LABS: INR 1.2 (0.8-3.0); PROTHROMBIN TIME 13.8 SECONDS (9.7-12.8)
--- NOTE | 2020-03-27 07:32 | NUR ---
Warfarin Follow-up Pharmacy Note Current regimen: Warfarin 6.5 mg po qHS LABS: INR 1.2 Changes in therapy: Give an additional Warfarin 3 mg po x1 dose and continue home regimen of Warfarin 6.5 mg po qHS tonight. Pharmacy will continue to monitor daily INR levels.
--- NOTE | 2020-03-27 08:00 | NUR ---
PATIENT IS UP TO THE CHAIR THIS MORNING. PATIENT A&OX4. VSS. TELE IN PLACE. SEE SHIFT ASSESSMENT. PATIENT DENIES PAIN THIS MORNING. CALL LIGHT WITHIN REACH. NO NEEDS AT THIS TIME.
--- NOTE | 2020-03-27 12:35 | NUR ---
PATIENT TAKEN TO DIALYSIS VIA WHEELCHAIR BY SURGICAL STAFF.
--- NOTE | 2020-03-27 16:40 | NUR ---
PATIENT ARRIVED BACK TO ROOM 350 FROM DIALYSIS. PATIENT STATES THAT SHE HAS NO CHEST PAIN. CALL LIGHT WITHIN REACH. NO NEEDS AT THIS TIME.
--- NOTE | 2020-03-27 19:22 | NUR ---
REPORT GIVEN TO BESS CALLES.
--- NOTE | 2020-03-27 20:30 | NUR ---
Patient assessed at this time. Alert and oriented x 4, and able to make needs known. Denies having pain and discomfort. Peripheral IV to right forearm. AV fistual to left forearm. Dressing CDI. LS CTA. Respirations even and unlabored. HRR. Telemetry in place. capillary refill less than 3 seconds. Non-tenting skin turgor. BSAx4. Abdomen soft and non-tender. No edema. Voices no questions, needs, or concerns at this time. Resting in recliner with call light within reach.
[2020-03-28 04:26] VITALS: BP 123/45; PULSE 63; TEMP 98.3
--- NOTE | 2020-03-28 06:47 | NUR ---
Patient has been resting in recliner. Given PRN Zofran for nausea. Reports that it has helped. Voices no further questions, needs, or concerns at this time. Call light is within reach.
[2020-03-28 07:16] LABS: BASO % 0.3 % (0.0-2.0); EOS # 0.4 (0.0-0.7); EOS % 6.1 % (0-4.0); GRAN # 3.8 (1.4-6.5); GRAN % 60.3 % (42.2-75.2); HEMOGLOBIN 10.4 g/dl (12.5-16.0); LYMPH # 1.3 (1.2-3.4); LYMPH % 21.5 % (20.0-51.0); MEAN CELL VOLUME 109 fl (80.0-100.0); MEAN CORPUSCULAR HEMOGLOBIN 35 pg (27.0-31.0); MEAN CORPUSCULAR HGB CONC 32 g/dl (33.0-37.0); MEAN PLATELET VOLUME 10.9 fl (7.4-10.4); MONO # 0.7 (0.1-0.6); MONO % 11.5 % (1.7-9.3); PLATELET COUNT 152 K/mm3 (130-400); RED BLOOD COUNT 2.95 M/mm3 (4.10-5.30); REDCELL DISTRIBUTION WIDTH-CV 14.6 % (11.5-14.5)
[2020-03-28 07:22] LABS: HEMATOCRIT 32.2 % (37.0-47.0); INR 1.4 (0.8-3.0)
[2020-03-28 07:31] VITALS: BP 139/53; PULSE 58; TEMP 98.3
[2020-03-28 07:51] LABS: CALCIUM 9.1 mg/dL (8.4-10.2); CREATININE, serum 3.25 (0.52-1.25); PHOSPHOROUS 4.2 mg/dL (2.5-4.5); POTASSIUM 4.7 mmol/L (3.4-5.0)
[2020-03-28 11:31] VITALS: BP 101/49; PULSE 55; TEMP 98
[2020-03-28 16:46] VITALS: BP 119/40; PULSE 56; TEMP 98.1
--- NOTE | 2020-03-28 19:19 | NUR ---
Patient is alert and oriented. denies any pain. 2+ bilateral lower edema. heart sound is normal, fine crackle lung sounds. complains of constipation, Dulcolax was administered.
--- NOTE | 2020-03-28 19:25 | NUR ---
Received report from [facility]. Seen patient awake, sitting in her wheelchair. She is alert and oriented. Denies any pain. With left BKA, on prosthesis. With INT on right forearm. She states she doesn't have any chest pain and she feels much better. Will continue to monitor.
[2020-03-28 20:29] VITALS: BP 126/45; PULSE 61; TEMP 98
[2020-03-29] VITALS (9 sets, daily range): BP systolic 113–158; BP diastolic 39–54; PULSE 55–61; TEMP 97.3–98.7
--- NOTE | 2020-03-29 06:37 | NUR ---
Patient was standing for her weight to be taken and right after she went down to sit on her wheelchair she complains of chest pain. She describes it as "feels like a brick hit my chest". Pain score is 4-5/10. Patient doesn't have any other complains aside from chest pain, it didn't radiate to her arms. Re-checked BP= 133/44. Patient wants to try Tylenol first to see if the pain would subside.
--- NOTE | 2020-03-29 07:00 | NUR ---
Report rcvd from BESS Markham. Pt is sitting in wheel chair with c/o mild chest pain with radiation to the left arm. Pt states she does not want anything more than tylenol that was administered by Night RN. Pt call light within reach, no further concerns at this time.
[2020-03-29 07:25] LABS: BASO % 0.3 % (0.0-2.0); EOS # 0.4 (0.0-0.7); EOS % 6.2 % (0-4.0); GRAN # 3.7 (1.4-6.5); GRAN % 58.5 % (42.2-75.2); LYMPH # 1.5 (1.2-3.4); LYMPH % 24.2 % (20.0-51.0); MEAN CELL VOLUME 112 fl (80.0-100.0); MEAN CORPUSCULAR HGB CONC 32 g/dl (33.0-37.0); MEAN PLATELET VOLUME 10.9 fl (7.4-10.4); MONO # 0.7 (0.1-0.6); MONO % 10.3 % (1.7-9.3); PLATELET COUNT 138 K/mm3 (130-400); RED BLOOD COUNT 2.74 M/mm3 (4.10-5.30); REDCELL DISTRIBUTION WIDTH-CV 14.9 % (11.5-14.5)
[2020-03-29 07:27] LABS: ALBUMIN 4.1 gm/dL (3.5-5.0); CALCIUM 9.2 mg/dL (8.4-10.2); CREATININE, serum 5.08 (0.52-1.25); PHOSPHOROUS 4.8 mg/dL (2.5-4.5); POTASSIUM 5.3 mmol/L (3.4-5.0)
[2020-03-29 07:28] LABS: INR 1.5 (0.8-3.0); PROTHROMBIN TIME 18.2 SECONDS (9.7-12.8)
[2020-03-29 07:39] LABS: HEMATOCRIT 30.6 % (37.0-47.0); HEMOGLOBIN 9.9 g/dl (12.5-16.0); MEAN CORPUSCULAR HEMOGLOBIN 36 pg (27.0-31.0)
--- NOTE | 2020-03-29 19:37 | NUR ---
Report given to BESS Markham.
--- NOTE | 2020-03-29 22:05 | NUR ---
Patient states she's starting to experience chest pain again. She requests for Tylenol. Pain is about 4/10.
--- NOTE | 2020-03-29 23:15 | NUR ---
Patient states she's having a chest pain that radiates in her back. Pain score of 6/10. Tylenol that was given earlier didn't help the pain. She was asking for Nitroglycerine. This nurse called Dr. Monahan and he ordered Nitroglycerin SL as needed.
--- NOTE | 2020-03-29 23:25 | NUR ---
1 tablet of nitroglycerine given to patient. BP= 158/41. Will recheck again after 5 minutes.
--- NOTE | 2020-03-29 23:30 | NUR ---
Patient states her chest pain was relieved and has a pain of 2/10. She doesn't want another nitroglycerine because she knows her blood pressure would drop. Rechecked BP= 113/46.
[2020-03-30 04:40] VITALS: BP 144/45; PULSE 55; TEMP 97.7
--- NOTE | 2020-03-30 06:32 | NUR ---
Patient states she has on and off chest pain. She refuses another nitroglycerin. She said she has a lot of phlegm after the breathing treatment.
[2020-03-30 09:06] VITALS: BP 179/51; PULSE 63; TEMP 97.8
[2020-03-30 09:33] LABS: BASO % 0.4 % (0.0-2.0); EOS # 0.4 (0.0-0.7); EOS % 5.7 % (0-4.0); GRAN # 4.5 (1.4-6.5); GRAN % 64.4 % (42.2-75.2); LYMPH # 1.4 (1.2-3.4); LYMPH % 19.8 % (20.0-51.0); MEAN CELL VOLUME 110 fl (80.0-100.0); MEAN CORPUSCULAR HGB CONC 32 g/dl (33.0-37.0); MEAN PLATELET VOLUME 11.2 fl (7.4-10.4); MONO # 0.7 (0.1-0.6); MONO % 9.4 % (1.7-9.3); PLATELET COUNT 143 K/mm3 (130-400); RED BLOOD COUNT 2.65 M/mm3 (4.10-5.30); REDCELL DISTRIBUTION WIDTH-CV 15.3 % (11.5-14.5)
[2020-03-30 09:38] LABS: HEMATOCRIT 29.2 % (37.0-47.0); HEMOGLOBIN 9.4 g/dl (12.5-16.0); MEAN CORPUSCULAR HEMOGLOBIN 35 pg (27.0-31.0)
[2020-03-30 09:41] LABS: INR 1.7 (0.8-3.0); PROTHROMBIN TIME 19.8 SECONDS (9.7-12.8)
[2020-03-30 09:59] LABS: POTASSIUM 5.4 mmol/L (3.4-5.0)
[2020-03-30 10:26] LABS: CREATININE, serum 6.92 (0.52-1.25); PHOSPHOROUS 6.2 mg/dL (2.5-4.5)
--- NOTE | 2020-03-30 10:28 | NUR ---
Patient is alert and oriented, complained of chest pain 7/10 radiating to the back, BP 179/57. Administered nitro 0.4mg po. PT reported 2/10 pain 15 minutes after. patient in dialysis at this time. BESS Ferrara informed. Breath sound is clear. heart sound S1, S2 Sound is normal.
[2020-03-30 12:46] VITALS: BP 136/70; PULSE 58; TEMP 98.7
[2020-03-30 16:57] VITALS: BP 137/43; PULSE 57; TEMP 98.4
--- NOTE | 2020-03-30 17:40 | NUR ---
patient rate chest pain 2/10, patient any medication intervention for chest pain at this time. 1 large stool, no urine output on this shift. patient said it is nornal for her not to have any urine output on dialysis days. 1,400mL fluid was taken out during dialysis today. Call light beside patient.
[2020-03-30 21:00] VITALS: BP 146/83; PULSE 60; TEMP 98.1
--- NOTE | 2020-03-30 21:00 | NUR ---
Pt in w/c in her room, independent with cares and activity. Is alert and oriented x4. SL to RFA, flushed easily. Left arm AV fistula with good bruit. Denies needs at this time.
[2020-03-31] VITALS (7 sets, daily range): BP systolic 119–184; BP diastolic 42–50; PULSE 53–60; TEMP 97.7–98.3
[2020-03-31 06:47] LABS: INR 1.7 (0.8-3.0); PROTHROMBIN TIME 20.1 SECONDS (9.7-12.8)
--- NOTE | 2020-03-31 07:06 | NUR ---
Wt obtained on standing scale.
--- NOTE | 2020-03-31 08:36 | NUR ---
Dungeon Master following for on and off again chest pain. PT is recommending home with family assist. Will continue to follow.
--- NOTE | 2020-03-31 18:54 | NUR ---
Received report from Shilpa. Seen patient in her wheelchair. Denies any pain. She states she just feels tired and sleepy the whole day. Will continue to monitor.
--- NOTE | 2020-03-31 19:10 | NUR ---
Received report from Shilpa. Patient is awake, sitting in her wheelchair. She denies any pain. With INT on right forearm. Will continue to monitor.
--- NOTE | 2020-03-31 19:29 | NUR ---
REPORT GIVEN TO BESS ABREU
--- NOTE | 2020-03-31 23:00 | NUR ---
PAtient complains of chest pain that radiates on her left arm and back. She states it feels like a ton of brick hit her. Pain score of 7/10. Checked blood pressure 184/50. Nitroglycerin SL given.
--- NOTE | 2020-03-31 23:10 | NUR ---
Rechecked patient's blood pressure, 119/44. Patient states her chest pain is much better now, pain score of 2/10.
--- NOTE | 2020-04-01 | NUR ---
She called again saying she has chest pain with pain score of 4-5/10. She refuses nitroglycerin. BP 148/51.
[2020-04-01 04:05] VITALS: BP 144/40; PULSE 49; TEMP 98.1
--- NOTE | 2020-04-01 06:26 | NUR ---
Patient states her chest pain is much better now than before. No other complains made. Will endorse to day shift nurse.
[2020-04-01 07:29] VITALS: BP 156/49; PULSE 54; TEMP 97.6
--- NOTE | 2020-04-01 07:34 | NUR ---
Sitting up in wheelchair. Rates pain in chest 2/10, describes as feels like someone hit her in chest. Says that the pain is alleviating on it's own. Hopes to have dialysis today as she feels that she needs it. Denies further needs at this time.
--- NOTE | 2020-04-01 09:41 | NUR ---
Patient calls and says that she had a bowel movement and started to have some pain in her chest, rated 7/10, describes as a pressure that radiates into her back. Patient says that this is her normal pains that she gets. Pain already alleviating. Oxygen at 2L/NC reapplied and encouraged patient to keep on to see if her symptoms continue to get better. Would like Tylenol for some chronic pain in her right shulder.
--- NOTE | 2020-04-01 09:46 | NUR ---
Rates pain 3/10 in chest. Says that she feels better. Administered Tylenol as prescribed. Patient sitting up in wheelchair in room. Denies further needs.
--- NOTE | 2020-04-01 11:35 | NUR ---
Patient to dialysis via wheelchair.
[2020-04-01 12:08] LABS: ALBUMIN 3.9 gm/dL (3.5-5.0); BASO % 0.4 % (0.0-2.0); CREATININE, serum 6.7 (0.52-1.25); EOS # 0.4 (0.0-0.7); EOS % 6.5 % (0-4.0); GRAN # 3.7 (1.4-6.5); GRAN % 64.5 % (42.2-75.2); LYMPH # 1.1 (1.2-3.4); LYMPH % 19.2 % (20.0-51.0); MEAN CELL VOLUME 112 fl (80.0-100.0); MEAN CORPUSCULAR HGB CONC 32 g/dl (33.0-37.0); MEAN PLATELET VOLUME 11.1 fl (7.4-10.4); MONO # 0.5 (0.1-0.6); PHOSPHOROUS 6.8 mg/dL (2.5-4.5); PLATELET COUNT 125 K/mm3 (130-400); POTASSIUM 5.5 mmol/L (3.4-5.0); RED BLOOD COUNT 2.61 M/mm3 (4.10-5.30); REDCELL DISTRIBUTION WIDTH-CV 15.9 % (11.5-14.5)
[2020-04-01 12:38] LABS: HEMATOCRIT 29.1 % (37.0-47.0); HEMOGLOBIN 9.3 g/dl (12.5-16.0); MEAN CORPUSCULAR HEMOGLOBIN 36 pg (27.0-31.0)
[2020-04-01 12:50] LABS: INR 1.5 (0.8-3.0); PROTHROMBIN TIME 17.3 SECONDS (9.7-12.8)
--- NOTE | 2020-04-01 13:08 | NUR ---
Patient still at dialysis. Called and spoke with BESS Clayton, and she says that the patient has about one hour and 45 minutes left of her dialysis.
--- NOTE | 2020-04-01 15:15 | NUR ---
Returns from dialysis. Says that she is feeling good. Provided lunch tray and lunch time medications. Patient denies further needs.
[2020-04-01 16:00] VITALS: BP 117/48; PULSE 64; TEMP 98.2
--- NOTE | 2020-04-01 16:29 | NUR ---
Sitting up in wheelchair. Denies pain or shortness of air. Says that she is tired from dialysis. Denies further needs at this time.
--- NOTE | 2020-04-01 17:25 | NUR ---
Jannie RN, goes in to check patient's blood sugar. Patient says that it is too soon and she is not sure if she will eat supper right now as she just ate when she came back from dialysis not too long ago. Patient requests to wait and she will let us know if she will eat or not.
--- NOTE | 2020-04-01 18:18 | NUR ---
Patient says that she is having intermittent chest pain. Rates pain 4/10. Declines a nitro. Patient does not have oxygen on at this time. Encouraged patient to reapply oxygen. Patient does say that the pain is getting better. Requests Tylenol for shoudler pain, administered as prescribed. Patient does not want the full 4units of Novolog and will only take 3 units at this time. Supper tray was brought in and the patient requested with dietary to bring a meal substitute. Patient sitting up in wheelchair. Says that the chest pain is getting better. Declines needs at this time.
[2020-04-01 21:00] VITALS: BP 127/43; PULSE 60; TEMP 97.9
--- NOTE | 2020-04-01 21:00 | NUR ---
Patient assessed at this time. Alert and oriented x 4, and able to make needs known. Denies having pain and discomfort at this time. Peripheral IV to right forearm. AV fistula to left forearm. Denies SOB and dyspnea. LS CTA. Respirations even and unlabored. On oxygen at 2 L/min via NC. HRR. Telemetry in place. Capillary refill less than 3 seconds. Non-tenting skin turgor. BSAx4. Abdomen soft and non-tender. No edema. Voices no questions, needs, or concerns at this time. Resting in bed with call light within reach.
[2020-04-01 23:24] VITALS: BP 116/43; PULSE 55; TEMP 98
--- NOTE | 2020-04-01 23:41 | NUR ---
Patient reported pain to right leg/foot. Given PRN APAP as requested for pain.
[2020-04-02 05:16] VITALS: BP 111/46; PULSE 53; TEMP 98
--- NOTE | 2020-04-02 05:52 | NUR ---
Denies having any further pain or discomfort at this time. Resting in recliner with call light within reach.
[2020-04-02 08:46] VITALS: BP 139/42; PULSE 54; TEMP 97.5
--- NOTE | 2020-04-02 09:43 | NUR ---
PT IN WHEELCHAIR, PT WEIGHED, MEDS GIVEN, ASSESSMENT PERFORMED, SACRAL PRESSURE ULCER PRESENT STAGE 2, EDUCATION GIVEN TO REPOSITION FREQUENTLY, NO OTHER NEEDS AT THIS TIME.
[2020-04-02 11:40] VITALS: BP 107/49; PULSE 52; TEMP 98.2
[2020-04-02 17:07] VITALS: BP 114/45; PULSE 57; TEMP 98.5
--- NOTE | 2020-04-02 17:19 | NUR ---
BS 221, PT NAPPING UPON ROOM ENTRY. NO OTHER NEEDS AT THIS TIME. COMPLAINING OF PAIN 2/10 IN R LEG. OVERALL UNEVENTFUL SHIFT.
--- NOTE | 2020-04-02 20:00 | NUR ---
Patient assessed at this time. Alert and oriented x 4, and able to make needs known. Complained of level 3 pain to right leg. Given PRN APAP as requested. Peripheral IV to right forearm. Denies SOB and dyspnea. LS CTA. Respirations even and unlabored. On oxygen at 2 L/min via NC. HRR. Telemetry in place. Capillary refill less than 3 seconds. Non-tenting skin turgor. BSAx4. Abdomen soft and non-tender. No edema. Mepilex to coccyx CDI. Voices no questions, needs, or concerns at this time. Resting in bed with call light within reach.
[2020-04-02 20:12] VITALS: BP 144/39; PULSE 53; TEMP 98.3
[2020-04-03 00:07] VITALS: BP 124/43; PULSE 59; TEMP 98.5
--- NOTE | 2020-04-03 03:16 | NUR ---
PATIENT DID NOT WANT TO BE AWAKENED FOR TREATMENT. SHE SAID SHE WOULD CALL WHEN SHE WANTS A TREATMENT
[2020-04-03 05:23] VITALS: BP 118/47; PULSE 56; TEMP 97.2
--- NOTE | 2020-04-03 05:49 | NUR ---
Patient voices no questions, needs, or concerns at this time. In wheelchair with call light within reach.
[2020-04-03 07:41] VITALS: BP 141/46; PULSE 56; TEMP 97.8
--- NOTE | 2020-04-03 08:10 | NUR ---
Patient taken to dialysis immediately after breakfast. Did have some complaints of chest pain which was immediatley releived by nitroglycerin that she took from her purse. Did encourage patient to request medication from from nursing staff. She stated she couldnt wait. Millie in dialysis did notify Dr. Monahan about patient's chest pain.
[2020-04-03 09:02] LABS: INR 1.4 (0.8-3.0); PROTHROMBIN TIME 15.2 SECONDS (9.7-12.8)
[2020-04-03 09:51] LABS: ALBUMIN 3.8 gm/dL (3.5-5.0); CALCIUM 8.8 mg/dL (8.4-10.2); CREATININE, serum 6.16 (0.52-1.25); PHOSPHOROUS 7.5 mg/dL (2.5-4.5)
--- NOTE | 2020-04-03 10:27 | NUR ---
The patient is to tentatively discharge home with family assistance today, 04/03. ROD met with the patient to revisit the discharge plan. She states she looked into some private duty services and she was quoted her $450 a month and she cannot afford that. The patient states that her daughter supports her with her needs and declines HHS. ROD presented the IM form to the patient.The patient understood and signed the form. A copy was provided to the patient and originial was placed in the chart. There are no additional needs at this time.
[2020-04-03 11:43] VITALS: BP 142/69; PULSE 60; TEMP 98.6
[2020-04-03] MEDS ORDERED: NITROSTAT0.4 MG/TAB SL (12:02)
[2020-04-03] MEDS ORDERED: JANTOVEN1 MG PO (12:06)
--- NOTE | 2020-04-03 16:36 | NUR ---
Patient discharged home at 1520. Was taken to private vehicle via wheelchair accompanied by medical staff. Personal belongings with patient.
== END 2020-04-03 15:20 | disposition home or self-care (01) | DRG 640 ==
LOC: COL.ER 22:35 → MEDICAL 03-24 03:04 → SURG 03-26 11:00 → MEDICAL 04-01 11:12
PROVIDERS: Emergency Medicine; Nurse Practitioner; ADMIT Internal Medicine Nephrology
PROC: 5A1D70Z Performance of Urinary Filtration, Intermittent, Less than 6 Hours Per Day (ICD-10-PCS; principal; 2020-03-24)
DX: E87.70 Fluid overload, unspecified (principal); N18.6 End stage renal disease; I21.A1 Myocardial infarction type 2; N25.81 Secondary hyperparathyroidism of renal origin; I25.110 Atherosclerotic heart disease of native coronary artery with unstable angina pectoris; I12.0 Hypertensive chronic kidney disease with stage 5 chronic kidney disease or end stage renal disease; I16.0 Hypertensive urgency; J45.909 Unspecified asthma, uncomplicated; L89.302 Pressure ulcer of unspecified buttock, stage 2; E11.22 Type 2 diabetes mellitus with diabetic chronic kidney disease; E11.51 Type 2 diabetes mellitus with diabetic peripheral angiopathy without gangrene; M10.9 Gout, unspecified; E78.5 Hyperlipidemia, unspecified; I95.9 Hypotension, unspecified; J44.9 Chronic obstructive pulmonary disease, unspecified; D63.1 Anemia in chronic kidney disease; D50.9 Iron deficiency anemia, unspecified; M19.90 Unspecified osteoarthritis, unspecified site; I48.0 Paroxysmal atrial fibrillation; G40.909 Epilepsy, unspecified, not intractable, without status epilepticus; Z79.4 Long term (current) use of insulin; K59.00 Constipation, unspecified; Z79.891 Long term (current) use of opiate analgesic; Z79.01 Long term (current) use of anticoagulants; Z79.02 Long term (current) use of antithrombotics/antiplatelets; Z99.2 Dependence on renal dialysis; Z95.818 Presence of other cardiac implants and grafts; Z95.1 Presence of aortocoronary bypass graft; Z89.512 Acquired absence of left leg below knee; Z90.5 Acquired absence of kidney; Z89.422 Acquired absence of other left toe(s); Z88.0 Allergy status to penicillin; Z86.73 Personal history of transient ischemic attack (TIA), and cerebral infarction without residual deficits; Z88.2 Allergy status to sulfonamides; Z88.6 Allergy status to analgesic agent; Z88.8 Allergy status to other drugs, medicaments and biological substances
CPT/HCPCS: A9500; J0360; J1644; J1815; J2405; J2785; J7030; Q5105

== ENCOUNTER 2020-07-21 00:27 | Inpatient (IN) | payer MEDICARE, OTHER ==
[2020-07-21] VITALS (9 sets, daily range): BP systolic 92–184; BP diastolic 38–89; PULSE 57–64; TEMP 97.7–98.3
[~2020-07-21] VITALS: Ht 152.4 cm; Wt 63.9 kg
[~2020-07-21 00:27] MED LIST changes: +00186-0370-20 IH; +JANTOVEN1 MG PO
[2020-07-21 00:39] LABS: BASO % 0.2 % (0.0-2.0); EOS # 0.3 (0.0-0.7); EOS % 5.1 % (0-4.0); GRAN # 4.1 (1.4-6.5); GRAN % 64.2 % (42.2-75.2); HEMOGLOBIN 10.4 g/dl (12.5-16.0); LYMPH # 1.5 (1.2-3.4); LYMPH % 23.6 % (20.0-51.0); MEAN CELL VOLUME 103 fl (80.0-100.0); MEAN CORPUSCULAR HEMOGLOBIN 32 pg (27.0-31.0); MEAN CORPUSCULAR HGB CONC 31 g/dl (33.0-37.0); MEAN PLATELET VOLUME 11.2 fl (7.4-10.4); MONO # 0.4 (0.1-0.6); MONO % 6.4 % (1.7-9.3); PLATELET COUNT 108 K/mm3 (130-400); RED BLOOD COUNT 3.22 M/mm3 (4.10-5.30)
[2020-07-21 00:41] LABS: HEMATOCRIT 33.2 % (37.0-47.0)
[2020-07-21 00:45] LABS: INR 1.9 (0.8-3.0); PROTHROMBIN TIME 21.5 SECONDS (9.7-12.8)
[2020-07-21 00:49] LABS: BILIRUBIN,TOTAL 0.5 mg/dL (0.0-1.0); CALCIUM 8.9 mg/dL (8.4-10.2); CREATININE, serum 7.1 (0.52-1.25); POTASSIUM 4.5 mmol/L (3.4-5.0); TOTAL PROTEIN 6.8 gm/dL (6.4-8.2)
[2020-07-21 01:01] LABS: TROPONIN-I 0.02 ng/mL (0.000-0.035)
--- NOTE | 2020-07-21 02:15 | NUR ---
Received patient from ER via wheelchair. Patient is alert and oriented. She has Left BKA. She's on left arm restriction for her fistula on left upper arm. Restriction ID band was in placed. She has INT on right AC. She states her chest pain is now at 2/10. Blood pressure still high at 184/51. Assessment done. Med rec done by Lisa at ER and have been reviewed by this nurse as well. Patient has her list of medicines in her tablet. She wears oxygen at 2lpm via NC at night while she sleeps. Call light within reach.
--- NOTE | 2020-07-21 02:50 | NUR ---
This nurse called Dr. Monahan to inform him that patient is already admitted and med rec has been done. Updated him about high blood pressure and chest pain of 2/10. He said to continue all home medicines, accucheck ACHS, moderate insulin scale and Dialysis diet. Patient will have her dialysis this morning.
--- NOTE | 2020-07-21 04:10 | NUR ---
Patient's blood pressure still high. 177/45. Hydralazine PRN given.
--- NOTE | 2020-07-21 04:23 | NUR ---
Verified to patient if she has Clonidine patch and she said yes. It was started last Monday, Jul 19, 2020 and placed on her left upper arm.
--- NOTE | 2020-07-21 09:43 | NUR ---
PT PLEASANT, AOX4, ULCER VISUALIZED, PT REFUSED DRESSING FOR IT, PT REQUESTED WIPES AND BARRIER CREAM FOR IT. PT NOT REPORTING CHEST PAIN AT THIS TIME. MEDICATIONS GIVEN VITALS REVIEWED, ASSESSMENT PERFORMED. NO OTHER NEEDS.
--- NOTE | 2020-07-21 11:30 | NUR ---
PT LEFT FOR DIALYSIS VIA WHEELCHAIR
--- NOTE | 2020-07-21 11:59 | NUR ---
First visit from the linoleum floor installer. No needs right now.
--- NOTE | 2020-07-21 15:58 | NUR ---
SW met with the patient to discuss discharge plan. The patient [place] with her , Angelito (ph#[phone]). She reports independence with ADLs and has a walker, wheelchair, and nocturnal oxygen from [facility]. She states that her helps her with bathing and her daughter, Vandana Garg (ph#[phone]), helps her when needed. The patient's PCP is Dr. Richard Vasquez and she receives her medications at [facility]. She reports no difficulties obtaining his meds. The patient does not have advance directives in EMR. She states that her daughter, Vandana, is her DPOA-HC. The patient plans to return home with her upon discharge. SW to continue to follow as needed.
--- NOTE | 2020-07-21 16:20 | NUR ---
INFORMED DR. DIAZ OF DEC BP AFTER DIALYSIS. HOLDING COREG.
--- NOTE | 2020-07-21 17:07 | NUR ---
PT PLEASANT, AOX4, REPORTING DIZZINESS WITH BP, BP RETAKEN AND IT WAS 105/38, COREG HELD, PT HAD DIALYSIS TODAY, PT L RESTRICTED EXTREMITY FOLLOWED, PT REPORTS 0.5/10 CHEST PAIN. OVERALL UNEVENTFUL SHIFT.
[2020-07-21] MEDS ORDERED: VELPHORO PO (17:47)
--- NOTE | 2020-07-21 17:55 | NUR ---
PT REFUSED FULL 6 UNITS PER SLIDING SCALE AND WANTED ONLY 3 UNITS.
--- NOTE | 2020-07-21 18:11 | NUR ---
DR. EDOUARD UPDATED ON PT BP STATUS REQUESTED.
--- NOTE | 2020-07-21 19:15 | NUR ---
Received report from Laura. Seen patient awake, sitting in the recliner. She denies pain. Will monitor her blood pressure due to previous hypotension episodes.
--- NOTE | 2020-07-21 21:32 | NUR ---
Patient's blood sugar is 270 and need for 6 units but she refuses the 6 units and want 3 units instead.
[2020-07-22] VITALS (7 sets, daily range): BP systolic 108–130; BP diastolic 40–65; PULSE 50–68; TEMP 97.7–98.2
--- NOTE | 2020-07-22 06:16 | NUR ---
Patient's blood pressure has been soft throughout the night. Systolic BP range from 110-130. Patient states that is a bit low for her. No other complains made. Will endorse to day shift nurse.
--- NOTE | 2020-07-22 08:55 | NUR ---
Pt awake and alert upon entry, no C/O of chest pain this morning. Shift assessments complete, left Pt call light in reach, bed in lowest position.
--- NOTE | 2020-07-22 19:42 | NUR ---
Pt has been resting in the room today, no C/O pain during the shift, VS have remaned stable.
--- NOTE | 2020-07-22 21:30 | NUR ---
Pt assessment completed and charted, NC 2 lit, alert, oriented. Meds provided as per JAN, tolerated well. Helped her settled on recliner, call light on reach. No further needs at this time.
[2020-07-23] VITALS (7 sets, daily range): BP systolic 107–150; BP diastolic 43–88; PULSE 48–58; TEMP 97.3–98.4
--- NOTE | 2020-07-23 03:47 | NUR ---
Pt complained of chest pain and tab tylenol provided as per pt request. Will continue monitoring her.
--- NOTE | 2020-07-23 04:48 | NUR ---
Pt slept on and off through out the night. No further needs at this tiner.
--- NOTE | 2020-07-23 08:20 | NUR ---
Pt awake and alert upon entry, no C/O pain this morning, shift assessments complete, left Pt call light in reach, bed in lowest position.
--- NOTE | 2020-07-23 12:22 | NUR ---
Initial visit; Patient thanked Metal Rivet Machine Operator for looking in on her and offering God's blessings and saying a blessing for her.
[2020-07-23 13:41] LABS: BASO % 0.3 % (0.0-2.0); EOS # 0.3 (0.0-0.7); EOS % 4.5 % (0-4.0); GRAN # 3.8 (1.4-6.5); GRAN % 63.3 % (42.2-75.2); LYMPH # 1.4 (1.2-3.4); LYMPH % 23.8 % (20.0-51.0); MEAN CELL VOLUME 103 fl (80.0-100.0); MEAN CORPUSCULAR HGB CONC 31 g/dl (33.0-37.0); MEAN PLATELET VOLUME 11.7 fl (7.4-10.4); MONO # 0.5 (0.1-0.6); MONO % 7.8 % (1.7-9.3); PLATELET COUNT 115 K/mm3 (130-400); RED BLOOD COUNT 2.91 M/mm3 (4.10-5.30); REDCELL DISTRIBUTION WIDTH-CV 13.3 % (11.5-14.5)
[2020-07-23 13:44] LABS: HEMATOCRIT 29.9 % (37.0-47.0); HEMOGLOBIN 9.4 g/dl (12.5-16.0); MEAN CORPUSCULAR HEMOGLOBIN 32 pg (27.0-31.0)
[2020-07-23 13:49] LABS: ALBUMIN 3.8 gm/dL (3.5-5.0); CREATININE, serum 7.28 (0.52-1.25); POTASSIUM 5.3 mmol/L (3.4-5.0)
--- NOTE | 2020-07-23 19:03 | NUR ---
Report received from BESS Soto. Pt sitting up in wheelchair talking on phone. Denies needs at this time.
--- NOTE | 2020-07-23 19:29 | NUR ---
Pt resting in the romm, had session of dailysis today, reorted 2200 ml removed from Pt without BP issues. VS have remained stable.
--- NOTE | 2020-07-23 20:52 | NUR ---
Assessment completed. Pt moves about room independently. Denies pain or other concerns. 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 No IV access, BESS Soto reports Dr. Monahan has been notified of this and is okay with it. Will continue to monitor.
[2020-07-24 03:48] VITALS: BP 131/30; PULSE 54; TEMP 97.6
--- NOTE | 2020-07-24 05:29 | NUR ---
Pt slept in recliner throughout night, wore NC with O2 at 2 L/min. No complaints during shift. Moves about room independently.
[2020-07-24 07:47] LABS: BASO % 0.5 % (0.0-2.0); EOS # 0.3 (0.0-0.7); EOS % 4.6 % (0-4.0); GRAN # 3.4 (1.4-6.5); GRAN % 57.9 % (42.2-75.2); HEMOGLOBIN 10.2 g/dl (12.5-16.0); LYMPH # 1.7 (1.2-3.4); LYMPH % 28.4 % (20.0-51.0); MEAN CELL VOLUME 103 fl (80.0-100.0); MEAN CORPUSCULAR HEMOGLOBIN 32 pg (27.0-31.0); MEAN CORPUSCULAR HGB CONC 32 g/dl (33.0-37.0); MEAN PLATELET VOLUME 11.2 fl (7.4-10.4); MONO # 0.5 (0.1-0.6); MONO % 8.1 % (1.7-9.3); PLATELET COUNT 126 K/mm3 (130-400); RED BLOOD COUNT 3.15 M/mm3 (4.10-5.30); REDCELL DISTRIBUTION WIDTH-CV 13.6 % (11.5-14.5)
[2020-07-24 07:48] LABS: HEMATOCRIT 32.3 % (37.0-47.0)
[2020-07-24 08:01] LABS: ALBUMIN 4.3 gm/dL (3.5-5.0); CALCIUM 9.3 mg/dL (8.4-10.2); CREATININE, serum 4.47 (0.52-1.25); PHOSPHOROUS 4.3 mg/dL (2.5-4.5); POTASSIUM 5.3 mmol/L (3.4-5.0)
[2020-07-24 09:06] VITALS: BP 129/36; PULSE 55; TEMP 97.5
--- NOTE | 2020-07-24 09:30 | NUR ---
PATIENT CALLED OUT STATING THAT SHE HAS CHEST PAIN. UPON ENTRY TO THE ROOM THE PATIENT IS HOLDING HER CHEST WITH HER HANDS. PATIENT REPORTS PRESSURE AND CRUSHING PAIN IN HER CHEST. PATIENT GIVEN PRN DOSE OF NITRO.
--- NOTE | 2020-07-24 09:35 | NUR ---
CALLED AND NOTIFIED OF PATIENT HAVING CHEST PAIN AND NITRO ADMINISTRATION. DR. DIAZ SAID TO CONTINUE TO MONITOR. NO OTHER ORDERS GIVEN AT THIS TIME.
[2020-07-24 09:39] VITALS: BP 151/53; PULSE 60
--- NOTE | 2020-07-24 09:40 | NUR ---
PATIENT BLOOD PRESSURE CHECKED AFTER NITRO ADMINISTRATION. BP IS 151/53, PULSE 60. PATIENT STATES THAT THE CHEST PAIN HAS PRETTY MUCH RESOLVED AT THIS TIME. PATIENT DENIES DIFFICULTIES BREATHING.
[2020-07-24] MEDS ORDERED: CATAPRES-TTS 20.2 M1 TD (10:47)
[2020-07-24 11:24] VITALS: BP 102/72; PULSE 54; TEMP 98.3
--- NOTE | 2020-07-24 11:39 | NUR ---
The patient is to discharge back home with her today, 07/24. SW met with the patient and presented and read the IM form outloud to her. The patient verbalized understanding and gave SW approval to sign the form on her behalf. She declined a copy. No additional needs at this time.
--- NOTE | 2020-07-24 15:15 | NUR ---
DISCHARGE INSTRUCTIONS REVIEWED WITH PATIENT. QUESTIONS SOUGHT AND ANSWERED. PATIENT PERSONAL BELONGINGS GATHERED. PATIENT TAKEN TO PERSONAL VEHICLE VIA WHEELCHAIR BY MEDICAL STAFF. PATIENT DISCHARGED.
== END 2020-07-24 15:15 | disposition home or self-care (01) | DRG 682 ==
LOC: COL.ER 00:27 → MEDICAL 01:05
PROVIDERS: Emergency Medicine; ADMIT Internal Medicine Nephrology
PROC: 5A1D70Z Performance of Urinary Filtration, Intermittent, Less than 6 Hours Per Day (ICD-10-PCS; principal; 2020-07-21)
DX: I12.0 Hypertensive chronic kidney disease with stage 5 chronic kidney disease or end stage renal disease (principal); N18.6 End stage renal disease; N25.81 Secondary hyperparathyroidism of renal origin; E11.22 Type 2 diabetes mellitus with diabetic chronic kidney disease; G40.909 Epilepsy, unspecified, not intractable, without status epilepticus; D63.1 Anemia in chronic kidney disease; M19.90 Unspecified osteoarthritis, unspecified site; E78.5 Hyperlipidemia, unspecified; E66.9 Obesity, unspecified; M10.9 Gout, unspecified; Z89.511 Acquired absence of right leg below knee; Z86.73 Personal history of transient ischemic attack (TIA), and cerebral infarction without residual deficits
CPT/HCPCS: J1644; J1815; J7030; Q5105

== ENCOUNTER 2020-12-22 14:32 | Emergency (ER) | payer MEDICARE, OTHER ==
[~2020-12-22] VITALS: Ht 152.4 cm; Wt 69.4 kg
[~2020-12-22 14:32] MED LIST changes: +CATAPRES-TTS 20.2 M1 TD; +VELPHORO PO
[2020-12-22 14:53] VITALS: TEMP 97.9
[2020-12-22 16:22] LABS: BASO % 0.4 % (0.0-2.0); EOS # 0.2 (0.0-0.7); EOS % 2.5 % (0-4.0); GRAN # 5.8 (1.4-6.5); GRAN % 75.3 % (42.2-75.2); HEMATOCRIT 37.9 % (37.0-47.0); LYMPH % 13.4 % (20.0-51.0); MEAN CELL VOLUME 102 fl (80.0-100.0); MEAN CORPUSCULAR HEMOGLOBIN 32 pg (27.0-31.0); MEAN CORPUSCULAR HGB CONC 32 g/dl (33.0-37.0); MEAN PLATELET VOLUME 10.8 fl (7.4-10.4); MONO # 0.6 (0.1-0.6); MONO % 8.1 % (1.7-9.3); PLATELET COUNT 117 K/mm3 (130-400)
[2020-12-22 16:29] LABS: INR 3.3 (0.8-3.0); PROTHROMBIN TIME 37.8 SECONDS (9.7-12.8)
[2020-12-22 16:31] LABS: ALBUMIN 4.3 gm/dL (3.5-5.0); BILIRUBIN,TOTAL 0.5 mg/dL (0.0-1.0); CALCIUM 9.3 mg/dL (8.4-10.2); POTASSIUM 3.6 mmol/L (3.4-5.0); TOTAL PROTEIN 7.2 gm/dL (6.4-8.2)
[2020-12-22 16:42] LABS: TROPONIN-I 0.015 ng/mL (0.000-0.035)
[2020-12-22] MEDS ORDERED: ULTRAM 50MG TAB50 MG PO (17:43)
[2020-12-22 18:08] VITALS: BP 132/70; PULSE 77
== END 2020-12-22 18:08 | disposition home or self-care (01) ==
LOC: COL.ER 14:32
PROVIDERS: Family Medicine
DX: M25.561 Pain in right knee (principal); I13.11 Hypertensive heart and chronic kidney disease without heart failure, with stage 5 chronic kidney disease, or end stage renal disease; E11.9 Type 2 diabetes mellitus without complications; J45.909 Unspecified asthma, uncomplicated; J44.9 Chronic obstructive pulmonary disease, unspecified; Z86.73 Personal history of transient ischemic attack (TIA), and cerebral infarction without residual deficits; Z95.9 Presence of cardiac and vascular implant and graft, unspecified; Z88.0 Allergy status to penicillin; Z88.2 Allergy status to sulfonamides; Z88.1 Allergy status to other antibiotic agents; Z88.8 Allergy status to other drugs, medicaments and biological substances; Z88.6 Allergy status to analgesic agent; Z79.02 Long term (current) use of antithrombotics/antiplatelets; Z79.01 Long term (current) use of anticoagulants; Z79.4 Long term (current) use of insulin; Z79.51 Long term (current) use of inhaled steroids

== ENCOUNTER 2021-03-08 16:55 | Observation (INO) | payer MEDICARE, OTHER ==
[~2021-03-08] VITALS: Ht 165.1 cm; Wt 67.0 kg
[2021-03-08] VITALS (136 sets, daily range): BP systolic 191–227; BP diastolic 76–101; PULSE 61–96; TEMP 98–98.1; O2SAT 93–100
[2021-03-08 18:02] LABS: BASO % 0.4 % (0.0-2.0); EOS # 0.3 (0.0-0.7); GRAN # 4.9 (1.4-6.5); GRAN % 68.1 % (42.2-75.2); HEMOGLOBIN 11.7 g/dl (12.5-16.0); LYMPH # 1.4 (1.2-3.4); LYMPH % 19.6 % (20.0-51.0); MEAN CELL VOLUME 106 fl (80.0-100.0); MEAN CORPUSCULAR HEMOGLOBIN 34 pg (27.0-31.0); MEAN CORPUSCULAR HGB CONC 32 g/dl (33.0-37.0); MONO # 0.6 (0.1-0.6); MONO % 7.6 % (1.7-9.3); PLATELET COUNT 140 K/mm3 (130-400); REDCELL DISTRIBUTION WIDTH-CV 13.1 % (11.5-14.5)
[2021-03-08 18:11] LABS: HEMATOCRIT 36.1 % (37.0-47.0)
[2021-03-08 18:16] LABS: ALBUMIN 4.1 gm/dL (3.5-5.0); BILIRUBIN,TOTAL 0.1 mg/dL (0.0-1.0); CALCIUM 9.1 mg/dL (8.4-10.2); CREATININE, serum 7.37 (0.52-1.25); POTASSIUM 4.2 mmol/L (3.4-5.0); TOTAL PROTEIN 7.1 gm/dL (6.4-8.2)
[2021-03-08] MEDS ORDERED: COREG12.5 MG PO (18:29)
[2021-03-08] MEDS ORDERED: COUMADIN 5MG5 MG/TAB PO (18:35)
[2021-03-08] MEDS ORDERED: COUMADIN 6MG6 MG/TAB PO (18:36)
[2021-03-08] MEDS ORDERED: CATAPRES 0.1MG0.1 MG PO (18:37)
[2021-03-08] MEDS ORDERED: BREO IH (18:39)
[2021-03-08] MEDS ORDERED: ZYRTEC 10MG10 MG PO (18:41)
[2021-03-08] MEDS ORDERED: ULTRAM 50MG TAB50 MG PO (18:44)
[2021-03-08 18:55] LABS: INR 2.4 (0.8-3.0); PROTHROMBIN TIME 27.3 SECONDS (9.7-12.8)
[2021-03-08 19:19] LABS: TROPONIN-I 0.015 ng/mL (0.000-0.035)
[2021-03-08 19:37] LABS: THYROID STIMULATING HORMONE 0.831 uIU/mL (0.465-4.680)
--- NOTE | 2021-03-08 20:00 | NUR ---
Assessment complete. Pt is AXO X3, states she has a headache. Pt is sitting up in the bed chair watching TV at this time and she denies further needs. Call light within reach.
[2021-03-08 22:27] LABS: HEMOGLOBIN 11.4 g/dl (12.5-16.0); MEAN CELL VOLUME 106 fl (80.0-100.0); MEAN CORPUSCULAR HEMOGLOBIN 34 pg (27.0-31.0); MEAN CORPUSCULAR HGB CONC 32 g/dl (33.0-37.0); MEAN PLATELET VOLUME 10.9 fl (7.4-10.4); PLATELET COUNT 142 K/mm3 (130-400); RED BLOOD COUNT 3.36 M/mm3 (4.10-5.30); REDCELL DISTRIBUTION WIDTH-CV 13.2 % (11.5-14.5)
[2021-03-08 22:28] LABS: HEMATOCRIT 35.7 % (37.0-47.0)
[2021-03-08 22:39] LABS: CREATININE, serum 7.6 (0.52-1.25); POTASSIUM 4.4 mmol/L (3.4-5.0)
[2021-03-09] VITALS (450 sets, daily range): BP systolic 148–199; BP diastolic 63–90; PULSE 52–66; TEMP 97.3–98; O2SAT 93–100
--- NOTE | 2021-03-09 04:00 | NUR ---
Nitro gtt turned off TORB Dr. Monahan at 0400 for dialysis this morning. Pt has denied having chest pain throughout the shift.
[2021-03-09 05:48] LABS: BASO % 0.3 % (0.0-2.0); EOS # 0.3 (0.0-0.7); EOS % 3.7 % (0-4.0); GRAN # 4.6 (1.4-6.5); GRAN % 65.2 % (42.2-75.2); HEMATOCRIT 34.9 % (37.0-47.0); LYMPH # 1.5 (1.2-3.4); LYMPH % 22.1 % (20.0-51.0); MEAN CELL VOLUME 107 fl (80.0-100.0); MEAN CORPUSCULAR HEMOGLOBIN 34 pg (27.0-31.0); MEAN CORPUSCULAR HGB CONC 32 g/dl (33.0-37.0); MEAN PLATELET VOLUME 10.8 fl (7.4-10.4); MONO # 0.6 (0.1-0.6); MONO % 8.3 % (1.7-9.3); PLATELET COUNT 136 K/mm3 (130-400); RED BLOOD COUNT 3.27 M/mm3 (4.10-5.30); REDCELL DISTRIBUTION WIDTH-CV 13.1 % (11.5-14.5)
[2021-03-09 05:58] LABS: CREATININE, serum 8.01 (0.52-1.25); POTASSIUM 4.4 mmol/L (3.4-5.0)
--- NOTE | 2021-03-09 07:00 | NUR ---
PT UP IN DIALYSIS AT THIS TIME. PT ON REMOTE TELE SHOWING SR. WILL AWAIT CALL FROM HD.
--- NOTE | 2021-03-09 07:36 | NUR ---
Bedside shift report given to BESS Delong.
--- NOTE | 2021-03-09 10:09 | NUR ---
Patient tolerated HD tx, removed 2.5 L of fluid today. Attempted more fluid removal but patient c/o dizziness & lightheadedness with Bp 143/78 & 138/70, resolved once UF goal was decreased.
--- NOTE | 2021-03-09 11:28 | NUR ---
Steel Heater met with the patient and her Angelito to complete intake. The patient has a wheelchair, walker, toilet riser, and uses 2L of oxygen at night. The patient receives assistance with ADLs from Angelito or her daughter Vandana as needed. The patient's PCP is Dr. Sabi Wyman and patient receives medications from [facility] in [place]. The patient does not have advanced directives in the EMR but states they are complete and designate her daughter Vandana and patient's son-in-law Gordon (Vandana's .) The patient plans to return home at discharge. Discharge disposition: Home with and continued family support
--- NOTE | 2021-03-09 14:20 | NUR ---
PT DOWN TO MANAGER REGIONAL.
--- NOTE | 2021-03-09 15:15 | NUR ---
PT BACK FROM LICENSED PHARMACIST. PT HAS RIGHT FEMORAL SITE C/D/I. PT IS AXOX4. PT EDUCATED ON BEDREST FOR 4 HOURS. WILL CONTINUE TO [facility]
--- NOTE | 2021-03-09 18:11 | NUR ---
JAY MONTEZ NOTIFIED OF HGB OF 6.8. PT HAS HAD NO BLOODY STOOLS SINCE RETURN FROM EGD/COLONOSCOPY. ORDER RECEIVED TO GIVE ANOTHER UNIT PRBC.
--- NOTE | 2021-03-09 20:00 | NUR ---
Resting in bed. Assessment complete and charted. Reports right hip pain. Patient recently given tramadol. Will provide tylenol. Right femoral site CDI. No hematoma. Proximal site no discoloration. Call light in reach.
--- NOTE | 2021-03-09 21:40 | NUR ---
Patient continues to report right hip pain. Right femoral site CDI. No hematoma, no discoloration on posterior side of body. Patient also states chest pain has returned. Spoke with Dr. Griffith, order CT ABD/pelvis without contrast and given patient 50mcg of fentanyl now. Clarified if nitro gtt needed to be restarted. Per Dr. Griffith hold for now, will assess CT first.
--- NOTE | 2021-03-09 23:08 | NUR ---
Patient taken to CT at 2219 and returned at 2234. Patient noted to have hard formations on ABD fold. Scatered throughout ABD. Small spots of bleeding present on sheets once standing. Audra notified and updated regarding changes-Dr. Willard, no new orders. Pending CT results to update Dr. Griffith.
--- NOTE | 2021-03-09 23:40 | NUR ---
Per Dr. Davis no bleeding present in ABD. Dr. Griffith notifed. Start nitro if BP consistently above 170 SBP
[2021-03-10] VITALS (418 sets, daily range): BP systolic 116–202; BP diastolic 52–91; PULSE 50–63; TEMP 97.7; O2SAT 68–100
--- NOTE | 2021-03-10 00:45 | NUR ---
Patient given PRN hydralazine. Goal is SBP less than [address] Griffith. If continues above 170 restart nitro gtt
--- NOTE | 2021-03-10 04:35 | NUR ---
Patient awoke and reported 6/10 right hip pain. Given PRN tramadol at this time.
[2021-03-10 06:18] LABS: BASO % 0.5 % (0.0-2.0); EOS # 0.3 (0.0-0.7); EOS % 4.5 % (0-4.0); GRAN # 4.5 (1.4-6.5); GRAN % 67.3 % (42.2-75.2); HEMATOCRIT 37.4 % (37.0-47.0); HEMOGLOBIN 11.7 g/dl (12.5-16.0); LYMPH # 1.1 (1.2-3.4); MEAN CELL VOLUME 109 fl (80.0-100.0); MEAN CORPUSCULAR HEMOGLOBIN 34 pg (27.0-31.0); MEAN CORPUSCULAR HGB CONC 31 g/dl (33.0-37.0); MONO # 0.7 (0.1-0.6); MONO % 10.5 % (1.7-9.3); PLATELET COUNT 134 K/mm3 (130-400); RED BLOOD COUNT 3.43 M/mm3 (4.10-5.30); REDCELL DISTRIBUTION WIDTH-CV 13.4 % (11.5-14.5)
[2021-03-10 06:29] LABS: ANION GAP 12 mmol/L (7-16); BLOOD UREA NITROGEN 57 mg/dL (7-17); CALCIUM 9.1 mg/dL (8.4-10.2); CARBON DIOXIDE 24 mmol/L (22-30); CHLORIDE 95 mmol/L (98-107); CREATINE KINASE < 20 U/L (30-135); GLUCOSE 250 mg/dL (74-106); POTASSIUM 5.1 mmol/L (3.4-5.0); SODIUM 131 mmol/L (137-145)
--- NOTE | 2021-03-10 06:29 | NUR ---
Patient hip pain controlled with tramadol throughout night. Restarted on nitro gtt for hypertension. Remains on nitro gtt at this time. Denies needs. Call light in reach.
--- NOTE | 2021-03-10 07:39 | NUR ---
Report given to Deepika KELLOGG
[2021-03-10] MEDS ORDERED: NORVASC 5MG5 MG/TAB PO (10:14)
--- NOTE | 2021-03-10 12:42 | NUR ---
MD in room. Orders to DC Nitro drip at this time.
--- NOTE | 2021-03-10 15:30 | NUR ---
DISCHARGE INSTRUCTIONS REVIEWED WITH PATIENT, ALL QUESTIONS ANSWERED.
--- NOTE | 2021-03-10 16:34 | NUR ---
at bedside at this time. IV pulled, wheeled down to patients car. to drive patient home. All belongings in hand. Will monitor.
== END 2021-03-10 16:34 | disposition home or self-care (01) ==
LOC: ICU 16:55
PROVIDERS: Nurse Practitioner; ADMIT Internal Medicine Interventional Cardiology
DX: I25.119 Atherosclerotic heart disease of native coronary artery with unspecified angina pectoris (principal); E11.22 Type 2 diabetes mellitus with diabetic chronic kidney disease; I12.0 Hypertensive chronic kidney disease with stage 5 chronic kidney disease or end stage renal disease; N18.6 End stage renal disease; D63.1 Anemia in chronic kidney disease; D50.9 Iron deficiency anemia, unspecified; D63.8 Anemia in other chronic diseases classified elsewhere; E11.311 Type 2 diabetes mellitus with unspecified diabetic retinopathy with macular edema; N25.81 Secondary hyperparathyroidism of renal origin; I73.9 Peripheral vascular disease, unspecified; N25.0 Renal osteodystrophy; Z79.4 Long term (current) use of insulin; Z99.2 Dependence on renal dialysis; Z95.5 Presence of coronary angioplasty implant and graft; Z95.1 Presence of aortocoronary bypass graft; Z89.511 Acquired absence of right leg below knee; Z91.81 History of falling; Z95.828 Presence of other vascular implants and grafts; Z90.5 Acquired absence of kidney
CPT/HCPCS: C1760; C1769; C1887; C1894; G0378; G0379; J1644; J1815; J2250; J2916; J3010; J7030; Q9967

== ENCOUNTER 2021-04-06 10:49 | Observation (INO) | payer MEDICARE, OTHER ==
[~2021-04-06] VITALS: Ht 165.1 cm; Wt 71.6 kg
[~2021-04-06 10:49] MED LIST changes: +BREO IH; +NORVASC 5MG5 MG/TAB PO; +ZYRTEC 10MG10 MG PO
[2021-04-06 12:25] LABS: BASO % 0.2 % (0.0-2.0); EOS # 0.4 (0.0-0.7); EOS % 5.4 % (0-4.0); GRAN # 4.4 (1.4-6.5); GRAN % 67.9 % (42.2-75.2); HEMOGLOBIN 10.5 g/dl (12.5-16.0); LYMPH # 1.2 (1.2-3.4); LYMPH % 18.9 % (20.0-51.0); MEAN CELL VOLUME 105 fl (80.0-100.0); MEAN CORPUSCULAR HEMOGLOBIN 34 pg (27.0-31.0); MEAN CORPUSCULAR HGB CONC 32 g/dl (33.0-37.0); MEAN PLATELET VOLUME 10.7 fl (7.4-10.4); MONO # 0.5 (0.1-0.6); MONO % 7.3 % (1.7-9.3); PLATELET COUNT 118 K/mm3 (130-400)
[2021-04-06 12:30] LABS: HEMATOCRIT 32.5 % (37.0-47.0)
[2021-04-06 12:31] LABS: INR 2.2 (0.8-3.0); PROTHROMBIN TIME 24.1 SECONDS (9.7-12.8)
[2021-04-06 12:35] LABS: ALANINE AMINOTRANSFERASE 12 U/L (4-34); ALKALINE PHOSPHATASE 86 U/L (50-136); ANION GAP 17 mmol/L (7-16); AST,SGOT 20 U/L (15-37); BILIRUBIN,TOTAL 0.3 mg/dL (0.0-1.0); CALCIUM 8.5 mg/dL (8.4-10.2); CARBON DIOXIDE 23 mmol/L (22-30); CHLORIDE 97 mmol/L (98-107); CREATININE, serum 8.04 (0.52-1.25); GLUCOSE 248 mg/dL (74-106); LIPASE 107 U/L (23-300); POTASSIUM 5.2 mmol/L (3.4-5.0); SODIUM 137 mmol/L (137-145); TOTAL PROTEIN 6.9 gm/dL (6.4-8.2)
[2021-04-06 12:44] LABS: TROPONIN-I 0.015 ng/mL (0.000-0.035)
[2021-04-06 12:46] LABS: BLOOD UREA NITROGEN 126 mg/dL (7-17)
[2021-04-06 12:47] LABS: C-REACTIVE PROTEIN < 0.5 mg/dL (0.0-0.9)
[2021-04-06] MEDS ORDERED: COLACE 100100 MG/CAP PO (13:13)
[2021-04-06 16:30] VITALS: BP 210/80; PULSE 62; TEMP 97.6
--- NOTE | 2021-04-06 21:38 | NUR ---
Patient tolerated HD tx with 3.1L fluid removal. Next planned HD tx tomorrow, Monday04/07/21 @ noon.
--- NOTE | 2021-04-06 21:40 | NUR ---
Returned from Dialysis, back in room, sitting in recliner- states thats where she always sleep- VSS, B/P 174/66, is getting all her night meds at this time, states chest pain/pressure is just the same-about 2/10, denies need for any pain meds, Tele on-SR,, o2 at 2L/nc, states is feeling somewhat better after Dialysis, watching TV and looking at her tablet/phone-showing pictures etc. Pleasant, alert/oriented x3. Has L/BKA, understands to call for assistance. Denies need for snack- states she had a good supper while having dialysis. Did remove her INT to R/AC- it was very painful/bruised-DR. Monahan had approved removing it per Dialysis nurse and off going nurse and patient.
[2021-04-06 22:00] VITALS: BP 174/66; PULSE 71; TEMP 98.2
[2021-04-07 03:24] VITALS: BP 129/55; PULSE 59; TEMP 97.7
--- NOTE | 2021-04-07 05:26 | NUR ---
Very Quiet night- no requests, has been sleeping well sitting up in the recliner--VSS, most recent B/P 129/55, Tele on, pt states chest pain 01/06-denies need for any pain meds.
[2021-04-07 07:35] VITALS: BP 112/96; PULSE 63; TEMP 98.1
--- NOTE | 2021-04-07 08:13 | NUR ---
Pt awake and alert this morning, some C/O minor chest pain. Shift assessments complete, left Pt call light in reach, bed in lowest position.
[2021-04-07 11:38] VITALS: BP 151/53; PULSE 57; TEMP 98
[2021-04-07 12:41] LABS: ALBUMIN 4.4 gm/dL (3.5-5.0); CALCIUM 9.3 mg/dL (8.4-10.2); CREATININE, serum 3.82 (0.52-1.25); PHOSPHOROUS 4.2 mg/dL (2.5-4.5); POTASSIUM 3.7 mmol/L (3.4-5.0)
[2021-04-07 12:42] LABS: BASO % 0.5 % (0.0-2.0); EOS # 0.3 (0.0-0.7); EOS % 3.9 % (0-4.0); GRAN # 4.2 (1.4-6.5); HEMOGLOBIN 11.3 g/dl (12.5-16.0); LYMPH # 1.4 (1.2-3.4); LYMPH % 22.3 % (20.0-51.0); MEAN CELL VOLUME 106 fl (80.0-100.0); MEAN CORPUSCULAR HEMOGLOBIN 35 pg (27.0-31.0); MEAN CORPUSCULAR HGB CONC 33 g/dl (33.0-37.0); MONO # 0.5 (0.1-0.6); PLATELET COUNT 134 K/mm3 (130-400); RED BLOOD COUNT 3.28 M/mm3 (4.10-5.30); REDCELL DISTRIBUTION WIDTH-CV 13.1 % (11.5-14.5)
[2021-04-07 12:44] LABS: HEMATOCRIT 34.6 % (37.0-47.0)
--- NOTE | 2021-04-07 14:28 | NUR ---
Patient tolerated 2.5 hr HD tx with 900 mL fluid removal today, attempted higher UF but pt felt dizziness & had lower Bps. Next HD tx planned tomorrow, 04/08/21 @ 1045 @ [facility].
--- NOTE | 2021-04-07 15:58 | NUR ---
Pt discharged to home, discussed discharge packet with Pt, answered questions. Pt escorted to entrance by PCT, left with spouse via private transportation.
== END 2021-04-07 16:02 | disposition home or self-care (01) ==
LOC: COL.ER 10:49 → MEDICAL 13:37
PROVIDERS: Emergency Medicine; ADMIT Internal Medicine Nephrology
DX: I20.9 Angina pectoris, unspecified (principal); I16.0 Hypertensive urgency; I99.8 Other disorder of circulatory system; D63.1 Anemia in chronic kidney disease; N18.6 End stage renal disease; I12.0 Hypertensive chronic kidney disease with stage 5 chronic kidney disease or end stage renal disease; I63.9 Cerebral infarction, unspecified; I48.91 Unspecified atrial fibrillation; E21.3 Hyperparathyroidism, unspecified; E11.22 Type 2 diabetes mellitus with diabetic chronic kidney disease; J45.909 Unspecified asthma, uncomplicated; M19.90 Unspecified osteoarthritis, unspecified site; M10.9 Gout, unspecified; E87.5 Hyperkalemia; G43.909 Migraine, unspecified, not intractable, without status migrainosus; Z86.011 Personal history of benign neoplasm of the brain; Z99.2 Dependence on renal dialysis; Z89.511 Acquired absence of right leg below knee; Z90.5 Acquired absence of kidney; Z79.4 Long term (current) use of insulin; Z79.01 Long term (current) use of anticoagulants; Z79.899 Other long term (current) drug therapy; Z79.02 Long term (current) use of antithrombotics/antiplatelets; Z88.0 Allergy status to penicillin; Z88.2 Allergy status to sulfonamides
CPT/HCPCS: G0378; J1644; J7030; Q5105

== ENCOUNTER → 2021-04-29 | Outpatient (CLI) | payer MEDICARE, OTHER ==
[~2021-04-29] MED LIST changes: +COUMADIN 5MG5 MG/TAB; +DEMADEX100 MG; +IMDUR 60MG60 MG/TAB PO; +MIRALAX PA17 GM/Dose; +NITROSTAT0.4 MG/TAB; +RENVELA800 MG; +SPIRIVA RE2.5 MCG/Ac IH; +ULTRAM 50MG TAB50 MG; +VELPHORO; +VENTOLIN0.09 MG
== END ==
LOC: ZCOL.LAB 08:27
DX: I25.10 Atherosclerotic heart disease of native coronary artery without angina pectoris (principal); Z20.822 Contact with and (suspected) exposure to COVID-19

== ENCOUNTER 2021-05-07 00:31 | Observation (INO) | payer MEDICARE, OTHER ==
[~2021-05-07] VITALS: Ht 152.4 cm; Wt 70.0 kg
[~2021-05-07 00:31] MED LIST changes: -COUMADIN 5MG5 MG/TAB; -DEMADEX100 MG; -IMDUR 60MG60 MG/TAB PO; -MIRALAX PA17 GM/Dose; -NITROSTAT0.4 MG/TAB; -RENVELA800 MG; -SPIRIVA RE2.5 MCG/Ac IH; -ULTRAM 50MG TAB50 MG; -VELPHORO; -VENTOLIN0.09 MG
[2021-05-07 01:31] LABS: BASO % 0.3 % (0.0-2.0); EOS # 0.3 (0.0-0.7); GRAN # 3.9 (1.4-6.5); GRAN % 62.6 % (42.2-75.2); LYMPH # 1.4 (1.2-3.4); MEAN CELL VOLUME 107 fl (80.0-100.0); MEAN CORPUSCULAR HGB CONC 32 g/dl (33.0-37.0); MEAN PLATELET VOLUME 10.8 fl (7.4-10.4); MONO # 0.7 (0.1-0.6); MONO % 10.8 % (1.7-9.3); PLATELET COUNT 126 K/mm3 (130-400); RED BLOOD COUNT 2.66 M/mm3 (4.10-5.30)
[2021-05-07 01:33] LABS: HEMATOCRIT 28.5 % (37.0-47.0); HEMOGLOBIN 9.2 g/dl (12.5-16.0); MEAN CORPUSCULAR HEMOGLOBIN 35 pg (27.0-31.0)
[2021-05-07 01:41] LABS: ALANINE AMINOTRANSFERASE 15 U/L (4-34); ALBUMIN 4.1 gm/dL (3.5-5.0); ALKALINE PHOSPHATASE 96 U/L (50-136); ANION GAP 7 mmol/L (7-16); AST,SGOT 21 U/L (15-37); BILIRUBIN,TOTAL 0.3 mg/dL (0.0-1.0); BLOOD UREA NITROGEN 46 mg/dL (7-17); CALCIUM 9.3 mg/dL (8.4-10.2); CARBON DIOXIDE 31 mmol/L (22-30); CHLORIDE 101 mmol/L (98-107); CREATININE, serum 3.84 (0.52-1.25); GLUCOSE 283 mg/dL (74-106); SODIUM 139 mmol/L (137-145); TOTAL PROTEIN 6.9 gm/dL (6.4-8.2)
[2021-05-07 01:54] LABS: TROPONIN-I < 0.012 ng/mL (0.000-0.035)
[2021-05-07] MEDS ORDERED: THEO-24 20200 MG/CAP PO (05:50)
[2021-05-07] MEDS ORDERED: DEMADEX100 MG (05:51)
[2021-05-07] MEDS ORDERED: NITROSTAT0.4 MG/TAB (05:53)
[2021-05-07] MEDS ORDERED: COUMADIN 6MG6 MG/TAB (05:54)
[2021-05-07] MEDS ORDERED: COUMADIN 5MG5 MG/TAB (05:54)
[2021-05-07] MEDS ORDERED: MIRALAX PA17 GM/Dose (05:55)
[2021-05-07] MEDS ORDERED: ULTRAM 50MG TAB50 MG (05:56)
[2021-05-07] MEDS ORDERED: VENTOLIN0.09 MG (05:57)
[2021-05-07] MEDS ORDERED: RENVELA800 MG (05:58)
[2021-05-07] MEDS ORDERED: VELPHORO (05:59)
[2021-05-07 06:00] VITALS: BP 136/84; PULSE 76; TEMP 98.5
--- NOTE | 2021-05-07 06:14 | NUR ---
Patient just came up on the floor. Came in with chest pain but she denies pain at this time. She got fentanyl down in ER. She is sitting comfortably in the chair with family at bedside. She is wheelchair bound, she has left BKA. Otherwise she alert and oriented, cooperative and very pleasant. Callight given and within reach. She said she is familiar with the routine in her.
--- NOTE | 2021-05-07 08:30 | NUR ---
Shift assessment complete. Pt sitting up in recliner. A&Ox4. Heart RRR. Lungs CTA. Denies chest pain/nausea/dizziness this morning, does report mild SOA at rest but reports this is her baseline. Denies needs. Call light in reach.
[2021-05-07 08:37] VITALS: BP 172/56; PULSE 61; TEMP 98.4
--- NOTE | 2021-05-07 08:45 | NUR ---
Pt down to dialysis at this time.
--- NOTE | 2021-05-07 12:27 | NUR ---
Patient tolerated extra HD tx with 1.5L fluid removal today, attempted more fluid removal but pt's Bp became low for her & she had c/o dizziness. Next HD tx possibly tomorrow Tuesday 05/08 @ 0800.
[2021-05-07 12:40] VITALS: BP 146/53; PULSE 66; TEMP 97.9
[2021-05-07] MEDS ORDERED: SPIRIVA RE2.5 MCG/Ac IH (14:15)
--- NOTE | 2021-05-07 14:56 | NUR ---
Stamp Redemption Clerk met with patient to discuss discharge planning. Patient lives in [place] with her , Angelito (ph#[phone]) and sees Dr. Wyman in [place] for primary care. Patient obtains medications from [facility] in [place]. Patient utilizes a wheelchair for ambulation and has nocturnal oxygen from [facility]. Patient reports independence with ADLS and with transfers. Patient states she still cleans and makes meals at home. Patient reports her daughter, Vandana (ph#[phone]) is her DPOA-HC. Patient states she has talked with Dr. Monahan about increasing dialysis from 3 times a week, to 4 times a week. Patient plans to return home upon discharge. SW spoke with RN, Luz who advised patient has been independent with transfers. Discharge Plan: Home with
[2021-05-07 17:14] VITALS: BP 151/54; PULSE 74; TEMP 98.3
--- NOTE | 2021-05-07 21:25 | NUR ---
Patient is awake alert and cooperative. She is resting in chair with a little bit anxious about her meds. She dont have schedule Theophylline that she said she is taking for a long time very night. She also dont have Insulin ordered for night. I called her Dr and got the order of her Novolog. She is very particular for her meds. She have her own Sling scale that she follow and the Dr is aware of that. she get up to go to the bathroom by herself and when she get back she complains of chest pain. I gave her Nitro 0.4 one dose and she feel the relieve after 5 mins. Her BP is high 180/64 before Nitro and she said that normal for her. Otherwise she is now calm and comfortable in chair. call light is given and withi her reach. continue to monitor.
[2021-05-07 21:30] VITALS: BP 180/64; PULSE 67; TEMP 98.7
[2021-05-08 00:08] VITALS: BP 126/45; PULSE 59; TEMP 98.4
[2021-05-08 04:44] VITALS: BP 133/42; PULSE 55; TEMP 97.9
[2021-05-08 08:01] VITALS: BP 151/55; PULSE 62; TEMP 98.2
[2021-05-08 09:09] LABS: ALBUMIN 4.1 gm/dL (3.5-5.0); BASO % 0.4 % (0.0-2.0); CALCIUM 9.9 mg/dL (8.4-10.2); CREATININE, serum 3.6 (0.52-1.25); EOS # 0.4 (0.0-0.7); EOS % 4.8 % (0-4.0); GRAN # 4.1 (1.4-6.5); GRAN % 56.8 % (42.2-75.2); LYMPH # 1.9 (1.2-3.4); LYMPH % 26.7 % (20.0-51.0); MEAN CELL VOLUME 111 fl (80.0-100.0); MEAN CORPUSCULAR HGB CONC 31 g/dl (33.0-37.0); MEAN PLATELET VOLUME 11.5 fl (7.4-10.4); MONO # 0.8 (0.1-0.6); PLATELET COUNT 165 K/mm3 (130-400); POTASSIUM 4.7 mmol/L (3.4-5.0); RED BLOOD COUNT 2.78 M/mm3 (4.10-5.30); REDCELL DISTRIBUTION WIDTH-CV 13.2 % (11.5-14.5)
[2021-05-08 09:11] LABS: HEMATOCRIT 30.8 % (37.0-47.0); HEMOGLOBIN 9.5 g/dl (12.5-16.0); MEAN CORPUSCULAR HEMOGLOBIN 34 pg (27.0-31.0)
[2021-05-08 09:26] LABS: PHOSPHOROUS 4.3 mg/dL (2.5-4.5)
--- NOTE | 2021-05-08 11:44 | NUR ---
Patient tolerated HD tx with 900 mL fluid removal, attempted increased fluid removal but patient c/o chest pain. Resolved chest pain with decreased UF goal. Next HD tx on Monday @ [facility]
[2021-05-08 12:10] VITALS: BP 135/57; PULSE 75; TEMP 98.3
[2021-05-08] MEDS ORDERED: COREG12.5 MG PO (16:27)
--- NOTE | 2021-05-08 17:45 | NUR ---
Reviewed discharge instructions with pt for primary nurse. Pt had no questions and is aware of the dialysis appointment on monday. Pts daughter picked her up, pt escorted out by PCT.
== END 2021-05-08 17:54 | disposition home or self-care (01) ==
LOC: COL.ER 00:31 → MEDICAL 03:10
PROVIDERS: Emergency Medicine; ADMIT Internal Medicine Nephrology
DX: I20.9 Angina pectoris, unspecified (principal); I16.0 Hypertensive urgency; I12.0 Hypertensive chronic kidney disease with stage 5 chronic kidney disease or end stage renal disease; N18.6 End stage renal disease; E11.22 Type 2 diabetes mellitus with diabetic chronic kidney disease; J45.909 Unspecified asthma, uncomplicated; M19.90 Unspecified osteoarthritis, unspecified site; M10.9 Gout, unspecified; E78.5 Hyperlipidemia, unspecified; D50.9 Iron deficiency anemia, unspecified; G40.909 Epilepsy, unspecified, not intractable, without status epilepticus; D63.1 Anemia in chronic kidney disease; E87.5 Hyperkalemia; E21.3 Hyperparathyroidism, unspecified; Z90.5 Acquired absence of kidney; Z99.2 Dependence on renal dialysis; Z86.73 Personal history of transient ischemic attack (TIA), and cerebral infarction without residual deficits; Z79.899 Other long term (current) drug therapy; Z79.01 Long term (current) use of anticoagulants; Z79.4 Long term (current) use of insulin; Z79.02 Long term (current) use of antithrombotics/antiplatelets; Z79.891 Long term (current) use of opiate analgesic
CPT/HCPCS: G0378; J0360; J1644; J1815; J3010; J7030; Q5105

== ENCOUNTER 2021-06-29 08:07 | Outpatient (CLI) | payer MEDICARE, OTHER ==
[~2021-06-29] VITALS: Ht 152.4 cm; Wt 70.3 kg
[2021-06-29] VITALS (10 sets, daily range): BP systolic 169–188; BP diastolic 57–79; PULSE 55–61
[~2021-06-29 08:07] MED LIST changes: +COUMADIN 5MG5 MG/TAB; +DEMADEX100 MG; +MIRALAX PA17 GM/Dose; +NITROSTAT0.4 MG/TAB; +RENVELA800 MG; +SPIRIVA RE2.5 MCG/Ac IH; +ULTRAM 50MG TAB50 MG; +VELPHORO; +VENTOLIN0.09 MG
[2021-06-29 08:58] LABS: INR 1.1 (0.8-3.0); PROTHROMBIN TIME 12.6 SECONDS (9.7-12.8)
--- NOTE | 2021-06-29 15:00 | NUR ---
Discharge instructions gien to pt.pt verbalizes understanding.INT removed,catheter tip intact.
--- NOTE | 2021-06-29 15:13 | NUR ---
Pt escorted out via wheelchair by this nurse.
== END 2021-06-29 15:56 ==
LOC: COL.CAR 08:07
PROVIDERS: Radiology Diagnostic Radiology
DX: T85.838A Hemorrhage due to other internal prosthetic devices, implants and grafts, initial encounter (principal); N18.6 End stage renal disease; E11.22 Type 2 diabetes mellitus with diabetic chronic kidney disease; M10.9 Gout, unspecified; E78.00 Pure hypercholesterolemia, unspecified; D72.829 Elevated white blood cell count, unspecified; Z85.528 Personal history of other malignant neoplasm of kidney; Z99.2 Dependence on renal dialysis; Z89.511 Acquired absence of right leg below knee; Z79.01 Long term (current) use of anticoagulants; Z95.1 Presence of aortocoronary bypass graft; Z79.02 Long term (current) use of antithrombotics/antiplatelets; Z79.899 Other long term (current) drug therapy
CPT/HCPCS: J1644; J2250; J3010; Q9967

== ENCOUNTER 2021-07-06 15:17 | Emergency (ER) | payer MEDICARE, OTHER ==
[2021-07-06 15:22] VITALS: TEMP 98.2
[2021-07-06 16:02] LABS: BASO % 0.3 % (0.0-2.0); EOS # 0.3 (0.0-0.7); EOS % 4.2 % (0-4.0); GRAN # 3.8 (1.4-6.5); GRAN % 64.4 % (42.2-75.2); LYMPH # 1.4 (1.2-3.4); LYMPH % 23.2 % (20.0-51.0); MEAN CELL VOLUME 106 fl (80.0-100.0); MEAN CORPUSCULAR HGB CONC 32 g/dl (33.0-37.0); MEAN PLATELET VOLUME 11.5 fl (7.4-10.4); MONO # 0.5 (0.1-0.6); MONO % 7.6 % (1.7-9.3); PLATELET COUNT 151 K/mm3 (130-400); RED BLOOD COUNT 2.43 M/mm3 (4.10-5.30); REDCELL DISTRIBUTION WIDTH-CV 13.4 % (11.5-14.5)
[2021-07-06 16:08] LABS: ALANINE AMINOTRANSFERASE 13 U/L (4-34); ALBUMIN 4.2 gm/dL (3.5-5.0); ALKALINE PHOSPHATASE 104 U/L (50-136); ANION GAP 14 mmol/L (7-16); AST,SGOT 22 U/L (15-37); BILIRUBIN,TOTAL 0.3 mg/dL (0.0-1.0); BLOOD UREA NITROGEN 74 mg/dL (7-17); CALCIUM 8.9 mg/dL (8.4-10.2); CARBON DIOXIDE 25 mmol/L (22-30); CHLORIDE 99 mmol/L (98-107); GLUCOSE 331 mg/dL (74-106); POTASSIUM 4.4 mmol/L (3.4-5.0); SODIUM 138 mmol/L (137-145); TOTAL PROTEIN 7.2 gm/dL (6.4-8.2)
[2021-07-06 16:10] LABS: HEMATOCRIT 25.8 % (37.0-47.0); HEMOGLOBIN 8.2 g/dl (12.5-16.0); MEAN CORPUSCULAR HEMOGLOBIN 34 pg (27.0-31.0)
[2021-07-06 16:22] LABS: TROPONIN-I < 0.012 ng/mL (0.000-0.035)
[2021-07-06 17:20] VITALS: BP 186/70; PULSE 72
== END 2021-07-06 17:30 | disposition home or self-care (01) ==
LOC: COL.ER 15:17
PROVIDERS: Emergency Medicine
DX: R07.9 Chest pain, unspecified (principal); I12.0 Hypertensive chronic kidney disease with stage 5 chronic kidney disease or end stage renal disease; I25.10 Atherosclerotic heart disease of native coronary artery without angina pectoris; N18.6 End stage renal disease; Z99.2 Dependence on renal dialysis; Z79.02 Long term (current) use of antithrombotics/antiplatelets; Z79.4 Long term (current) use of insulin; Z79.01 Long term (current) use of anticoagulants; Z79.899 Other long term (current) drug therapy

== ENCOUNTER 2021-07-08 13:22 | Inpatient (IN) | payer MEDICARE, OTHER ==
[~2021-07-08] VITALS: Ht 152.4 cm; Wt 71.0 kg
[2021-07-08 14:08] LABS: ALANINE AMINOTRANSFERASE 11 U/L (4-34); ALBUMIN 3.8 gm/dL (3.5-5.0); ALKALINE PHOSPHATASE 100 U/L (50-136); ANION GAP 12 mmol/L (7-16); AST,SGOT 17 U/L (15-37); BILIRUBIN,TOTAL 0.2 mg/dL (0.0-1.0); BLOOD UREA NITROGEN 69 mg/dL (7-17); CALCIUM 8.9 mg/dL (8.4-10.2); CARBON DIOXIDE 27 mmol/L (22-30); CHLORIDE 98 mmol/L (98-107); CREATININE, serum 5.11 (0.52-1.25); GLUCOSE 327 mg/dL (74-106); POTASSIUM 4.3 mmol/L (3.4-5.0); SODIUM 137 mmol/L (137-145); TOTAL PROTEIN 6.5 gm/dL (6.4-8.2)
[2021-07-08 14:11] LABS: BASO % 0.3 % (0.0-2.0); EOS # 0.3 (0.0-0.7); EOS % 4.5 % (0-4.0); GRAN # 4.1 (1.4-6.5); GRAN % 61.8 % (42.2-75.2); LYMPH # 1.7 (1.2-3.4); LYMPH % 24.9 % (20.0-51.0); MEAN CELL VOLUME 110 fl (80.0-100.0); MEAN CORPUSCULAR HGB CONC 32 g/dl (33.0-37.0); MEAN PLATELET VOLUME 11.2 fl (7.4-10.4); MONO # 0.5 (0.1-0.6); PLATELET COUNT 178 K/mm3 (130-400); RED BLOOD COUNT 1.99 M/mm3 (4.10-5.30)
[2021-07-08 14:20] LABS: HEMATOCRIT 21.9 % (37.0-47.0); MEAN CORPUSCULAR HEMOGLOBIN 35 pg (27.0-31.0)
[2021-07-08 14:21] LABS: HEMOGLOBIN 6.9 g/dl (12.5-16.0)
[2021-07-08 14:23] LABS: TROPONIN-I < 0.012 ng/mL (0.000-0.035)
[2021-07-08 15:50] VITALS: BP 201/80; PULSE 59; TEMP 97.8
[2021-07-08 16:10] VITALS: BP 209/81; PULSE 58; TEMP 97.8
[2021-07-08 16:25] VITALS: BP 187/83; PULSE 57; TEMP 97.9
[2021-07-08 16:55] VITALS: BP 193/86; PULSE 62; TEMP 97.6
--- NOTE | 2021-07-08 17:52 | NUR ---
PATIENT TOLERATED HD TX WITH 1.7L OF FLUID REMOVAL TODAY. NEXT PLANNED HD TX TOMORROW, Monday07/09/21 @ 0800.
--- NOTE | 2021-07-08 20:00 | NUR ---
Patient is in the chair, alert and oriented x4, vital signs stable, Reports no pain, nausea or vomiting. 1 unit of blood to be administered. Patient reports SOB and required nitroglycerin and O2. O2 at 1 L with nasal canula. Waiting for medication to be in the [facility] for admin. Steve has fistula in left arm, with hematoma. She has a protesis under the knee. She is on tele. No further needs at this time. Call light within reach.
[2021-07-08 22:58] VITALS: BP 186/73; PULSE 60; TEMP 98.6
[2021-07-08 23:24] VITALS: BP 211/82; PULSE 69
[2021-07-08] MEDS ORDERED: IMDUR 60MG60 MG/TAB PO (23:32)
[2021-07-09] VITALS (9 sets, daily range): BP systolic 157–209; BP diastolic 56–83; PULSE 50–60; TEMP 97.9–98.8
--- NOTE | 2021-07-09 03:23 | NUR ---
Blood transfused was done without any adverse reaction for the patient. Now she is trying to sleep. VSS.
--- NOTE | 2021-07-09 04:55 | NUR ---
Patient is not tolerating bowel prep for colonoscopy. Dr Lam was notified. She indicates that no other options and prcedure can not be done. No further instructions provided.
--- NOTE | 2021-07-09 06:54 | NUR ---
Patient has had a calm night. She refused to drink the bowel prep. She was encourage to for the colonoscopy scheduled for today. She received 1 unit of blood without any adverse effect. Patient like to sleep in chair. No further needs at this time, Shift report will be given.
--- NOTE | 2021-07-09 10:19 | NUR ---
Initial visit; Patient thanked Change Management Director for looking in on her, visiting and offering God's blessings.
--- NOTE | 2021-07-09 10:56 | NUR ---
SW met with the patient to discuss discharge plan. The patient [place] of [place] with her , Angelito (ph#[phone]). She states that their daughter, Vandana (ph#[phone]), lives nearby them and helps them with grocery shopping and running errands. She reports needing some assistance with bathing and has a walker, wheelchair, and nocturnal oxygen from [facility]. She states that she sometimes uses the oxygen during the day and that her helps her with bathing. The patient's PCP is Dr. Sabi Wyman and she receives her medications from [facility] . She reports no difficulties obtaining her meds. The patient does not have a DPOA-HC in EMR, but she states that she does have one completed and that it designates her daughter, Vandana. She states that she may have a copy at home or that her daughter has a copy. The patient plans to return home with her upon discharge. No additional needs at this time. *Discharge plan: home with *
[2021-07-09 16:20] LABS: BASO % 0.3 % (0.0-2.0); EOS # 0.4 (0.0-0.7); EOS % 5.1 % (0-4.0); GRAN # 4.2 (1.4-6.5); GRAN % 61.9 % (42.2-75.2); LYMPH # 1.7 (1.2-3.4); LYMPH % 24.3 % (20.0-51.0); MEAN CORPUSCULAR HGB CONC 32 g/dl (33.0-37.0); MEAN PLATELET VOLUME 10.7 fl (7.4-10.4); MONO # 0.6 (0.1-0.6); MONO % 8.1 % (1.7-9.3); PLATELET COUNT 161 K/mm3 (130-400); REDCELL DISTRIBUTION WIDTH-CV 17.2 % (11.5-14.5)
[2021-07-09 16:23] LABS: HEMATOCRIT 32.6 % (37.0-47.0); HEMOGLOBIN 10.5 g/dl (12.5-16.0); MEAN CELL VOLUME 99 fl (80.0-100.0); MEAN CORPUSCULAR HEMOGLOBIN 32 pg (27.0-31.0)
[2021-07-09 16:27] LABS: INR 1.6 (0.8-3.0); PROTHROMBIN TIME 17.9 SECONDS (9.7-12.8)
[2021-07-09 16:30] LABS: ALBUMIN 4.1 gm/dL (3.5-5.0); CALCIUM 9.4 mg/dL (8.4-10.2); CREATININE, serum 4.52 (0.52-1.25); PHOSPHOROUS 3.8 mg/dL (2.5-4.5); POTASSIUM 4.8 mmol/L (3.4-5.0)
--- NOTE | 2021-07-09 16:30 | NUR ---
PT BEING DC AT THIS TIME. NO S/S OF DISTRESS NOTICED. V/S STABLE. PT TR BAND REMOVED, NO BLEEDING OR HEMATOMA. SPOUSE AT THE BEDSIDE. DC INSTRUCTIONS REVIEWED WITH PT. ALL QUESTIONS ANSWERED. IV ACCES AND TELE MONITOR REMOVED. PT TOOK ALL HIS BELONGINGS INCLUDING HIS CPAP. PT TAKEN TO SPOUSE VEHICLE VIA WHEELCHAIR.
--- NOTE | 2021-07-09 20:00 | NUR ---
Patient is sitting in chair. She is alert and oriented X4, no nausea or vomiting. Complains about some general discomfort. Tele in place, 1L of 02, She is trying to drink the bowel prep but indicates it is too much for her. Drinking was encouraged. Dressing of IV was changed. No further needs at this time. Continue monitoring. Call light within reach.
[2021-07-10 03:50] VITALS: BP 172/54; PULSE 50; TEMP 97.8
--- NOTE | 2021-07-10 07:13 | NUR ---
Patient has been stable all night. She refuses to drink the bowel prep. She likes to sleep on chair. Complains about itching in her IV site, tegaderm was changed.
--- NOTE | 2021-07-10 08:10 | NUR ---
Pt awake upon entry to room, sitting in the recliner. no C/O pain at this time. Shift assessment complete, left Pt call light in reach, needs met.
[2021-07-10 08:59] VITALS: BP 130/77; PULSE 90; TEMP 98.2
[2021-07-10 10:50] LABS: BASO % 0.4 % (0.0-2.0); EOS # 0.3 (0.0-0.7); EOS % 4.5 % (0-4.0); GRAN # 4.4 (1.4-6.5); GRAN % 65.9 % (42.2-75.2); HEMOGLOBIN 10.1 g/dl (12.5-16.0); LYMPH # 1.4 (1.2-3.4); LYMPH % 20.8 % (20.0-51.0); MEAN CELL VOLUME 98 fl (80.0-100.0); MEAN CORPUSCULAR HEMOGLOBIN 32 pg (27.0-31.0); MEAN CORPUSCULAR HGB CONC 33 g/dl (33.0-37.0); MEAN PLATELET VOLUME 10.9 fl (7.4-10.4); MONO # 0.5 (0.1-0.6); MONO % 8.1 % (1.7-9.3); PLATELET COUNT 151 K/mm3 (130-400); RED BLOOD COUNT 3.18 M/mm3 (4.10-5.30); REDCELL DISTRIBUTION WIDTH-CV 15.9 % (11.5-14.5)
[2021-07-10 11:04] LABS: ALBUMIN 3.9 gm/dL (3.5-5.0); CALCIUM 9.2 mg/dL (8.4-10.2); CREATININE, serum 5.45 (0.52-1.25); PHOSPHOROUS 4.9 mg/dL (2.5-4.5); POTASSIUM 5.2 mmol/L (3.4-5.0)
--- NOTE | 2021-07-10 13:49 | NUR ---
Patient tolerated a 3 hour HD tx with 2.5L of fluid removed. Next HD tx planned for Monday07/12/21 after scheduled colonoscopy.
[2021-07-10 17:42] VITALS: BP 196/71; PULSE 59; TEMP 98.2
[2021-07-10 19:09] VITALS: BP 176/59; PULSE 59; TEMP 98.2
--- NOTE | 2021-07-10 20:00 | NUR ---
Patient is sitting in chair, alert and oriented x 4, reports no chain in her condition. She is trying to get the bowel preparation but reports she has not going to the restroom yet. Reports no nausea, vomiting or pain. Medications provided. No further needs at this time. Call light within reach.
[2021-07-10 23:45] VITALS: BP 135/56; PULSE 56; TEMP 97.8
[2021-07-11 03:57] VITALS: BP 146/58; PULSE 57; TEMP 97.6
--- NOTE | 2021-07-11 05:36 | NUR ---
Patient has had a relatively calm night. She moved herself from the chair to the wheelchair. She states she prefers to sleep in the wheelchair as she does at home. She is trying to drink the bowel prep. Some cups are filled and in hand for her to drink. Patient denies chest pain. Continue monitoring. Shift report will be given to day nurse.
[2021-07-11 07:47] LABS: BASO % 0.3 % (0.0-2.0); EOS # 0.3 (0.0-0.7); EOS % 4.6 % (0-4.0); GRAN % 65.2 % (42.2-75.2); HEMOGLOBIN 11.1 g/dl (12.5-16.0); LYMPH # 1.3 (1.2-3.4); LYMPH % 20.9 % (20.0-51.0); MEAN CELL VOLUME 102 fl (80.0-100.0); MEAN CORPUSCULAR HEMOGLOBIN 32 pg (27.0-31.0); MEAN CORPUSCULAR HGB CONC 32 g/dl (33.0-37.0); MEAN PLATELET VOLUME 10.5 fl (7.4-10.4); MONO # 0.5 (0.1-0.6); MONO % 8.7 % (1.7-9.3); PLATELET COUNT 146 K/mm3 (130-400); RED BLOOD COUNT 3.44 M/mm3 (4.10-5.30); REDCELL DISTRIBUTION WIDTH-CV 15.7 % (11.5-14.5)
[2021-07-11 07:51] LABS: ALBUMIN 4.2 gm/dL (3.5-5.0); CALCIUM 9.5 mg/dL (8.4-10.2); CREATININE, serum 3.89 (0.52-1.25); PHOSPHOROUS 4.4 mg/dL (2.5-4.5); POTASSIUM 4.9 mmol/L (3.4-5.0)
--- NOTE | 2021-07-11 07:51 | NUR ---
Pt awake upon entry, sitting in her WC. No C/O pain at this time. Shift assessment complete, left Pt call light in reach.
[2021-07-11 07:55] LABS: HEMATOCRIT 35.1 % (37.0-47.0)
[2021-07-11 08:23] VITALS: BP 163/68; PULSE 57; TEMP 97.9
[2021-07-11 12:27] VITALS: BP 178/66; PULSE 57; TEMP 98.3
[2021-07-11 17:14] VITALS: BP 156/103; PULSE 58; TEMP 98.1
[2021-07-11 19:35] VITALS: BP 209/99; PULSE 57; TEMP 98.2
--- NOTE | 2021-07-11 22:36 | NUR ---
PT SITTIG IN WHEELCHAIR. EVENING MEDICATIONS GIVEN. SHIFT ASSESSMENT COMPLETED. WHEEZES HEARD UPON AUSCULTATION OF LUNGS. SOME 2+ EDEMA NOTED TO BLE. PT DENIES ANY NEEDS AT THIS TIME. ENCOURAGING PT TO DRINK BOWEL PREP. CALL LIGHT WITHIN REACH. WILL CONTINUE TO MONITOR.
[2021-07-12 00:39] VITALS: BP 156/59; PULSE 58; TEMP 98
--- NOTE | 2021-07-12 04:27 | NUR ---
PT NOT ABLE TO DRINK MUCH BOWEL PREP THROUGHOUT THE NIGHT. PT STATES SHE HAS BEEN SLEEPING SO ISNT ABLE TO DRINK IT. SHE ALSO STATES IT IS DIFFICULT FOR HER TO DRINK A LOT AT ONCE DUE TO HER STOMACH GETTING FULL. THIS NURSE STRESSED THE IMPORTANCE OF BOWEL PREP AND ENCOURAGED THE PT TO DRINK MORE. THE PT HAD ONE BM THROUGHOUT THE NIGHT, WHICH WAS NOT CLEAR. WILL CONTINUE TO MONITOR.
[2021-07-12 04:49] VITALS: BP 188/51; PULSE 55; TEMP 97.7
[2021-07-12 07:05] LABS: BASO % 0.4 % (0.0-2.0); EOS # 0.3 (0.0-0.7); EOS % 4.7 % (0-4.0); GRAN # 3.2 (1.4-6.5); GRAN % 61.1 % (42.2-75.2); HEMOGLOBIN 10.8 g/dl (12.5-16.0); LYMPH # 1.2 (1.2-3.4); LYMPH % 23.4 % (20.0-51.0); MEAN CELL VOLUME 100 fl (80.0-100.0); MEAN CORPUSCULAR HEMOGLOBIN 32 pg (27.0-31.0); MEAN CORPUSCULAR HGB CONC 32 g/dl (33.0-37.0); MEAN PLATELET VOLUME 10.3 fl (7.4-10.4); MONO # 0.5 (0.1-0.6); MONO % 10.2 % (1.7-9.3); PLATELET COUNT 131 K/mm3 (130-400); RED BLOOD COUNT 3.37 M/mm3 (4.10-5.30); REDCELL DISTRIBUTION WIDTH-CV 14.9 % (11.5-14.5)
[2021-07-12 07:10] LABS: HEMATOCRIT 33.8 % (37.0-47.0)
[2021-07-12 07:15] LABS: ALBUMIN 4.2 gm/dL (3.5-5.0); CALCIUM 9.4 mg/dL (8.4-10.2); CREATININE, serum 5.05 (0.52-1.25); PHOSPHOROUS 5.3 mg/dL (2.5-4.5); POTASSIUM 4.9 mmol/L (3.4-5.0)
[2021-07-12 07:23] LABS: INR 1.4 (0.8-3.0); PROTHROMBIN TIME 15.8 SECONDS (9.7-12.8)
[2021-07-12 08:08] VITALS: BP 178/52; PULSE 58; TEMP 98.1
--- NOTE | 2021-07-12 08:26 | NUR ---
Pt awakw upon enty sitting in the recliner. No C/O pain at this time. Shift assessment complete. Continuing bowel prep, not running clear at this time, but having liquid stool without solids. Left Pt call luight in reach, needs met.
[2021-07-12 11:34] VITALS: BP 169/65; PULSE 54; TEMP 98
--- NOTE | 2021-07-12 13:59 | NUR ---
SW met with the patient to follow up after the weekend. The patient states that she is "doing." She states that she is doing better though, from when she came in. The patient is to tentatively have an EGD/colonoscopy today. She had no concerns for SW. *Discharge plan: home with *
[2021-07-12 14:48] LABS: IRON,SERUM 62 ug/dL (35-150)
[2021-07-12 14:58] LABS: TOTAL IRON BINDING CAPACITY 221 ug/dL (265-497)
--- NOTE | 2021-07-12 17:37 | NUR ---
Patient tolerated HD tx with 2L fluid removal. Next planned HD tx pending labs.
[2021-07-12 18:14] VITALS: BP 189/65; PULSE 69; TEMP 97.4
[2021-07-12 19:27] VITALS: BP 161/74; PULSE 66; TEMP 98.4
[2021-07-13 00:19] VITALS: BP 152/60; PULSE 58; TEMP 98.6
[2021-07-13 03:56] VITALS: BP 128/60; PULSE 62; TEMP 98.5
[2021-07-13 09:03] VITALS: BP 136/61; PULSE 60; TEMP 97.4
[2021-07-13] MEDS ORDERED: PROTONIX 40MG T40 MG PO (11:30)
--- NOTE | 2021-07-13 11:48 | NUR ---
The patient is to discharge back home with her today, 07/13. SW met with the patient and presented and read the IM form outloud to her. The patient verbalized understanding and signed the form. She declined a copy. No additional needs at this time.
[2021-07-13 12:45] VITALS: BP 155/65; PULSE 55; TEMP 98
--- NOTE | 2021-07-13 12:49 | NUR ---
Follow-up visit; Patient thanked Contract Loader for stopping in and visiting along with offering God's blessings as she departs today.
--- NOTE | 2021-07-13 17:03 | NUR ---
Pt discharged to home, discussed discharge packet with Pt. Pt escorted to [facility] by PCT, Pt left with spouse via private transportation.
== END 2021-07-13 15:05 | disposition home or self-care (01) | DRG 377 ==
LOC: COL.ER 13:22 → MEDICAL 15:15
PROVIDERS: Internal Medicine Gastroenterology; Physician Assistant; ADMIT Internal Medicine Nephrology
PROC: 5A1D70Z Performance of Urinary Filtration, Intermittent, Less than 6 Hours Per Day (ICD-10-PCS; 2021-07-08)
PROC: 0DBK8ZZ Excision of Ascending Colon, Via Natural or Artificial Opening Endoscopic (ICD-10-PCS; 2021-07-12)
PROC: 0DB98ZX Excision of Duodenum, Via Natural or Artificial Opening Endoscopic, Diagnostic (ICD-10-PCS; principal; 2021-07-12 14:00)
PROC: 0DB68ZX Excision of Stomach, Via Natural or Artificial Opening Endoscopic, Diagnostic (ICD-10-PCS; 2021-07-12 14:00)
DX: K29.71 Gastritis, unspecified, with bleeding (principal); N18.6 End stage renal disease; I12.0 Hypertensive chronic kidney disease with stage 5 chronic kidney disease or end stage renal disease; I25.110 Atherosclerotic heart disease of native coronary artery with unstable angina pectoris; D62 Acute posthemorrhagic anemia; J45.909 Unspecified asthma, uncomplicated; K22.11 Ulcer of esophagus with bleeding; E11.22 Type 2 diabetes mellitus with diabetic chronic kidney disease; M19.90 Unspecified osteoarthritis, unspecified site; D63.1 Anemia in chronic kidney disease; D12.2 Benign neoplasm of ascending colon; K31.7 Polyp of stomach and duodenum; E83.39 Other disorders of phosphorus metabolism; M10.9 Gout, unspecified; E87.5 Hyperkalemia; K59.00 Constipation, unspecified; E78.5 Hyperlipidemia, unspecified; Z79.4 Long term (current) use of insulin; Z79.01 Long term (current) use of anticoagulants; Z79.891 Long term (current) use of opiate analgesic; Z99.2 Dependence on renal dialysis; Z95.1 Presence of aortocoronary bypass graft; Z89.511 Acquired absence of right leg below knee; Z86.73 Personal history of transient ischemic attack (TIA), and cerebral infarction without residual deficits; Z88.0 Allergy status to penicillin; Z88.2 Allergy status to sulfonamides; Z88.1 Allergy status to other antibiotic agents; Z88.5 Allergy status to narcotic agent
CPT/HCPCS: J1644; J1756; J1815; J2704; J7030; P9016; Q5105

== ENCOUNTER 2021-10-31 13:11 | Emergency (ER) | payer MEDICARE, OTHER ==
[~2021-10-31] VITALS: Ht 152.4 cm; Wt 70.1 kg
[~2021-10-31 13:11] MED LIST changes: +IMDUR 60MG60 MG/TAB PO
[2021-10-31 13:30] VITALS: TEMP 98.6
[2021-10-31 13:51] LABS: BASO % 0.2 % (0.0-2.0); EOS # 0.3 K/mm3 (0.0-0.7); GRAN # 3.9 K/mm3 (1.4-6.5); GRAN % 65.6 % (42.2-75.2); LYMPH # 1.4 K/mm3 (1.2-3.4); LYMPH % 22.9 % (20.0-51.0); MEAN CELL VOLUME 98 fl (80.0-100.0); MEAN CORPUSCULAR HGB CONC 33 g/dl (33.0-37.0); MEAN PLATELET VOLUME 11.4 fl (7.4-10.4); MONO # 0.4 K/mm3 (0.1-0.6); PLATELET COUNT 134 K/mm3 (130-400); RED BLOOD COUNT 2.56 M/mm3 (4.10-5.30); REDCELL DISTRIBUTION WIDTH-CV 14.2 % (11.5-14.5)
[2021-10-31 13:52] LABS: HEMATOCRIT 25.1 % (37.0-47.0); HEMOGLOBIN 8.2 g/dl (12.5-16.0); MEAN CORPUSCULAR HEMOGLOBIN 32 pg (27.0-31.0)
[2021-10-31 13:58] LABS: INR 2.1 (0.8-3.0); PROTHROMBIN TIME 23.7 SECONDS (9.7-12.8)
[2021-10-31 14:00] LABS: PARTIAL THROMBOPLASTIN TIME 38.3 SECONDS (26.0-37.0)
[2021-10-31 14:05] LABS: ALBUMIN 3.8 gm/dL (3.4-4.8); BILIRUBIN,TOTAL 0.3 mg/dL (0.2-1.2); CALCIUM 9.3 mg/dL (8.4-10.2); CREATININE, serum 5.99 mg/dL (0.57-1.11); POTASSIUM 4.7 mmol/L (3.5-4.5); TOTAL PROTEIN 7.1 gm/dL (6.2-8.1)
[2021-10-31 14:11] LABS: TROPONIN-I 0.012 ng/mL (0.00-0.033)
[2021-10-31 15:21] VITALS: BP 192/86; PULSE 53
== END 2021-10-31 15:24 | disposition home or self-care (01) ==
LOC: COL.ER 13:11
PROVIDERS: Family Medicine
DX: K92.2 Gastrointestinal hemorrhage, unspecified (principal); N18.9 Chronic kidney disease, unspecified; D63.1 Anemia in chronic kidney disease

== ENCOUNTER 2022-01-04 10:35 | Emergency (ER) | payer MEDICARE, OTHER ==
[~2022-01-04] VITALS: Ht 152.4 cm; Wt 71.8 kg
[~2022-01-04 10:35] MED LIST changes: -COUMADIN 5MG5 MG/TAB
[2022-01-04 10:40] VITALS: TEMP 99.2
[2022-01-04 11:36] LABS: BASO % 0.2 % (0.0-2.0); EOS # 0.1 K/mm3 (0.0-0.7); EOS % 2.2 % (0.0-4.0); GRAN # 3.3 K/mm3 (1.4-6.5); GRAN % 70.8 % (42.2-75.2); HEMOGLOBIN 10.8 g/dl (12.5-16.0); LYMPH # 0.8 K/mm3 (1.2-3.4); LYMPH % 17.2 % (20.0-51.0); MEAN CELL VOLUME 98 fl (80.0-100.0); MEAN CORPUSCULAR HEMOGLOBIN 29 pg (27-31); MEAN CORPUSCULAR HGB CONC 30 g/dl (33.0-37.0); MEAN PLATELET VOLUME 11.1 fl (7.4-10.4); MONO # 0.4 K/mm3 (0.1-0.6); MONO % 8.3 % (1.7-9.3); PLATELET COUNT 139 K/mm3 (130-400); RED BLOOD COUNT 3.67 M/mm3 (4.10-5.30)
[2022-01-04 11:37] LABS: HEMATOCRIT 35.8 % (37.0-47.0)
[2022-01-04 11:49] LABS: ALBUMIN 3.1 gm/dL (3.4-4.8); BILIRUBIN,TOTAL 0.3 mg/dL (0.2-1.2); CALCIUM 8.3 mg/dL (8.4-10.2); CREATININE, serum 8.6 mg/dL (0.57-1.11); POTASSIUM 4.2 mmol/L (3.5-4.5); TOTAL PROTEIN 6.3 gm/dL (6.2-8.1)
[2022-01-04 11:50] LABS: PARTIAL THROMBOPLASTIN TIME 53.9 SECONDS (26.0-37.0)
[2022-01-04 11:57] LABS: PROTHROMBIN TIME 62.5 SECONDS (9.7-12.8)
[2022-01-04 11:58] LABS: INR 5.5 (0.8-3.0)
[2022-01-04 12:11] LABS: TROPONIN-I 0.053 ng/mL (0.00-0.033)
[2022-01-04 13:40] VITALS: BP 181/104; PULSE 60
== END 2022-01-04 13:40 | disposition home or self-care (01) ==
LOC: COL.ER 10:35
PROVIDERS: Emergency Medicine
DX: R07.89 Other chest pain (principal); R79.89 Other specified abnormal findings of blood chemistry; I12.0 Hypertensive chronic kidney disease with stage 5 chronic kidney disease or end stage renal disease; J45.909 Unspecified asthma, uncomplicated; E11.40 Type 2 diabetes mellitus with diabetic neuropathy, unspecified; E11.21 Type 2 diabetes mellitus with diabetic nephropathy; E11.319 Type 2 diabetes mellitus with unspecified diabetic retinopathy without macular edema; E11.22 Type 2 diabetes mellitus with diabetic chronic kidney disease; N18.6 End stage renal disease; D63.1 Anemia in chronic kidney disease; Z86.73 Personal history of transient ischemic attack (TIA), and cerebral infarction without residual deficits; Z88.8 Allergy status to other drugs, medicaments and biological substances; Z79.02 Long term (current) use of antithrombotics/antiplatelets; Z79.899 Other long term (current) drug therapy; Z79.4 Long term (current) use of insulin; Z79.01 Long term (current) use of anticoagulants; Z79.51 Long term (current) use of inhaled steroids

== ENCOUNTER 2022-01-06 15:40 | Inpatient (IN) | payer MEDICARE, OTHER ==
[~2022-01-06] VITALS: Ht 154.9 cm; Wt 65.0 kg
[2022-01-06] MEDS ORDERED: RENVELA800 MG PO (16:04)
[2022-01-06 16:49] LABS: BASO % 0.2 % (0.0-2.0); EOS % 0.6 % (0.0-4.0); GRAN # 3.8 K/mm3 (1.4-6.5); GRAN % 77.4 % (42.2-75.2); HEMOGLOBIN 10.3 g/dl (12.5-16.0); LYMPH # 0.6 K/mm3 (1.2-3.4); LYMPH % 12.3 % (20.0-51.0); MEAN CELL VOLUME 97 fl (80.0-100.0); MEAN CORPUSCULAR HEMOGLOBIN 29 pg (27-31); MEAN CORPUSCULAR HGB CONC 30 g/dl (33.0-37.0); MEAN PLATELET VOLUME 10.4 fl (7.4-10.4); MONO # 0.4 K/mm3 (0.1-0.6); MONO % 8.3 % (1.7-9.3); PLATELET COUNT 167 K/mm3 (130-400); RED BLOOD COUNT 3.52 M/mm3 (4.10-5.30); REDCELL DISTRIBUTION WIDTH-CV 16.3 % (11.5-14.5)
[2022-01-06 17:01] LABS: HEMATOCRIT 34.2 % (37.0-47.0)
[2022-01-06 17:09] LABS: ALBUMIN 3.1 gm/dL (3.4-4.8); BILIRUBIN,TOTAL 0.3 mg/dL (0.2-1.2); CALCIUM 8.9 mg/dL (8.4-10.2); CREATININE, serum 3.56 mg/dL (0.57-1.11); POTASSIUM 3.7 mmol/L (3.5-4.5); TOTAL PROTEIN 6.6 gm/dL (6.2-8.1)
[2022-01-06 17:17] LABS: TROPONIN-I 0.062 ng/mL (0.00-0.033)
--- NOTE | 2022-01-06 23:34 | NUR ---
ARRIVED VIA STRETCHER, AT BEDSIDE, AWAKE, ALERT, ORIENTED X 4, ABLE TO MAKE NEEDS KNOWN, O2@2l PER NC, VERBAL WITH CLEAR SPEECH, NO C/O AT THIS TIME, WILL CONTINUE TO MONITOR,
[2022-01-07 00:15] VITALS: BP 159/61; PULSE 77; TEMP 99.5
[2022-01-07 04:52] VITALS: BP 135/46; PULSE 69; TEMP 99.7
[2022-01-07 06:49] LABS: HEMOGLOBIN 10.3 g/dl (12.5-16.0); MEAN CELL VOLUME 99 fl (80.0-100.0); MEAN CORPUSCULAR HEMOGLOBIN 29 pg (27-31); MEAN CORPUSCULAR HGB CONC 30 g/dl (33.0-37.0); MEAN PLATELET VOLUME 11.1 fl (7.4-10.4); PLATELET COUNT 199 K/mm3 (130-400); REDCELL DISTRIBUTION WIDTH-CV 16.6 % (11.5-14.5)
[2022-01-07 06:53] LABS: HEMATOCRIT 34.5 % (37.0-47.0)
[2022-01-07 06:56] LABS: INR 5.9 (0.8-3.0); PROTHROMBIN TIME 66.4 SECONDS (9.7-12.8)
[2022-01-07 07:49] LABS: ALBUMIN 2.9 gm/dL (3.4-4.8); CALCIUM 8.6 mg/dL (8.4-10.2); CREATININE, serum 4.74 mg/dL (0.57-1.11); PHOSPHOROUS 3.9 mg/dL (2.3-4.7); POTASSIUM 4.1 mmol/L (3.5-4.5)
[2022-01-07 08:14] LABS: BAND 15 % (0-10); LYMPHOCYTE 17 % (20.0-51.0); METAMYELOCYTE 2 % (0-0); NEUTROPHILS 60 % (42.0-75.2); PLATELET ESTIMATE NORMAL (NORMAL)
[2022-01-07 08:16] VITALS: BP 134/43; PULSE 66; TEMP 98.3
--- NOTE | 2022-01-07 08:40 | NUR ---
Shift assessment complete. Pt up in recliner. A&Ox4. Heart RRR. Lungs CTA. Vitals stable. Reports intermittent sharp pains to left posterior shoulder and lower back. Requests tramadol for pain and eye drops for dry eyes. Alem MCBRIDE notified and will place orders. Continuing to monitor.
[2022-01-07 11:21] VITALS: BP 133/54; PULSE 64; TEMP 98.4
--- NOTE | 2022-01-07 12:30 | NUR ---
Pt off unit for dialysis.
--- NOTE | 2022-01-07 15:50 | NUR ---
PATIENT UF OFF WITH 34 MINS LEFT OF HD TX FOR C/O LEFT SIDE BACK PAIN, NAUSEA & RLE CRAMPING, RATED A # 7 ON PAIN SCALE. ZOFRAN IVP ADMINISTERED & DID NOT RESOLVE NAUSEA AFTER 1 HOUR. REMOVED 2,132 ML OF FLUID TODAY. NEXT PLANNED HD TX PENDING LABS & PATIENT ASSESSMENT.
[2022-01-07 16:10] VITALS: BP 194/79; PULSE 70; TEMP 98.8
--- NOTE | 2022-01-07 16:58 | NUR ---
1600 AFTER HD TX PATIENT C/O CENTER OF CHEST PAIN THAT RADIATES TO LEFT SIDE OF BACK. 1603 NITRO SL X1 GIVEN. 1608 PATIENT DENIES ANY CHEST PAIN. VSS.
--- NOTE | 2022-01-07 18:42 | NUR ---
Pt having intermittent chest pain and nausea today. Minimal relief from zofran. Pt denies further needs at this time.
[2022-01-07 19:16] VITALS: BP 149/59; PULSE 74; TEMP 99.8
[2022-01-08] VITALS (9 sets, daily range): BP systolic 113–185; BP diastolic 50–91; PULSE 66–88; TEMP 97.9–99.9
--- NOTE | 2022-01-08 05:42 | NUR ---
PATIENT RESTING IN RECLINER AT THIS TIME. STATES SHE HAS NOT SLEPT IN A BED FOR YEARS. PATIENT REPORTED BACK PAIN AND NAUSEA THIS SHIFT. PRN PAIN AND NAUSEA MEDICATION ADMINISTERED REQUESTED BY PATIENT PER 'S ORDERS.
[2022-01-08 07:58] LABS: PROTHROMBIN TIME 55.8 SECONDS (9.7-12.8)
[2022-01-08 07:59] LABS: ALBUMIN 2.9 gm/dL (3.4-4.8); CALCIUM 8.8 mg/dL (8.4-10.2); CREATININE, serum 3.9 mg/dL (0.57-1.11); POTASSIUM 4.1 mmol/L (3.5-4.5)
[2022-01-08 08:34] LABS: BASO % 0.2 % (0.0-2.0); GRAN # 3.4 K/mm3 (1.4-6.5); GRAN % 69.3 % (42.2-75.2); LYMPH # 0.9 K/mm3 (1.2-3.4); LYMPH % 17.8 % (20.0-51.0); MEAN CELL VOLUME 98 fl (80.0-100.0); MEAN CORPUSCULAR HGB CONC 29 g/dl (33.0-37.0); MEAN PLATELET VOLUME 10.7 fl (7.4-10.4); MONO # 0.6 K/mm3 (0.1-0.6); MONO % 11.7 % (1.7-9.3); PLATELET COUNT 241 K/mm3 (130-400); REDCELL DISTRIBUTION WIDTH-CV 16.9 % (11.5-14.5)
[2022-01-08 08:37] LABS: HEMATOCRIT 33.3 % (37.0-47.0); HEMOGLOBIN 9.7 g/dl (12.5-16.0); MEAN CORPUSCULAR HEMOGLOBIN 29 pg (27-31)
--- NOTE | 2022-01-08 08:42 | NUR ---
Pt assessment complete. Pt is sitting up in the recliner upon entry, prosthetic leg in place to LLE. She is A/O x4. Reports mild chest pain, but breathing is even and unlabored on 2L O2 via NC. Denies N/V. No further needs at this time. Call light within reach.
--- NOTE | 2022-01-08 09:55 | NUR ---
SW met with patient to complete intake. Patient provides that she lives in [facility] with her Angelito [phone]. Patient provides that she utilizes a wheelchair, and is primarily independent with with ADL's. Patient states that she does not utilize any HH services at this time. PCP is Dr. Sabi Wilson, pharmacy is [facility]. Patient states that her DPOA is her daughter Vandana Garg but unable to locate [place] [facility]. Plan is back home with spouse. Patient has not questions or concerns with doing so. SW will continue to follow. DC plan: Home with spouse in [place]
--- NOTE | 2022-01-08 18:08 | NUR ---
Pt rested in her chair through the day. Chest pain minimal, breathing even and unlabored on her 2L O2 via NC. No needs at this time. Call light within reach.
--- NOTE | 2022-01-08 19:45 | NUR ---
Initial shift assessment done- states having some chest pain, center of chest, 06/05--VSs- will give Ultram at this time, also given some Tylenol for temp 99.3- pt is sitting up in wheelchair at this time, Tele on- no changes. requesting some ice chips.
--- NOTE | 2022-01-08 20:40 | NUR ---
Pt was still stating her chest pain is 6/10,, was given the nitro every 5 minutes x3, B/P remained stable at 145/77 and 158/78, also dose of Zofran given for some nausea. Helped back to recliner with assistance, o2 at 2L/nc, Tele on-
--- NOTE | 2022-01-08 21:45 | NUR ---
States chest pain is 4 or 5 /10 - wants something else for pain-- will give the fentanyl as ordered-
--- NOTE | 2022-01-08 22:30 | NUR ---
Sound asleep in recliner-- tele remains on patient.
[2022-01-09 00:37] VITALS: BP 164/62; PULSE 73; TEMP 99.6
--- NOTE | 2022-01-09 01:40 | NUR ---
Has been sleeping well, states feeling better- B/P borderline for apresoline- pt states to hold off and see what the B/P is at 0400,,, denies chest pain
[2022-01-09 04:28] VITALS: BP 179/72; PULSE 79; TEMP 100.9
--- NOTE | 2022-01-09 04:35 | NUR ---
Was given tylenol for temp 100.9, also prn hydralazine given for B/P 179/74- pt denies need for any pain meds at this time-- sitting up in recliner all night
[2022-01-09 08:01] LABS: HEMOGLOBIN 10.4 g/dl (12.5-16.0); MEAN CELL VOLUME 94 fl (80.0-100.0); MEAN CORPUSCULAR HEMOGLOBIN 29 pg (27-31); MEAN CORPUSCULAR HGB CONC 31 g/dl (33.0-37.0); PLATELET COUNT 209 K/mm3 (130-400); RED BLOOD COUNT 3.58 M/mm3 (4.10-5.30); REDCELL DISTRIBUTION WIDTH-CV 16.8 % (11.5-14.5)
[2022-01-09 08:04] LABS: CALCIUM 8.8 mg/dL (8.4-10.2); CREATININE, serum 5.16 mg/dL (0.57-1.11); HEMATOCRIT 33.7 % (37.0-47.0); PHOSPHOROUS 3.1 mg/dL (2.3-4.7); POTASSIUM 4.4 mmol/L (3.5-4.5)
[2022-01-09 08:09] VITALS: BP 172/81; PULSE 71; TEMP 98
[2022-01-09 08:55] LABS: INR 2.2 (0.8-3.0); PROTHROMBIN TIME 24.2 SECONDS (9.7-12.8)
[2022-01-09 08:56] LABS: ANISOCYTOSIS 1+; BAND 1 % (0-10); HYPOCHROMIA 3+; LYMPHOCYTE 15 % (20.0-51.0); NEUTROPHILS 73 % (42.0-75.2); PLATELET ESTIMATE NORMAL (NORMAL)
--- NOTE | 2022-01-09 09:24 | NUR ---
Pt assessment complete. Pt sitting up in her wheelchair at this time. She reports pain to back of her neck as well as a headache. Does not report chest pain at this time. Reports she is very tired today. Breakfast at bedside.
[2022-01-09 13:11] VITALS: BP 125/89; PULSE 61; TEMP 100.1
[2022-01-09 16:24] VITALS: BP 171/100; PULSE 69; TEMP 98.8
--- NOTE | 2022-01-09 19:45 | NUR ---
Pt c/o neck and back pain today. Did not report any further chest pain. Decreased appetite, ate dinner only. Fairly drowsy.
--- NOTE | 2022-01-09 20:30 | NUR ---
Initial shift assessment done- Tylenol give for neck/back pain 03/06, also was nauseated- Zofran given, helped back to recliner,, denies chest pain,, Tele on. Afebrile.
[2022-01-09 20:41] VITALS: BP 185/66; PULSE 77; TEMP 98.6
[2022-01-10] VITALS (7 sets, daily range): BP systolic 130–182; BP diastolic 61–82; PULSE 66–100; TEMP 98–99.7
--- NOTE | 2022-01-10 05:52 | NUR ---
Quiet night-- slept in recliner during the night- VSS, afebrile,, was given a tramadol early this morning for back/neck pain,, no chest pain this shift
[2022-01-10 06:59] LABS: INR 2.2 (0.8-3.0); PROTHROMBIN TIME 24.5 SECONDS (9.7-12.8)
[2022-01-10 07:02] LABS: HEMOGLOBIN 10.3 g/dl (12.5-16.0); MEAN CELL VOLUME 92 fl (80.0-100.0); MEAN CORPUSCULAR HEMOGLOBIN 29 pg (27-31); MEAN CORPUSCULAR HGB CONC 31 g/dl (33.0-37.0); MEAN PLATELET VOLUME 10.7 fl (7.4-10.4); PLATELET COUNT 249 K/mm3 (130-400); RED BLOOD COUNT 3.62 M/mm3 (4.10-5.30); REDCELL DISTRIBUTION WIDTH-CV 16.6 % (11.5-14.5)
[2022-01-10 07:05] LABS: HEMATOCRIT 33.2 % (37.0-47.0)
[2022-01-10 07:20] LABS: ALBUMIN 2.9 gm/dL (3.4-4.8); CALCIUM 8.7 mg/dL (8.4-10.2); CREATININE, serum 6.36 mg/dL (0.57-1.11); PHOSPHOROUS 3.6 mg/dL (2.3-4.7); POTASSIUM 4.6 mmol/L (3.5-4.5)
[2022-01-10 08:02] LABS: BAND 28 % (0-10); LYMPHOCYTE 8 % (20.0-51.0); NEUTROPHILS 58 % (42.0-75.2)
[2022-01-10 08:03] LABS: PLATELET ESTIMATE NORMAL (NORMAL)
--- NOTE | 2022-01-10 10:16 | NUR ---
Assessment completed, alert/oriented, vital signs stable, still having intermittent low grade fevers and have notified nephrology, she continues to report chest and back pains that are improved but still present, I gave 1 nitro SL and she stated this seemed to help some, heart RRR/ lungs CTA with no resp.difficulty noted, she is up in recliner, reports she ate a good breakfast, has no other needs at this time, I ahve discussed plan of care with MANJU Ferrara with Nephrology
--- NOTE | 2022-01-10 16:48 | NUR ---
PATIENT MOANED DURING MOST OF THE DIALYSIS TX WITH C/O'S OF CHILLS, RIGHT SHOULDER & BACK PAIN & NAUSEA. TEMP 97.8-98.0F THROUGHOUT TX. APPLIED KPAD TO BACK & RIGHT SHOULDER FOR DISCOMFORT & ZOFRAN ADMINISTERED WHICH RELIEVED NAUSEA. REMOVED 3L OF FLUID. NEXT PLANNED HD TX ON Monday01/12/22.
--- NOTE | 2022-01-10 21:30 | NUR ---
Patient is in the chair, alert and oriented x 4, she is supporting her head over the table. Complains of pain in her back, PRN tramadol provided. Telemetry in place, NSR, 2.5 O2 NC. Assessment completed, medications provided. No further needs at this time. Call light within reach.
--- NOTE | 2022-01-10 21:40 | NUR ---
Pt had schedule coumadin while in notes states it is on hold. Called Dr. Monahan about the 2.5 mg, ordered to provide to patient and call pharamacy to dose the next doses. Richard from pharmacy called and stated he will check that with dayshift.
--- NOTE | 2022-01-10 23:50 | NUR ---
Pt complains of pain 07/06, asks for something stronger. Fentanyl provided.
[2022-01-11 03:16] VITALS: BP 140/78; PULSE 72; TEMP 98.7
--- NOTE | 2022-01-11 06:31 | NUR ---
Patient had intermitent resting. She continues with pain in her back. She stayed all night in the chair. Report will be given to day RN.
[2022-01-11 06:58] LABS: BASO % 0.4 % (0.0-2.0); EOS % 0.2 % (0.0-4.0); GRAN # 3.7 K/mm3 (1.4-6.5); GRAN % 75.9 % (42.2-75.2); HEMOGLOBIN 10.2 g/dl (12.5-16.0); LYMPH # 0.7 K/mm3 (1.2-3.4); LYMPH % 14.7 % (20.0-51.0); MEAN CELL VOLUME 94 fl (80.0-100.0); MEAN CORPUSCULAR HEMOGLOBIN 29 pg (27-31); MEAN CORPUSCULAR HGB CONC 31 g/dl (33.0-37.0); MEAN PLATELET VOLUME 10.1 fl (7.4-10.4); MONO # 0.4 K/mm3 (0.1-0.6); PLATELET COUNT 237 K/mm3 (130-400); RED BLOOD COUNT 3.55 M/mm3 (4.10-5.30); REDCELL DISTRIBUTION WIDTH-CV 16.7 % (11.5-14.5)
[2022-01-11 07:01] LABS: INR 2.5 (0.8-3.0); PROTHROMBIN TIME 28.4 SECONDS (9.7-12.8)
[2022-01-11 07:09] LABS: HEMATOCRIT 33.2 % (37.0-47.0)
[2022-01-11 07:10] LABS: CALCIUM 8.8 mg/dL (8.4-10.2); CREATININE, serum 4.58 mg/dL (0.57-1.11); PHOSPHOROUS 3.8 mg/dL (2.3-4.7)
--- NOTE | 2022-01-11 07:18 | NUR ---
PT IS SITTING IN RECLINER AT THIS TIME. DISCUSSED WITH HER THE PRODUCT OF HER PAIN LIKELY BEING FROM HOW SHE IS SITTING, SHE AGREED AND STATES THAT SHE HAS A PILLOW THAT CAN HELP WITH THE PAIN IN HER NECK AT HOME. NO COMPLAINT OF PAIN AT THIS TIME.
[2022-01-11 07:35] VITALS: BP 131/75; PULSE 78; TEMP 98.1
[2022-01-11 11:48] VITALS: BP 135/72; PULSE 78; TEMP 98
--- NOTE | 2022-01-11 15:43 | NUR ---
PATIENT TOLERATED HD TX WITH 2.7L OF FLUID REMOVED. PATIENT C/O DISCOMFORT @ BUTTOCKS & NAUSEA WHICH RESOLVED WITH REPOSITIONING, TYLENOL & ZOFRAN. NEXT PLANNED HD TX PENDING LABS & ASSESSMENT.
[2022-01-11 15:50] VITALS: BP 165/65; PULSE 69; TEMP 97.8
--- NOTE | 2022-01-11 16:01 | NUR ---
1548 PATIENT C/O CHEST PAIN POST HD TX ON LEFT SIDE OF CHEST WITHOUT RADIATING, RATED A #8 ON PAIN SCALE. NURSE THOMAS IN TO ASSESS THE PATIENT & ADMINISTERED NITRO SL X2. 1600 PATIENT DENIES CHEST PAIN, RESTING IN DIALYSIS CHAIR WITH O2 @ 2.5L VIA NC, TELEMETRY IN PLACE & VSS.
[2022-01-11 20:37] VITALS: BP 136/89; PULSE 69; TEMP 97.7
--- NOTE | 2022-01-11 21:30 | NUR ---
Initial shift assessment done- sitting in wheelchair relaxing- denies chest pain, having some neck/back pain--can have more tylenol at 2200,, pt ok with this. tele on, L/BKA- has prosthesis on
[2022-01-11 23:38] VITALS: BP 140/70; PULSE 70; TEMP 97.9
[2022-01-12 04:30] VITALS: BP 152/56; PULSE 67; TEMP 98.5
--- NOTE | 2022-01-12 05:03 | NUR ---
Has been sleeping well since decided to sleep in the bed around 0130- was given tramadol at that time for neck/back pain. VSS
[2022-01-12 07:41] VITALS: BP 150/59; PULSE 77; TEMP 98.8
--- NOTE | 2022-01-12 09:14 | NUR ---
ROD met with the patient to follow up and review discharge plan. The patient states that she is doing. She has a pain in her side today and is unsure if she will receive dialysis again today or not. The patient confirms that she still plans on returning home with her upon discharge. *Discharge plan: home with *
[2022-01-12 11:28] VITALS: BP 132/57; PULSE 63; TEMP 98.2
[2022-01-12] MEDS ORDERED: COUMADIN 1MG1 MG/TAB PO (15:38)
[2022-01-12] MEDS ORDERED: IMDUR 30MG30 MG/TAB PO (15:40)
[2022-01-12] MEDS ORDERED: RANEXA 500MG T500 MG PO (15:41)
[2022-01-12 16:00] VITALS: BP 152/56; PULSE 66; TEMP 98.1
== END 2022-01-12 16:00 | disposition home or self-care (01) | DRG 304 ==
LOC: COL.ER 15:40 → MEDICAL 18:10
PROVIDERS: Personal Emergency Response Attendant; ADMIT Internal Medicine Nephrology
PROC: 5A1D70Z Performance of Urinary Filtration, Intermittent, Less than 6 Hours Per Day (ICD-10-PCS; principal; 2022-01-06)
DX: I16.0 Hypertensive urgency (principal); N18.6 End stage renal disease; I24.8 Other forms of acute ischemic heart disease; R07.89 Other chest pain; E78.5 Hyperlipidemia, unspecified; I12.0 Hypertensive chronic kidney disease with stage 5 chronic kidney disease or end stage renal disease; J45.909 Unspecified asthma, uncomplicated; E11.22 Type 2 diabetes mellitus with diabetic chronic kidney disease; M10.9 Gout, unspecified; G40.909 Epilepsy, unspecified, not intractable, without status epilepticus; E11.51 Type 2 diabetes mellitus with diabetic peripheral angiopathy without gangrene; M19.90 Unspecified osteoarthritis, unspecified site; D63.1 Anemia in chronic kidney disease; E83.39 Other disorders of phosphorus metabolism; I48.0 Paroxysmal atrial fibrillation; E21.3 Hyperparathyroidism, unspecified; I25.119 Atherosclerotic heart disease of native coronary artery with unspecified angina pectoris; Z86.73 Personal history of transient ischemic attack (TIA), and cerebral infarction without residual deficits; Z88.0 Allergy status to penicillin; Z88.2 Allergy status to sulfonamides; Z99.2 Dependence on renal dialysis; Z95.1 Presence of aortocoronary bypass graft; Z95.5 Presence of coronary angioplasty implant and graft; Z89.512 Acquired absence of left leg below knee; Z79.01 Long term (current) use of anticoagulants; Z79.4 Long term (current) use of insulin; Z89.511 Acquired absence of right leg below knee
CPT/HCPCS: OP; G0378; J0360; J1644; J2405; J3010; J7030; Q5105

== ENCOUNTER 2022-01-13 15:44 | Emergency (ER) | payer MEDICARE, OTHER ==
[~2022-01-13] VITALS: Ht 152.4 cm; Wt 70.5 kg
[~2022-01-13 15:44] MED LIST changes: +IMDUR 30MG30 MG/TAB PO
[2022-01-13 15:47] VITALS: TEMP 97.9
[2022-01-13 16:10] LABS: BASO % 0.4 % (0.0-2.0); EOS # 0.1 K/mm3 (0.0-0.7); EOS % 2.3 % (0.0-4.0); GRAN # 3.5 K/mm3 (1.4-6.5); GRAN % 72.4 % (42.2-75.2); HEMATOCRIT 33.7 % (37.0-47.0); HEMOGLOBIN 10.1 g/dl (12.5-16.0); LYMPH # 0.8 K/mm3 (1.2-3.4); LYMPH % 17.1 % (20.0-51.0); MEAN CELL VOLUME 95 fl (80.0-100.0); MEAN CORPUSCULAR HEMOGLOBIN 28 pg (27-31); MEAN CORPUSCULAR HGB CONC 30 g/dl (33.0-37.0); MONO # 0.3 K/mm3 (0.1-0.6); MONO % 6.6 % (1.7-9.3); PLATELET COUNT 241 K/mm3 (130-400); RED BLOOD COUNT 3.56 M/mm3 (4.10-5.30); REDCELL DISTRIBUTION WIDTH-CV 17.1 % (11.5-14.5)
[2022-01-13 16:20] LABS: INR 3.5 (0.8-3.0); PROTHROMBIN TIME 38.8 SECONDS (9.7-12.8)
[2022-01-13 16:34] LABS: ALBUMIN 2.8 gm/dL (3.4-4.8); BILIRUBIN,TOTAL 0.4 mg/dL (0.2-1.2); CALCIUM 8.9 mg/dL (8.4-10.2); CREATININE, serum 3.12 mg/dL (0.57-1.11); POTASSIUM 3.8 mmol/L (3.5-4.5); TOTAL PROTEIN 6.8 gm/dL (6.2-8.1)
[2022-01-13 16:41] LABS: TROPONIN-I 0.241 ng/mL (0.00-0.033)
[2022-01-13 18:41] VITALS: BP 155/88; PULSE 75
== END 2022-01-13 18:41 | disposition short-term general hospital (02) ==
LOC: COL.ER 15:44
PROVIDERS: Emergency Medicine
DX: R07.89 Other chest pain (principal); I12.0 Hypertensive chronic kidney disease with stage 5 chronic kidney disease or end stage renal disease; E11.22 Type 2 diabetes mellitus with diabetic chronic kidney disease; D63.1 Anemia in chronic kidney disease; N18.6 End stage renal disease; J45.909 Unspecified asthma, uncomplicated; G40.909 Epilepsy, unspecified, not intractable, without status epilepticus; Z99.2 Dependence on renal dialysis; Z86.73 Personal history of transient ischemic attack (TIA), and cerebral infarction without residual deficits; Z95.1 Presence of aortocoronary bypass graft; Z79.02 Long term (current) use of antithrombotics/antiplatelets; Z79.899 Other long term (current) drug therapy; Z79.01 Long term (current) use of anticoagulants; Z79.4 Long term (current) use of insulin

== ENCOUNTER 2022-02-07 18:20 | Observation (INO) | payer MEDICARE, OTHER ==
[~2022-02-07] VITALS: Ht 152.4 cm; Wt 70.5 kg
[2022-02-07 19:27] LABS: BASO # 0.1 K/mm3 (0.0-0.2); BASO % 0.8 % (0.0-2.0); EOS # 0.4 K/mm3 (0.0-0.7); EOS % 6.7 % (0.0-4.0); GRAN # 4.1 K/mm3 (1.4-6.5); GRAN % 62.3 % (42.2-75.2); HEMOGLOBIN 10.6 g/dl (12.5-16.0); LYMPH # 1.5 K/mm3 (1.2-3.4); LYMPH % 22.2 % (20.0-51.0); MEAN CELL VOLUME 107 fl (80.0-100.0); MEAN CORPUSCULAR HEMOGLOBIN 32 pg (27-31); MEAN CORPUSCULAR HGB CONC 30 g/dl (33.0-37.0); MEAN PLATELET VOLUME 10.4 fl (7.4-10.4); MONO # 0.5 K/mm3 (0.1-0.6); MONO % 7.4 % (1.7-9.3); PLATELET COUNT 172 K/mm3 (130-400); RED BLOOD COUNT 3.34 M/mm3 (4.10-5.30); REDCELL DISTRIBUTION WIDTH-CV 20.3 % (11.5-14.5)
[2022-02-07 19:30] LABS: HEMATOCRIT 35.7 % (37.0-47.0)
[2022-02-07 19:30] LABS: INR 3.4 (0.8-3.0); PROTHROMBIN TIME 38.6 SECONDS (9.7-12.8)
[2022-02-07 19:47] LABS: ALBUMIN 3.4 gm/dL (3.4-4.8); BILIRUBIN,TOTAL 0.3 mg/dL (0.2-1.2); CALCIUM 8.8 mg/dL (8.4-10.2); CREATININE, serum 5.53 mg/dL (0.57-1.11); POTASSIUM 4.4 mmol/L (3.5-4.5); TOTAL PROTEIN 6.7 gm/dL (6.2-8.1)
[2022-02-07 19:55] LABS: TROPONIN-I 0.026 ng/mL (0.00-0.033)
[2022-02-07] MEDS ORDERED: PLAVIX 75MG TAB75 MG PO (22:30)
[2022-02-07] MEDS ORDERED: COREG 25MG25 MG/TAB PO (22:33)
[2022-02-07] MEDS ORDERED: COUMADIN 5MG5 MG/TAB PO (22:42)
[2022-02-07] MEDS ORDERED: COUMADIN 6MG6 MG/TAB PO (22:43)
[2022-02-07] MEDS ORDERED: IMDUR 60MG60 MG/TAB PO (22:44)
[2022-02-07] MEDS ORDERED: TYLENOL 500MG500 MG PO (22:48)
[2022-02-07] MEDS ORDERED: ULTRAM 50MG TAB50 MG PO (22:50)
[2022-02-07] MEDS ORDERED: ZYRTEC 10MG10 MG PO (22:51)
[2022-02-07] MEDS ORDERED: THEO-24 20200 MG/CAP PO (22:52)
[2022-02-08] VITALS (8 sets, daily range): BP systolic 123–196; BP diastolic 52–79; PULSE 59–75; TEMP 97.6–98
[2022-02-08] MEDS ORDERED: DULCOLAX STOOL100 MG PO (01:33)
[2022-02-08] MEDS ORDERED: DEMADEX100 MG PO (06:30)
[2022-02-08 06:59] LABS: BASO % 0.5 % (0.0-2.0); EOS # 0.4 K/mm3 (0.0-0.7); EOS % 6.6 % (0.0-4.0); GRAN # 4.1 K/mm3 (1.4-6.5); GRAN % 61.2 % (42.2-75.2); HEMOGLOBIN 10.3 g/dl (12.5-16.0); LYMPH # 1.5 K/mm3 (1.2-3.4); LYMPH % 22.8 % (20.0-51.0); MEAN CELL VOLUME 110 fl (80.0-100.0); MEAN CORPUSCULAR HEMOGLOBIN 32 pg (27-31); MEAN CORPUSCULAR HGB CONC 29 g/dl (33.0-37.0); MEAN PLATELET VOLUME 10.8 fl (7.4-10.4); MONO # 0.6 K/mm3 (0.1-0.6); MONO % 8.4 % (1.7-9.3); PLATELET COUNT 179 K/mm3 (130-400); RED BLOOD COUNT 3.27 M/mm3 (4.10-5.30); REDCELL DISTRIBUTION WIDTH-CV 20.4 % (11.5-14.5)
[2022-02-08 07:02] LABS: ALBUMIN 3.1 gm/dL (3.4-4.8); CALCIUM 8.6 mg/dL (8.4-10.2); CREATININE, serum 6.04 mg/dL (0.57-1.11); PHOSPHOROUS 1.9 mg/dL (2.3-4.7); POTASSIUM 4.4 mmol/L (3.5-4.5)
[2022-02-08 07:09] LABS: INR 3.6 (0.8-3.0); PROTHROMBIN TIME 40.7 SECONDS (9.7-12.8)
[2022-02-08 08:01] LABS: HEMATOCRIT 35.9 % (37.0-47.0)
[2022-02-09 04:00] VITALS: BP 128/52; PULSE 66; TEMP 97.2
[2022-02-09 06:36] LABS: INR 2.2 (0.8-3.0); PROTHROMBIN TIME 24.4 SECONDS (9.7-12.8)
[2022-02-09 06:37] LABS: ALBUMIN 3.2 gm/dL (3.4-4.8); CALCIUM 8.8 mg/dL (8.4-10.2); CREATININE, serum 4.29 mg/dL (0.57-1.11); PHOSPHOROUS 1.9 mg/dL (2.3-4.7); POTASSIUM 3.9 mmol/L (3.5-4.5)
[2022-02-09 06:38] LABS: BASO % 0.6 % (0.0-2.0); EOS # 0.5 K/mm3 (0.0-0.7); EOS % 6.4 % (0.0-4.0); GRAN # 3.9 K/mm3 (1.4-6.5); GRAN % 55.5 % (42.2-75.2); HEMOGLOBIN 10.5 g/dl (12.5-16.0); LYMPH # 1.8 K/mm3 (1.2-3.4); LYMPH % 25.4 % (20.0-51.0); MEAN CELL VOLUME 108 fl (80.0-100.0); MEAN CORPUSCULAR HEMOGLOBIN 32 pg (27-31); MEAN CORPUSCULAR HGB CONC 30 g/dl (33.0-37.0); MEAN PLATELET VOLUME 10.9 fl (7.4-10.4); MONO # 0.8 K/mm3 (0.1-0.6); MONO % 11.7 % (1.7-9.3); PLATELET COUNT 173 K/mm3 (130-400); REDCELL DISTRIBUTION WIDTH-CV 20.4 % (11.5-14.5)
[2022-02-09 06:47] LABS: HEMATOCRIT 35.6 % (37.0-47.0)
[2022-02-09 07:19] VITALS: BP 154/57; PULSE 62; TEMP 97.8
[2022-02-09 11:27] VITALS: BP 109/65; PULSE 63; TEMP 98
[2022-02-09] MEDS ORDERED: COUMADIN 22.5 MG/TAB PO (12:54)
== END 2022-02-09 14:10 | disposition home or self-care (01) ==
LOC: COL.ER 18:20 → MEDICAL 20:08
PROVIDERS: Physician Assistant; ADMIT Internal Medicine Nephrology
DX: I61.0 Nontraumatic intracerebral hemorrhage in hemisphere, subcortical (principal); I20.9 Angina pectoris, unspecified; I12.0 Hypertensive chronic kidney disease with stage 5 chronic kidney disease or end stage renal disease; N18.6 End stage renal disease; E11.22 Type 2 diabetes mellitus with diabetic chronic kidney disease; I48.91 Unspecified atrial fibrillation; Z99.2 Dependence on renal dialysis; Z79.899 Other long term (current) drug therapy
CPT/HCPCS: G0378; J1815; J7030; Q5105

== ENCOUNTER 2022-02-13 14:22 | Emergency (ER) | payer MEDICARE, OTHER ==
[~2022-02-13] VITALS: Ht 152.4 cm; Wt 69.0 kg
[~2022-02-13 14:22] MED LIST changes: +COUMADIN 22.5 MG/TAB PO; +DULCOLAX STOOL100 MG PO
[2022-02-13 14:35] VITALS: TEMP 98.5
[2022-02-13 15:30] VITALS: BP 201/96; PULSE 69
== END 2022-02-13 15:30 | disposition home or self-care (01) ==
LOC: COL.ER 14:22
DX: R06.00 Dyspnea, unspecified (principal); L29.9 Pruritus, unspecified; T46.995A Adverse effect of other agents primarily affecting the cardiovascular system, initial encounter

== ENCOUNTER 2022-03-05 12:35 | Emergency (ER) | payer MEDICARE, OTHER ==
[~2022-03-05] VITALS: Ht 152.4 cm; Wt 68.6 kg
[2022-03-05 12:39] VITALS: TEMP 98.4
[2022-03-05 13:04] LABS: BASO % 0.6 % (0.0-2.0); EOS # 0.3 K/mm3 (0.0-0.7); EOS % 6.1 % (0.0-4.0); GRAN # 3.1 K/mm3 (1.4-6.5); GRAN % 59.3 % (42.2-75.2); HEMATOCRIT 39.2 % (37.0-47.0); HEMOGLOBIN 12.5 g/dl (12.5-16.0); LYMPH # 1.3 K/mm3 (1.2-3.4); LYMPH % 24.2 % (20.0-51.0); MEAN CELL VOLUME 101 fl (80.0-100.0); MEAN CORPUSCULAR HEMOGLOBIN 32 pg (27-31); MEAN CORPUSCULAR HGB CONC 32 g/dl (33.0-37.0); MEAN PLATELET VOLUME 10.7 fl (7.4-10.4); MONO # 0.5 K/mm3 (0.1-0.6); MONO % 9.6 % (1.7-9.3); PLATELET COUNT 190 K/mm3 (130-400); RED BLOOD COUNT 3.89 M/mm3 (4.10-5.30)
[2022-03-05 13:31] LABS: ALBUMIN 3.5 gm/dL (3.4-4.8); BILIRUBIN,TOTAL 0.3 mg/dL (0.2-1.2); CALCIUM 9.2 mg/dL (8.4-10.2); CREATININE, serum 6.04 mg/dL (0.57-1.11); POTASSIUM 5.3 mmol/L (3.5-4.5)
[2022-03-05 13:37] LABS: TROPONIN-I 0.027 ng/mL (0.00-0.033)
[2022-03-05 14:01] VITALS: BP 186/95; PULSE 65
== END 2022-03-05 14:01 | disposition home or self-care (01) ==
LOC: COL.ER 12:35
PROVIDERS: Physician Assistant
DX: I12.0 Hypertensive chronic kidney disease with stage 5 chronic kidney disease or end stage renal disease (principal); E11.22 Type 2 diabetes mellitus with diabetic chronic kidney disease; N18.6 End stage renal disease; R07.9 Chest pain, unspecified; E11.21 Type 2 diabetes mellitus with diabetic nephropathy; E11.42 Type 2 diabetes mellitus with diabetic polyneuropathy; Z99.2 Dependence on renal dialysis; Z79.4 Long term (current) use of insulin

== ENCOUNTER 2022-05-11 21:44 | Emergency (ER) | payer MEDICARE, OTHER ==
[~2022-05-11] VITALS: Ht 152.4 cm; Wt 72.7 kg
[2022-05-11 22:16] LABS: BASO % 0.3 % (0.0-2.0); EOS # 0.2 K/mm3 (0.0-0.7); EOS % 2.9 % (0.0-4.0); GRAN # 4.3 K/mm3 (1.4-6.5); GRAN % 69.8 % (42.2-75.2); HEMOGLOBIN 10.7 g/dl (12.5-16.0); LYMPH # 1.2 K/mm3 (1.2-3.4); MEAN CELL VOLUME 93 fl (80.0-100.0); MEAN CORPUSCULAR HEMOGLOBIN 30 pg (27-31); MEAN CORPUSCULAR HGB CONC 32 g/dl (33.0-37.0); MEAN PLATELET VOLUME 10.9 fl (7.4-10.4); MONO # 0.5 K/mm3 (0.1-0.6); MONO % 7.5 % (1.7-9.3); PLATELET COUNT 134 K/mm3 (130-400); RED BLOOD COUNT 3.62 M/mm3 (4.10-5.30); REDCELL DISTRIBUTION WIDTH-CV 14.8 % (11.5-14.5)
[2022-05-11 22:18] LABS: HEMATOCRIT 33.6 % (37.0-47.0)
[2022-05-11 22:22] LABS: INR 2.9 (0.8-3.0); PROTHROMBIN TIME 33.3 SECONDS (9.7-12.8)
[2022-05-11] MEDS ORDERED: RENVELA800 MG PO (22:27)
[2022-05-11] MEDS ORDERED: COUMADIN 5MG5 MG/TAB PO (22:29)
[2022-05-11] MEDS ORDERED: COUMADIN 6MG6 MG/TAB PO (22:30)
[2022-05-11] MEDS ORDERED: SPIRIVA RE2.5 MCG/Ac IH (22:31)
[2022-05-11] MEDS ORDERED: VITAMIN B COMPL1 SGL PO (22:32)
[2022-05-11] MEDS ORDERED: VITAMIN E 400 U4001 PO (22:33)
[2022-05-11 22:35] LABS: ALBUMIN 3.6 gm/dL (3.4-4.8); BILIRUBIN,TOTAL 0.4 mg/dL (0.2-1.2); CALCIUM 9.2 mg/dL (8.4-10.2); CREATININE, serum 5.67 mg/dL (0.57-1.11); POTASSIUM 4.3 mmol/L (3.5-4.5)
[2022-05-11 22:40] LABS: TROPONIN-I 0.028 ng/mL (0.00-0.033)
[2022-05-12 01:31] VITALS: TEMP 98.1
[2022-05-12 06:41] VITALS: BP 178/86; PULSE 73
== END 2022-05-12 06:43 | disposition home or self-care (01) ==
LOC: COL.ER 21:44
PROVIDERS: Personal Emergency Response Attendant
DX: R07.89 Other chest pain (principal); Z28.310 Unvaccinated for COVID-19
CPT/HCPCS: J0360; J2405; J3010

== ENCOUNTER 2022-05-13 22:35 | Observation (INO) | payer MEDICARE, OTHER ==
[~2022-05-13] VITALS: Ht 152.4 cm; Wt 65.5 kg
[~2022-05-13 22:35] MED LIST changes: +VITAMIN B COMPL1 SGL PO; +VITAMIN E 400 U4001 PO
[2022-05-13 23:01] LABS: BASO % 0.5 % (0.0-2.0); EOS # 0.4 K/mm3 (0.0-0.7); EOS % 4.2 % (0.0-4.0); GRAN # 5.5 K/mm3 (1.4-6.5); GRAN % 64.3 % (42.2-75.2); HEMOGLOBIN 11.6 g/dl (12.5-16.0); LYMPH # 1.8 K/mm3 (1.2-3.4); LYMPH % 20.7 % (20.0-51.0); MEAN CELL VOLUME 94 fl (80.0-100.0); MEAN CORPUSCULAR HEMOGLOBIN 30 pg (27-31); MEAN CORPUSCULAR HGB CONC 32 g/dl (33.0-37.0); MEAN PLATELET VOLUME 10.3 fl (7.4-10.4); MONO # 0.8 K/mm3 (0.1-0.6); MONO % 9.8 % (1.7-9.3); PLATELET COUNT 164 K/mm3 (130-400); RED BLOOD COUNT 3.92 M/mm3 (4.10-5.30); REDCELL DISTRIBUTION WIDTH-CV 15.5 % (11.5-14.5)
[2022-05-13 23:05] LABS: HEMATOCRIT 36.7 % (37.0-47.0)
[2022-05-13 23:16] LABS: ALBUMIN 3.8 gm/dL (3.4-4.8); BILIRUBIN,TOTAL 0.5 mg/dL (0.2-1.2); CALCIUM 9.7 mg/dL (8.4-10.2); CREATININE, serum 5.61 mg/dL (0.57-1.11); TOTAL PROTEIN 7.4 gm/dL (6.2-8.1)
[2022-05-13 23:32] LABS: TROPONIN-I 0.05 ng/mL (0.00-0.033)
[2022-05-14] MEDS ORDERED: IMDUR 30MG30 MG/TAB PO (01:45)
--- NOTE | 2022-05-14 02:59 | NUR ---
PT. TO ROOM 324 FROM ED FOR CHEST PAIN. ADMISSION ASSESSMENT COMPLETE. PT. A&O. PT. HAS LBK AMPUTATION. NO SKIN CONDITIONS OTHER THAN A BANDAID TO RIGHT WATERS. PT. HAS A FISTULA TO LEFT FOREARM. BRUIT ASCULATED AND THRILL PALPATED. COMPLAINS OF INTERMITTENT PAIN TO MIDLINE CHEST. CALL LIGHT IN REACH. NO FURHTER NEEDS AT THIS TIME.
[2022-05-14 04:20] VITALS: BP 189/58; PULSE 64; TEMP 98.8
--- NOTE | 2022-05-14 06:34 | NUR ---
ATTEMPT TO CONTACT DR. DIAZ WITHOUT SUCCESS. WILL INFORM DAY SHIFT NURSE.
[2022-05-14 07:37] VITALS: BP 207/72; PULSE 64; TEMP 98.1
--- NOTE | 2022-05-14 07:44 | NUR ---
Patient sitting up up in the recliner, A&Ox4. VSS 2L NC O2, no reported SOB. BP elevated. IV CDI. Patient independent with repositioning and feeds. Call light within reach
[2022-05-14 08:52] LABS: PROTHROMBIN TIME 23.6 SECONDS (9.7-12.8)
[2022-05-14 08:57] LABS: ALBUMIN 3.7 gm/dL (3.4-4.8); BILIRUBIN,TOTAL 0.5 mg/dL (0.2-1.2); CALCIUM 9.5 mg/dL (8.4-10.2); CREATININE, serum 6.13 mg/dL (0.57-1.11); TOTAL PROTEIN 7.1 gm/dL (6.2-8.1)
--- NOTE | 2022-05-14 10:01 | NUR ---
Warfarin Initial Dosing Pharmacy Note Ordering Provider: Donnell Monahan MD Indication: Atrial fibrillation LABS: INR 2 Recommendation: Warfarin 5 mg po qHS. Pharmacy will continue to closely monitor and check daily INR levels.
[2022-05-14 12:00] VITALS: BP 157/58; PULSE 58; TEMP 98.2
--- NOTE | 2022-05-14 14:44 | NUR ---
SW met with the pt to complete intake. PT lives at home with her , beverly, [phone]. Pt is independnent on all ADLS but does use walker, wheelchair, nebulizer,and glucometer. PCP is Orly gonzalez and gets medications from [place] and has no trouble obtaining them. Pt reports DPOA-HC is her daughter. No other needs at this time. DC: Home w/family help.
[2022-05-14 15:24] VITALS: BP 196/71; PULSE 66; TEMP 98.3
--- NOTE | 2022-05-14 17:33 | NUR ---
Patient sitting up in the recliner, A&Ox4. VSS 2L NC O2. No reported SOB. BP hypertensive. Scheduled medications given. IV CDI. Denies pain and discomfort. Call light within reach
[2022-05-14 19:55] VITALS: BP 182/68; PULSE 64; TEMP 98.7
[2022-05-15 00:32] VITALS: BP 165/63; PULSE 81; TEMP 97.8
[2022-05-15 04:41] VITALS: BP 187/68; PULSE 57; TEMP 97.7
--- NOTE | 2022-05-15 07:00 | NUR ---
PAtient sitting up in her wheelchair. A&Ox4. VSS 2L NC O2. . No IV access, doctor aware. Fistula CDI. Denies pain and discomfort. Call light within reach
[2022-05-15 07:19] LABS: ALBUMIN 3.3 gm/dL (3.4-4.8); CALCIUM 9.3 mg/dL (8.4-10.2); CREATININE, serum 7.26 mg/dL (0.57-1.11); PHOSPHOROUS 3.5 mg/dL (2.3-4.7); POTASSIUM 4.3 mmol/L (3.5-4.5)
[2022-05-15 07:43] VITALS: BP 174/74; PULSE 58; TEMP 97.8
[2022-05-15 08:18] LABS: BASO % 0.4 % (0.0-2.0); EOS # 0.4 K/mm3 (0.0-0.7); EOS % 5.8 % (0.0-4.0); HEMOGLOBIN 10.8 g/dl (12.5-16.0); LYMPH # 1.8 K/mm3 (1.2-3.4); LYMPH % 25.8 % (20.0-51.0); MEAN CORPUSCULAR HEMOGLOBIN 30 pg (27-31); MEAN CORPUSCULAR HGB CONC 30 g/dl (33.0-37.0); MEAN PLATELET VOLUME 11.1 fl (7.4-10.4); MONO # 0.8 K/mm3 (0.1-0.6); MONO % 10.6 % (1.7-9.3); PLATELET COUNT 158 K/mm3 (130-400); RED BLOOD COUNT 3.64 M/mm3 (4.10-5.30)
[2022-05-15 08:32] LABS: HEMATOCRIT 35.9 % (37.0-47.0); MEAN CELL VOLUME 99 fl (80.0-100.0)
[2022-05-15 13:43] LABS: INR 1.6 (0.8-3.0); PROTHROMBIN TIME 18.4 SECONDS (9.7-12.8)
--- NOTE | 2022-05-15 16:10 | NUR ---
Warfarin Follow-up Pharmacy Note Current regimen: Warfarin 5 mg po qHS LABS: INR 1.6 Changes in therapy: Will give Warfarin 6 mg po qHS x1 tonight. Pharmacy will continue to closely monitor daily INR levels.
[2022-05-15 16:11] VITALS: BP 151/88; PULSE 63
--- NOTE | 2022-05-15 17:36 | NUR ---
Patient sitting up in the wheelchair. A&Ox4. VSS 2L NC O2. No reported SOB. Fistula CDI. Patient independent with feeds and repositioning. Call light within reach
[2022-05-15 20:10] VITALS: BP 159/56; PULSE 63; TEMP 97.7
[2022-05-15 23:55] VITALS: BP 150/62; PULSE 66; TEMP 98.1
[2022-05-16 03:36] VITALS: BP 142/51; PULSE 59; TEMP 98
[2022-05-16 06:29] LABS: BASO % 0.4 % (0.0-2.0); EOS # 0.4 K/mm3 (0.0-0.7); EOS % 5.3 % (0.0-4.0); GRAN # 3.9 K/mm3 (1.4-6.5); GRAN % 57.8 % (42.2-75.2); LYMPH # 1.7 K/mm3 (1.2-3.4); LYMPH % 24.5 % (20.0-51.0); MEAN CELL VOLUME 98 fl (80.0-100.0); MEAN CORPUSCULAR HEMOGLOBIN 30 pg (27-31); MEAN CORPUSCULAR HGB CONC 30 g/dl (33.0-37.0); MEAN PLATELET VOLUME 11.1 fl (7.4-10.4); MONO # 0.8 K/mm3 (0.1-0.6); MONO % 11.4 % (1.7-9.3); PLATELET COUNT 137 K/mm3 (130-400); RED BLOOD COUNT 3.73 M/mm3 (4.10-5.30)
[2022-05-16 06:32] LABS: HEMATOCRIT 36.6 % (37.0-47.0)
[2022-05-16 06:38] LABS: INR 1.7 (0.8-3.0); PROTHROMBIN TIME 19.2 SECONDS (9.7-12.8)
[2022-05-16 06:43] LABS: ALBUMIN 3.3 gm/dL (3.4-4.8); CALCIUM 9.4 mg/dL (8.4-10.2); CREATININE, serum 5.23 mg/dL (0.57-1.11); PHOSPHOROUS 2.9 mg/dL (2.3-4.7); POTASSIUM 4.4 mmol/L (3.5-4.5)
[2022-05-16 07:12] VITALS: BP 142/51; PULSE 59; TEMP 98
[2022-05-16 07:34] VITALS: BP 195/70; PULSE 57; TEMP 97.8
--- NOTE | 2022-05-16 08:15 | NUR ---
Scheduled medications given. Shift assessment preformed. BP elevated, prn apresoline given. All other VSS. Patient A&O. Patient denies any pain, discomfort, SOA, or further needs at this time. Patient currenlty requiring 2L of O2 via nasal cannula. Call light in reach.
[2022-05-16 11:42] VITALS: BP 155/67; PULSE 54; TEMP 98
[2022-05-16] MEDS ORDERED: CATAPRES 0.1MG0.1 MG PO (12:35)
[2022-05-16] MEDS ORDERED: SEN-O-TABS8.6 MG PO (12:37)
[2022-05-16] MEDS ORDERED: RANEXA 500MG T500 MG PO ×2 (13:12→13:13)
== END 2022-05-16 14:55 | disposition home or self-care (01) ==
LOC: COL.ER 22:35 → SURG 05-14 00:29
PROVIDERS: Physician Assistant; Registered Nurse; ADMIT Internal Medicine Nephrology
DX: R07.9 Chest pain, unspecified (principal); R77.8 Other specified abnormalities of plasma proteins; I16.0 Hypertensive urgency; I48.91 Unspecified atrial fibrillation; I12.0 Hypertensive chronic kidney disease with stage 5 chronic kidney disease or end stage renal disease; E11.22 Type 2 diabetes mellitus with diabetic chronic kidney disease; D63.1 Anemia in chronic kidney disease; E11.319 Type 2 diabetes mellitus with unspecified diabetic retinopathy without macular edema; E11.40 Type 2 diabetes mellitus with diabetic neuropathy, unspecified; E11.21 Type 2 diabetes mellitus with diabetic nephropathy; N18.6 End stage renal disease; Z99.2 Dependence on renal dialysis; Z89.511 Acquired absence of right leg below knee; Z79.01 Long term (current) use of anticoagulants; Z79.4 Long term (current) use of insulin; Z79.51 Long term (current) use of inhaled steroids; Z95.1 Presence of aortocoronary bypass graft; Z28.310 Unvaccinated for COVID-19; Z28.9 Immunization not carried out for unspecified reason
CPT/HCPCS: A9500; G0378; J0360; J1170; J2405; J3010; J7030; Q5105

== ENCOUNTER 2022-05-23 23:02 | Observation (INO) | payer MEDICARE, OTHER ==
[~2022-05-23] VITALS: Ht 152.4 cm; Wt 75.9 kg
[~2022-05-23 23:02] MED LIST changes: +SEN-O-TABS8.6 MG PO
[2022-05-23 23:31] LABS: BASO % 0.5 % (0.0-2.0); EOS # 0.3 K/mm3 (0.0-0.7); EOS % 5.3 % (0.0-4.0); GRAN # 3.9 K/mm3 (1.4-6.5); GRAN % 62.5 % (42.2-75.2); HEMOGLOBIN 11.3 g/dl (12.5-16.0); LYMPH # 1.5 K/mm3 (1.2-3.4); LYMPH % 23.1 % (20.0-51.0); MEAN CELL VOLUME 93 fl (80.0-100.0); MEAN CORPUSCULAR HEMOGLOBIN 30 pg (27-31); MEAN CORPUSCULAR HGB CONC 32 g/dl (33.0-37.0); MEAN PLATELET VOLUME 10.7 fl (7.4-10.4); MONO # 0.5 K/mm3 (0.1-0.6); MONO % 8.3 % (1.7-9.3); PLATELET COUNT 142 K/mm3 (130-400); RED BLOOD COUNT 3.81 M/mm3 (4.10-5.30); REDCELL DISTRIBUTION WIDTH-CV 16.1 % (11.5-14.5)
[2022-05-23 23:32] LABS: HEMATOCRIT 35.5 % (37.0-47.0)
[2022-05-23 23:50] LABS: ALBUMIN 3.9 gm/dL (3.4-4.8); BILIRUBIN,TOTAL 0.4 mg/dL (0.2-1.2); CALCIUM 9.2 mg/dL (8.4-10.2); CREATININE, serum 7.21 mg/dL (0.57-1.11); TOTAL PROTEIN 7.6 gm/dL (6.2-8.1)
[2022-05-23 23:57] LABS: TROPONIN-I 0.038 ng/mL (0.00-0.033)
[2022-05-24] MEDS ORDERED: MIRALAX PA17 GM/Dose PO ×2 (03:04→03:05)
--- NOTE | 2022-05-24 03:38 | NUR ---
Pt to the floor from ED via wheelchair and accompanied by RN at approximately 0230. Assessment completed without difficulty and is A&Ox4. Pt oriented to room. No complaints of pain at this time. All other needs met, call light within reach.
[2022-05-24 03:48] VITALS: BP 142/115; PULSE 121; TEMP 97.9
[2022-05-24 04:55] VITALS: BP 103/63; PULSE 72; TEMP 97.4
[2022-05-24 07:40] VITALS: BP 215/84; PULSE 69; TEMP 97.7
--- NOTE | 2022-05-24 08:00 | NUR ---
Patient is sitting in chair, states she continues with chest pain 4/10. High blood pressure 200's (hydralazine provided). She did not have a good night, unable to sleep. O2 sat 95% with 0.5L NC, She asks for 2L. Assessment completed, no other needs at this time. Call light within reach.
--- NOTE | 2022-05-24 10:19 | NUR ---
Bone Density Technician met with patient to discuss discharge planning. Patient advised he was just here last week. Patient sees Dr. Wyman for primary care and obtains medications from [facility] with no difficulties. Patient uses a wheelchair for ambulation and also has home oxygen which she believes she obtained through [facility] [employer]. Patient reports independence with transfers in/out of her wheelchair and all other ADLS. Patient advised she does all the house cleaning. Patient lives in [place] with her , Angelito and advised her daughter, Vandana lives near [place] and is very involved. Patient reports Vandana is her DPOA-HC. Patient plans to return home at time of discharge. SW discussed Home Health services with patient who advised she does not feel she needs these services at this time. 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 Discharge Plan: Home
--- NOTE | 2022-05-24 11:11 | NUR ---
Patient taken to dialysis at this time.
[2022-05-24 11:18] LABS: INR 3.3 (0.8-3.0); PROTHROMBIN TIME 38.5 SECONDS (9.7-12.8)
[2022-05-24 11:29] LABS: ALBUMIN 3.8 gm/dL (3.4-4.8); CALCIUM 9.4 mg/dL (8.4-10.2); CREATININE, serum 7.85 mg/dL (0.57-1.11); PHOSPHOROUS 3.4 mg/dL (2.3-4.7); POTASSIUM 3.7 mmol/L (3.5-4.5)
--- NOTE | 2022-05-24 11:34 | NUR ---
Patient complaines of chest pein 07/06, first nitro provided.
--- NOTE | 2022-05-24 14:50 | NUR ---
Patient came back from dialysis at this time.
[2022-05-24 15:46] VITALS: BP 160/75; PULSE 68; TEMP 97.7
--- NOTE | 2022-05-24 17:58 | NUR ---
Patient has been stable along the day, she had dialysis, was able to eat, and now is in the chair. Continues with HTN. Report will be given to night RN.
[2022-05-24 19:55] VITALS: BP 178/82; PULSE 75; TEMP 98.2
[2022-05-24 23:28] VITALS: BP 157/74; PULSE 72; TEMP 98.4
[2022-05-25 04:34] VITALS: BP 177/79; PULSE 71; TEMP 98.2
[2022-05-25 05:58] LABS: BASO % 0.5 % (0.0-2.0); EOS # 0.4 K/mm3 (0.0-0.7); EOS % 4.8 % (0.0-4.0); GRAN # 4.5 K/mm3 (1.4-6.5); GRAN % 60.6 % (42.2-75.2); HEMATOCRIT 38.5 % (37.0-47.0); LYMPH # 1.7 K/mm3 (1.2-3.4); LYMPH % 22.3 % (20.0-51.0); MEAN CELL VOLUME 96 fl (80.0-100.0); MEAN CORPUSCULAR HEMOGLOBIN 30 pg (27-31); MEAN CORPUSCULAR HGB CONC 31 g/dl (33.0-37.0); MEAN PLATELET VOLUME 10.6 fl (7.4-10.4); MONO # 0.9 K/mm3 (0.1-0.6); MONO % 11.4 % (1.7-9.3); PLATELET COUNT 173 K/mm3 (130-400); RED BLOOD COUNT 4.02 M/mm3 (4.10-5.30); REDCELL DISTRIBUTION WIDTH-CV 17.2 % (11.5-14.5)
[2022-05-25 06:12] LABS: ALBUMIN 3.7 gm/dL (3.4-4.8); CALCIUM 9.6 mg/dL (8.4-10.2); CREATININE, serum 5.46 mg/dL (0.57-1.11); PHOSPHOROUS 3.9 mg/dL (2.3-4.7); POTASSIUM 4.2 mmol/L (3.5-4.5)
[2022-05-25 07:35] VITALS: BP 149/85; PULSE 72; TEMP 97.7
--- NOTE | 2022-05-25 08:32 | NUR ---
Patient is resting in chair watching TV. Alert and oriented x 4, VSS, HTN SBP 149, Denies chest pain and stated she had a good night. Telemetry in place, NSR. Assessment completed, meds provided. No other needs at this time. Call light within reach.
[2022-05-25 11:21] VITALS: BP 146/67; PULSE 63; TEMP 97.6
[2022-05-25 12:08] LABS: INR 2.1 (0.8-3.0); PROTHROMBIN TIME 24.2 SECONDS (9.7-12.8)
--- NOTE | 2022-05-25 13:22 | NUR ---
Patient was taken for dialysis.
--- NOTE | 2022-05-25 16:29 | NUR ---
Patient is back from dialysis. States she feels nauseated. Zofran provided.
[2022-05-25 16:33] VITALS: BP 136/57; PULSE 59; TEMP 97.6
--- NOTE | 2022-05-25 18:56 | NUR ---
Patient had dialysis today. Right now resting in her wheelchair. No further complains of naussea or chest pain. Report will be given to moise RN.
[2022-05-25 20:09] VITALS: BP 131/51; PULSE 65; TEMP 97.8
[2022-05-26 00:04] VITALS: BP 146/72; PULSE 73; TEMP 98.1
--- NOTE | 2022-05-26 02:26 | NUR ---
Pt alert and oriented, follows commands, resting quietly in chair. Pt denies chest pain/SOB. On room air during the day, on 2L currently at night. 1500 fluid restriction enforced. Pt tolerating PO. BKA noted on the left side. Pt has an AV fistula in the LFA. Covered with gauze dressing and tape. Thrill palpated and bruit auscultated. Shift assessment performed. Medications administered per orders and education provided. Pt tolerating PO. VS stable. FSBS 253. Lung sounds clear. HR NSR. Minimal urine output. No significant skin issues noted. Pt does not report any questions at this time, will continue to monitor.
[2022-05-26 03:48] VITALS: BP 126/78; PULSE 69; TEMP 98
--- NOTE | 2022-05-26 04:58 | NUR ---
No adverse events overnight. Pt alert and oriented, resting in chair. Pt denies pain this morning. She did report some "stomach upset" overnight and requested a sprite zero. Pt reported relief. No chest pain/SOB reported overnight. Pt on 2L at night, room air during day. 1500 fluid restriction enforced overnight. VS stable. Afebrile. 1+ BLE edema remains in the lower right extremity. Pt does not report any questions at this time, will continue to monitor.
[2022-05-26 06:44] LABS: BASO % 0.5 % (0.0-2.0); EOS # 0.3 K/mm3 (0.0-0.7); EOS % 4.8 % (0.0-4.0); GRAN # 3.5 K/mm3 (1.4-6.5); HEMOGLOBIN 11.7 g/dl (12.5-16.0); LYMPH # 1.7 K/mm3 (1.2-3.4); LYMPH % 26.8 % (20.0-51.0); MEAN CELL VOLUME 96 fl (80.0-100.0); MEAN CORPUSCULAR HEMOGLOBIN 30 pg (27-31); MEAN CORPUSCULAR HGB CONC 32 g/dl (33.0-37.0); MEAN PLATELET VOLUME 11.2 fl (7.4-10.4); MONO # 0.8 K/mm3 (0.1-0.6); MONO % 12.6 % (1.7-9.3); PLATELET COUNT 162 K/mm3 (130-400); RED BLOOD COUNT 3.87 M/mm3 (4.10-5.30); REDCELL DISTRIBUTION WIDTH-CV 17.4 % (11.5-14.5)
[2022-05-26 06:55] LABS: INR 1.8 (0.8-3.0); PROTHROMBIN TIME 21.2 SECONDS (9.7-12.8)
[2022-05-26 07:03] LABS: ALBUMIN 3.6 gm/dL (3.4-4.8); CALCIUM 9.7 mg/dL (8.4-10.2); CREATININE, serum 4.85 mg/dL (0.57-1.11); PHOSPHOROUS 3.7 mg/dL (2.3-4.7); POTASSIUM 4.4 mmol/L (3.5-4.5)
[2022-05-26 07:09] VITALS: BP 147/58; PULSE 62; TEMP 97.7
--- NOTE | 2022-05-26 11:18 | NUR ---
PT SEEN AT DIALYSIS. MORNING MEDICATIONS GIVEN BY BESS PATEL. SHIFT ASSESSMENT COMPLETED. PT DENIES ANY PAIN OR NEEDS, DOES REPORT SOME NAUSEA DURING DIALYSIS, ZOFRAN GIVEN PER eMAR. WILL CONTINUE TO MONITOR.
[2022-05-26] MEDS ORDERED: RANEXA 500MG T500 MG PO (11:45)
[2022-05-26 12:10] VITALS: BP 110/78; PULSE 81
--- NOTE | 2022-05-26 14:37 | NUR ---
DISCHARGE INSTRUCTIONS GIVEN. D/C IV. D/C TELE. PT WAITING FOR TO ARRIVE TO D/C HOME.
--- NOTE | 2022-05-26 16:43 | NUR ---
PT ESCORTED OFF OF UNIT WITH PERSONAL BELONGINGS.
== END 2022-05-26 16:43 | disposition home or self-care (01) ==
LOC: COL.ER 23:02 → MEDICAL 05-24 01:26
PROVIDERS: Emergency Medicine; Registered Nurse; ADMIT Internal Medicine Nephrology
DX: R07.9 Chest pain, unspecified (principal); I16.0 Hypertensive urgency; I48.91 Unspecified atrial fibrillation; E11.22 Type 2 diabetes mellitus with diabetic chronic kidney disease; N18.6 End stage renal disease; Z99.2 Dependence on renal dialysis; D63.1 Anemia in chronic kidney disease; Z79.4 Long term (current) use of insulin
CPT/HCPCS: G0378; J0360; J1815; J2270; J2405

== ENCOUNTER 2022-06-01 18:46 | Emergency (ER) | payer MEDICARE, OTHER ==
[~2022-06-01] VITALS: Ht 152.4 cm; Wt 74.5 kg
[2022-06-01 19:06] VITALS: TEMP 97.8
[2022-06-01 19:54] LABS: BASO % 0.5 % (0.0-2.0); EOS # 0.2 K/mm3 (0.0-0.7); EOS % 3.1 % (0.0-4.0); GRAN # 5.2 K/mm3 (1.4-6.5); GRAN % 69.7 % (42.2-75.2); HEMOGLOBIN 11.5 g/dl (12.5-16.0); LYMPH # 1.3 K/mm3 (1.2-3.4); LYMPH % 17.4 % (20.0-51.0); MEAN CELL VOLUME 95 fl (80.0-100.0); MEAN CORPUSCULAR HEMOGLOBIN 30 pg (27-31); MEAN CORPUSCULAR HGB CONC 32 g/dl (33.0-37.0); MEAN PLATELET VOLUME 10.4 fl (7.4-10.4); MONO # 0.7 K/mm3 (0.1-0.6); PLATELET COUNT 171 K/mm3 (130-400); RED BLOOD COUNT 3.85 M/mm3 (4.10-5.30); REDCELL DISTRIBUTION WIDTH-CV 16.7 % (11.5-14.5)
[2022-06-01 19:56] LABS: HEMATOCRIT 36.4 % (37.0-47.0)
[2022-06-01 20:03] LABS: INR 3.3 (0.8-3.0); PROTHROMBIN TIME 38.1 SECONDS (9.7-12.8)
[2022-06-01 20:07] LABS: ALBUMIN 3.9 gm/dL (3.4-4.8); CALCIUM 9.9 mg/dL (8.4-10.2); CREATININE, serum 4.28 mg/dL (0.57-1.11); PHOSPHOROUS 2.1 mg/dL (2.3-4.7); POTASSIUM 3.8 mmol/L (3.5-4.5)
[2022-06-01 20:19] LABS: TROPONIN-I 0.04 ng/mL (0.00-0.033)
[2022-06-01 22:52] VITALS: BP 232/97; PULSE 87
== END 2022-06-01 22:52 | disposition home or self-care (01) ==
LOC: COL.ER 18:46
PROVIDERS: Emergency Medicine
DX: I12.0 Hypertensive chronic kidney disease with stage 5 chronic kidney disease or end stage renal disease (principal); N18.6 End stage renal disease; E87.70 Fluid overload, unspecified; Z95.5 Presence of coronary angioplasty implant and graft; Z28.310 Unvaccinated for COVID-19
CPT/HCPCS: J3010; Q9967

== ENCOUNTER 2022-06-04 15:22 | Emergency (ER) | payer MEDICARE, OTHER ==
[~2022-06-04] VITALS: Ht 152.4 cm; Wt 74.1 kg
[2022-06-04 15:26] VITALS: BP 145/63; TEMP 98.1
[2022-06-04 16:30] VITALS: PULSE 59
== END 2022-06-04 16:30 | disposition home or self-care (01) ==
LOC: COL.ER 15:22
DX: S80.01XA Contusion of right knee, initial encounter (principal); Z28.310 Unvaccinated for COVID-19; W10.9XXA Fall (on) (from) unspecified stairs and steps, initial encounter

== ENCOUNTER 2022-06-06 17:59 | Inpatient (IN) | payer MEDICARE, OTHER ==
[~2022-06-06] VITALS: Ht 152.4 cm; Wt 66.8 kg
[2022-06-06 19:22] VITALS: BP 176/68; PULSE 71; TEMP 98.5
[2022-06-06] MEDS ORDERED: ZOFRAN 4MG T4 MG/TAB PO (19:53)
[2022-06-06] MEDS ORDERED: ZYRTEC 10MG10 MG PO (20:09)
[2022-06-06 20:48] LABS: BASO % 0.5 % (0.0-2.0); EOS # 0.2 K/mm3 (0.0-0.7); GRAN # 3.7 K/mm3 (1.4-6.5); GRAN % 65.2 % (42.2-75.2); HEMOGLOBIN 11.3 g/dl (12.5-16.0); LYMPH # 1.3 K/mm3 (1.2-3.4); LYMPH % 22.4 % (20.0-51.0); MEAN CELL VOLUME 95 fl (80.0-100.0); MEAN CORPUSCULAR HEMOGLOBIN 31 pg (27-31); MEAN CORPUSCULAR HGB CONC 33 g/dl (33.0-37.0); MEAN PLATELET VOLUME 10.1 fl (7.4-10.4); MONO # 0.5 K/mm3 (0.1-0.6); MONO % 8.5 % (1.7-9.3); PLATELET COUNT 202 K/mm3 (130-400); RED BLOOD COUNT 3.65 M/mm3 (4.10-5.30)
[2022-06-06 20:59] LABS: HEMATOCRIT 34.5 % (37.0-47.0)
[2022-06-06 21:08] LABS: ERYTHROCYTE SEDIMENTATION RATE 28 mm/hr (0-30)
[2022-06-06 21:12] LABS: BILIRUBIN,TOTAL 0.7 mg/dL (0.2-1.2); CALCIUM 9.7 mg/dL (8.4-10.2); CREATININE, serum 3.09 mg/dL (0.57-1.11); POTASSIUM 3.5 mmol/L (3.5-4.5); TOTAL PROTEIN 7.1 gm/dL (6.2-8.1)
[2022-06-07] VITALS (7 sets, daily range): BP systolic 133–153; BP diastolic 50–98; PULSE 55–111; TEMP 97.8–98.6
--- NOTE | 2022-06-07 07:23 | NUR ---
PT admitted last evening @1910 direct admit from dialysis for AMS and hallucinations. pt can answer questions appropriately but then be confused as to how long she's been here, why she's here, and various random issues. saline lock placed in AHMET per BESS [place] hand supervisor, pt has AV fistula in left forearm. straight cath performed for UA culture. pt transported to [facility] this am.
[2022-06-07 07:26] LABS: INR 1.4 (0.8-3.0); PROTHROMBIN TIME 16.1 SECONDS (9.7-12.8)
--- NOTE | 2022-06-07 09:05 | NUR ---
PATIENTS HEART RATE CURRENTLY 55. WHILE WATCHING THE MONITOR, IT ALARMED FOR A PAUSE. QRS'S APPEAR TO BE DIFFERENT LENGTHS. HEART RATE ALSO DIPPED TO 47 WHILE WATCHING. NO CUSTOMER SERVICES COORDINATOR ON BOARD. INFORMED WENDY Borrego ABOUT CURRENT SITUATION. SHE INFORMED ME TO WIT ON ADMINISTERING MORNING MEDS, SHE WILL BE HERE TO ASSESS PATIENT SHORTLY.
--- NOTE | 2022-06-07 16:03 | NUR ---
utility service worker met with patient to complete intake and discuss discharge plan. Patient's Angelito ([phone]) present at bedside. Patient reports that she lives at home with her in [place]. She reports to being wheelchair bound 19/06 but is able to transfer herself and complete her ADL's on her own. Patient has oxygen established through [facility] but is not currently on any at this time. Patient see's Sabi Christianson as a PCP and she utilizes [facility] for prescriptions. Patient gets dialysis x4 days a week (M,Tu, Fr & Sat. with a morning chair time). Patient states that her daughter Vandana ([phone]) is her DPOA-HC. She is planning on returning home once medically ready. Discharge plan:Home
--- NOTE | 2022-06-07 18:50 | NUR ---
PATIENT COMPLAINING OF "SEVERE CONSTIPATION.' COLACE, SENNA AND MIRALOX GIVEN. HOWEVER PATIENT STATED SHE HAS NOT "GONE ENOUGH." CALL PLACED TO WENDY. NO ANSWER.
--- NOTE | 2022-06-07 21:06 | NUR ---
TX GIVEN VIA MOUTHPIECE, TOLERATED WELL.
[2022-06-08 00:16] VITALS: BP 127/60; PULSE 68; TEMP 97.9
[2022-06-08 07:00] VITALS: BP 138/55; PULSE 62; TEMP 98.2
--- NOTE | 2022-06-08 09:05 | NUR ---
PT SITTING UP IN BEDSIDE CHAIR. PT A&OX4. PT STATES NO PAIN OR CONCERNS AT THIS TIME. CALL LIGHT IS WITHIN REACH.
[2022-06-08 10:44] LABS: ALBUMIN 3.8 gm/dL (3.4-4.8); CALCIUM 9.6 mg/dL (8.4-10.2); CREATININE, serum 3.64 mg/dL (0.57-1.11); PHOSPHOROUS 1.9 mg/dL (2.3-4.7); POTASSIUM 4.3 mmol/L (3.5-4.5)
[2022-06-08 11:16] LABS: INR 1.2 (0.8-3.0); PROTHROMBIN TIME 13.8 SECONDS (9.7-12.8)
[2022-06-08 11:23] LABS: BASO # 0.1 K/mm3 (0.0-0.2); BASO % 0.5 % (0.0-2.0); EOS # 0.2 K/mm3 (0.0-0.7); EOS % 1.8 % (0.0-4.0); GRAN # 7.9 K/mm3 (1.4-6.5); GRAN % 73.2 % (42.2-75.2); HEMOGLOBIN 10.6 g/dl (12.5-16.0); LYMPH # 1.5 K/mm3 (1.2-3.4); LYMPH % 13.6 % (20.0-51.0); MEAN CELL VOLUME 99 fl (80.0-100.0); MEAN CORPUSCULAR HEMOGLOBIN 31 pg (27-31); MEAN CORPUSCULAR HGB CONC 31 g/dl (33.0-37.0); MEAN PLATELET VOLUME 11.3 fl (7.4-10.4); MONO # 1.1 K/mm3 (0.1-0.6); MONO % 10.5 % (1.7-9.3); PLATELET COUNT 207 K/mm3 (130-400); RED BLOOD COUNT 3.45 M/mm3 (4.10-5.30); REDCELL DISTRIBUTION WIDTH-CV 18.8 % (11.5-14.5)
[2022-06-08 12:00] VITALS: BP 122/59; PULSE 65
[2022-06-08 16:00] VITALS: BP 121/66; PULSE 67
--- NOTE | 2022-06-08 19:18 | NUR ---
TX GIVEN VIA MOUTHPIECE, TOLERATED WELL.
[2022-06-08 20:43] VITALS: BP 129/55; PULSE 66; TEMP 97.5
--- NOTE | 2022-06-08 23:16 | NUR ---
Pt complained of rectum pain and requested prn tylenol. Notified Dr. Monahan who gave a verbal phone order readback for PO tylenol 500 mg q6hr prn. Order placed per verbal phone order.
--- NOTE | 2022-06-08 23:39 | NUR ---
Pt alert and oriented. Follows commands. Resting in chair. Pt reports pain in her rectum from "hard stools". Pt reports she has been having "concrete" consistency stools and reports some minor bleeding from her rectum. Pt requested tylenol for the pain. I called Dr. Monahan and got a verbal phone order readback for prn tylenol. Administered to pt. Pt has a left BKA. No other skin issues noted. 1+ RLE edema noted. Shift assessment performed. Medications administered per orders and education provided. VS stable. Pt afebrile. HR NSR. Enforcing 1250 fluid restriction. Pt tolerating PO. Denies nausea/vomiting/chest pain. No stools yet this evening, but will monitor for stools. Pt independent with wheelchair. Pt planning for dialysis tomorrow. Pt does not report any questions at this time, will continue to monitor.
[2022-06-09 04:54] VITALS: BP 145/64; PULSE 69; TEMP 97.4
--- NOTE | 2022-06-09 05:40 | NUR ---
No adverse events overnight. Pt alert and oriented, sitting up in wheelchair this morning. Continuing to monitor intake and output and enforce a 1250 ml fluid restriction. Tolerating PO. Denies chest pain/SOB/abdominal pain. VS stable. Currently on 2L NC at night. Pt plans for hemodialysis this morning. Pt reports some relief with prn tylenol that was given for rectum pain. Pt does not report any questions at this time, will continue to monitor.
[2022-06-09 07:00] VITALS: BP 138/54; PULSE 66; TEMP 97.6
[2022-06-09 07:44] LABS: BASO # 0.1 K/mm3 (0.0-0.2); BASO % 0.4 % (0.0-2.0); EOS # 0.2 K/mm3 (0.0-0.7); EOS % 1.8 % (0.0-4.0); GRAN # 8.6 K/mm3 (1.4-6.5); GRAN % 75.7 % (42.2-75.2); HEMOGLOBIN 10.6 g/dl (12.5-16.0); LYMPH # 1.5 K/mm3 (1.2-3.4); LYMPH % 12.9 % (20.0-51.0); MEAN CELL VOLUME 96 fl (80.0-100.0); MEAN CORPUSCULAR HEMOGLOBIN 31 pg (27-31); MEAN CORPUSCULAR HGB CONC 32 g/dl (33.0-37.0); MONO % 8.8 % (1.7-9.3); PLATELET COUNT 204 K/mm3 (130-400); RED BLOOD COUNT 3.45 M/mm3 (4.10-5.30); REDCELL DISTRIBUTION WIDTH-CV 18.5 % (11.5-14.5)
[2022-06-09 07:47] LABS: HEMATOCRIT 33.1 % (37.0-47.0)
[2022-06-09 07:59] LABS: INR 1.3 (0.8-3.0); PROTHROMBIN TIME 15.4 SECONDS (9.7-12.8)
[2022-06-09 08:02] LABS: ALBUMIN 3.8 gm/dL (3.4-4.8); CALCIUM 9.7 mg/dL (8.4-10.2); CREATININE, serum 4.69 mg/dL (0.57-1.11); PHOSPHOROUS 2.5 mg/dL (2.3-4.7); POTASSIUM 4.4 mmol/L (3.5-4.5)
--- NOTE | 2022-06-09 08:25 | NUR ---
PT SITTING UP IN CHAIR. PT STATES NO NEEDS OR CONCERNS AT THIS TIME. PT STATES "IT IS MY DIALYSIS DAY SO I AM JUST WAITING AROUND UNTIL I GO FOR THAT." CALL LIGHT IS WITHIN REACH.
--- NOTE | 2022-06-09 09:48 | NUR ---
Initial visit; Patient thanked Senior Mainframe Programmer Analyst for looking in on her. Patient in a lot of pain. She and Senior Mainframe Programmer Analyst discussed the pain and Senior Mainframe Programmer Analyst offered prayer and help from physician and testing.
[2022-06-09 12:00] VITALS: BP 109/79; PULSE 57
--- NOTE | 2022-06-09 12:14 | NUR ---
PT OFF FLOOR TO DIALYSIS
--- NOTE | 2022-06-09 15:45 | NUR ---
PT RETURNED TO FLOOR FROM DIALYSIS. INFORMED PT OF ENEMA AND PT STATES THAT"I AM JUST SO TIRED FROM DIALYSIS, I WOULD LIKE TO WAIT A LITTLE BIT TO DO IT."
[2022-06-09 16:00] VITALS: BP 111/66; PULSE 75
--- NOTE | 2022-06-09 17:00 | NUR ---
ATTEMPTED TO GIVE PT ENEMA. PT STATES THAT SHE WOULD LIKE TO EAT DINNER AND VISIT WITH HER FIRST BEFORE IT IS DONE.
--- NOTE | 2022-06-09 18:27 | NUR ---
PT SITTING UP IN CHAIR ON ROOM AIR. ASKED PT IF SHE WOULD LIKE TO DO ENEMA AND SHE STATES THAT SHE WOULD LIKE TO HAVE PAIN MEDICATION BEFORE IT IS DONE. PT WAS GIVEN PRN TYLENOL. PT STATES "I WANT TO WAIT AND LET THIS KICK IN A LITTLE BIT AND THEN I WILL BE READY FOR THE ENEMA."
--- NOTE | 2022-06-09 20:41 | NUR ---
PT UNAVAILABLE AT THIS TIME.
[2022-06-09 21:42] VITALS: BP 140/65; PULSE 70; TEMP 97.7
[2022-06-09 23:24] VITALS: BP 120/60; PULSE 99; TEMP 98.2
--- NOTE | 2022-06-10 03:49 | NUR ---
Pt alert and oriented, resting up in chair, follows commands. Reports rectal soreness. Tap water enema performed per physician orders. Pt took in the majority of the 1L bag. Pt had a small amount of loose brown stool in the BSC immediately after the enema was performed, but has had no other BM since. No blood noted in the stool. Shift assessment performed. Medications administered per orders and education provided. VS stable. 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 Ambulates well with standby assist. AV fistula noted in left arm. Bruit auscultated and thrill palpated. Pt does not report any questions at this time, will continue to monitor.
[2022-06-10 04:02] VITALS: BP 137/55; PULSE 74; TEMP 98.6
--- NOTE | 2022-06-10 06:13 | NUR ---
No adverse events overnight. Pt alert and oriented. Pt does appear to be forgetful. She asked me this morning "do they do dialysis in this hospital?" despite her having dialysis here in the hospital multiple times this week. The pt was also persistent that she had a stool overnight. The pt had a very small loose brown stool for me immediately after the enema and the assistant professor of nursing said the pt did not have any stools for her. I don't believe the pt has had any larger stools overnight post-enema. The pt stated to me this morning that she thinks she will need another enema. Pt reports pain in her left leg where the BKA is. Tolerating PO overnight. Denies dizziness/lightheadedness. VS stable. On 2L NC at night and room air during the day. Pt is resting up in the chair and does not report any questions at this time, will continue to monitor.
[2022-06-10 06:53] LABS: BASO % 0.4 % (0.0-2.0); EOS # 0.2 K/mm3 (0.0-0.7); EOS % 1.8 % (0.0-4.0); GRAN # 8.2 K/mm3 (1.4-6.5); GRAN % 76.1 % (42.2-75.2); HEMOGLOBIN 10.4 g/dl (12.5-16.0); LYMPH # 1.2 K/mm3 (1.2-3.4); LYMPH % 11.1 % (20.0-51.0); MEAN CELL VOLUME 98 fl (80.0-100.0); MEAN CORPUSCULAR HEMOGLOBIN 31 pg (27-31); MEAN CORPUSCULAR HGB CONC 32 g/dl (33.0-37.0); MONO # 1.1 K/mm3 (0.1-0.6); PLATELET COUNT 199 K/mm3 (130-400); RED BLOOD COUNT 3.33 M/mm3 (4.10-5.30)
[2022-06-10 07:02] LABS: HEMATOCRIT 32.5 % (37.0-47.0)
[2022-06-10 07:04] LABS: ALBUMIN 3.7 gm/dL (3.4-4.8); CALCIUM 9.9 mg/dL (8.4-10.2); CREATININE, serum 3.56 mg/dL (0.57-1.11); PHOSPHOROUS 2.5 mg/dL (2.3-4.7); POTASSIUM 4.2 mmol/L (3.5-4.5)
[2022-06-10 07:13] LABS: INR 2.1 (0.8-3.0); PROTHROMBIN TIME 24.3 SECONDS (9.7-12.8)
[2022-06-10 07:23] VITALS: BP 150/54; PULSE 77; TEMP 98.1
--- NOTE | 2022-06-10 10:23 | NUR ---
VERBAL ORDER FOR TAP WATER ENEMA. STARTED AT THIS TIME, WILL MONITOR STOOL OUTPUT
[2022-06-10 11:40] VITALS: BP 129/46; PULSE 75; TEMP 97.8
[2022-06-10] MEDS ORDERED: CATAPRES 0.1MG0.1 MG PO (13:32)
[2022-06-10] MEDS ORDERED: KEPPRA 500MG500 MG PO (13:36)
[2022-06-10] MEDS ORDERED: REGLAN 5MG T5 MG/TAB PO (13:50)
[2022-06-10] MEDS ORDERED: COUMADIN 5MG5 MG/TAB PO (13:51)
== END 2022-06-10 14:45 | disposition home or self-care (01) | DRG 70 ==
LOC: MEDICAL 17:59
PROVIDERS: ADMIT Internal Medicine Nephrology
PROC: 5A1D70Z Performance of Urinary Filtration, Intermittent, Less than 6 Hours Per Day (ICD-10-PCS; principal; 2022-06-10)
DX: G93.41 Metabolic encephalopathy (principal); N18.6 End stage renal disease; I12.0 Hypertensive chronic kidney disease with stage 5 chronic kidney disease or end stage renal disease; N25.81 Secondary hyperparathyroidism of renal origin; E11.22 Type 2 diabetes mellitus with diabetic chronic kidney disease; Z99.2 Dependence on renal dialysis; I48.91 Unspecified atrial fibrillation; Z79.01 Long term (current) use of anticoagulants; F01.50 Vascular dementia, unspecified severity, without behavioral disturbance, psychotic disturbance, mood disturbance, and anxiety; K56.41 Fecal impaction; D63.1 Anemia in chronic kidney disease; G40.909 Epilepsy, unspecified, not intractable, without status epilepticus; J45.909 Unspecified asthma, uncomplicated; E11.319 Type 2 diabetes mellitus with unspecified diabetic retinopathy without macular edema; E11.40 Type 2 diabetes mellitus with diabetic neuropathy, unspecified; Z95.1 Presence of aortocoronary bypass graft; I25.10 Atherosclerotic heart disease of native coronary artery without angina pectoris; Z89.512 Acquired absence of left leg below knee
CPT/HCPCS: J1815; J7030; Q5105

== ENCOUNTER 2022-06-20 17:58 | Emergency (ER) | payer MEDICARE, OTHER ==
[~2022-06-20] VITALS: Ht 152.4 cm; Wt 73.6 kg
[~2022-06-20 17:58] MED LIST changes: +KEPPRA 500MG500 MG PO; +REGLAN 5MG T5 MG/TAB PO
[2022-06-20 18:03] VITALS: TEMP 97.5
[2022-06-20 18:47] LABS: BASO % 0.3 % (0.0-2.0); EOS # 0.2 K/mm3 (0.0-0.7); EOS % 2.3 % (0.0-4.0); LYMPH # 1.1 K/mm3 (1.2-3.4); LYMPH % 12.3 % (20.0-51.0); MEAN CELL VOLUME 99 fl (80.0-100.0); MEAN CORPUSCULAR HEMOGLOBIN 32 pg (27-31); MEAN CORPUSCULAR HGB CONC 32 g/dl (33.0-37.0); MEAN PLATELET VOLUME 10.4 fl (7.4-10.4); MONO # 0.8 K/mm3 (0.1-0.6); MONO % 8.2 % (1.7-9.3); PLATELET COUNT 237 K/mm3 (130-400); RED BLOOD COUNT 3.44 M/mm3 (4.10-5.30); REDCELL DISTRIBUTION WIDTH-CV 17.2 % (11.5-14.5)
[2022-06-20 18:49] LABS: INR 1.9 (0.8-3.0); PROTHROMBIN TIME 22.1 SECONDS (9.7-12.8)
[2022-06-20 18:50] LABS: HEMATOCRIT 34.1 % (37.0-47.0)
[2022-06-20 18:59] LABS: ALBUMIN 3.4 gm/dL (3.4-4.8); BILIRUBIN,TOTAL 0.3 mg/dL (0.2-1.2); CALCIUM 9.7 mg/dL (8.4-10.2); CREATININE, serum 3.45 mg/dL (0.57-1.11); POTASSIUM 4.1 mmol/L (3.5-4.5); TOTAL PROTEIN 7.6 gm/dL (6.2-8.1)
[2022-06-20 19:05] LABS: TROPONIN-I 0.025 ng/mL (0.00-0.033)
[2022-06-20 19:49] VITALS: BP 171/76; PULSE 85
== END 2022-06-20 19:49 | disposition home or self-care (01) ==
LOC: COL.ER 17:58
PROVIDERS: Emergency Medicine
DX: I12.0 Hypertensive chronic kidney disease with stage 5 chronic kidney disease or end stage renal disease (principal); E11.22 Type 2 diabetes mellitus with diabetic chronic kidney disease; N18.6 End stage renal disease; Z99.2 Dependence on renal dialysis; Z95.5 Presence of coronary angioplasty implant and graft; Z28.310 Unvaccinated for COVID-19
CPT/HCPCS: J0360

== ENCOUNTER 2022-07-17 20:40 | Emergency (ER) | payer MEDICARE, OTHER ==
[~2022-07-17] VITALS: Ht 152.4 cm; Wt 64.0 kg
[2022-07-17 20:54] VITALS: TEMP 97.8
[2022-07-17 21:22] LABS: BASO % 0.6 % (0.0-2.0); EOS # 0.4 K/mm3 (0.0-0.7); EOS % 5.5 % (0.0-4.0); GRAN # 4.4 K/mm3 (1.4-6.5); GRAN % 64.1 % (42.2-75.2); LYMPH # 1.4 K/mm3 (1.2-3.4); LYMPH % 20.1 % (20.0-51.0); MEAN CELL VOLUME 104 fl (80.0-100.0); MEAN CORPUSCULAR HGB CONC 32 g/dl (33.0-37.0); MEAN PLATELET VOLUME 10.3 fl (7.4-10.4); MONO # 0.6 K/mm3 (0.1-0.6); MONO % 9.3 % (1.7-9.3); PLATELET COUNT 177 K/mm3 (130-400); RED BLOOD COUNT 2.98 M/mm3 (4.10-5.30); REDCELL DISTRIBUTION WIDTH-CV 13.7 % (11.5-14.5)
[2022-07-17 21:24] LABS: HEMOGLOBIN 9.8 g/dl (12.5-16.0); MEAN CORPUSCULAR HEMOGLOBIN 33 pg (27-31)
[2022-07-17 21:27] LABS: INR 1.8 (0.8-3.0); PROTHROMBIN TIME 20.9 SECONDS (9.7-12.8)
[2022-07-17 21:30] LABS: PARTIAL THROMBOPLASTIN TIME 35.6 SECONDS (26.0-37.0)
[2022-07-17 21:38] LABS: ALBUMIN 3.2 gm/dL (3.4-4.8); BILIRUBIN,TOTAL 0.4 mg/dL (0.2-1.2); CREATININE, serum 4.53 mg/dL (0.57-1.11); POTASSIUM 4.8 mmol/L (3.5-4.5); TOTAL PROTEIN 6.4 gm/dL (6.2-8.1)
[2022-07-17 21:44] LABS: TROPONIN-I 0.026 ng/mL (0.00-0.033)
[2022-07-17] MEDS ORDERED: COUMADIN4 MG (22:17)
[2022-07-17] MEDS ORDERED: COUMADIN 5MG5 MG/TAB (22:18)
[2022-07-17 23:57] VITALS: BP 225/97; PULSE 70
== END 2022-07-18 00:06 | disposition home or self-care (01) ==
LOC: COL.ER 20:40
PROVIDERS: Family Medicine
DX: I12.0 Hypertensive chronic kidney disease with stage 5 chronic kidney disease or end stage renal disease (principal); E11.22 Type 2 diabetes mellitus with diabetic chronic kidney disease; N18.6 End stage renal disease; D63.1 Anemia in chronic kidney disease; E11.42 Type 2 diabetes mellitus with diabetic polyneuropathy; Z99.2 Dependence on renal dialysis; Z28.310 Unvaccinated for COVID-19
CPT/HCPCS: J1200; J2270

== ENCOUNTER 2022-07-21 10:32 | Inpatient (IN) | payer MEDICARE, OTHER ==
[~2022-07-21] VITALS: Ht 152.4 cm; Wt 70.1 kg
[~2022-07-21 10:32] MED LIST changes: +COUMADIN 5MG5 MG/TAB; +COUMADIN4 MG
[2022-07-21 11:35] LABS: COLLECTION METHOD CATHETER
[2022-07-21 11:49] LABS: URINE APPEARANCE Hazy (CLEAR/HAZY); URINE COLOR Yellow (YELLOW)
[2022-07-21 11:50] LABS: PH 8.5 (5.0-8.5); URINE BLOOD 1+ (NEGATIVE); URINE GLUCOSE 2+ (NEGATIVE); URINE KETONE TRACE (NEGATIVE); URINE NITRATE Negative (NEGATIVE); URINE PROTEIN(semi-quant) 3+ (NEGATIVE); URINE UROBILINOGEN 0.2 E.U/dL (0.2-1.0)
[2022-07-21 11:51] LABS: INR 2.4 (0.8-3.0); PROTHROMBIN TIME 27.9 SECONDS (9.7-12.8)
[2022-07-21 11:52] LABS: SQUAMOUS EPITHELIAL 0-2 /hpf (0-10); URINE BACTERIA Rare /hpf (NONE SEEN)
[2022-07-21 12:01] LABS: BASO % 0.5 % (0.0-2.0); EOS # 0.3 K/mm3 (0.0-0.7); EOS % 4.5 % (0.0-4.0); GRAN # 4.2 K/mm3 (1.4-6.5); GRAN % 66.6 % (42.2-75.2); HEMOGLOBIN 10.3 g/dl (12.5-16.0); LYMPH # 1.1 K/mm3 (1.2-3.4); LYMPH % 18.2 % (20.0-51.0); MEAN CELL VOLUME 101 fl (80.0-100.0); MEAN CORPUSCULAR HEMOGLOBIN 32 pg (27-31); MEAN CORPUSCULAR HGB CONC 32 g/dl (33.0-37.0); MEAN PLATELET VOLUME 10.3 fl (7.4-10.4); MONO # 0.6 K/mm3 (0.1-0.6); MONO % 9.4 % (1.7-9.3); PLATELET COUNT 176 K/mm3 (130-400); RED BLOOD COUNT 3.18 M/mm3 (4.10-5.30); REDCELL DISTRIBUTION WIDTH-CV 13.3 % (11.5-14.5)
[2022-07-21 12:02] LABS: ALBUMIN 3.4 gm/dL (3.4-4.8); BILIRUBIN,TOTAL 0.4 mg/dL (0.2-1.2); C-REACTIVE PROTEIN 0.9 mg/dL (0.00-0.50); CALCIUM 9.4 mg/dL (8.4-10.2); CREATININE, serum 6.48 mg/dL (0.57-1.11); TOTAL PROTEIN 6.7 gm/dL (6.2-8.1)
[2022-07-21 12:09] LABS: HEMATOCRIT 32.2 % (37.0-47.0); TROPONIN-I 0.033 ng/mL (0.00-0.033)
[2022-07-21 16:17] VITALS: BP 149/110; BP 202/72; PULSE 69; TEMP 98
[2022-07-21 16:54] VITALS: BP 168/78
[2022-07-21 20:11] VITALS: BP 229/93; PULSE 73; TEMP 97.3
--- NOTE | 2022-07-21 23:52 | NUR ---
patient complaining of frontal headache/ denies nausea or vomiting/pupils equal and reactive at 4 mm/ administered meds for b/p and headache will continue to observe vitals at this time are recorded
[2022-07-21 23:55] VITALS: BP 194/67; PULSE 61; TEMP 98.2
[2022-07-22] VITALS (8 sets, daily range): BP systolic 142–200; BP diastolic 58–99; PULSE 66–97; TEMP 97.8–98.2
[2022-07-22 06:11] LABS: BASO % 0.2 % (0.0-2.0); EOS # 0.4 K/mm3 (0.0-0.7); EOS % 4.4 % (0.0-4.0); GRAN # 5.9 K/mm3 (1.4-6.5); GRAN % 71.3 % (42.2-75.2); HEMOGLOBIN 10.4 g/dl (12.5-16.0); LYMPH # 1.2 K/mm3 (1.2-3.4); LYMPH % 14.7 % (20.0-51.0); MEAN CELL VOLUME 102 fl (80.0-100.0); MEAN CORPUSCULAR HEMOGLOBIN 32 pg (27-31); MEAN CORPUSCULAR HGB CONC 31 g/dl (33.0-37.0); MEAN PLATELET VOLUME 10.3 fl (7.4-10.4); MONO # 0.7 K/mm3 (0.1-0.6); MONO % 8.9 % (1.7-9.3); PLATELET COUNT 171 K/mm3 (130-400); RED BLOOD COUNT 3.27 M/mm3 (4.10-5.30); REDCELL DISTRIBUTION WIDTH-CV 13.5 % (11.5-14.5)
[2022-07-22 06:22] LABS: HEMATOCRIT 33.4 % (37.0-47.0)
[2022-07-22 06:36] LABS: ALBUMIN 3.1 gm/dL (3.4-4.8); CALCIUM 9.1 mg/dL (8.4-10.2); CREATININE, serum 7.12 mg/dL (0.57-1.11); PHOSPHOROUS 4.4 mg/dL (2.3-4.7); POTASSIUM 4.9 mmol/L (3.5-4.5)
--- NOTE | 2022-07-22 07:26 | NUR ---
sanitation worker hosing machinery met with patient and spouse in the emergency room as spouse presents and states he can no longer care for patient at home. Spouse states that patient was staying at daughter's home and she brought patient back to his house. Spouse presents with patient and has her belongings in his car. Worker provides Medicare.gov share information on nursing homes. Worker stressed that patient will need a payer source. Spouse states they [place] farm and have trusts established, however, do not have money to pay for patient to be in a alf. Worker encouraged spouse and daughter to seek legal advise on possible division of assets or medicaid application. Spouse verbalizes understanding of this. Elsa with Dr Monahan questions if patient qualifies for skilled care due to recent inpatient stay in the last 30 days. Worker confirms that patient has not been in the hospital for inpatient within the [address] Monahan admits patient to INpatient status. Case management will continue to work with patient and spouse towards discharge planning.
--- NOTE | 2022-07-22 07:38 | NUR ---
CALLED NURSE TO LET HER KNOW OUR EEG MACHINE IS DOWN AND EEG WILL NOT BE ABLE TO BE PERFORMED. SHE STATED SHE ALREADY KNEW AND THE DRS HAVE ALSO BE LET AWARE.
--- NOTE | 2022-07-22 09:11 | NUR ---
CALLED [facility] AND [facility] TO INFORM THEM THAT THE EEG MACHINE IS DOWN AND WILL NOT BE AVAILABLE UNTIL NOV. THE EEG SLEEP ORDER CAN NOT BE COMPLETED, DRS ALL AWARE
--- NOTE | 2022-07-22 13:41 | NUR ---
PT PULLED IV OUT CALLED WENDY FRAIRE TO NOTIFY AND SEE IF WE NEED IV ACCESS, WENDY SAID SHE WOULD CHECK WITH [facility] AND LET RN KNOW, WENDY SAID IT SHOULD BE OK, AWAITING CALL BACK
--- NOTE | 2022-07-22 15:22 | NUR ---
Housekeeping Associate met with patient's family at bedside to discuss placement options. Patient's Angelito, daughter Vandana, and son in law Gordon (ph#[phone]) are all at bedside. Family wants to continue dialysis, at least until patient's brother arrives from out of state. Family wants referrals sent to all three [facility] as well as [facility]. SW advised [facility] may not be able to accept due to patient's dialysis. Family verbalized understanding. ROD faxed referrals to [facility], [facility], and [facility]. Discharge Plan: SNF
[2022-07-23 03:35] VITALS: BP 188/80; PULSE 89; TEMP 97.8
--- NOTE | 2022-07-23 05:40 | NUR ---
SHIFT SUMMARY: PATIENT RESTED QUIETLY THIS SHIFT. PATIENT LOOKS AT THIS NURSE AND FOLLOWS SOME COMMANDS WITH ASKING HER TO TAKE A DRINK AND TAKE MEDICATION. PATIENT NOTED TO NEED REINFORCEMENT TO SWALLOW LIQUID. PATIENT UNABLE TO ANSWER QUESTIONS OR MAKE NEEDS KNOWN. PATIENT NOTED TO BE MOANING AND RESTLESS AND PATIENT GIVEN PRN TYLENOL WHICH APPEARED TO BE EFFECTIVE PATIENT RESTLESSNESS DECREASED. PATIENT HYPERTENSIVE THIS SHIFT DESPITE GIVING SCHEDULED ANTI HYPERTENSIVE AND RECEIVING 2 DOSES OF PRN HYDRALAZINE. PATIENT IV RESTARTED PER ASSISTANT BASKETBALL COACH.
[2022-07-23 07:13] VITALS: BP 191/75; PULSE 84; TEMP 97.6
--- NOTE | 2022-07-23 08:54 | NUR ---
RESPIRATORY MEDICATIONS INCLUDING INHALER AND NEBULIZERS HAVE BEEN UNSUCCESSFUL DURING PT'S CURENT STAY. PT IS UNABLE TO FOLLOW INSRUCTIONS AND PERFORM INHALATION NEEDED FOR DPI INHALER AND PULLS NEBULIZER AWAY FROM FACE. ATTEMPTS AT BLOWBY MEDICATION ADMINISTRATION, HOWEVER PT BECOMES AGITATED.
--- NOTE | 2022-07-23 10:18 | NUR ---
PT NON VERBAL THIS AM WITH MINIMAL RESPONSE TO VERBAL STIMULI. SHIFT ASSESSMENT PERFORMED. GENERALIZED TWITCHING NOTED. HAND KIER DRIER INEQUAL AND WEAK PUPIL DILATION SLUGGISH. PT ATE VERY LITTLE FOOD THIS AM, SPITTING MOST OF IT OUT, HOLDING PO MEDS UNTIL MENTATION INCREASES. CALL LIGHT WITHIN REACH.
[2022-07-23 11:41] VITALS: BP 157/84; PULSE 87; TEMP 97.6
[2022-07-23 12:03] LABS: BASO % 0.3 % (0.0-2.0); EOS # 0.3 K/mm3 (0.0-0.7); EOS % 3.9 % (0.0-4.0); GRAN # 4.4 K/mm3 (1.4-6.5); GRAN % 70.1 % (42.2-75.2); HEMOGLOBIN 10.3 g/dl (12.5-16.0); LYMPH % 15.8 % (20.0-51.0); MEAN CELL VOLUME 101 fl (80.0-100.0); MEAN CORPUSCULAR HEMOGLOBIN 32 pg (27-31); MEAN CORPUSCULAR HGB CONC 32 g/dl (33.0-37.0); MEAN PLATELET VOLUME 10.2 fl (7.4-10.4); MONO # 0.6 K/mm3 (0.1-0.6); MONO % 9.6 % (1.7-9.3); PLATELET COUNT 174 K/mm3 (130-400); REDCELL DISTRIBUTION WIDTH-CV 13.6 % (11.5-14.5)
--- NOTE | 2022-07-23 12:11 | NUR ---
[facility] contacted for potential transfer at the request of Dr. Monahan. Spoke with BESS Duarte with the transfer center. Requested medical records will be faxed.
[2022-07-23 12:14] LABS: ALBUMIN 3.2 gm/dL (3.4-4.8); CALCIUM 9.3 mg/dL (8.4-10.2); CREATININE, serum 8.32 mg/dL (0.57-1.11); PHOSPHOROUS 5.3 mg/dL (2.3-4.7); POTASSIUM 5.4 mmol/L (3.5-4.5)
[2022-07-23 12:21] LABS: HEMATOCRIT 32.3 % (37.0-47.0)
[2022-07-23 12:41] LABS: PROTHROMBIN TIME 60.5 SECONDS (9.7-12.8)
[2022-07-23 12:42] LABS: INR 5.2 (0.8-3.0)
[2022-07-23] MEDS ORDERED: LEVAQUIN 2250 MG/TAB PO (13:57)
[2022-07-23] MEDS ORDERED: KEPPRA 500MG500 MG PO (13:58)
--- NOTE | 2022-07-23 15:22 | NUR ---
Patient transfered by EMS to [facility]. Family with the patient. Personal belongings with the patient. Report called to BESS PEREZ. No further needs expressed.
== END 2022-07-23 15:23 | disposition short-term general hospital (02) | DRG 100 ==
LOC: COL.ER 10:32 → MEDICAL 14:59
PROVIDERS: Nurse Practitioner; Registered Nurse; ADMIT Internal Medicine Nephrology
PROC: 5A1D70Z Performance of Urinary Filtration, Intermittent, Less than 6 Hours Per Day (ICD-10-PCS; principal; 2022-07-23)
DX: G40.901 Epilepsy, unspecified, not intractable, with status epilepticus (principal); N18.6 End stage renal disease; I12.0 Hypertensive chronic kidney disease with stage 5 chronic kidney disease or end stage renal disease; G93.40 Encephalopathy, unspecified; I24.8 Other forms of acute ischemic heart disease; Z99.2 Dependence on renal dialysis; J45.909 Unspecified asthma, uncomplicated; E78.5 Hyperlipidemia, unspecified; I48.91 Unspecified atrial fibrillation; M10.9 Gout, unspecified; K29.50 Unspecified chronic gastritis without bleeding; E11.21 Type 2 diabetes mellitus with diabetic nephropathy; E11.319 Type 2 diabetes mellitus with unspecified diabetic retinopathy without macular edema; E11.40 Type 2 diabetes mellitus with diabetic neuropathy, unspecified; D63.1 Anemia in chronic kidney disease; E11.22 Type 2 diabetes mellitus with diabetic chronic kidney disease; I25.10 Atherosclerotic heart disease of native coronary artery without angina pectoris; J01.01 Acute recurrent maxillary sinusitis; J32.0 Chronic maxillary sinusitis; I16.0 Hypertensive urgency; K56.41 Fecal impaction; I15.0 Renovascular hypertension; D72.829 Elevated white blood cell count, unspecified; K05.6 Periodontal disease, unspecified; F03.90 Unspecified dementia, unspecified severity, without behavioral disturbance, psychotic disturbance, mood disturbance, and anxiety; Z86.73 Personal history of transient ischemic attack (TIA), and cerebral infarction without residual deficits; Z89.512 Acquired absence of left leg below knee; Z95.5 Presence of coronary angioplasty implant and graft; Z88.6 Allergy status to analgesic agent; Z89.511 Acquired absence of right leg below knee; Z88.1 Allergy status to other antibiotic agents; Z91.012 Allergy to eggs; Z88.5 Allergy status to narcotic agent; Z88.0 Allergy status to penicillin; Z90.5 Acquired absence of kidney; Z79.01 Long term (current) use of anticoagulants; Z79.4 Long term (current) use of insulin; Z88.2 Allergy status to sulfonamides; Z88.8 Allergy status to other drugs, medicaments and biological substances; Z91.048 Other nonmedicinal substance allergy status; Z23 Encounter for immunization
CPT/HCPCS: J0696; J1200; J1644; J1815; J2270; J3360; J3430; J7030; Q5105

== ENCOUNTER 2022-08-02 12:55 | Emergency (ER) | payer MEDICARE, OTHER ==
[~2022-08-02] VITALS: Ht 152.4 cm; Wt 72.7 kg
[~2022-08-02 12:55] MED LIST changes: +LEVAQUIN 2250 MG/TAB PO
[2022-08-02 12:57] VITALS: TEMP 97.9
[2022-08-02 13:36] LABS: BASO % 0.7 % (0.0-2.0); EOS # 0.3 K/mm3 (0.0-0.7); EOS % 5.7 % (0.0-4.0); GRAN # 2.9 K/mm3 (1.4-6.5); GRAN % 65.5 % (42.2-75.2); LYMPH # 0.8 K/mm3 (1.2-3.4); LYMPH % 19.2 % (20.0-51.0); MEAN CELL VOLUME 101 fl (80.0-100.0); MEAN CORPUSCULAR HGB CONC 32 g/dl (33.0-37.0); MEAN PLATELET VOLUME 10.3 fl (7.4-10.4); MONO # 0.4 K/mm3 (0.1-0.6); MONO % 8.7 % (1.7-9.3); PLATELET COUNT 185 K/mm3 (130-400); RED BLOOD COUNT 2.94 M/mm3 (4.10-5.30)
[2022-08-02 13:41] LABS: HEMATOCRIT 29.6 % (37.0-47.0); HEMOGLOBIN 9.5 g/dl (12.5-16.0); MEAN CORPUSCULAR HEMOGLOBIN 32 pg (27-31)
[2022-08-02 13:53] LABS: ALBUMIN 3.6 gm/dL (3.4-4.8); BILIRUBIN,TOTAL 0.5 mg/dL (0.2-1.2); CALCIUM 9.7 mg/dL (8.4-10.2); CREATININE, serum 2.97 mg/dL (0.57-1.11); TOTAL PROTEIN 6.5 gm/dL (6.2-8.1)
[2022-08-02 14:30] LABS: INR 3.4 (0.8-3.0); PROTHROMBIN TIME 39.3 SECONDS (9.7-12.8)
[2022-08-02 15:00] VITALS: BP 187/82; PULSE 66
== END 2022-08-02 15:00 | disposition home or self-care (01) ==
LOC: COL.ER 12:55
PROVIDERS: Nurse Practitioner
DX: M79.651 Pain in right thigh (principal); E11.9 Type 2 diabetes mellitus without complications; Z28.310 Unvaccinated for COVID-19; Z79.01 Long term (current) use of anticoagulants; Z79.4 Long term (current) use of insulin

== ENCOUNTER → 2022-08-03 | Outpatient (CLI) | payer MEDICARE, OTHER | LOC: COL.VAS 08:38 | DX: M79.652 Pain in left thigh (principal) ==

== ENCOUNTER 2022-09-15 15:51 | Emergency (ER) | payer MEDICARE, OTHER ==
[~2022-09-15] VITALS: Ht 152.4 cm; Wt 72.7 kg
[2022-09-15 16:05] VITALS: TEMP 97.6
[2022-09-15 19:55] VITALS: BP 204/79; PULSE 80
== END 2022-09-15 19:57 | disposition home or self-care (01) ==
LOC: COL.ER 15:51
DX: S16.1XXA Strain of muscle, fascia and tendon at neck level, initial encounter (principal); S30.0XXA Contusion of lower back and pelvis, initial encounter; S09.90XA Unspecified injury of head, initial encounter; M25.561 Pain in right knee; I10 Essential (primary) hypertension; Z28.310 Unvaccinated for COVID-19; W18.39XA Other fall on same level, initial encounter